=== PATIENT | male | born 1960 | race Caucasian/White ===

== ENCOUNTER → 2019-07-20 08:59 | Outpatient (BNVA) | payer MEDICARE, OTHER, SELFPAY | PROVIDERS: Family Provider Internal Medicine; PCP Internal Medicine; Visit Provider Nurse Practitioner | DX: F33.0 Major depressive disorder, recurrent, mild (principal); F41.1 Generalized anxiety disorder; F51.11 Primary hypersomnia | CPT/HCPCS: 99214 ==

== ENCOUNTER → 2019-08-28 09:33 | Outpatient (BNVA) | payer MEDICARE, OTHER, SELFPAY | PROVIDERS: Family Provider Internal Medicine; PCP Internal Medicine; Visit Provider Nurse Practitioner | DX: F41.1 Generalized anxiety disorder (principal); F33.0 Major depressive disorder, recurrent, mild | CPT/HCPCS: 99213 ==

== ENCOUNTER 2019-10-24 11:19 | Emergency (ER) | payer MEDICARE, OTHER, SELFPAY ==
[2019-10-24 11:22] VITALS: PULSE 78; RESP 24; TEMP 36.7; O2SAT 95; BMI 31.9
--- NOTE | 2019-10-24 11:39 | XR_ITS ---
WS: [id number] XR chest 1V portable [id number] REASON FOR EXAM: back pain, cough FINDINGS: The heart and mediastinal interfaces were normal. The lung chaney are well aerated. There is no pneumonia, pleural effusion, pulmonary edema, no pneumo thorax. The hilum and apices are normal. No osseous abnormalities. XR/XR chest 1V portable [id number] IMPRESSION: Negative chest for active pathology.
--- NOTE | 2019-10-24 11:40 | XR_ITS ---
WS: [id number] XR thoracic spine 3V* [id number] REASON FOR EXAM: back pain FINDINGS: Degenerates spurring throughout the thoracic spine. The disc spaces and vertebral bodies are normal. The lamina, pedicle, spinous processes were normal. XR/XR thoracic spine 3V* [id number] IMPRESSION: Osteoarthritic changes
--- NOTE | 2019-10-24 11:41 | ECG_ITS ---
Measurements Intervals Ruth Rate: 75 P: 55 PA: 188 QRS: 55 QRSD: 102 T: 56 QT: 355 QTc: 397 SINUS RHYTHM Poor R wave progression Compared to ECG 11/02/2018 08:34:56 No significant changes Electronically Signed On 10-24-2019 17:14:37 CDT by Rosalia Claudio M.D. [email or web address]
--- NOTE | 2019-10-24 11:42 | ED_ITS ---
HPI - General Adult General: Chief complaint: General Medical Stated complaint: SOB Time Seen by Provider: 10/24/19 11:24 History of Present Illness: HPI narrative: Mr. Ross is a pleasant gentleman that complains of back pain with deep inspiration. Thinks he may be did something to his back. Said he has had a cough has a history of COPD denies fevers chills nausea or vomiting. Patient says this is gone on for about 2 days and has no improvement MD complaint: Thoracic back pain Onset (ago): day(s) Location: back Radiation: non-radiation Severity: moderate Severity scale (1-10): 6 Quality: burning, stabbing and aching Pain Consistency: intermittent Relieving factors: immobilization Exacerbating factors: other (Breathing) Associated symptoms: Reports cough; Deny chest pain, dyspnea, fevers/chills, headache(s), nausea, rash or vomiting Review of Systems Const: Denies: fever, chills or body aches Eyes: Denies: change in vision or blurry vision ENMT: Denies: throat pain or nasal congestion Card: Denies: chest pain Resp: Reports: non-productive cough and pain on inspiration; Denies: shortness of breath or productive cough GI: Denies: abdominal pain, nausea or vomiting : Denies: difficulty urinating Musc: Reports: back pain; Denies: extremity pain Skin/Breast: Denies: rash Neuro: Denies: headache Psych: Denies: anxiety or depression Endy/Lymph: Denies: easy bruising PFSH ED PFSH: Social History (Updated 08/28/19 @ 09:44 by Chelo Almaraz LPN) Smoking and tobacco status: current some day smoker cigarettes Smoking risk assessment/counseling performed?: Yes Tobacco counseling given: counseling >3 minutes Alcohol intake: former History of recent travel: No Current gender identity: Male Physical Exam Const: COMMON NORMALS: no apparent distress, average body habitus and oriented x3 HENMT: COMMON NORMALS: normocephalic HEAD & SCALP: normal to inspection and normocephalic FACE & SINUS: normal facial exam Eye: COMMON NORMALS: conjunctivae normal GENERAL EYE: normal appearance of both eyes CONJUNCTIVA: Yes conjunctivae normal Neck/C-Spine: COMMON NORMALS: no JVD Chest: COMMONS NORMALS: inspection of chest normal Resp: COMMON NORMALS: normal respiratory effort AUSCULTATION: rhonchi, wheezes and diminished lung sounds Cardio: COMMON NORMALS: no JVD, regular rate and regular rhythm RATE: regular rate RHYTHM: regular rhythm GI: COMMON NORMALS: normal to inspection, nondistended, normoactive bowel sounds Extremity: COMMON NORMALS: normal to inspection and full ROM Neuro: COMMON NORMALS: oriented x3 Course Vital Signs: Vital signs: Vital Signs Temperature 98.0 F 10/24/19 11:22 Pulse Rate 78 10/24/19 11:22 Respiratory Rate 24 H 10/24/19 11:22 Pulse Oximetry 95 10/24/19 11:22 [facility] - General Adult EKG Data^: EKG 1: EKG interpretation date: 10/24/19 EKG interpretation time: 12:04 Interpretation: Sinus rhythm ventricular rate 70 bpm SC interval 188 ms QRS duration 102 ms Computer generated interpretation: Chest X-Ray 10/24/19 11:39 IMPRESSION: Negative chest for active pathology. Thoracic Spine X-Ray 10/24/19 11:40 IMPRESSION: Osteoarthritic changes Discharge Plan Discharge Prescriptions: No Action temazepam [Restoril] 30 mg capsule 30 mg PO .qhs Qty: 30 RF: 5 mirtazapine [Remeron] 15 mg tablet 15 mg PO .at bed Qty: 30 RF: 1 ramelteon [Rozerem] 8 mg tablet 8 mg PO .at bed Qty: 30 RF: 1 trazodone 150 mg tablet 450 mg PO .at bed PRN (Reason: sleep) Qty: 90 RF: 1 venlafaxine [Effexor XR] 75 mg capsule,extended release 24hr 75 mg PO QAM Qty: 30 RF: 1 diazepam [Valium] 10 mg tablet 10 mg PO QID PRN (Reason: anxiety) Qty: 120 RF: 1 Protonix [address] for susp in packet 40 mg PO DAILY RF: 0 Zyrtec 10 mg capsule 10 mg PO BID RF: 0 montelukast [Singulair] 10 mg tablet 10 mg PO DAILY RF: 0 testosterone cypionate [Depo-Testosterone] 200 mg/mL oil 400 mg IM .[id number] 30 Days Qty: 10 RF: 5 sildenafil 100 mg tablet 100 mg PO DAILY PRN (Reason: sexual activity) Qty: 30 RF: 0 albuterol sulfate [Ventolin HFA] 90 mcg/actuation HFA aerosol inhaler 2 puff INHALATION Q6H PRN (Reason: shortness of breath or wheezing) Qty: 18 RF: 0 Coding Level of Care Code ED Thread Trimmer for Chg Fwd Exam Comprehensive
--- NOTE | 2019-10-24 11:47 | PC.NURSE ---
pt transported to radiology by stretcher with tech
[2019-10-24 12:05] LABS: Basophils % 0.7 %; Eosinophils % 0.3 %; Hematocrit 49.3 % (42.0-52.0); Hemoglobin 15.9 g/dL (11.7-16.6); Lymphocytes # 1.7 10^3/uL (0.8-4.8); Lymphocytes % 27.7 %; Mean Corpuscular HGB Conc 32.3 g/dL (30.0-36.0); Mean Corpuscular Hemoglobin 34.2 pg (28.0-34.0); Mean Platelet Volume 8.8 fL (7.4-10.4); Monocytes # 0.5 10^3/uL (0.2-0.9); Neutrophils # 3.8 10^3/uL (1.8-7.7); Neutrophils % 62.8 %; Nucleated Red Blood Cells % 0 %; Platelet Count 245 10^3/cmm (130-400); Red Blood Count 4.65 10^6/uL (4.1-5.3); Red Cell Distribution Width 13.6 % (12.1-15.1)
[2019-10-24 12:06] VITALS: PULSE 86; RESP 16; O2SAT 97; O2SAT 98
[2019-10-24] MEDS: ipratropium-albuterol 3 mL Neb INHALATION (12:08)
[2019-10-24] MEDS: ketorolac 30 mg/mL INJ IVP (12:11)
[2019-10-24 12:19] LABS: Alanine Aminotransferase 16 U/L (0-41); Albumin Level 4.8 g/dL (3.5-5.2); Alkaline Phosphatase 76 IU/L (40-130); Anion Gap 14.6 (5-19); Aspartate Amino Transferase 19 U/L (0-40); Blood Urea Nitrogen 12 mg/dL (6-20); Calcium 9.6 mg/dL (8.5-10.5); Carbon Dioxide 29 mmol/L (22-29); Chloride 98 mmol/L (98-107); Globulin 2.6 g/dL (1.3-4.6); Glomerular Filtration Rate 115.8 mL/min (90-130); Glucose 118 mg/dL (65-115); Osmolality Calculated 281 mOsm/kg (285-295); Potassium 4.6 mmol/L (3.5-5.1); Sodium 137 mmol/L (136-145); Total Bilirubin 0.3 mg/dL (0.15-1.2); Total Protein 7.4 g/dL (6.6-8.7)
[2019-10-24] MEDS: HYDROcodone-acetaminophen 7.5-325 mg Tablet 1 TAB PO (12:31)
[2019-10-24 12:32] VITALS: BP 149/90; PULSE 75; O2SAT 95
[2019-10-24 13:06] VITALS: BP 123/81; PULSE 74; RESP 16; O2SAT 93
== END 2019-10-24 13:10 | disposition home or self-care (01) ==
PROVIDERS: Emergency Provider Nurse Practitioner Family; Family Provider Internal Medicine; PCP Internal Medicine
DX: R06.02 Shortness of breath (principal); F17.210 Nicotine dependence, cigarettes, uncomplicated
CPT/HCPCS: 12345; 71045; 72072; 80053; 85025; 93005; 94640; 96374; 96375; 99283; J1885; J2930

== ENCOUNTER → 2019-10-27 08:41 | Outpatient (BNVA) | payer MEDICARE, OTHER, SELFPAY | PROVIDERS: Family Provider Internal Medicine; PCP Internal Medicine; Visit Provider Nurse Practitioner | DX: F33.0 Major depressive disorder, recurrent, mild (principal); F41.1 Generalized anxiety disorder | CPT/HCPCS: 99213 ==

== ENCOUNTER → 2019-12-25 07:34 | Outpatient (BNVA) | payer MEDICARE, OTHER, SELFPAY | PROVIDERS: Family Provider Internal Medicine; PCP Internal Medicine; Visit Provider Nurse Practitioner | DX: G89.29 Other chronic pain (principal); M79.18 Myalgia, other site; M47.816 Spondylosis without myelopathy or radiculopathy, lumbar region; M54.9 Dorsalgia, unspecified; M51.16 Intervertebral disc disorders with radiculopathy, lumbar region; M48.061 Spinal stenosis, lumbar region without neurogenic claudication; M54.2 Cervicalgia; F17.210 Nicotine dependence, cigarettes, uncomplicated; Z98.890 Other specified postprocedural states; Z79.899 Other long term (current) drug therapy | CPT/HCPCS: 20553; 99204; 99213; J1030; J3490 ==

== ENCOUNTER 2020-02-14 13:31 | Outpatient (CLI) | payer MEDICARE, OTHER, SELFPAY ==
--- NOTE | 2020-02-14 13:40 | XRR_ITS ---
PROCEDURE INFORMATION: Exam: XR Cervical Spine, 2 or 3 Views Exam date and time: 02/14/2020 1:40 PM Age: 59 years old Clinical indication: Patient HX: Lower neck pain for 2 years TECHNIQUE: Imaging protocol: XR of the cervical spine, 2 or 3 views. COMPARISON: CT neck w con* [id number] 05/09/2018 9:22 AM FINDINGS: Vertebrae: No acute fracture. Normal alignment. Degenerative change is identified in the spine. There is disc space narrowing and osteophyte formation especially at C6/7. Soft tissues: Unremarkable. XR/XR cervical spine 3V* [id number] IMPRESSION: No acute findings.
== END 2020-02-14 13:32 | disposition home or self-care (01) ==
LOC: RAD 13:35
PROVIDERS: PCP Internal Medicine; Visit Provider Internal Medicine
DX: M54.2 Cervicalgia (principal)
CPT/HCPCS: 72040

== ENCOUNTER → 2020-03-18 07:52 | Outpatient (BNVA) | payer MEDICARE, OTHER, SELFPAY | PROVIDERS: PCP Internal Medicine; Visit Provider Nurse Practitioner | DX: F41.1 Generalized anxiety disorder (principal); F33.0 Major depressive disorder, recurrent, mild | CPT/HCPCS: 99213 ==

== ENCOUNTER → 2020-05-10 07:44 | Outpatient (BNVA) | payer MEDICARE, OTHER, SELFPAY | PROVIDERS: PCP Internal Medicine; Visit Provider Nurse Practitioner | DX: F41.1 Generalized anxiety disorder (principal); F33.0 Major depressive disorder, recurrent, mild | CPT/HCPCS: 99213 ==

== ENCOUNTER → 2020-08-01 08:23 | Outpatient (BNVA) | payer MEDICARE, SELFPAY | PROVIDERS: PCP Internal Medicine; Visit Provider Nurse Practitioner | DX: F41.1 Generalized anxiety disorder (principal); F33.0 Major depressive disorder, recurrent, mild | CPT/HCPCS: 99214 ==

== ENCOUNTER 2020-10-04 08:32 | Outpatient (CLI) | payer MEDICARE, SELFPAY ==
--- NOTE | 2020-10-04 08:40 | XR_ITS ---
WS: [id number] Thoracic spine, 3 views, 10/04/2020 Clinical Data: Z98.890 - Other specified postprocedural states Comparison: Thoracic spine, 10/24/2019. Findings: No compression fractures are seen. The disc heights are normal. There is moderate anterior osteoarthritic spurring along the thoracic vertebral bodies. XR/XR thoracic spine 2V [id number] Impression: Moderate osteoarthritis.
--- NOTE | 2020-10-04 08:40 | XR_ITS ---
WS: [id number] Lumbar spine, 3 views, 10/04/2020 Clinical Data: Z98.890 - Other specified postprocedural states Comparison: Lateral lumbar spine, 08/25/2012. Findings: The patient has a posterior lumbar fusion with bilateral pedicle screws at L2, L3 and L4. There are c onnecting rods and a transverse band. There are disc spacers at L2-L3, L3-L4 and L4-L5. There are no compression fractures. There is a 0.4 subluxation of L4 on L5. There is degenerative dis c narrowing at L5-S1. The AP view is underpenetrated and the transverse processes are difficult to se e. The SI joints show no obvious abnormalities. There is an L5 laminectomy. XR/XR lumbar spine 2-3V* [id number] Impression: 1. Posterior lumbar fusion L3-L5. 2. Disc spacers at L2-L3, L3-L4 and L4-L5. 2. L4 on L5 subluxation of 0.4 cm.
== END 2020-10-04 08:33 | disposition home or self-care (01) ==
LOC: RAD 08:40
PROVIDERS: PCP Internal Medicine; Visit Provider Internal Medicine
DX: Z98.890 Other specified postprocedural states (principal); M47.814 Spondylosis without myelopathy or radiculopathy, thoracic region; M43.26 Fusion of spine, lumbar region; S33.140A Subluxation of L4/L5 lumbar vertebra, initial encounter; X58.XXXA Exposure to other specified factors, initial encounter
CPT/HCPCS: 72070; 72100

== ENCOUNTER → 2020-10-24 12:42 | Outpatient (BNVA) | payer MEDICARE, SELFPAY | PROVIDERS: PCP Internal Medicine; Visit Provider Nurse Practitioner | DX: F41.1 Generalized anxiety disorder (principal); F33.0 Major depressive disorder, recurrent, mild | CPT/HCPCS: 99214 ==

== ENCOUNTER 2020-12-03 09:10 | Outpatient (CLI) | payer MEDICARE, SELFPAY ==
--- NOTE | 2020-12-03 09:30 | MR_ITS ---
WS: [id number] MRI LUMBAR SPINE NONCONTRAST TECHNIQUE: Sagittal T1, T2 and STIR imaging. Axial T1 and T2 imaging. CLINICAL INFORMATION: Z98.1 - Arthrodesis status COMPARISON: MRI March 23, 2018 FINDINGS: Mild lumbar curve. No acute compression. Pedicle screw fixation with interbody fusion L2-L4 with inte rbody fusion grafts. Associated laminectomy defects. No high-grade central canal stenosis. L1-L2: Mild disc bulging with slight effacement of ventral thecal sac. Mild bilateral foraminal narro wing. Mild central canal stenosis at this level. L2-L3: Pedicle screw fixation with interbody fusion grafts. Spinal canal and foramen are patent. L3-L4: Pedicle screw fixation with interbody fusion. Laminectomy defects. Spinal canal and foramen ar e patent. L4-L5: Pedicle screw fixation L4. Interbody fusion L4-5. Moderate facet arthropathy. Spinal canal and foramen are patent. L5-S1: Minimal disc bulging. Spinal canal and foramen are patent. Mild facet arthropathy. Visualized pelvic bony structures: Normal. Paravertebral soft tissues: Normal. MR/MR lumbar spine wo con* [id number] IMPRESSION: Axial images degraded by motion. 1. Pedicle screw fixation L2-L4 with interbody fusion grafts. Associated renaldo ectomy defects. 2. Mild annular bulging L1-2 with mild central canal stenosis. Mild bilateral foraminal narrowing. 3. Postoperative changes L2-3 are new from previous. 4. No other significant changes.
== END 2020-12-03 09:11 | disposition home or self-care (01) ==
LOC: RADSHAW 09:13
PROVIDERS: PCP Internal Medicine; Visit Provider Orthopaedic Surgery
DX: Z98.1 Arthrodesis status (principal); M51.26 Other intervertebral disc displacement, lumbar region; M48.061 Spinal stenosis, lumbar region without neurogenic claudication
CPT/HCPCS: 72148

== ENCOUNTER → 2021-01-16 11:02 | Outpatient (BNVA) | payer MEDICARE, SELFPAY | PROVIDERS: PCP Internal Medicine; Visit Provider Nurse Practitioner | DX: F41.1 Generalized anxiety disorder (principal); F33.0 Major depressive disorder, recurrent, mild | CPT/HCPCS: 99214 ==

== ENCOUNTER → 2021-04-10 10:51 | Outpatient (BNVA) | payer MEDICARE, SELFPAY | PROVIDERS: PCP Internal Medicine; Visit Provider Nurse Practitioner | DX: F41.1 Generalized anxiety disorder (principal); F33.0 Major depressive disorder, recurrent, mild | CPT/HCPCS: 99214 ==

== ENCOUNTER → 2021-07-02 10:58 | Outpatient (BNVA) | payer MEDICARE, SELFPAY | PROVIDERS: PCP Internal Medicine; Visit Provider Nurse Practitioner | DX: F41.1 Generalized anxiety disorder (principal); F33.0 Major depressive disorder, recurrent, mild | CPT/HCPCS: 99214 ==

== ENCOUNTER → 2021-08-27 13:47 | Outpatient (BNVA) | payer MEDICARE, SELFPAY | PROVIDERS: PCP Internal Medicine; Visit Provider Internal Medicine | DX: E29.1 Testicular hypofunction (principal) | CPT/HCPCS: 84403 ==

== ENCOUNTER → 2021-10-01 09:32 | Outpatient (BNVA) | payer MEDICARE, SELFPAY | PROVIDERS: PCP Internal Medicine; Visit Provider Nurse Practitioner | DX: F41.1 Generalized anxiety disorder (principal); F33.0 Major depressive disorder, recurrent, mild | CPT/HCPCS: 99214 ==

== ENCOUNTER 2022-04-27 06:00 | Day surgery (SDC) | payer MEDICARE, SELFPAY ==
[2022-04-23 12:15] VITALS: BMI 28.4
[2022-04-27 06:20] VITALS: BP 157/102; PULSE 83; RESP 18; TEMP 36.7; O2SAT 93
[2022-04-27] MEDS: sodium chloride 0.9% 1,000 ML 30 ML IV (06:25)
--- NOTE | 2022-04-27 06:26 | ANES.PREANE2 ---
Pre-Anesthetic Assessment Height/Weight: Height 1.8 m Weight 92.533 kg Temp Pulse Resp BP Pulse Ox O2 Del Method 98.0 F 83 18 157/102 93 04/27/22 06:20 04/27/22 06:20 04/27/22 06:20 04/27/22 06:20 04/27/22 06:20 04/27/22 06:20 Operation Date: 04/27/22 07:00 Proposed Procedures p Colonoscopy 80660, Z12.11(Not Applicable) - Spike Wise MD Familial anesthetic complications: None Was Beta Cliff taken within 24 hours: N/A Was Clonidine taken within 24 hours: N/A Last intake: Intake Last Liquid Date 04/26/22 Last Liquid Time 20:00 Last Solid Date 04/25/22 Social No alcohol and No tobacco Exam alert, oriented x 3, clear to auscultation bilaterally and regular rate & rhythm Airway Submandibular: within normal limits Cervical ROM: within normal limits (Decreased ROM) Mallampati: Class III Dentition: chipped, loose and partials (Left at home) History/ROS No significant history except as noted and No significant complaints Pulmonary Chronic Obstructive Pulmonary Disease and Exertional Dyspnea CV/HEM None reported None reported Hepatic None reported GI Gastroesophageal Reflux Disease (Controlled on meds, none this am) Metabolic None reported Musc/skel Lower Back Pain and Osteoarthritis/DJD 4 back surgeries Neuropsych Anxiety and Depression Anesthetic Plan ASA status: 3 Anesthesia: Anesthesia Evaluation, General and MAC Risk of > 500 ml blood loss (7ml/kg in children): No Medications/Allergies Home Medications Medication Instructions Recorded Confirmed Last Taken Type cetirizine 10 mg capsule (Zyrtec) 10 mg PO BID 08/01/19 04/27/22 04/26/22 History montelukast 10 mg tablet 10 mg PO DAILY 08/01/19 04/27/22 04/26/22 History (Singulair) fluticasone propionate 50 2 spray intranasal DAILY 12/25/19 04/27/22 04/26/22 History mcg/actuation nasal spray,suspension (Flonase Allergy Relief) pantoprazole 40 mg tablet,delayed 40 mg PO BID #180 tabs 06/23/21 04/27/22 04/26/22 Rx release testosterone cypionate 200 mg/mL 400 mg (2 mL) IM .[id number] 30 days 12/24/21 04/27/22 04/26/22 Rx intramuscular oil #10 mL (Depo-Testosterone) temazepam 30 mg capsule 30 mg PO DAILY #30 caps 03/23/22 04/27/22 04/27/22 Rx diazepam 10 mg tablet (Valium) 10 mg PO QID PRN anxiety #120 tabs 04/01/22 04/27/22 04/26/22 Rx mirtazapine 15 mg tablet (Remeron) 15 mg PO .at bed #30 tabs 04/01/22 04/27/22 04/26/22 Rx ramelteon 8 mg tablet (Rozerem) 8 mg PO .at bed #30 tabs 04/01/22 04/27/22 04/26/22 Rx trazodone 150 mg tablet 450 mg PO .at bed PRN sleep #90 04/01/22 04/27/22 04/26/22 Rx tabs venlafaxine 150 mg 150 mg PO DAILY #30 caps 04/01/22 04/27/22 04/26/22 Rx capsule,extended release 24 hr (Effexor XR) albuterol sulfate 90 mcg/actuation 2 puff inhalation Q6H PRN 04/07/22 04/27/22 04/26/22 Rx aerosol inhaler (Ventolin HFA) shortness of breath or wheezing #18 grams oxycodone-acetaminophen 5 mg-325 1 tab PO Q8H PRN pain 1 month #45 04/21/22 04/27/22 04/27/22 Rx mg tablet (Percocet) tabs azelastine 137 mcg (0.1 %) nasal 2 spray intranasal BID 04/23/22 04/27/22 04/26/22 History spray aerosol sildenafil 100 mg tablet (Viagra) 100 mg PO DAILY PRN sexual activity 04/23/22 04/27/22 04/24/22 History Allergies Allergy/AdvReac Type Severity Reaction Status Date / Time citalopram [From Celexa] Allergy rash Verified 04/27/22 06:17 escitalopram [From Lexapro] Allergy Unknown Verified 04/27/22 06:17 lamotrigine [From Lamictal] Allergy Unknown Verified 04/27/22 06:17 quetiapine [From Seroquel] Allergy Unknown Verified 04/27/22 06:17 Current Medications Generic Name Dose Route Start Last Admin Trade Name Michelle PRN Reason Stop Dose Admin Sodium Chloride 1,000 mls @ 30 mls/hr 04/27/22 06:15 04/27/22 06:25 Sodium Chloride 0.9% IV 04/28/22 06:14 30 mls/hr .Q24H PRINCE Administration PFSH Anesthesia Medical History Chronic back pain greater than 3 months duration He has had four surgeries on his lower back. He does not want to take narcotic pain meds. Generalized anxiety disorder Major depressive disorder, recurrent, mild Oppositional defiant disorder Primary hypersomnia Psychiatric care Social History Smoking and tobacco status: former smoker Smoking risk assessment/counseling performed?: Yes Tobacco counseling given: counseling >3 minutes Alcohol intake: former Caregiver/support person: Yes Lives independently: Yes Marital status: History of recent travel: No Current gender identity: Male Data Anesthesia Cardiac Studies: No Data to Display
--- NOTE | 2022-04-27 07:33 | W.PM.OPSFHP ---
Same Day Surgery H&P Indication for Procedure/HPI DATE OF PROCEDURE: April 27, 2022 CHIEF COMPLAINT/INDICATIONFOR SURGICAL PROCEDURE: Screen PREOP DIAGNOSIS: screen PLANNED PROCEDURE: Operation Date: 04/27/22 07:00 Proposed Procedures p Colonoscopy 07702, Z12.11(Not Applicable) - Spike Wise MD Medications/Allergies* Home Medications Medication Instructions Recorded Confirmed Type cetirizine 10 mg capsule (Zyrtec) 10 mg PO BID 08/01/19 04/27/22 History montelukast 10 mg tablet 10 mg PO DAILY 08/01/19 04/27/22 History (Singulair) fluticasone propionate 50 2 spray intranasal DAILY 12/25/19 04/27/22 History mcg/actuation nasal spray,suspension (Flonase Allergy Relief) azelastine 137 mcg (0.1 %) nasal 2 spray intranasal BID 04/23/22 04/27/22 History spray aerosol sildenafil 100 mg tablet (Viagra) 100 mg PO DAILY PRN sexual activity 04/23/22 04/27/22 History Allergies/Adverse Reactions Allergy/AdvReac Type Severity Reaction Status Date / Time citalopram [From Celexa] Allergy rash Verified 04/27/22 06:17 escitalopram [From Lexapro] Allergy Unknown Verified 04/27/22 06:17 lamotrigine [From Lamictal] Allergy Unknown Verified 04/27/22 06:17 quetiapine [From Seroquel] Allergy Unknown Verified 04/27/22 06:17 Current Medications: Generic Name Dose Route Start Last Admin Trade Name Freq PRN Reason Stop Dose Admin Sodium Chloride 1,000 mls @ 30 mls/hr 04/27/22 06:15 04/27/22 06:25 Sodium Chloride 0.9% IV 04/28/22 06:14 30 mls/hr .Q24H PRINCE Administration Pertinent History/Comorbid Conditions* Medical History (Updated 12/31/21 @ 13:25 by Camille Childs [facility] Chronic back pain greater than 3 months duration He has had four surgeries on his lower back. He does not want to take narcotic pain meds. Generalized anxiety disorder Major depressive disorder, recurrent, mild Oppositional defiant disorder Primary hypersomnia Psychiatric care Social History Smoking and tobacco status: former smoker Smoking risk assessment/counseling performed?: Yes Tobacco counseling given: counseling >3 minutes Alcohol intake: former Caregiver/support person: Yes Lives independently: Yes Marital status: History of recent travel: No Current gender identity: Male Pertinent Exam Findings alert, oriented x 3, clear to auscultation bilaterally, regular rate & rhythm, operative site marked and procedure specific exam findings Recommendations Surgery/Procedure today Coding Level of Care Code Acute Data Entry Machine Operator for Matilda Tapia
[2022-04-27 07:48] VITALS: BP 126/68; PULSE 73; RESP 16; TEMP 36.1; O2SAT 99
[2022-04-27 08:02] VITALS: BP 131/87; PULSE 81; RESP 16; O2SAT 96
--- NOTE | 2022-04-27 14:31 | ANE.PACU2 ---
Inpatient post-anesthesia follow up: Airway intact: Yes Vital signs: Temperature 97.0 F Pulse Rate 81 Respiratory Rate 16 Blood Pressure 131/87 Pulse Oximetry 96 Oxygen Delivery Me thod Room Air Oxygen Flow Rate 3 Fraction of Inspir ed Oxygen Hydration adequate: Yes Nausea and vomiting: No Pain level: 1 Mental status: Baseline
== END 2022-04-27 08:12 | disposition home or self-care (01) ==
PROVIDERS: PCP Internal Medicine; Visit Provider Internal Medicine
PROC: 0DJD8ZZ Inspection of Lower Intestinal Tract, Via Natural or Artificial Opening Endoscopic (ICD-10-PCS; CPT 45378; principal; 2022-04-27 07:00)
DX: Z12.11 Encounter for screening for malignant neoplasm of colon (principal); Z87.891 Personal history of nicotine dependence; D12.3 Benign neoplasm of transverse colon; J44.9 Chronic obstructive pulmonary disease, unspecified; K21.9 Gastro-esophageal reflux disease without esophagitis; F41.9 Anxiety disorder, unspecified
CPT/HCPCS: 45385; 88305; J2704; J7030

== ENCOUNTER 2022-05-02 06:51 | Emergency (ER) | payer MEDICARE, SELFPAY ==
[2022-05-02 07:08] VITALS: BP 166/105; PULSE 93; RESP 20; TEMP 36.7; O2SAT 90; BMI 28.5
--- NOTE | 2022-05-02 07:12 | XRR_ITS ---
PROCEDURE INFORMATION: Exam: XR Right Foot Exam date and time: 05/02/2022 8:22 AM Age: 61 years old Clinical indication: Injury or trauma; Other: Slammed door on foot; Crushing; Right; Additional info: Right foot injury TECHNIQUE: Imaging protocol: Radiologic exam of the Right foot. Views: 1 or 2 views. Total images: 823 COMPARISON: No relevant prior studies available. FINDINGS: Bones/joints: Minimally displaced fracture at medial base of proximal phalanx of 5th digit which extends to the articular surface. No additional fracture, subluxation, or dislocation detected. Soft tissues: Normal. XR/XR foot RT 2V [id number] IMPRESSION: Minimally displaced fracture at medial base of proximal phalanx of 5th digit which extends to the articular surface.
--- NOTE | 2022-05-02 07:12 | ED_ITS ---
HPI - Extremity Problem General: Chief complaint: Extremity Injury, Lower Stated complaint: right foot injury Time Seen by Provider: 05/02/22 07:11 History of Present Illness: crushed foot in garage door 2 days ago Review of Systems General: Reports: 10 or more systems reviewed and unremarkable except in HPI and below Musc: Reports: extremity pain (right foot pain/ankle pain ) PFS ED PFSH: Medical History Chronic back pain greater than 3 months duration He has had four surgeries on his lower back. He does not want to take narcotic pain meds. Generalized anxiety disorder Major depressive disorder, recurrent, mild Oppositional defiant disorder Primary hypersomnia Psychiatric care Social History Smoking and tobacco status: former smoker Smoking risk assessment/counseling performed?: Yes Tobacco counseling given: counseling >3 minutes Alcohol intake: former Caregiver/support person: Yes Lives independently: Yes Marital status: History of recent travel: No Current gender identity: Male Physical Exam Const: COMMON NORMALS: no acute distress, patient oriented x3, no limitations and alert GENERAL APPEARANCE: cooperative and comfortable ORIENTATION/CONSCIOUSNESS: Yes awake, Yes oriented to person, Yes oriented to place and Yes oriented to time HENMT: COMMON NORMALS: normocephalic, atraumatic, external ears normal, EAC's normal, TM's normal bilaterally and Normal external nose present HEAD & S CALP: normal to inspection, normocephalic and atraumatic FACE & SINUS: normal facial exam, sinuses nontender and face symmetric NOSE: Normal external nose present, Normal nares present and No nasal discharge present EXTERNAL EAR: Yes external ears normal EXTERNAL AUDITORY CANAL: EAC's normal TYMPANIC MEMBRANE: TM's normal bilaterally MOUTH: Normal oral and palatal mucosa present, lip normal and tongue normal THROAT: posterior oropharynx normal, tonsils normal and uvula midline Eye: COMMON NORMALS: Equal, round and reactive pupils present, EOMs intact bilaterally and conjunctivae normal GENERAL EYE: appearance normal, both eyes and all related structures and normal light reflex EYELID: eyelids normal CONJUNCTIVA: Yes conjunctivae normal PUPIL: Yes Equal, round and reactive pupils present EOM: Yes EOM abnormal DIRECT OPHTHALMOSCOPY: Yes normal light reflex Neck/C-Spine: COMMON NORMALS: full ROM, no lymphadenopathy, supple, no meningeal signs, no JVD and Thyroid normal GENERAL: Yes normal visual inspection THYROID: Thyroid normal CERVICAL SPINE: Yes cervical ROM normal and Yes normal cervical lordosis Lymph: LYMPHATIC: no lymphadenopathy noted Chest: COMMONS NORMALS: normal inspection of the chest and normal palpation of entire chest wall Resp: COMMON NORMALS: normal respiratory effort, No retractions and clear to auscultation bilaterally AUSCULTATION: clear to auscultation bilaterally Cardio: COMMON NORMALS: no JVD, regular rate, regular rhythm, S1 normal heart sound present, S2 normal heart sound present, No gallops present (Cardio), No clicks present (Cardio), No murmurs present (Cardio), No rub (Cardio) and Peripheral pulses 2+ throughout RATE: regular rate RHYTHM: regular rhythm HEART SOUNDS: S1 normal heart sound present and S2 normal heart sound present PERIPHERAL PULSES: Peripheral pulses 2+ throughout GI: COMMON NORMALS: Normal to inspection, nondistended, normoactive bowel sounds present, Soft to palpation, non-tender and no masses PALPATION: Yes Soft to palpation : COMMON NORMALS: Yes no CVA tenderness BLADDER/KIDNEY EXAM: Yes no CVA tenderness Back/Pelvis: COMMON NORMALS: no CVA tenderness, thoracic and lumbar spine normal to inspection, no thoracic nor lumbar tenderness and thoraco-lumbar ROM normal Extremity: RIGHT LOWER EXTREMITY: Yes foot & digits (ecchymosis, swelling, pain with weight bearing) Right foot and digits: Yes neurovascular exam (intact ) Neuro: COMMON NORMALS: patient oriented x3, moves all extremities, no focal motor deficits, no sensory deficits noted and gait normal SENSORIUM/ORIENT ATION: Yes alert, Yes oriented to person, Yes oriented to place and Yes oriented to time MENINGEAL SIGNS: Yes no meningeal signs Psych: COMMON NORMALS: mental status grossly normal, Normal thought process present, cooperative, normal affect, speech normal and activity/motor behavior normal SPEECH: Yes normal speech THOUGHT PROCESS: Normal thought process present Skin: COMMON NORMALS: no rashes or lesions noted, no wounds and turgor normal GENERAL SKIN EXAM: no rashes or lesions noted and turgor normal Course ED course: Xray performed. Pt given pain medication. Vital Signs: Vital signs: Vital Signs Temperature 98.1 F 05/02/22 07:08 Pulse Rate 93 05/02/22 07:08 Respiratory Rate 20 H 05/02/22 07:08 Blood Pressure 166/105 05/02/22 07:08 Pulse Oximetry 90 05/02/22 07:08 Oxygen Delivery Me thod 05/02/22 07:08 MDM - Extremity (Nontraumatic) Medical Decision Making Crushing injury 2 days ago when pt slammed his foot in the garage door. He has some ankle swelling related to twisting but bruising is noted mostly between fourth and fifth toes. This correlates to the medial base of proximal fifth phalanx fx. It is minimally displaced. It will likely heal without surgical intervention but will need follow up with ortho to ensure. Ortho boot and cane use for today. Due to crushing nature we will also place on oral antibx and RICE therapy. Lab Data Radiology Impressions Foot X-Ray 05/02/22 07:12 IMPRESSION: Minimally displaced fracture at medial base of proximal phalanx of 5th digit which extends to the articular surface. Discharge Plan Discharge Patient Disposition: Home Clinical Impression: Foot fracture, left Condition: Stable Prescriptions: New cephalexin 500 mg capsule 500 mg PO BID 7 Days Qty: 14 0RF ibuprofen 800 mg tablet 800 mg PO Q8H Qty: 10 0RF No Action fluticasone propionate [Flonase Allergy Relief] 50 mcg/actuation spray,suspension 2 spray INTRANASAL DAILY Rx Instructions: administer into each nostril Zyrtec 10 mg capsule 10 mg PO BID montelukast [Singulair] 10 mg tablet 10 mg PO DAILY venlafaxine [Effexor XR] 150 mg capsule,extended release 24hr 150 mg PO DAILY Qty: 30 2RF trazodone 150 mg tablet 450 mg PO .at bed PRN (Reason: sleep) Qty: 90 2RF Rx Instructions: 2 to 3 tabs at bed ramelteon [Rozerem] 8 mg tablet 8 mg PO .at bed Qty: 30 2RF diazepam [Valium] 10 mg tablet 10 mg PO QID PRN (Reason: anxiety) Qty: 120 2RF Rx Instructions: must last 30 days mirtazapine [Remeron] 15 mg tablet 15 mg PO .at bed Qty: 30 2RF pantoprazole 40 mg tablet,delayed release (DR/EC) 40 mg PO BID Qty: 180 3RF testosterone cypionate [Depo-Testosterone] 200 mg/mL oil 400 mg IM .[id number] 30 Days Qty: 10 5RF Rx Instructions: 2 mls every 2 weeks temazepam 30 mg capsule 30 mg PO DAILY Qty: 30 1RF Rx Instructions: TAKE 1 CAPSULE BY MOUTH DAILY albuterol sulfate [Ventolin HFA] 90 mcg/actuation HFA aerosol inhaler 2 puff INHALATION Q6H PRN (Reason: shortness of breath or wheezing) Qty: 18 2RF oxycodone-acetaminophen [Percocet] 5-325 mg tablet 1 tab PO Q8H PRN (Reason: pain) 30 Days Qty: 45 0RF sildenafil [Viagra] 100 mg tablet 100 mg PO DAILY PRN (Reason: sexual activity) Rx Instructions: administer 30 minutes to 4 hours before activity azelastine 137 mcg (0.1 %) aerosol,spray 2 spray intranasal BID Rx Instructions: USE 2 SPRAYS IN EACH NOSTRIL TWICE DAILY Discharge Orders: Discharge ED (Routine); Ordered 05/02/22 Ordered By: Zuly Ward Referrals: Spike Wise MD [Primary Care Provider] - Discharge Diet: Usual diet Discharge Activity: Increase activity as tolerated Patient Instructions: Opioid Safety, Pain Management Activity Restrictions/Additional Instructions: Follow up with ortho once appt is made Rest, Ice, Elevate, compress May initiate oral antibiotics today, if much improved may stop after 3 days and hold the following 5 days unless otherwise instructed Take your prescribed percocet and ibuprofen as needed for pain Use your cane to help offload pressure on the right foot Coding Level of Care Code ED [employer] for [employer] Fwd Exam Comprehensive
--- NOTE | 2022-05-02 07:21 | PC.NURSE ---
pt 89-90% on room air. pt reports hx COPD. provider aware.
[2022-05-02] MEDS: HYDROcodone-acetaminophen 5-325 mg Tablet 1 TAB PO (07:57)
[2022-05-02 08:38] VITALS: BP 129/97; PULSE 88; RESP 16; O2SAT 93
--- NOTE | 2022-05-04 07:53 | PC.SOCIAL ---
Addendum entered by Emma Miller 06/10/22 13:44: Patient had a follow up appointment scheduled with ortho - patient did attend appointment. Original Note: Ortho Referral Consult received for ortho referral. Referral sent to [facility] Orthopedics/Podiatry. Clinic will contact patient with appt. date/time.
== END 2022-05-02 08:57 | disposition home or self-care (01) ==
PROVIDERS: Emergency Provider Nurse Practitioner Family; PCP Internal Medicine
DX: S92.512A Displaced fracture of proximal phalanx of left lesser toe(s), initial encounter for closed fracture (principal); Z87.891 Personal history of nicotine dependence; W23.0XXA Caught, crushed, jammed, or pinched between moving objects, initial encounter
CPT/HCPCS: 73620; 99283

== ENCOUNTER → 2022-05-05 13:29 | Outpatient (BNVA) | payer MEDICARE, SELFPAY | PROVIDERS: PCP Internal Medicine; Visit Provider Podiatrist Foot & Ankle Surgery | DX: S92.911A Unspecified fracture of right toe(s), initial encounter for closed fracture (principal); X58.XXXA Exposure to other specified factors, initial encounter; R60.0 Localized edema | CPT/HCPCS: 73600; 99203 ==

== ENCOUNTER → 2022-05-29 08:50 | Outpatient (BNVA) | payer MEDICARE, SELFPAY | PROVIDERS: PCP Internal Medicine; Visit Provider Podiatrist Foot & Ankle Surgery | DX: S92.911A Unspecified fracture of right toe(s), initial encounter for closed fracture (principal); X58.XXXA Exposure to other specified factors, initial encounter; R60.0 Localized edema | CPT/HCPCS: 73630; 99213 ==

== ENCOUNTER → 2022-12-10 15:05 | Outpatient (BNVA) | payer MEDICARE, SELFPAY | PROVIDERS: PCP Internal Medicine; Visit Provider Orthopaedic Surgery | DX: M48.061 Spinal stenosis, lumbar region without neurogenic claudication (principal); M51.16 Intervertebral disc disorders with radiculopathy, lumbar region; M54.9 Dorsalgia, unspecified; G89.29 Other chronic pain | CPT/HCPCS: 72110; 99214 ==

== ENCOUNTER 2023-03-17 12:34 | Outpatient (CLI) | payer OTHER, MEDICARE, SELFPAY ==
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
== END 2023-03-17 12:35 | disposition home or self-care (01) ==
PROVIDERS: PCP Internal Medicine; Visit Provider Orthopaedic Surgery
DX: M40.204 Unspecified kyphosis, thoracic region (principal); G89.29 Other chronic pain; M48.02 Spinal stenosis, cervical region; M47.814 Spondylosis without myelopathy or radiculopathy, thoracic region; M48.061 Spinal stenosis, lumbar region without neurogenic claudication; M47.816 Spondylosis without myelopathy or radiculopathy, lumbar region; Z98.890 Other specified postprocedural states; V89.2XXA Person injured in unspecified motor-vehicle accident, traffic, initial encounter
CPT/HCPCS: 72146; 72148

== ENCOUNTER 2023-03-19 19:27 | Emergency (ER) | payer MEDICARE, SELFPAY ==
[2023-03-19 19:31] VITALS: BP 133/88; PULSE 89; RESP 20; TEMP 36.6; O2SAT 89; BMI 32.1
[2023-03-19 19:36] VITALS: BP 133/88; PULSE 94; RESP 20; O2SAT 87
[2023-03-19 19:38] VITALS: O2SAT 88
--- NOTE | 2023-03-19 19:44 | CTR_ITS ---
PROCEDURE INFORMATION: Exam: CT Head Without Contrast Exam date and time: 03/19/2023 8:28 PM Age: 62 years old Clinical indication: Injury or trauma; Fall; Laceration; Consciousness not specified; Without residual foreign body; Forehead; Injury date: Today TECHNIQUE: Imaging protocol: Computed tomography of the head without contrast. Radiation optimization: All CT scans at this facility use at least one of these dose optimization techniques: automated exposure control; mA and/or kV adjustment per patient size (includes targeted exams where dose is matched to clinical indication); or iterative reconstruction. REPORTING DATA: Count of CT and Cardiac NM exams in prior 12 months: This patient has received 0 known CTs and 0 known cardiac nuclear medicine studies in the 12 months prior to the current study. COMPARISON: CT neck w con* [id number] 05/09/2018 9:22 AM RADIATION DOSE METRICS: Total DLP (mGy-cm): 1059.4 FINDINGS: Brain: Normal. No hemorrhage. Unremarkable white matter. No mass effect. Cerebral ventricles: No ventriculomegaly. Paranasal sinuses: Visualized sinuses are unremarkable. No fluid levels. Mastoid air cells: Visualized mastoid air cells are well aerated. Bones/joints: Unremarkable. No acute fracture. Soft tissues: Unremarkable. CT/CT head wo con* [id number] IMPRESSION: No acute intracranial abnormality.
--- NOTE | 2023-03-19 19:44 | XRR_ITS ---
PROCEDURE INFORMATION: Exam: XR Right Shoulder Exam date and time: 03/19/2023 8:03 PM Age: 62 years old Clinical indication: Pain and injury or trauma; Other: RT shoulder pain post fall; Upper arm; Injury details: Right shoulder pain post fall TECHNIQUE: Imaging protocol: Radiologic exam of the right shoulder. Views: 2 or more views. COMPARISON: CR XR cervical spine 3V* [id number] 02/14/2020 1:51 PM FINDINGS: Bones/joints: Osseous structures are intact. Negative for fracture or dislocation. Soft tissues: Normal. XR/XR shoulder RT min 2V* [id number] IMPRESSION: No acute findings.
--- NOTE | 2023-03-19 19:44 | ECG_ITS ---
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 Measurements Intervals [place] Rate: 92 P: -17 MA: 198 QRS: 47 QRSD: 88 T: 32 QT: 333 QTc: 413 Interpretive Statements SINUS RHYTHM Compared to ECG 10/24/2019 12:06:34 Poor R-wave progression no longer present Electronically Signed On 03-20-2023 9:41:56 CDT by Raul Stanton M.D. [id number] f
--- NOTE | 2023-03-19 19:44 | CTR_ITS ---
PROCEDURE INFORMATION: Exam: CT Cervical Spine Without Contrast Exam date and time: 03/19/2023 8:28 PM Age: 62 years old Clinical indication: Injury or trauma; Fall; Wound; Without foreign body; Injury date: Today TECHNIQUE: Imaging protocol: Computed tomography of the cervical spine without contrast. Radiation optimization: All CT scans at this facility use at least one of these dose optimization techniques: automated exposure control; mA and/or kV adjustment per patient size (includes targeted exams where dose is matched to clinical indication); or iterative reconstruction. REPORTING DATA: Count of CT and Cardiac NM exams in prior 12 months: This patient has received 0 known CTs and 0 known cardiac nuclear medicine studies in the 12 months prior to the current study. COMPARISON: CR XR cervical spine 3V* [id number] 02/14/2020 1:51 PM RADIATION DOSE METRICS: Total DLP (mGy-cm): 325.9 FINDINGS: Bones/joints: No acute fracture. Normal alignment. No severe spinal canal stenosis. Lungs: Lung apices are normal. Soft tissues: Unremarkable. CT/CT cervical spin wo con* [id number] IMPRESSION: No acute findings.
--- NOTE | 2023-03-19 19:45 | W.ED.FALL ---
HPI - Fall General: Chief Complaint: Fall Stated Complaint: fall Time Seen by Provider: 03/19/23 19:34 Source: patient Mode of arrival: EMS Limitations: no limitations History of Present Illness: This patient was transported by EMS from his home. He reports that he had a blacking out spell at home and fell striking his head. He states there is no prodrome to his episode. He denies any associated chest pain, palpitations, syncope etc. He does admit that he has been drinking couple of beers earlier today. He complains of laceration to his forehead as well as pain in his right shoulder. He denies any other injury at this time. He does admit to regular use of alcohol. He also endorses a chronic history of back and neck pain. He has not had prior fusion on his low back. Fall from: standing Fall witnessed: no Place fall occurred: home Context: alcohol use Location of injury: head Location of injury - extremities: Right: shoulder Associated symptoms-after fall: Reports neck pain; Denies chest pain or headache(s) Review of Systems Const: Denies: fever(s) or chills Eyes: Denies: change in vision ENMT: Denies: odynophagia, nasal congestion or epistaxis Card: Denies: chest pain, palpitations, irregular heart rhythm, syncope or pre-syncope GI: Denies: nausea, vomiting or diarrhea Musc: Reports: neck pain, back pain and extremity pain; Denies: extremity swelling Skin/Breast: Denies: rash or pruritus Neuro: Denies: headache(s), numbness in extremities or weakness in extremities [facility] PFSH: Medical History Chronic back pain greater than 3 months duration He has had four surgeries on his lower back. He does not want to take narcotic pain meds. Generalized anxiety disorder Major depressive disorder, recurrent, mild Oppositional defiant disorder Primary hypersomnia Psychiatric care Social History Smoking and tobacco status: former smoker Smoking risk assessment/counseling performed?: Yes Tobacco counseling given: counseling >3 minutes Alcohol intake: former Substance/Drug Use: former Date of last use: MANY YEARS AGO METH, COCAINE, THC 38 YEARS AGO Caregiver/support person: Yes Lives independently: Yes Marital status: Current gender identity: Male Physical Exam Narrative: EXAM NARRATIVE: He is alert makes good eye contact. Answers questions in a generally goal-directed fashion with generally fluent occasionally slurred speech. Const: COMMON NORMALS: average body habitus and patient oriented x3 GENERAL APPEARANCE: cooperative ORIENTATION/CONSCIOUSNESS: Yes awake, Yes oriented to person and Yes oriented to place HENMT: COMMON NORMALS: Normal nasal mucous membranes and turbinates present and moist oral mucous membranes HEAD & SCALP: laceration (Glabellar region); no palpable skull fracture and no scalp tenderness FACE & SINUS: sinuses nontender FACE & SINUS IMAGES: 1. Laceration NOSE: Normal nasal mucous membranes and turbinates present Eye: COMMON NORMALS: Equal, round and reactive pupils present, EOMs intact bilaterally and conjunctivae normal CONJUNCTIVA: Yes conjunctivae normal PUPIL: Yes Equal, round and reactive pupils present Neck/C-Spine: COMMON NORMALS: no JVD CERVICAL SPINE: Yes cervical ROM normal and No step off deformity Chest: COMMONS NORMALS: normal inspection of the chest and normal palpation of entire chest wall Resp: COMMON NORMALS: normal respiratory effort, No use of accessory muscles and clear to auscultation bilaterally AUSCULTATION: clear to auscultation bilaterally Cardio: COMMON NORMALS: no JVD, regular rate, regular rhythm, No murmurs present (Cardio) and Peripheral pulses 2+ throughout RATE: regular rate RHYTHM: regular rhythm PERIPHERAL PULSES: Peripheral pulses 2+ throughout GI: COMMON NORMALS: Normal to inspection, nondistended, normoactive bowel sounds present, Soft to palpation and non-tender PALPATION: Yes Soft to palpation : COMMON NORMALS: Yes no CVA tenderness BLADDER/KIDNEY EXAM: Yes no CVA tenderness Back/Pelvis: COMMON NORMALS: no CVA tenderness, thoracic and lumbar spine normal to inspection, no thoracic nor lumbar tenderness, thoraco-lumbar ROM normal and straight leg raise negative bilaterally Extremity: COMMON NORMALS: normal to inspection NARRATIVE EXTREMITY EXAM: Tenderness to right shoulder with active range of motion. No obvious deformity. No ecchymosis. GENERAL: Yes normal exam except as noted RIGHT UPPER EXTREMITY: Yes shoulder joint Neuro: COMMON NORMALS: patient oriented x3, moves all extremities, no focal motor deficits and no sensory deficits noted SENSORIUM/ORIENTATION: Yes oriented to person and Yes oriented to place CRANIAL NERVES: Yes CN normal except as noted Psych: COMMON NORMALS: mental status grossly normal Skin: COMMON NORMALS: no rashes or lesions noted and turgor normal GENERAL SKIN EXAM: no rashes or lesions noted and turgor normal Procedures Laceration Laceration 1: Site: face Size (cm): 5 Description: stellate (T shaped laceration superior to the right medial eyebrow) Depth: simple, single layer Local Anesthetic: lidocaine 1% Amount of anesthesia used (mL): 2 Pre-repair: deep structures intact Skin layer closed with: other (Prolene) Size (cm): 5-0 Number of sutures: 9 Technique: simple, interrupted Laceration 2: Site: face (Linear laceration just superior to the glabella) Size (cm): 2 Description: linear Depth: simple, single layer Pre-repair: wound explored Size (cm): other (Skin adhesive) Course Reevaluation(s): Reevaluation #1: Patient remained stable. Facial lacerations repaired. No new findings. Discussed expected course laceration care and reasons for return. Patient has a longstanding history of COPD is a former smoker. He has beta agonist and other home medications. Has been told he might need oxygen in the past but currently has no home oxygen that he uses. Time: 21:41 Vital Signs: Vital signs: Vital Signs Temperature 98 F 03/19/23 19:31 Pulse Rate 95 03/19/23 20:40 Respiratory Rate 18 03/19/23 20:40 Blood Pressure 169/95 03/19/23 20:40 Pulse Oximetry 93 03/19/23 20:40 Oxygen Delivery Me thod Nasal Cannula 03/19/23 20:40 Oxygen Flow Rate 2 03/19/23 20:40 MDM - Fall Medical Decision Making This patient presented to our emergency department because of a fall at home. He had a ground-level fall that he attributed to a blacking out episode. He states he has had many episodes like this in the past. He endorses daily alcohol use and states he drank a couple of beers earlier today. He states he got up from a sitting position and was walking in the kitchen when this occurred. He endorses a laceration to his forehead as well as pain in his right shoulder. He does have a longstanding history of COPD and uses inhalers. He denies any history of arrhythmias, coronary artery disease etc. Clinical examination revealed him to be alert. He had obvious lacerations to the skin of his forehead in the central region just superior to his orbital ridge. Otherwise his clinical examination did not reveal any evidence of midline tenderness in his cervical spine and hip. He did have some discomfort with movement of his neck but states that that is usual for him. He has a longstanding history of cervical arthritis as well as low back arthritis and status post lumbar fusion. His neurologic examination was otherwise nonfocal. Resting EKG and cardiac monitors revealed normal sinus rhythm without any ectopy and no evidence of other arrhythmias. Imaging of his cervical spine, head were unremarkable for any acute fractures, intracranial hemorrhage etc. Radiographs of his right shoulder were also reassuring. He was continually observed in the emergency department, his lacerations were repaired. He remained stable and suitable for discharge. We discussed expected course return for suture removal as well as PCP follow-up as well as alcohol avoidance. Again no evidence at this time to suggest other worrisome ongoing emergency medical condition. Lab Data I reviewed the patient's lab results. Radiology Impressions Cervical Spine CT 03/19/23 19:44 IMPRESSION: No acute findings. Head CT 03/19/23 19:44 IMPRESSION: No acute intracranial abnormality. Shoulder X-Ray 03/19/23 19:44 IMPRESSION: No acute findings. All radiology interpretation(s) finalized by discharge EKG Data EKG 1: I personally reviewed and interpreted this EKG as follows: Interpretation: Contemporaneous review of resting EKG reveals a ventricular rate of 92 bpm. Normal intervals, normal axis including normal QRS duration, normal corrected QT interval. No acute ST-T wave changes noted. Discharge Plan Discharge Patient Disposition: Home Clinical Impression: Fall from ground level, Face lacerations, Contusion of right scapula, Alcohol abuse, daily use Condition: Stable Prescriptions: No Action fluticasone propionate [Flonase Allergy Relief] 50 mcg/actuation spray,suspension 2 spray INTRANASAL DAILY Rx Instructions: administer into each nostril Zyrtec 10 mg capsule 10 mg PO BID montelukast [Singulair] 10 mg tablet 10 mg PO DAILY prednisone 20 mg tablet 20 mg PO DAILY Qty: 15 0RF Rx Instructions: Take 60 mg daily for days 1, 2, 3 Take 40 mg daily for days 4, 5 Take 20 mg daily for days 6, 7 diazepam [Valium] 10 mg tablet 10 mg PO QID PRN (Reason: anxiety) Qty: 120 2RF Rx Instructions: must last 30 days mirtazapine [Remeron] 15 mg tablet 15 mg PO .at bed Qty: 30 2RF ramelteon [Rozerem] 8 mg tablet 8 mg PO .at bed Qty: 30 2RF trazodone 150 mg tablet 450 mg PO .at bed PRN (Reason: sleep) Qty: 90 2RF Rx Instructions: 2 to 3 tabs at bed venlafaxine [Effexor XR] 150 mg capsule,extended release 24hr 150 mg PO DAILY Qty: 30 2RF pantoprazole 40 mg tablet,delayed release (DR/EC) 40 mg PO BID Qty: 180 3RF testosterone cypionate [Depo-Testosterone] 200 mg/mL oil 400 mg IM .[id number] 30 Days Qty: 10 5RF Rx Instructions: 2 mls every 2 weeks temazepam 30 mg capsule 30 mg PO DAILY Qty: 30 1RF Rx Instructions: TAKE 1 CAPSULE BY MOUTH DAILY albuterol sulfate [Ventolin HFA] 90 mcg/actuation HFA aerosol inhaler 2 puff INHALATION Q6H PRN (Reason: shortness of breath or wheezing) Qty: 18 2RF oxycodone-acetaminophen [Percocet] 5-325 mg tablet 1 tab PO Q8H PRN (Reason: pain) 30 Days Qty: 45 0RF sildenafil [Viagra] 100 mg tablet 100 mg PO DAILY PRN (Reason: sexual activity) Rx Instructions: administer 30 minutes to 4 hours before activity azelastine 137 mcg (0.1 %) aerosol,spray 2 spray intranasal BID Rx Instructions: USE 2 SPRAYS IN EACH NOSTRIL TWICE DAILY Discharge Orders: Discharge ED (Routine); Ordered 03/19/23 Ordered By: Kailash Westbrook Referrals: Spike Wise MD [Primary Care Provider] - Discharge Diet: Usual diet Discharge Activity: Increase activity as tolerated Patient Instructions: Laceration (ED), Opioid Safety, Pain Management Activity Restrictions/Additional Instructions: As we discussed your CT scans and x-rays were unremarkable for any fractures bleeding or other serious injury. Your lacerations were repaired both with stitches in the skin as well as with skin glue. The stitches should be removed from facial laceration approximately 5 days. You should return to this emergency department to have that procedure completed. We recommend you decrease or eliminate the use of daily alcohol. You should continue to use your inhalers and other treatments for your COPD and follow-up with your regular doctor for consideration for additional treatment and or whether you need home oxygen. If you have any concerns you are welcome to return to the emergency department anytime for reevaluation. Coding Level of Care Code ED Physical Science Technician for Matilda Tapia
[2023-03-19 19:52] VITALS: O2SAT 93
[2023-03-19] MEDS: tetanus-dipt-pertussis 0.5 mL SDV IM (19:59)
[2023-03-19 20:18] VITALS: BP 135/86; PULSE 90; RESP 20; O2SAT 95
[2023-03-19] MEDS: acetaminophen 325 mg Tablet 650 MG PO (20:37)
[2023-03-19 20:40] VITALS: BP 169/95; PULSE 95; RESP 18; O2SAT 93
== END 2023-03-19 22:09 | disposition home or self-care (01) ==
PROVIDERS: Emergency Provider Emergency Medicine; PCP Internal Medicine
DX: S40.011A Contusion of right shoulder, initial encounter (principal); S01.81XA Laceration without foreign body of other part of head, initial encounter; F10.10 Alcohol abuse, uncomplicated; Z87.891 Personal history of nicotine dependence; W18.39XA Other fall on same level, initial encounter; Z23 Encounter for immunization
CPT/HCPCS: 12014; 70450; 72125; 73030; 90471; 90715; 93005; 99284

== ENCOUNTER → 2023-03-23 15:50 | Outpatient (BNVA) | payer MEDICARE, SELFPAY | PROVIDERS: PCP Internal Medicine; Visit Provider Orthopaedic Surgery | DX: M51.37 Other intervertebral disc degeneration, lumbosacral region (principal); M48.07 Spinal stenosis, lumbosacral region; Z98.1 Arthrodesis status; G89.29 Other chronic pain | CPT/HCPCS: 72100; 99214 ==

== ENCOUNTER 2023-04-02 19:16 | Emergency (ER) | payer MEDICARE, MEDICAID, SELFPAY ==
--- NOTE | 2023-04-02 19:18 | CTR_ITS ---
PROCEDURE INFORMATION: Exam: CT Head Without Contrast Exam date and time: 04/02/2023 7:26 PM Age: 62 years old Clinical indication: Pain; Headache; Patient HX: C/O persistent ROSENBERG post fall last week striking frontal with lac requiring suture. ; Additional info: Persistent headache after injury TECHNIQUE: Imaging protocol: Computed tomography of the head without contrast. Radiation optimization: All CT scans at this facility use at least one of these dose optimization techniques: automated exposure control; mA and/or kV adjustment per patient size (includes targeted exams where dose is matched to clinical indication); or iterative reconstruction. REPORTING DATA: Count of CT and Cardiac NM exams in prior 12 months: This patient has received 2 known CTs and 0 known cardiac nuclear medicine studies in the 12 months prior to the current study. COMPARISON: CT head wo con* [id number] 03/19/2023 8:28 PM RADIATION DOSE METRICS: Total DLP (mGy-cm): 1142.76 FINDINGS: Brain: No hemorrhage. No edema. No significant white matter disease. No mass effect. Cerebral ventricles: No ventriculomegaly. Paranasal sinuses: Visualized sinuses are unremarkable. No fluid levels. Mastoid air cells: Visualized mastoid air cells are well aerated. Bones/joints: Unremarkable. No acute fracture. Soft tissues: Unremarkable. CT/CT head wo con* [id number] IMPRESSION: No acute intracranial abnormality.
[2023-04-02 19:20] VITALS: BP 134/83; PULSE 104; RESP 17; TEMP 36.8; O2SAT 93; BMI 27.8
[2023-04-02 19:24] VITALS: BP 135/81; PULSE 104; TEMP 36.7; O2SAT 93
--- NOTE | 2023-04-02 19:25 | W.ED.HA ---
HPI - Headache General: Chief Complaint: Headache Stated Complaint: head pain, hit head last week Time Seen by Provider: 04/02/23 19:18 History of Present Illness: 62-year-old male patient comes in for a headache for the last 2 days. Patient reports 1 week ago he had fallen and hit the front of his head against the ground. Patient is a everyday drinker of alcohol. Patient reports headache has worsened over the last 2 days. Patient has no focal neural deficits. Patient moves all extremities well. Patient ambulates without difficulty. Associated symptoms: Reports nausea; Deny chest pain, fever(s) or vomiting Review of Systems General: Reports: 10 or more systems reviewed and unremarkable except in HPI and below Const: Denies: fever(s) Card: Denies: chest pain Resp: Denies: dyspnea GI: Reports: nausea; Denies: vomiting, diarrhea or constipation Musc: Denies: neck pain Skin/Breast: Reports: other (Healing lesions forehead) Neuro: Reports: headache(s) [facility] ED PFSH: Medical History Chronic back pain greater than 3 months duration He has had four surgeries on his lower back. He does not want to take narcotic pain meds. Generalized anxiety disorder Major depressive disorder, recurrent, mild Oppositional defiant disorder Primary hypersomnia Psychiatric care Social History Smoking and tobacco/nicotine status: former use of tobacco/nicotine Alcohol intake: former Substance/Drug Use: former Date of last use: MANY YEARS AGO METH, COCAINE, THC 38 YEARS AGO Caregiver/support person: Yes Lives independently: Yes Marital status: Current gender identity: Male Physical Exam Const: COMMON NORMALS: alert HENMT: FACE & SINUS: other (Well-healed lesions to the central forehead no redness or swelling) Neck/C-Spine: COMMON NORMALS: full ROM Resp: COMMON NORMALS: normal respiratory effort and clear to auscultation bilaterally AUSCULTATION: clear to auscultation bilaterally Cardio: COMMON NORMALS: regular rate and regular rhythm RATE: regular rate RHYTHM: regular rhythm Extremity: COMMON NORMALS: normal to inspection Neuro: SENSORIUM/ORIENTATION: Yes alert Skin: COMMON NORMALS: turgor normal GENERAL SKIN EXAM: turgor normal Course Vital Signs: Vital signs: Vital Signs Temperature 98.1 F 04/02/23 19:24 Pulse Rate 104 H 04/02/23 19:24 Respiratory Rate 17 04/02/23 19:20 Blood Pressure 135/81 04/02/23 19:24 Pulse Oximetry 93 04/02/23 19:24 Oxygen Delivery Me thod Room Air 04/02/23 19:24 MDM - Headache Medical Decision Making Patient comes in today for complaints of headache 1 week status post head injury. Patient reports headache started 2 days ago. On exam patient has no focal neural deficits. Patient appears nontoxic. Patient moves all extremities well. Vital signs are normal. Wounds to the face are healing well. Differential diagnosis includes but not limited to intracranial bleed, postconcussion syndrome, postconcussion headache, sinusitis, malingering. CT of the head was performed and ruled out intracranial bleeding. Patient was given 10 mg of Reglan for headache with improvement of headache and nausea. Patient was recommended to try to not drink any alcohol or limit its usage. Patient was encouraged drink plenty of water and fluids. Patient was recommended to follow-up with primary care or return to the ER for worsening symptoms such as high fever, worsening headache, or new concerns. Lab Data Radiology Impressions Head CT 04/02/23 19:18 IMPRESSION: No acute intracranial abnormality. All radiology interpretation(s) finalized by discharge Discharge Plan Discharge Patient Disposition: Home Clinical Impression: Post-concussion headache Condition: Stable Prescriptions: No Action fluticasone propionate [Flonase Allergy Relief] 50 mcg/actuation spray,suspension 2 spray INTRANASAL DAILY Rx Instructions: administer into each nostril Zyrtec 10 mg capsule 10 mg PO BID prednisone 20 mg tablet 20 mg PO DAILY Qty: 15 0RF Rx Instructions: Take 60 mg daily for days 1, 2, 3 Take 40 mg daily for days 4, 5 Take 20 mg daily for days 6, 7 diazepam [Valium] 10 mg tablet 10 mg PO QID PRN (Reason: anxiety) Qty: 120 2RF Rx Instructions: must last 30 days mirtazapine [Remeron] 15 mg tablet 15 mg PO .at bed Qty: 30 2RF ramelteon [Rozerem] 8 mg tablet 8 mg PO .at bed Qty: 30 2RF trazodone 150 mg tablet 450 mg PO .at bed PRN (Reason: sleep) Qty: 90 2RF Rx Instructions: 2 to 3 tabs at bed venlafaxine [Effexor XR] 150 mg capsule,extended release 24hr 150 mg PO DAILY Qty: 30 2RF pantoprazole 40 mg tablet,delayed release (DR/EC) 40 mg PO BID Qty: 180 3RF testosterone cypionate [Depo-Testosterone] 200 mg/mL oil 400 mg IM .[id number] 30 Days Qty: 10 5RF Rx Instructions: 2 mls every 2 weeks temazepam 30 mg capsule 30 mg PO DAILY Qty: 30 1RF Rx Instructions: TAKE 1 CAPSULE BY MOUTH DAILY albuterol sulfate [Ventolin HFA] 90 mcg/actuation HFA aerosol inhaler 2 puff INHALATION Q6H PRN (Reason: shortness of breath or wheezing) Qty: 18 2RF oxycodone-acetaminophen [Percocet] 5-325 mg tablet 1 tab PO Q8H PRN (Reason: pain) 30 Days Qty: 45 0RF sildenafil [Viagra] 100 mg tablet 100 mg PO DAILY PRN (Reason: sexual activity) Rx Instructions: administer 30 minutes to 4 hours before activity Discharge Orders: Discharge ED (Routine); Ordered 04/02/23 Ordered By: Romero Tejeda Referrals: Spike Wise MD [Primary Care Provider] - Discharge Diet: Usual diet Discharge Activity: Increase activity as tolerated Patient Instructions: Post Concussion Syndrome (ED) Activity Restrictions/Additional Instructions: Drink plenty of water. Use acetaminophen or ibuprofen for pain. Avoid alcohol especially with headache. Activity as tolerated. Follow-up with primary care for further evaluation and treatment. Return to ED for new concerns. Coding Level of Care Code ED [employer] Travel Counselor for Matilda Tapia
[2023-04-02] MEDS: metoclopramide 5 mg/mL SDV 2 mL 10 MG IM (19:43)
== END 2023-04-02 20:28 | disposition home or self-care (01) ==
PROVIDERS: Emergency Provider Nurse Practitioner Family; PCP Internal Medicine
DX: G44.89 Other headache syndrome (principal); F07.81 Postconcussional syndrome; Z87.891 Personal history of nicotine dependence
CPT/HCPCS: 70450; 96372; 99284; J2765

== ENCOUNTER 2023-07-25 20:44 | Emergency (ER) | payer MEDICARE, SELFPAY ==
[2023-07-25 20:47] VITALS: BP 135/77; PULSE 113; RESP 16; TEMP 36.5; O2SAT 89; BMI 27.1
--- NOTE | 2023-07-25 21:00 | XRR_ITS ---
PROCEDURE INFORMATION: Exam: XR Right Shoulder Exam date and time: 07/25/2023 9:16 PM Age: 62 years old Clinical indication: Injury or trauma; Other: RT shoulder pain post fall; Patient HX: RT shoulder pain with limited rom post fall x 1 week ago TECHNIQUE: Imaging protocol: Radiologic exam of the right shoulder. Views: 2 or more views. COMPARISON: CT cervical spin wo con* [id number] 03/19/2023 8:28 PM FINDINGS: Bones/joints: The glenohumeral articulation is grossly intact with mild osteoarthritis. The acromioclavicular articulation is grossly intact with moderate osteoarthritis. Soft tissues: No gross soft tissue abnormality. XR/XR shoulder RT min 2V* [id number] IMPRESSION: 1. No evidence of fracture or subluxation. If there is ongoing clinical concern, consider correlation with CT.
--- NOTE | 2023-07-25 21:22 | XRR_ITS ---
PROCEDURE INFORMATION: Exam: XR Chest Exam date and time: 07/25/2023 9:53 PM Age: 62 years old Clinical indication: Patient HX: Cough; Hypoxia; Copd TECHNIQUE: Imaging protocol: Radiologic exam of the chest. Views: 1 view. COMPARISON: CR XR chest 1V portable [id number] 10/24/2019 11:48 AM FINDINGS: Lungs: No focal consolidation. Scarring noted in the mid to upper right lung. Pleural spaces: No evidence of pneumothorax. No evidence of pleural effusion. Heart/Mediastinum: Cardiomediastinal silhouette is within normal limits. Bones/joints: No evidence of acute osseous abnormality. XR/XR chest 1V portable [id number] IMPRESSION: 1. No acute cardiopulmonary abnormality.
[2023-07-25 21:23] VITALS: BP 110/78; PULSE 103; RESP 20; O2SAT 87
--- NOTE | 2023-07-25 21:41 | ED_ITS ---
HPI - Extremity Problem General: Chief complaint: Extremity Injury, Upper Stated complaint: Rt Shoulder Injury\Fell Time Seen by Provider: 07/25/23 21:17 Source: patient History of Present Illness: 62-year-old male with a history of COPD. He does not use oxygen at home. He reports that he fell in the shower 7 days ago striking his right shoulder. He has pain with any movement of his right shoulder. He thought the pain would go away, but it has persisted. He has some bruising. He denies any other symptoms. Denies chest pain. He denies shortness of breath. Denies leg swelling. He has a chronic cough with sputum production. He has been taking Tylenol for his shoulder pain. No caprice SCHREIBER Complaint: extremity pain Onset (ago): day(s) (7) Associated symptoms: Deny chest pain or fever(s) Review of Systems Const: Denies: fever(s) ENMT: Denies: throat pain Card: Denies: chest pain or palpitations Resp: Reports: productive cough (Chronic) and non-productive cough; Denies: dyspnea GI: Denies: abdominal pain or vomiting PFSH ED PFSH: Medical History Oppositional defiant disorder Psychiatric care Chronic back pain greater than 3 months duration He has had four surgeries on his lower back. He does not want to take narcotic pain meds. Primary hypersomnia Generalized anxiety disorder Major depressive disorder, recurrent, mild Social History Smoking and tobacco/nicotine status: former use of tobacco/nicotine Alcohol intake: former Substance/Drug Use: former Date of last use: MANY YEARS AGO METH, COCAINE, THC 38 YEARS AGO Caregiver/support person: Yes Lives independently: Yes Marital status: Current gender identity: Male Physical Exam Const: COMMON NORMALS: no acute distress HENMT: COMMON NORMALS: normocephalic, atraumatic and Normal external nose present HEAD & SCALP: normocephalic and atraumatic NOSE: Normal external nose present Eye: COMMON NORMALS: Equal, round and reactive pupils present and EOMs intact bilaterally PUPIL: Yes Equal, round and reactive pupils present Neck/C-Spine: COMMON NORMALS: full ROM GENERAL: Yes trachea midline Chest: CHEST: Yes Symmetrical chest wall rise Resp: COMMON NORMALS: normal respiratory effort, No use of accessory muscles and clear to auscultation bilaterally AUSCULTATION: clear to auscultation bilaterally Cardio: COMMON NORMALS: regular rate and regular rhythm RATE: regular rate RHYTHM: regular rhythm GI: COMMON NORMALS: Normal to inspection, nondistended, normoactive bowel sounds present Extremity: NARRATIVE EXTREMITY EXAM: Exam of the right upper extremity reveals ecchymosis over the superior aspect of the right shoulder. There is no deformity. There is tenderness to palpation over the AC joint, and rotator cuff footprint. Range of motion is limited by pain sensation is intact. Pulses are normal. Neuro: MARY COMA SCALE: document GCS findings [place] coma scale eye opening: Spontaneous [place] coma scale verbal response: Orientated [place] coma scale motor response: Obey commands Mary coma scale total score: 15 Course Vital Signs: Vital signs: Vital Signs Temperature 97.7 F 07/25/23 20:47 Pulse Rate 103 H 07/25/23 21:23 Respiratory Rate 18 07/25/23 22:25 Blood Pressure 110/78 07/25/23 21:23 Pulse Oximetry 91 07/25/23 22:25 Oxygen Delivery Me thod Room Air 07/25/23 21:23 MDM - Extremity (Nontraumatic) Medical Decision Making 62-year-old male with shoulder pain. His oxygen saturations are mildly low here. He is mildly tachycardic. On investigation, he has been tachycardic here in the past. He has a history of COPD. He is not symptomatic with this shortness of breath at all. His chest x- ray is negative. Shoulder x-ray reveals no fracture or dislocation. He does have a contusion. He may have ruptured his rotator cuff as well. Obese lung for 5 days, no more. He may need physical therapy as an outpatient. He has oxycodone at home if needed for pain. He will take it. He will continue to ice. To return for new or worsening symptoms. Lab Data Radiology Impressions Shoulder X-Ray 07/25/23 21:00 IMPRESSION: 1. No evidence of fracture or subluxation. If there is ongoing clinical concern, consider correlation with CT. Chest X-Ray 07/25/23 21:22 IMPRESSION: 1. No acute cardiopulmonary abnormality. All radiology interpretation(s) finalized by discharge Discharge Plan Discharge Patient Disposition: Home Clinical Impression: Contusion of right shoulder, Rotator cuff strain Condition: Stable Prescriptions: No Action fluticasone propionate [Flonase Allergy Relief] 50 mcg/actuation spray,suspension 2 spray INTRANASAL DAILY Rx Instructions: administer into each nostril Zyrtec 10 mg capsule 10 mg PO BID prednisone 20 mg tablet 20 mg PO DAILY Qty: 15 0RF Rx Instructions: Take 60 mg daily for days 1, 2, 3 Take 40 mg daily for days 4, 5 Take 20 mg daily for days 6, 7 diazepam [Valium] 10 mg tablet 10 mg PO QID PRN (Reason: anxiety) Qty: 120 2RF Rx Instructions: must last 30 days mirtazapine [Remeron] 15 mg tablet 15 mg PO .at bed Qty: 30 2RF trazodone 150 mg tablet 450 mg PO .at bed PRN (Reason: sleep) Qty: 90 2RF Rx Instructions: 2 to 3 tabs at bed venlafaxine 150 mg capsule,extended release 24hr See Rx Instructions .ROUTE .COMPLEX Qty: 30 2RF Dose Instruction: TAKE ONE CAPSULE BY MOUTH DAILY Rx Instructions: TAKE ONE CAPSULE BY MOUTH DAILY ramelteon 8 mg tablet See Rx Instructions .ROUTE .COMPLEX Qty: 30 2RF Dose Instruction: TAKE ONE TABLET BY MOUTH AT BEDTIME Rx Instructions: TAKE ONE TABLET BY MOUTH AT BEDTIME pantoprazole 40 mg tablet,delayed release (DR/EC) 40 mg PO BID Qty: 180 3RF testosterone cypionate [Depo-Testosterone] 200 mg/mL oil 400 mg IM .[id number] 30 Days Qty: 10 5RF Rx Instructions: 2 mls every 2 weeks temazepam 30 mg capsule 30 mg PO DAILY Qty: 30 1RF Rx Instructions: TAKE 1 CAPSULE BY MOUTH DAILY albuterol sulfate [Ventolin HFA] 90 mcg/actuation HFA aerosol inhaler 2 puff INHALATION Q6H PRN (Reason: shortness of breath or wheezing) Qty: 18 2RF oxycodone-acetaminophen [Percocet] 5-325 mg tablet 1 tab PO Q8H PRN (Reason: pain) 30 Days Qty: 45 0RF sildenafil [Viagra] 100 mg tablet 100 mg PO DAILY PRN (Reason: sexual activity) Rx Instructions: administer 30 minutes to 4 hours before activity Discharge Orders: Discharge ED (Routine); Ordered 07/25/23 Ordered By: Sudarshan Johnson Referrals: Spike Wise MD [Primary Care Provider] - Patient Instructions: Rotator Cuff Injury (ED), Contusion in Adults (ED), Opioid Safety, Pain Management Activity Restrictions/Additional Instructions: Sling your shoulder for comfort for the next 5 days. Do not spend any more than 5 days in the sling. Follow-up with your doctor this week. You may require physical therapy, and/or other further treatments. Return for any problems or worsening pain, shortness of breath, chest discomfort, other concerning symptoms. Coding Level of Care Code ED Supervisor [employer] for Matilda Tapia
[2023-07-25 22:25] VITALS: RESP 18; O2SAT 91
[2023-07-25] MEDS: oxyCODONE-APAP 5-325 mg Tablet 2 TAB PO (22:25)
[2023-07-25 23:23] VITALS: BP 128/93; PULSE 102; RESP 18; O2SAT 90
== END 2023-07-25 23:10 | disposition home or self-care (01) ==
PROVIDERS: Emergency Provider Emergency Medicine; PCP Internal Medicine
DX: S40.011A Contusion of right shoulder, initial encounter (principal); S46.011A Strain of muscle(s) and tendon(s) of the rotator cuff of right shoulder, initial encounter; J44.9 Chronic obstructive pulmonary disease, unspecified; Z87.891 Personal history of nicotine dependence; W18.2XXA Fall in (into) shower or empty bathtub, initial encounter
CPT/HCPCS: 71045; 73030; 99284

== ENCOUNTER 2023-12-14 08:49 | Outpatient (CLI) | payer MEDICARE, SELFPAY ==
[2023-12-14 09:16] VITALS: BMI 27.3
[2023-12-14 10:48] VITALS: BP 122/87; PULSE 135
--- NOTE | 2023-12-14 10:51 | PC.NURSE ---
1030 patient hooked up to EKG for stress test. ST 135-140's. Pulse ox 85% on room air. BP 122/87. patient with c/o's SOB with bilat leg swelling over the last one to two weeks. This is the reason for todays stress test. Lungs CTAB. Placed on 2lpm BNC. Sats up to 94%. Dr. Claudio notified. Will stop stress for now and take the patient to the ER. 1040 patient to the ER via wheelchair. Report to EDMOND Crowley.
== END 2023-12-14 08:50 | disposition home or self-care (01) ==
PROVIDERS: PCP Internal Medicine; Visit Provider Internal Medicine
DX: Z01.89 Encounter for other specified special examinations (principal)
CPT/HCPCS: 36415

== ENCOUNTER 2023-12-14 10:40 | Inpatient (IN) | payer MEDICARE, SELFPAY ==
[2023-12-14] VITALS (169 sets, daily range): BP systolic 68–142; BP diastolic 50–117; PULSE 88–138; RESP 0–30; TEMP 36.3–36.8; O2SAT 75–100; BMI 27.4; BMI 34.3
--- NOTE | 2023-12-14 10:46 | ECG_ITS ---
[facility] Test Date: 2023-12-14 Pat Name: Avery Ross Department: Room: Gender: Male Group Director: : 1960 Requested By: Gay Durbin Order Number: [id number] Steel MD: Rosalia Claudio M.D. Measurements Intervals [place] Rate: 135 P: 0 [place]: 0 QRS: -29 QRSD: 107 T: 0 QT: 190 QTc: 285 Interpretive Statements ATRIAL FLUTTER/TACHYCARDIA WITH RAPID VENTRICULAR RESPONSE ANTEROSEPTAL MYOCARDIAL INFARCTION , OF INDETERMINATE AGE [40+ ms Q WAVE IN V1-V4] Compared to ECG 03/19/2023 19:55:07 Myocardial infarct finding now present Sinus rhythm no longer present Electronically Signed On 12-14-2023 23:47:06 CDT by Rosalia Claudio M.D. [id number]
--- NOTE | 2023-12-14 10:48 | XRR_ITS ---
PROCEDURE INFORMATION: Exam: XR Chest Exam date and time: 12/14/2023 10:53 AM Age: 63 years old Clinical indication: Shortness of breath TECHNIQUE: Imaging protocol: Radiologic exam of the chest. Views: 1 view. Total images: 2 COMPARISON: CR XR chest 1V portable [id number] 07/25/2023 9:53 PM FINDINGS: Lungs: No acute focal pulmonary opacities are detected. Pleural spaces: Unremarkable. No pleural effusion. No pneumothorax. Heart/Mediastinum: Cardiomegaly. Bones/joints: Osseous structures are unchanged from the prior exam. XR/XR chest 1V portable [id number] IMPRESSION: 1. Cardiomegaly. 2. No acute focal pulmonary opacities are detected.
--- NOTE | 2023-12-14 10:57 | ED_ITS ---
HPI - SOB/Dyspnea 2 General: Chief Complaint: Shortness of Breath/Dyspnea Stated Complaint: Tachycardia Time Seen by Provider: 12/14/23 10:43 History of Present Illness: HPI Narrative: 63-year-old man with a history of tobacc o dependence with cessation about a year ago, COPD, anxiety and obesity who presents the emergency room from outpatient stress test center with shortness of breath, tachycardia and hypoxemia. He says about a week and a half ago he started having worsening shortness of breath. He developed some swelling in his legs. He has seen his doctor and was sent for stress test. He does not have any pain in his calves. No chest pain. He has not had any chest pain in the last 2 weeks. No fevers. No orthopnea. Although he says he does not sleep much at all. No altered mental status no nausea or vomiting. No focal motor deficits. On presentation here he is tachycardic with a rate in the 130s and what appears to be atrial flutter. He has no known history of atrial fibrillation or flutter. No known cardiac history. He does not take medications for hypertension or diabetes. Review of Systems 2 Narrative: Constitutional symptoms: Negative except as documented in HPI. Skin symptoms: Negative except as documented in HPI. Eye symptoms: Negative except as documented in HPI. ENMT symptoms: Negative except as documented in HPI. Respiratory symptoms: Negative except as documented in HPI. Cardiovascular symptoms: Negative except as documented in HPI. Gastrointestinal symptoms: Negative except as documented in HPI. Genitourinary symptoms: Negative except as documented in HPI. Musculoskeletal symptoms: Negative except as documented in HPI. Neurologic symptoms: Negative except as documented in HPI. Psychiatric symptoms: Negative except as documented in HPI. Endocrine symptoms: Negative except as documented in HPI. PFSH ED 2 PFSH: Medical History (Updated 12/14/23 @ 13:52 by Gay Wadsworth MD) Insomnia Oppositional defiant disorder Psychiatric care Chronic back pain greater than 3 months duration He has had four surgeries on his lower back. He does not want to take narcotic pain meds. Primary hypersomnia Generalized anxiety disorder Major depressive disorder, recurrent, mild Social History Smoking and tobacco/nicotine status: former use of tobacco/nicotine Alcohol intake: former Substance/Drug Use: former Date of last use: MANY YEARS AGO METH, COCAINE, THC 38 YEARS AGO Caregiver/support person: Yes Lives independently: Yes Marital status: Current gender identity: Male Physical Exam 2 Narrative: EXAM NARRATIVE: General: Alert, no acute distress. Skin: Warm, dry. Head: Normocephalic, atraumatic. Neck: Supple, trachea midline. Eye: Extraocular movements are intact. Ears, nose, mouth and throat: mucosa moist. Cardiovascular: Regular, Normal peripheral perfusion. 2+ pitting edema of the feet and low calf. Respiratory: Diminished breath sounds posteriorly, some mild scattered wheeze anteriorly. No increased work of breathing at rest, breath sounds are equal, Symmetrical chest wall expansion. Gastrointestinal: Soft, Nontender, Non distended Musculoskeletal: Normal ROM, no deformity. Neurological: Alert and oriented, No focal neurological deficit observed. Psychiatric: Cooperative, appropriate mood & affect. Course 2 Vital Signs: Vital signs: Vital Signs Temperature 98.3 F 12/14/23 10:49 Pulse Rate 134 H 12/14/23 13:30 Respiratory Rate 11 L 12/14/23 13:30 Blood Pressure 128/82 12/14/23 12:30 Pulse Oximetry 89 L 12/14/23 12:30 Oxygen Delivery Me thod Nasal Cannula 12/14/23 11:17 Oxygen Flow Rate 2 12/14/23 11:17 MDM - SOB/Dyspnea Medical Decision Making Differential diagnosis for patient with shortness of breath includes but is not limited to and based on the above HPI, review of systems and physical exam: Pneumonia. Bronchitis. Asthma or COPD with acute exacerbation. Acute coronary syndrome / CO. Pulmonary embolism. Anxiety. Congestive heart failure. Viral infections including influenza and Covid-19. Atrial fibrillation. Anxiety. Pleural effusion. Pneumothorax. Workup: Lab work, chest X-ray and EKG ordered to evaluate, rule in and rule out above pathologies EKG: Time 10:46 AM. Rate 135. Atrial flutter with rapid ventricular response, No ST-T changes, no ectopy, This was reviewed and interpreted by myself the ER physician At 10:48 AM Repeat EKG: Time 1302. Rate 134. Atrial flutter with rapid ventricular response, No ST-T changes, no ectopy, This was reviewed and interpreted by myself the ER physician at 1305. No significant changes from previous EKG. Lab Review: Laboratory results were reviewed and interpreted by myself the emergency room physician. No leukocytosis. Patient does have high hemoglobin at 17.5. This is up a little bit from previous. Renal function is fairly normal at 21 and 1.0. Glucose is normal 87. proBNP is up at 2300. Initial troponin is 45. CRP is negative. TSH is normal. CTA of the chest with PE protocol: Evidence of some atherosclerotic disease. Cardiomegaly. Pulmonary edema. This was reviewed and interpreted by myself the emergency room physician. I also reviewed the radiology report. I reviewed the patient's medical record. Consultation: Spoke with Dr. Slaughter who is on-call for the hospitalist at this time. She agrees to admission to the cardiac stepdown. She recommends an echocardiogram at this time. Reexamination: Patient remains fairly stable. He is requiring 2 L nasal cannula. And at rest he does not have any increased work of breathing. He is still tachycardic Assessment and plan: Atrial flutter with rapid ventricular response Congestive heart failure Pulmonary edema Hypoxemia ?IV diltiazem and diltiazem drip given in the emergency room. IV Lasix. Stat echo was ordered. -I discussed the patient with the hospitalist on-call who is admitting the patient. - Discussed findings and plan with patient. Answered any questions. - All laboratory values were reviewed and interpreted personally by myself, the ER physician - All imaging was reviewed and interpreted personally by myself, the ER physician. - Evaluation and treatment of this problem were appropriate in the emergency setting -I spent a total of >35 minutes of critical care time managing the patient, independent of any other practitioner. -The time involved in the performance of separately reportable procedures was not counted towards critical care time. Lab Data 12/14/23 11:05 12/14/23 11:05 Labs/Radiology: Radiology Impressions Chest X-Ray 12/14/23 10:48 IMPRESSION: 1. Cardiomegaly. 2. No acute focal pulmonary opacities are detected. Chest CTA 12/14/23 12:03 IMPRESSION: 1. There is a moderate amount of free intra-abdominal fluid. 2. Cardiomegaly with pulmonary vascular congestion. 3. Nonspecific bibasilar opacities, atelectasis, edema and/or pneumonia. 4. Small to moderate right and small left pleural effusions. 5. No pulmonary artery embolism identified. 6. Mild coronary arterial calcification, indicating the presence of coronary artery disease. If the patient has associated symptoms recommend management as per chest pain guidelines. If the patient is asymptomatic consider reviewing modifiable cardiovascular risk factors and managing as per guidelines for primary prevention. Laboratory Results WBC 7.25 10^3/uL (3.29-11.43) 12/14/23 11:05 RBC 5.42 10^6/uL (3.85-5.65) 12/14/23 11:05 Hgb 17.50 g/dL (11.27-16.99) H 12/14/23 11:05 Hct 54.7 % (37-53) H 12/14/23 11:05 MCV 100.9 fl (82-101) 12/14/23 11:05 MCH 32.3 pg (27-33) 12/14/23 11:05 MCHC 32.0 g/dL (30-55) 12/14/23 11:05 RDW 20.8 % (12.1-15.1) H 12/14/23 11:05 Plt Count 148 10^3/cmm (157-399) L 12/14/23 11:05 MPV 10.7 fL (7.4-10.4) H 12/14/23 11:05 Neut % (Auto) 65.1 % 12/14/23 11:05 Lymph % (Auto) 24.0 % 12/14/23 11:05 [place] % (Auto) 9.1 % 12/14/23 11:05 Eos % (Auto) 0.4 % 12/14/23 11:05 Baso % (Auto) 1.0 % 12/14/23 11:05 Neut # (Auto) 4.72 10^3/uL (1.8-7.7) 12/14/23 11:05 Lymph # (Auto) 1.7 10^3/uL (0.8-4.8) 12/14/23 11:05 [place] # (Auto) 0.7 10^3/uL (0.2-0.9) 12/14/23 11:05 Eos # (Auto) 0.0 10^3/uL (0.0-0.8) 12/14/23 11:05 Baso # (Auto) 0.1 10^3/uL (0.0-0.1) 12/14/23 11:05 Nucleated RBC % (auto) 0 % 12/14/23 11:05 Nucleated RBCs # 0.0 /100WBC 12/14/23 11:05 D-Dimer 1.43 ug/mLFEU (0-0.59) H 12/14/23 11:05 Specimen Type Arterial 12/14/23 10:53 Sample Site Radial, left 12/14/23 10:53 ABG pH 7.44 (7.35-7.45) 12/14/23 10:53 ABG pCO2 52.9 mmHg (35-45) H 12/14/23 10:53 ABG pO2 93.9 mmHg (80.0-100.0) 12/14/23 10:53 ABG PO2/FiO2 Ratio 0 12/14/23 10:53 ABG HCO3 35.5 mmol/L (22-26) H 12/14/23 10:53 ABG O2 Saturation 97.4 12/14/23 10:53 ABG Base Excess 9.1 mmol/L (-2.0-2.0) H 12/14/23 10:53 Kenneth Test Pos 12/14/23 10:53 A-a O2 Gradient Not Reportable 12/14/23 10:53 Hematocrit 51.4 % (42-52) 12/14/23 10:53 Hgb O2 Saturation 95.9 % (95-100) 12/14/23 10:53 Carboxyhemoglobin 1.6 %THgb (0.4-20.1) 12/14/23 10:53 Methemoglobin 0.0 % (0.4-1.5) L 12/14/23 10:53 Total Hemoglobin 16.8 g/dL (14-18) 12/14/23 10:53 Sodium 135.0 mmol/L (131-143) 12/14/23 10:53 Potassium 3.5 mmol/L (3.5-5.0) 12/14/23 10:53 Glucose 92.0 mg/dL (70-115) 12/14/23 10:53 Ionized Calcium 1.1 mmol/L (1.1-1.4) 12/14/23 10:53 O2 Delivery Device Room air 12/14/23 10:53 FiO2 21.0 % 12/14/23 10:53 Health Care Liaison ID Cak 12/14/23 10:53 Sodium 137 mmol/L (136-145) 12/14/23 11:05 Potassium 3.6 mmol/L (3.5-5.1) 12/14/23 11:05 Chloride 89 mmol/L (98-107) L 12/14/23 11:05 Carbon Dioxide 33 mmol/L (22-29) H 12/14/23 11:05 Anion Gap 18.6 (5-19) 12/14/23 11:05 BUN 21 mg/dL (8-23) 12/14/23 11:05 Creatinine 1.0 mg/dL (0.7-1.2) 12/14/23 11:05 GFR Calculation 75.7 mL/min (90-130) L 12/14/23 11:05 Glucose 87 mg/dL (65-115) 12/14/23 11:05 Calculated Osmolality 286 mOsm/kg (285-295) 12/14/23 11:05 Lactic Acid 2.5 mmol/L (0.5-2.2) H 12/14/23 11:05 Calcium 8.8 mg/dL (8.5-10.5) 12/14/23 11:05 Magnesium 1.3 mg/dL (1.7-2.3) L 12/14/23 11:05 Total Bilirubin 1.2 mg/dL (0.15-1.2) 12/14/23 11:05 AST 31 U/L (0-40) 12/14/23 11:05 ALT 21 U/L (0-41) 12/14/23 11:05 Alkaline Phosphatase 90 U/L (40-130) 12/14/23 11:05 Troponin T Baseline 45 ng/L (0-15) H 12/14/23 11:05 Troponin T 120 Minute 43.87 ng/L (0-15) H 12/14/23 13:14 Delta Troponin T -1.13 ABS# (0-10) L 12/14/23 13:14 C-Reactive Protein 5.6 mg/L (0.0-4.9) H 12/14/23 11:05 NT-Pro-B Natriuret Pep 2332 pg/mL (0-125) H 12/14/23 11:05 Total Protein 5.9 g/dL (6.6-8.7) L 12/14/23 11:05 Albumin 3.6 g/dL (3.5-5.2) 12/14/23 11:05 Globulin 2.3 g/dL (1.3-4.6) 12/14/23 11:05 TSH 3.53 uIU/mL (0.27-4.20) 12/14/23 11:05 All radiology interpretation(s) finalized by discharge Discharge Plan Discharge Patient Disposition: Admitted As Inpatient Admit Provider: Aparna Slaughter Clinical Impression: Atrial fibrillation with rapid ventricular response, Hypoxemia Congestive heart failure Qualifiers: Heart failure type: unspecified Heart failure chronicity: acute Qualified Code(s): I50.9 - Heart failure, unspecified Condition: Stable Coding Level of Care Code ED Superintendent Production for Matilda Tapia
[2023-12-14] MEDS: dilTIAZem 5 mg/mL SDV 5 mL 10 MG IVP ×2 (11:04→13:51)
[2023-12-14 11:05] LABS: ABG PCO2 52.9 mmHg (35-45); Arterial Blood Gas Hematocrit 51.4 % (42-52); Base Excess ABG 9.1 mmol/L (-2.0-2.0); Blood Gas Allen Test Pos; Blood Gas Operator Identificat CAK; Blood Gas Sample Site Radial, left; Blood Gas Sample Type Arterial; Carboxyhemoglobin 1.6 %THgb (0.4-20.1); HCO3 ABG 35.5 mmol/L (22-26); HGB O2 Sat 95.9 % (95-100); Ionized Calcium Level - ABG 1.1 mmol/L (1.1-1.4); Oxygen Device ROOM AIR; Oxygen Saturation ABG 97.4; PO2 ABG 93.9 mmHg (80.0-100.0); PO2 FiO2 Ratio Arterial Blood 0; Potassium Level - ABG 3.5 mmol/L (3.5-5.0); Total Hemoglobin 16.8 g/dL (14-18)
[2023-12-14] MEDS: albuterol 2.5 mg/3 mL Neb INHALATION (11:17)
[2023-12-14 11:19] LABS: Basophils # 0.1 10^3/uL (0.0-0.1); Eosinophils % 0.4 %; Hematocrit 54.7 % (37-53); Lymphocytes # 1.7 10^3/uL (0.8-4.8); Mean Corpuscular Hemoglobin 32.3 pg (27-33); Mean Corpuscular Volume 100.9 fl (82-101); Mean Platelet Volume 10.7 fL (7.4-10.4); Monocytes # 0.7 10^3/uL (0.2-0.9); Monocytes % 9.1 %; Neutrophils # 4.72 10^3/uL (1.8-7.7); Neutrophils % 65.1 %; Nucleated Red Blood Cells % 0 %; Platelet Count 148 10^3/cmm (157-399); Red Blood Count 5.42 10^6/uL (3.85-5.65); Red Cell Distribution Width 20.8 % (12.1-15.1); White Blood Count 7.25 10^3/uL (3.29-11.43)
[2023-12-14 11:38] LABS: Lactic Sepsis W/Reflex 2.5 mmol/L (0.5-2.2)
[2023-12-14 11:45] LABS: Troponin(5th) Baseline 45 ng/L (0-15)
[2023-12-14 11:46] LABS: D Dimer 1.43 ug/mLFEU (0-0.59)
[2023-12-14 11:51] LABS: Alanine Aminotransferase 21 U/L (0-41); Albumin Level 3.6 g/dL (3.5-5.2); Alkaline Phosphatase 90 U/L (40-130); Anion Gap 18.6 (5-19); Aspartate Amino Transferase 31 U/L (0-40); Blood Urea Nitrogen 21 mg/dL (8-23); C Reactive Protein 5.6 mg/L (0.0-4.9); Calcium 8.8 mg/dL (8.5-10.5); Carbon Dioxide 33 mmol/L (22-29); Chloride 89 mmol/L (98-107); Creatinine Clr Calc Pharmacy 87.6668; Globulin 2.3 g/dL (1.3-4.6); Glomerular Filtration Rate 75.7 mL/min (90-130); Glucose 87 mg/dL (65-115); Magnesium 1.3 mg/dL (1.7-2.3); NT Pro B Type Natriuretic Pept 2332 pg/mL (0-125); Osmolality Calculated 286 mOsm/kg (285-295); Potassium 3.6 mmol/L (3.5-5.1); Sodium 137 mmol/L (136-145); Thyroid Stimulating Hormone 3.53 uIU/mL (0.27-4.20); Total Bilirubin 1.2 mg/dL (0.15-1.2); Total Protein 5.9 g/dL (6.6-8.7)
--- NOTE | 2023-12-14 12:03 | CTR_ITS ---
PROCEDURE INFORMATION: Exam: CTA Chest With Contrast Exam date and time: 12/14/2023 12:44 PM Age: 63 years old Clinical indication: Shortness of breath; Additional info: Hypoxemia, tachycardia TECHNIQUE: Imaging protocol: Computed tomographic angiography of the chest with contrast. Exam focused on the arteries. 3D rendering (Not supervised by radiologist): MIP and/or 3D reconstructed images were created by the technologist. Total images: 1091 Radiation optimization: All CT scans at this facility use at least one of these dose optimization techniques: automated exposure control; mA and/or kV adjustment per patient size (includes targeted exams where dose is matched to clinical indication); or iterative reconstruction. Contrast material: OMNI 350; Contrast volume: 100 ml; Contrast route: INTRAVENOUS (IV); COMPARISON: CR XR chest 1V portable [id number] 12/14/2023 10:53 AM RADIATION DOSE METRICS: Total DLP (mGy-cm): 608.59 FINDINGS: Pulmonary arteries: Pulmonary vascular congestion. Pulmonary artery evaluation of good technical quality with no pulmonary artery embolism identified. Aorta: Unremarkable. No aortic aneurysm. No aortic dissection. Lungs: Nonspecific bibasilar opacities, atelectasis, edema and/or pneumonia. Benign granulomatous disease of the lung is noted. Pleural spaces: Small to moderate right and small left pleural effusions. Heart: Cardiomegaly. Coronary arteries: Mild coronary arterial calcification, indicating the presence of coronary artery disease. Lymph nodes: Calcified mediastinal and hilar nodes noted. Intraperitoneal space: There is a moderate amount of free intra-abdominal fluid. Bones/joints: Old rib fractures are evident. Partially visualized spinal fusion hardware noted. Soft tissues: Body wall edema noted. CT/CT angio chest PE protcl [id number] IMPRESSION: 1. There is a moderate amount of free intra-abdominal fluid. 2. Cardiomegaly with pulmonary vascular congestion. 3. Nonspecific bibasilar opacities, atelectasis, edema and/or pneumonia. 4. Small to moderate right and small left pleural effusions. 5. No pulmonary artery embolism identified. 6. Mild coronary arterial calcification, indicating the presence of coronary artery disease. If the patient has associated symptoms recommend management as per chest pain guidelines. If the patient is asymptomatic consider reviewing modifiable cardiovascular risk factors and managing as per guidelines for primary prevention.
[2023-12-14] MEDS: iohexol 350 mg/mL 500 mL Btl (per mL) IV (12:47)
[2023-12-14 13:01] LABS: Reflex Lactate Order REFLEX LACTIC ORDERD
--- NOTE | 2023-12-14 13:02 | ECG_ITS ---
[facility] Test Date: 2023-12-14 Pat Name: Avery Ross Department: Room: Gender: Male Chorus Master: : 1960 Requested By: Gay Durbin Order Number: [id number] Steel MD: Rosalia Claudio M.D. Measurements Intervals [place] Rate: 134 P: 0 [place]: 0 QRS: -60 QRSD: 90 T: 0 QT: 148 QTc: 221 Interpretive Statements ATRIAL FLUTTER/TACHYCARDIA WITH RAPID VENTRICULAR RESPONSE WITH ABERRANT CONDUCTION OR VENTRICULAR PREMATURE COMPLEXES LEFT AXIS DEVIATION [QRS AXIS < -30] LOW QRS VOLTAGE IN PRECORDIAL LEADS [QRS DEFLECTION < 1.0 mV IN CHEST LEADS] ANTEROSEPTAL MYOCARDIAL INFARCTION , OF INDETERMINATE AGE [40+ ms Q WAVE IN V1-V4] Compared to ECG 12/14/2023 10:46:34 Ventricular premature complex(es) now present Aberrant conduction of supraventricular beat(s) now present Left-axis deviation now present Low QRS voltage now present Myocardial infarct finding still present Electronically Signed On 12-16-2023 0:11:43 CDT by Rosalia Claudio M.D. [id number]
--- NOTE | 2023-12-14 13:31 | USCV_ITS ---
Cody Varela Age: 63 Gender: M : 1960 Exam Date: 12/14/2023 19:35 Ordering Phys: Gay Wadsworth MD Technologist: BECCA Exam Location: [facility] – [place] Indication: long-term smoker, COPD, obesity, SOB, afib, new onset heart failure. BP: 106 / 86 HR: 132 Rhythm: Atrial fibrillation Technical Quality: Adequate MEASUREMENTS (Male / Female) Normal Values 2D ECHO LV Diastolic Diameter PLAX 5.1 cm 4.2 - 5.9 / 3.9 - 5.3 cm IVS Diastolic Thickness 1.3 cm 0.6 - 1.0 / 0.6 - 0.9 cm IVS Systolic Thickness 1.8 cm LVPW Diastolic Thickness 1.4 cm 0.6 - 1.0 / 0.6 - 0.9 cm LVPW Systolic Thickness 1.9 cm LVOT Diameter 2.3 cm LV Ejection Fraction 2D Teich 12.9 % LV Ejection Fraction MOD 2C 32.6 % LV Ejection Fraction 2C AL 30.5 % LA Diameter 5.5 cm Aorta at Sinotubular Diameter 3.2 cm IVC Diameter 3.4 cm M-MODE LA Ao Ratio MM 1.2 AV Cusp Separation MM 1.7 cm DOPPLER AV Peak Velocity 57.0 cm/s LVOT Peak Velocity 33.0 cm/s AV Area Cont Eq vti 2.1 cm squared AV Area Cont Eq pk 2.3 cm squared MV Area PHT 4.6 cm squared Mitral E to A Ratio 0.0 TV Peak Velocity 180.0 cm/s TR Peak Velocity 226.0 cm/s TR Peak Gradient 20.4 mmHg TV Peak E Velocity 74.0 cm/s Right Atrial Pressure 10.0 mmHg Pulmonary Artery Systolic Pressu 30.4 mmHg PV Peak Velocity 44.0 cm/s FINDINGS Left Ventricle Severe diffuse hypokinesia of the left ventricle with an ejection fraction of 15 to 20%. Almost akinetic septum and the anteroseptal segments. Patient was found to be tachycardic with a heart rate in the 130s during the study Right Ventricle Mildly dilated right ventricle with moderately diminished ejection fraction Right Atrium Mildly increased right atrial size. Left Atrium Mildly increased left atrial size. Mitral Valve Thickened mitral valve.mild-moderate mitral valve regurgitation. Aortic Valve Thickened aortic valve. Tricuspid Valve Moderate tricuspid regurgitation Pulmonic Valve No gross abnormalities noted Pericardium No pericardial effusion. Aorta Normal aortic annulus size. IVC dilated IVC with decreased respiratory variation. CONCLUSIONS Severe diffuse hypokinesia of the left ventricle with an ejection fraction of 15 to 20%. Almost akinetic septum and the anteroseptal segments. Mildly dilated right ventricle with moderately diminished ejection fraction. Mildly dilated right atrium right ventricle Thickened mitral valve.mild-moderate mitral valve regurgitation. Moderate tricuspid regurgitation. Thickened aortic valve. There are no intracardiac masses. Patient was found to be in atrial fibrillation with rapid ventricular rate-heart rate in the 130s during the study. The segmental wall motion analysis and ejection fraction estimation could be misleading because of this No similar previous studies are available for comparison Dr Rosalia Claudio MD [facility] (Electronically Signed) Final Date: 14 December 2023 21:08 S
[2023-12-14 13:50] LABS: Troponin 5 2HR 43.87 ng/L (0-15)
[2023-12-14] MEDS: FUROsemide 10 mg/mL SDV 4mL 20 MG IVP (13:50)
[2023-12-14 13:51] LABS: Troponin 5 2HR Delta -1.13 ABS# (0-10)
[2023-12-14] MEDS: dilTIAZem 100 MG in sodium chloride 0.9% (add-van) 100 ML IV (13:57)
[2023-12-14 14:16] LABS: Lactic Acid level (Lactate) 1.6 mmol/L (0.5-2.2)
[2023-12-14 15:56] LABS: ABG PH Result 7.44 (7.35-7.45)
--- NOTE | 2023-12-14 16:44 | ECG_ITS ---
[facility] Test Date: 2023-12-14 Pat Name: Avery Ross Department: Room: ICU04 Gender: Male Pit Supervisor: : 1960 Requested By: Gay Durbin Order Number: [id number] Milvia MD: Rosalia Claudio M.D. Measurements Intervals [place] Rate: 137 P: 0 NE: 0 QRS: -13 QRSD: 86 T: 252 QT: 281 QTc: 425 Interpretive Statements ATRIAL FLUTTER/TACHYCARDIA WITH RAPID VENTRICULAR RESPONSE ANTEROSEPTAL MYOCARDIAL INFARCTION , OF INDETERMINATE AGE [40+ ms Q WAVE IN V1-V4] MODERATE T-WAVE ABNORMALITY, CONSIDER INFERIOR ISCHEMIA [-0.1+ mV T-WAVE IN II/aVF] Compared to ECG 12/14/2023 13:02:57 T-wave abnormality now present Possible ischemia now present Ventricular premature complex(es) no longer present Aberrant conduction of supraventricular beat(s) no longer present Left-axis deviation no longer present Myocardial infarct finding still present Electronically Signed On 12-16-2023 0:14:01 CDT by Rosalia Claudio M.D. [id number]
--- NOTE | 2023-12-14 17:11 | PM.HP ---
Providers/Chief Complaint Admitting Physician: Aparna Slaughter MD Primary Care Provider: Spike Wise MD Chief Complaint: Tachycardia History of Present Illness Avery Ross is a 63 year old male who presented to the emergency room from outpatient cardiac stress testing. He had been scheduled for an outpatient stress test today due to a history of progressively worsening shortness of breath and lower extremity edema over the last several weeks. This was scheduled by his primary care provider. While he originally did not complain of any chest pain he has had some the last couple of days along with some back pain. He gets short of breath walking short distances. He has been having to sleep sitting up. Walking just a few feet he gets short of breath. He did not go see anybody this past weekend, waiting to have the stress test done. When he arrived for testing he was found to have a heart rate in the 130s and he was also noted to be hypoxemic. He was subsequently sent to the emergency room. On arrival to the emergency room blood pressures initially 120s over 80s but subsequently dropped into the upper 80s and low 90s. Heart rate was persistently in the 130s with EKG showing atrial flutter/atrial fibrillation. Oxygen saturations initially in the mid 80s. This improved with oxygen administration though he required significant close transiently. Chest x-ray imaging showed cardiomegaly but no pulmonary opacities. He had lower extremity edema along with some wheezing and received breathing treatment, IV push Cardizem and subsequent Cardizem drip along with some IV Lasix. Request was made for admission. CTA of the chest did not show any evidence of PE. There was some coronary artery calcifications but aorta was unremarkable with no evidence of dissection or aneurysm. Cardiomegaly and pulmonary vascular congestion were appreciated as were nonspecific bibasilar opacities with small to moderate right and small left pleural effusions along with a moderate amount of free intra-abdominal fluid. Patient has no personal history of coronary artery disease, hypertension, hyperlipidemia or arrhythmias. No history of diabetes. He does have a history of COPD and is a former smoker. No clear family history of coronary artery disease. Review of Systems General: Reports: Other (ROS as per HPI or as otherwise noted here) Const: Reports: change in weight (Gain), change in sleep pattern and daytime sleepiness; Denies: fever(s) ENMT: Denies: throat pain Card: Reports: chest pain, palpitations, edema, dyspnea on exertion and orthopnea Resp: Reports: dyspnea, non-productive cough and wheezing; Denies: hemoptysis GI: Reports: nausea; Denies: abdominal pain, vomiting, diarrhea or hematochezia : Denies: difficulty urinating or hematuria Musc: Reports: back pain Psych: Reports: other (Mood has been doing okay lately) Endy/Lymph: Denies: easy bleeding Medications/Allergies Home Medications Medication Instructions Recorded Confirmed Last Taken Type cetirizine 10 mg capsule (Zyrtec) 10 mg PO BID 08/01/19 12/14/23 12/13/23 History fluticasone propionate 50 2 spray intranasal DAILY 12/25/19 12/14/23 12/13/23 History mcg/actuation nasal spray,suspension (Flonase Allergy Relief) pantoprazole 40 mg tablet,delayed 40 mg PO BID #180 tabs 06/23/21 12/14/23 12/13/23 Rx release testosterone cypionate 200 mg/mL 400 mg (2 mL) IM .[id number] 30 days 12/24/21 12/14/23 11/29/23 Rx intramuscular oil #10 mL (Depo-Testosterone) temazepam 30 mg capsule 30 mg PO DAILY #30 caps 03/23/22 12/14/23 12/13/23 Rx albuterol sulfate 90 mcg/actuation 2 puff inhalation Q6H PRN 04/07/22 12/14/23 04/26/22 Rx aerosol inhaler (Ventolin HFA) shortness of breath or wheezing #18 grams oxycodone-acetaminophen 5 mg-325 1 tab PO Q8H PRN pain 1 month #45 04/21/22 12/14/23 12/13/23 Rx mg tablet (Percocet) tabs sildenafil 100 mg tablet (Viagra) 100 mg PO DAILY PRN sexual activity 04/23/22 12/14/23 04/24/22 History diazepam 10 mg tablet (Valium) 10 mg PO QID PRN anxiety #120 tabs 10/13/23 12/14/23 12/13/23 Rx fluticasone 500 mcg-salmeterol 50 1 inh inhalation BID 12/14/23 12/14/23 12/13/23 History mcg/dose blistr powdr for inhalation (Wixela Inhub) mirtazapine 15 mg tablet (Remeron) 15 mg PO BEDTIME 12/14/23 12/14/23 12/13/23 History ramelteon 8 mg tablet 8 mg PO BEDTIME 12/14/23 12/14/23 12/13/23 History trazodone 150 mg tablet 450 mg PO BEDTIME PRN sleep 12/14/23 12/14/23 12/13/23 History venlafaxine 150 mg 150 mg PO DAILY 12/14/23 12/14/23 12/13/23 History capsule,extended release 24 hr Allergies Allergy/AdvReac Type Severity Reaction Status Date / Time citalopram [From Celexa] Allergy rash Verified 10/13/23 14:02 quetiapine [From Seroquel] Allergy Unknown Verified 10/13/23 14:02 PFSH Acute PFSH: Medical History Erectile dysfunction sildenafil script COPD (chronic obstructive pulmonary disease) Lumbar disc disease with radiculopathy Secondary male hypogonadism Fracture of proximal phalanx of toe of right foot Insomnia Oppositional defiant disorder Psychiatric care Chronic back pain greater than 3 months duration Primary hypersomnia Generalized anxiety disorder Major depressive disorder, recurrent, mild Surgical History History of facial surgery History of laminectomy 4 back surgeries Social History Smoking and tobacco/nicotine status: former use of tobacco/nicotine Alcohol intake: former Substance/Drug Use: former Date of last use: MANY YEARS AGO METH, COCAINE, THC 38 YEARS AGO Caregiver/support person: Yes Lives independently: Yes Marital status: Current gender identity: Male Vitals/I&O/Wt Last Vital Signs Temp 98.3 F 12/14/23 10:49 Pulse 135 H 12/14/23 16:48 Resp 11 L 12/14/23 13:30 BP 128/82 12/14/23 12:30 Pulse Ox 95 12/14/23 16:48 O2 Del Method Nasal Cannula 12/14/23 16:48 O2 Flow Rate 2 12/14/23 16:48 12/14/23 12/14/23 12/14/23 06:59 14:59 22:59 Intake Total 6.667 / 6.667 Output Total 1000 / 1000 Balance -993.333 / -993.333 Weight last 48 hrs Weight 111.697 kg Weight 89.358 kg Physical Exam Narrative: Patient is awake and alert, able to provide history. Looks like he does not feel well. Normocephalic, extraocular movements are intact, mucous membranes are moist, face is symmetric. Neck is supple. Lungs are remarkable for occasional wheeze that clears with cough. Scattered Rales. Cardiovascular exam reveals a tachycardic rhythm. Pulses are equal x 4. Abdomen is soft, rotund but nontender. Extremities there is 3-4+ pitting edema bilaterally. Sore noted to anterior begum. No mottling but some chronic stasis changes. A few ecchymoses none large. Moves all extremities. Data 12/14/23 11:05 12/14/23 11:05 Other Labs: Radiology Impressions Chest X-Ray 12/14/23 10:48 IMPRESSION: 1. Cardiomegaly. 2. No acute focal pulmonary opacities are detected. Chest CTA 12/14/23 12:03 IMPRESSION: 1. There is a moderate amount of free intra-abdominal fluid. 2. Cardiomegaly with pulmonary vascular congestion. 3. Nonspecific bibasilar opacities, atelectasis, edema and/or pneumonia. 4. Small to moderate right and small left pleural effusions. 5. No pulmonary artery embolism identified. 6. Mild coronary arterial calcification, indicating the presence of coronary artery disease. If the patient has associated symptoms recommend management as per chest pain guidelines. If the patient is asymptomatic consider reviewing modifiable cardiovascular risk factors and managing as per guidelines for primary prevention. Laboratory Results WBC 7.25 10^3/uL (3.29-11.43) 12/14/23 11:05 RBC 5.42 10^6/uL (3.85-5.65) 12/14/23 11:05 Hgb 17.50 g/dL (11.27-16.99) H 12/14/23 11:05 Hct 54.7 % (37-53) H 12/14/23 11:05 MCV 100.9 fl (82-101) 12/14/23 11:05 MCH 32.3 pg (27-33) 12/14/23 11:05 MCHC 32.0 g/dL (30-55) 12/14/23 11:05 RDW 20.8 % (12.1-15.1) H 12/14/23 11:05 Plt Count 148 10^3/cmm (157-399) L 12/14/23 11:05 MPV 10.7 fL (7.4-10.4) H 12/14/23 11:05 Neut % (Auto) 65.1 % 12/14/23 11:05 Lymph % (Auto) 24.0 % 12/14/23 11:05 Anson % (Auto) 9.1 % 12/14/23 11:05 Eos % (Auto) 0.4 % 12/14/23 11:05 Baso % (Auto) 1.0 % 12/14/23 11:05 Neut # (Auto) 4.72 10^3/uL (1.8-7.7) 12/14/23 11:05 Lymph # (Auto) 1.7 10^3/uL (0.8-4.8) 12/14/23 11:05 Anson # (Auto) 0.7 10^3/uL (0.2-0.9) 12/14/23 11:05 Eos # (Auto) 0.0 10^3/uL (0.0-0.8) 12/14/23 11:05 Baso # (Auto) 0.1 10^3/uL (0.0-0.1) 12/14/23 11:05 Nucleated RBC % (auto) 0 % 12/14/23 11:05 Nucleated RBCs # 0.0 /100WBC 12/14/23 11:05 D-Dimer 1.43 ug/mLFEU (0-0.59) H 12/14/23 11:05 Specimen Type Arterial 12/14/23 10:53 Sample Site Radial, left 12/14/23 10:53 ABG pH 7.44 (7.35-7.45) 12/14/23 10:53 ABG pCO2 52.9 mmHg (35-45) H 12/14/23 10:53 ABG pO2 93.9 mmHg (80.0-100.0) 12/14/23 10:53 ABG PO2/FiO2 Ratio 0 12/14/23 10:53 ABG HCO3 35.5 mmol/L (22-26) H 12/14/23 10:53 ABG O2 Saturation 97.4 12/14/23 10:53 ABG Base Excess 9.1 mmol/L (-2.0-2.0) H 12/14/23 10:53 Kenneth Test Pos 12/14/23 10:53 A-a O2 Gradient Not Reportable 12/14/23 10:53 Hematocrit 51.4 % (42-52) 12/14/23 10:53 Hgb O2 Saturation 95.9 % (95-100) 12/14/23 10:53 Carboxyhemoglobin 1.6 %THgb (0.4-20.1) 12/14/23 10:53 Methemoglobin 0.0 % (0.4-1.5) L 12/14/23 10:53 Total Hemoglobin 16.8 g/dL (14-18) 12/14/23 10:53 Sodium 135.0 mmol/L (131-143) 12/14/23 10:53 Potassium 3.5 mmol/L (3.5-5.0) 12/14/23 10:53 Glucose 92.0 mg/dL (70-115) 12/14/23 10:53 Ionized Calcium 1.1 mmol/L (1.1-1.4) 12/14/23 10:53 O2 Delivery Device Room air 12/14/23 10:53 FiO2 21.0 % 12/14/23 10:53 Specialties Operator ID Cak 12/14/23 10:53 Sodium 137 mmol/L (136-145) 12/14/23 11:05 Potassium 3.6 mmol/L (3.5-5.1) 12/14/23 11:05 Chloride 89 mmol/L (98-107) L 12/14/23 11:05 Carbon Dioxide 33 mmol/L (22-29) H 12/14/23 11:05 Anion Gap 18.6 (5-19) 12/14/23 11:05 BUN 21 mg/dL (8-23) 12/14/23 11:05 Creatinine 1.0 mg/dL (0.7-1.2) 12/14/23 11:05 GFR Calculation 75.7 mL/min (90-130) L 12/14/23 11:05 Glucose 87 mg/dL (65-115) 12/14/23 11:05 Calculated Osmolality 286 mOsm/kg (285-295) 12/14/23 11:05 Lactic Acid 2.5 mmol/L (0.5-2.2) H 12/14/23 11:05 Lactic Acid (Sepsis) 1.6 mmol/L (0.5-2.2) 12/14/23 13:50 Calcium 8.8 mg/dL (8.5-10.5) 12/14/23 11:05 Magnesium 1.3 mg/dL (1.7-2.3) L 12/14/23 11:05 Total Bilirubin 1.2 mg/dL (0.15-1.2) 12/14/23 11:05 AST 31 U/L (0-40) 12/14/23 11:05 ALT 21 U/L (0-41) 12/14/23 11:05 Alkaline Phosphatase 90 U/L (40-130) 12/14/23 11:05 Troponin T Baseline 45 ng/L (0-15) H 12/14/23 11:05 Troponin T 120 Minute 43.87 ng/L (0-15) H 12/14/23 13:14 Delta Troponin T -1.13 ABS# (0-10) L 12/14/23 13:14 C-Reactive Protein 5.6 mg/L (0.0-4.9) H 12/14/23 11:05 NT-Pro-B Natriuret Pep 2332 pg/mL (0-125) H 12/14/23 11:05 Total Protein 5.9 g/dL (6.6-8.7) L 12/14/23 11:05 Albumin 3.6 g/dL (3.5-5.2) 12/14/23 11:05 Globulin 2.3 g/dL (1.3-4.6) 12/14/23 11:05 TSH 3.53 uIU/mL (0.27-4.20) 12/14/23 11:05 Micro: Microbiology 12/14/23 11:08 Blood Culture - Preliminary Blood SPECIMEN COLLECTED 12/14/23 11:05 Blood Culture - Preliminary Blood SPECIMEN COLLECTED A&P Assessment and plan (1) Atrial flutter with rapid ventricular response: New diagnosis, heart rate maintaining 130s. (2) Congestive heart failure: New diagnosis of heart failure, specific type currently unknown but presenting acutely. Concerned about undiagnosed coronary artery disease potentially being underlying cause of #1 and #2. (3) CKD (chronic kidney disease), stage II: Not a known chronic diagnosis though current GFR is 75 (4) Erectile dysfunction: Has a prescription for sildenafil but has not taken any in more than 3 months (5) Chronic back pain greater than 3 months duration: Has been previously seen by Dr. Owens and subsequently by Dr. Serrano. For medical management. Takes oxycodone and diazepam long-term for management. Has had multiple back surgeries in the past. (6) COPD (chronic obstructive pulmonary disease): Chronically on Wilexa and as needed albuterol. Looks to have chronic hypercapnia. Is on chronic benzodiazepines in the form of diazepam and temazepam but not particularly lethargic. (7) Polycythemia: Strongly suspect secondary polycythemia from hypoxemia/sleep apnea that is undiagnosed (8) Major depressive disorder, recurrent, mild: Chronically on venlafaxine and Remeron (9) Generalized anxiety disorder: Chronically on temazepam for sleep (10) Secondary male hypogonadism: On testosterone replacement (11) Limited family support: Patient has a nephew listed as his person to contact but he is not somebody who would generally be able to make any decisions pertaining to medical or legal needs per Ross. His nephew's parents are no longer alive. He has an estranged daughter but no contact information for her. Plan Elevated D-dimer along with elevated lactic acid felt secondary to hypoxemia and tachycardia No clear foci of infection suggesting sepsis at this point in time; clinically appears to be more cardiac presentation Borderline low platelet count Hypomagnesemia Gastroesophageal reflux disease on PPI Seasonal allergies on cetirizine and fluticasone nasal History of insomnia on ramelteon and trazodone at bedtime Inpatient admission Will continue Cardizem drip currently, titrating up to see if there is any response Echocardiogram has been ordered primarily to a check ejection fraction Consider beta-blockade for rate control or other agent for attempt at chemical cardioversion Continue serial cardiac enzymes and EKGs Received 20 mg of IV Lasix in the emergency room, will give an additional 40 mg and monitor output If unable to adequately monitor urine output will consider Mckeon placement Monitor renal function with addition of diuresis Cardiology consultation secondary to strong suspicious of undiagnosed coronary artery disease behind presentation today; discussed with Dr. Claudio Anticipate stress testing prior to discharge if not more invasive cardiac evaluation I verify that patient had not had any sildenafil Continue as needed breathing treatments and oxygen Recheck H&H in the morning particularly with diuresis; depending on hemoglobin levels may need to consider phlebotomy Continue home venlafaxine and Remeron Continue home temazepam and trazodone for sleep Continue home oxycodone and diazepam although I am going to decrease diazepam from 4 times a day to every 8 hours Will ultimately benefit from decreasing doses of benzodiazepines if he can tolerate it secondary to hypercapnia Last testosterone dose was on November 28 VTE prophylaxis: Lovenox GI Prophylaxis: PPI Antibiotics: none Pending studies: Serial cardiac enzymes and echocardiogram Telemetry: not currently indicated though may be indicated if unable to monitor urine output closely Mckeon: not currently indicated though may be needed if unable to monitor urine output closely Line(s): peripheral IVs Disposition plan: Home with outpatient follow up to primary care provider anticipated. Code Status: Full Code - talked with patient at length regarding CODE STATUS. He says that he would like to be resuscitated for 30 minutes and then if he has not regained pulse and spontaneous breathing to let him go at that point in time. Patient does not have any family beyond a nephew who is not someone who is capable of making decisions for him. He has an estranged daughter but does not know how to contact her. Has not seen her in more than 20 years. He said that the trim crew supervisor could make decisions for him if necessary. I did speak with patient's primary care provider Dr. Wise and he also did not know of anyone but was made aware of current admission. Supportive care otherwise Findings, concerns and plans were discussed with patient and he was given an opportunity to ask questions Attestations Medical Necessity Statement*: Anticipated stay greater than two midnights in this gentleman presenting with new onset a flutter and likely CHF. He is requiring oxygen, on Cardizem drip IV and has received IV diuresis. Will be seen by cardiology in consultation. Diagnoses Atrial flutter with rapid ventricular response I48.92 Congestive heart failure I50.9 CKD (chronic kidney disease), stage II N18.2 Erectile dysfunction N52.9 Chronic back pain greater than 3 months duration M54.9; G89.29 COPD (chronic obstructive pulmonary disease) J44.9 Polycythemia D75.1 Major depressive disorder, recurrent, mild F33.0 Generalized anxiety disorder F41.1 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 Limited family support Z63.8
[2023-12-14] MEDS: potassium chloride ER 20 mEq Tablet PO (17:43)
[2023-12-14] MEDS: metoprolol tartrate 1 mg/1 mL SDV 5 mL 5 MG IVP (17:43)
[2023-12-14] MEDS: FUROsemide 10 mg/mL SDV 4mL 40 MG IVP (17:43)
[2023-12-14] MEDS: acetaminophen 325 mg Tablet 650 MG PO (17:43)
[2023-12-14] MEDS: docusate sodium 100 mg Capsule PO (17:44)
--- NOTE | 2023-12-14 17:52 | PM.CONSULT ---
Providers/Reason For Consult Consulting Physician/Specialty*: BONNIE Claudio MD/cardiology Reason for Consult*: Patient with possible new onset of atrial flutter/congestive heart failure Requesting Physician: Dr. Slaughter Attending Physician: Aparna Slaughter MD Primary Care Provider: Spike Wise MD History of Present Illness History of Present Illness Avery Ross is a 63 year old male with a history of severe COPD, reactive airway disease, anxiety/depressive illness, he is admitted to hospital through the emergency room where he presented with complaints of chest pain, shortness of breath and rapid heart rate. Patient was found to be in atrial flutter with rapid ventricular rate. He also had features of congestive heart failure with hypoxia. The oxygen saturation was in the 80s. Patient was given IV diuretics and was started on IV Cardizem drip. The heart rate still remains uncontrolled. Patient was given 2 doses of IV metoprolol. Subsequently her blood pressure dropped into the 70s and 80s. He was started on Levophed drip and was maxed out. The blood pressure still remained very low. He was started on a vasopressin. Now the blood pressure seems to be coming up. He had an echocardiogram done. He still ejection fraction was around 20%. He had a severe diffuse hypokinesia of the left ventricle with almost akinetic septum. Although cardiac chambers were found to be dilated. He has an [id number] history of smoking abuse which he quit a year ago. No alcohol abuse or substance abuse. He started getting short of breath 2 weeks ago. He has associated chest pain/pressure across the chest and also intermittent episodes of back pain. He was referred for a stress test by his primary care provider. He came to the cardiac diagnostic lab this morning for the scheduled stress test. He was found to have heart rate in the 130s and the oxygen saturation in the 80s. Blood pressure was in the normal limits. Because of the heart rate and the hypoxia, he was sent to the emergency room. He has no fever or chills. No cough. He had shortness of breath even with minimal activities. He also has been having some amount of orthopnea. Patient apparently was having severe chest pain and diaphoresis with the hypotension, in the ICU. His symptoms gradually started subsiding, after blood pressure improved. Patient does not know the details of his family. He lives alone. He has a son who is an estranged and has not been in contact with him for more than 20 years. Review of Systems Narrative: CONSTITUTIONAL: No fever or chills. EYES: No blurring of vision or other visual disturbances lately. ENT: No hoarseness of voice, auditory disturbances or sore throat. CARDIOVASCULAR: As mentioned above. RESPIRATORY: Shortness of breath as mentioned above /reactive airway disease GASTROINTESTINAL: No hematemesis or melena. GENITOURINARY: No dysuria or hematuria. INTEGUMENTARY: No skin rashes or history of skin cancer. NEURO: No transient ischemic attacks or amaurosis. PSYCHIATRIC: History of anxiety disorder and major depressive illness. HEMATOLOGIC: No bleeding disorders or significant anemia. ENDOCRINE: No history of polyuria or polydipsia. MUSCULOSKELETAL: No recent joint pain or swelling. ALLERGY/IMMUNOLOGY: As mentioned above. Medications/Allergies Home Medications Medication Instructions Recorded Confirmed Last Taken Type cetirizine 10 mg capsule (Zyrtec) 10 mg PO BID 08/01/19 12/14/23 12/13/23 History fluticasone propionate 50 2 spray intranasal DAILY 12/25/19 12/14/23 12/13/23 History mcg/actuation nasal spray,suspension (Flonase Allergy Relief) pantoprazole 40 mg tablet,delayed 40 mg PO BID #180 tabs 06/23/21 12/14/23 12/13/23 Rx release testosterone cypionate 200 mg/mL 400 mg (2 mL) IM .y3aphii 30 days 12/24/21 12/14/23 11/29/23 Rx intramuscular oil #10 mL (Depo-Testosterone) temazepam 30 mg capsule 30 mg PO DAILY #30 caps 03/23/22 12/14/23 12/13/23 Rx albuterol sulfate 90 mcg/actuation 2 puff inhalation Q6H PRN 04/07/22 12/14/23 04/26/22 Rx aerosol inhaler (Ventolin HFA) shortness of breath or wheezing #18 grams oxycodone-acetaminophen 5 mg-325 1 tab PO Q8H PRN pain 1 month #45 04/21/22 12/14/23 12/13/23 Rx mg tablet (Percocet) tabs sildenafil 100 mg tablet (Viagra) 100 mg PO DAILY PRN sexual activity 11/03/22 06/25/24 11/04/22 History diazepam 10 mg tablet (Valium) 10 mg PO QID PRN anxiety #120 tabs 10/13/23 12/14/23 12/13/23 Rx fluticasone 500 mcg-salmeterol 50 1 inh inhalation BID 12/14/23 12/14/23 12/13/23 History mcg/dose blistr powdr for inhalation (Wixela Inhub) mirtazapine 15 mg tablet (Remeron) 15 mg PO BEDTIME 12/14/23 12/14/23 12/13/23 History ramelteon 8 mg tablet 8 mg PO BEDTIME 12/14/23 12/14/23 12/13/23 History trazodone 150 mg tablet 450 mg PO BEDTIME PRN sleep 12/14/23 12/14/23 12/13/23 History venlafaxine 150 mg 150 mg PO DAILY 12/14/23 12/14/23 12/13/23 History capsule,extended release 24 hr Allergies Allergy/AdvReac Type Severity Reaction Status Date / Time citalopram [From Celexa] Allergy rash Verified 10/13/23 14:02 quetiapine [From Seroquel] Allergy Unknown Verified 10/13/23 14:02 Current Medications Generic Name Dose Route Start Last Admin Trade Name Freq PRN Reason Stop Dose Admin Acetaminophen 650 mg 12/14/23 17:19 12/14/23 17:43 Acetaminophen 325 Mg Tablet PO 650 mg Q6H PRN Administration Mild/Mod Pain Or Temp >/= 101 Docusate Sodium 100 mg 12/14/23 18:00 12/14/23 17:44 Docusate Sodium 100 Mg Capsule PO 100 mg BID PRINCE Administration Enoxaparin Sodium 40 mg 12/14/23 17:30 12/14/23 17:41 Enoxaparin 40 Mg/0.4 Ml Syringe SUBCUT Not Given Q24H PRINCE Furosemide 40 mg 12/14/23 17:30 12/14/23 17:43 Furosemide 10 Mg/Ml Sdv 4ml IVP 40 mg Q12H PRINCE Administration Diltiazem HCl 100 mg/ Sodium 100 mls @ 0 mls/hr 12/14/23 13:45 12/14/23 17:15 Chloride IV 10 mg/hr .Q0M PRINCE 10 mls/hr Titration Protocol Per Protocol Potassium Chloride 20 meq 12/14/23 17:30 12/14/23 17:43 Potassium Chloride Er 20 Meq Tablet PO 20 meq Q12H PRINCE Administration PFSH Acute PFSH: Medical History Erectile dysfunction sildenafil script COPD (chronic obstructive pulmonary disease) Lumbar disc disease with radiculopathy Secondary male hypogonadism Fracture of proximal phalanx of toe of right foot Insomnia Oppositional defiant disorder Psychiatric care Chronic back pain greater than 3 months duration Primary hypersomnia Generalized anxiety disorder Major depressive disorder, recurrent, mild Surgical History History of facial surgery History of laminectomy 4 back surgeries Social History Smoking and tobacco/nicotine status: former use of tobacco/nicotine Alcohol intake: former Substance/Drug Use: former Date of last use: MANY YEARS AGO METH, COCAINE, THC 38 YEARS AGO Caregiver/support person: Yes Lives independently: Yes Marital status: Current gender identity: Male Vitals/I&O/Wt Last Vital Signs Temp 98.3 F 12/14/23 10:49 Pulse 136 H 12/14/23 17:45 Resp 14 12/14/23 17:45 BP 98/84 12/14/23 17:45 Pulse Ox 95 12/14/23 17:45 O2 Del Method Nasal Cannula 12/14/23 16:48 O2 Flow Rate 2 12/14/23 16:48 12/14/23 12/14/23 12/14/23 06:59 14:59 22:59 Intake Total 21.417 / 21.417 Output Total 1000 / 1000 Balance -978.583 / -978.583 Weight last 48 hrs Weight 246 lb 4 oz Weight 197 lb Physical Exam Narrative: GENERAL: The patient is alert and oriented times three. Patient is tachypneic. Extremities are cold and clammy. Has some mottled appearance HEENT: No significant pallor, icterus or lymphadenopathy.Oral cavity: There are no mucous membrane lesions. NECK: Trachea appears to be central. No masses noted. No JVD or thyromegaly appreciated. Neck veins are slightly prominent with RESPIRATORY: Chest is symmetrical. No intercostals muscle retraction or any accessory muscle activation. There is no chest wall tenderness. Breath sounds are heard bilaterally. Few fine Rales at the bases. Reynolds. No evidence of any consolidation. BREASTS: Deferred. HEART: The heart sounds are normal. No S3 or S4. Systolic murmur grade 3 or 6 in the mitral area. No diastolic murmurs. ABDOMEN: No vessel pulsations or distention. No tenderness. No organomegaly appreciated. Bowel sounds are normally heard. : Deferred. RECTAL: Deferred. LYMPHATIC: No lymphadenopathy noted in the neck. EXTREMITIES: The peripheral pulses stably weak. Extremities are cold and clammy MUSCULOSKELETAL: No acute joint deformities or swelling SKIN: There are no significant rashes or ecchymosis NEUROPSYCHIATRIC: The patient is alert and oriented x3. Somewhat lethargic. Data 12/14/23 11:05 12/14/23 11:05 Other Labs: Laboratory Last Values WBC 7.25 10^3/uL (3.29-11.43) 12/14/23 11:05 RBC 5.42 10^6/uL (3.85-5.65) 12/14/23 11:05 Hgb 17.50 g/dL (11.27-16.99) H 12/14/23 11:05 Hct 54.7 % (37-53) H 12/14/23 11:05 MCV 100.9 fl (82-101) 12/14/23 11:05 MCH 32.3 pg (27-33) 12/14/23 11:05 MCHC 32.0 g/dL (30-55) 12/14/23 11:05 RDW 20.8 % (12.1-15.1) H 12/14/23 11:05 Plt Count 148 10^3/cmm (157-399) L 12/14/23 11:05 MPV 10.7 fL (7.4-10.4) H 12/14/23 11:05 Neut % (Auto) 65.1 % 12/14/23 11:05 Lymph % (Auto) 24.0 % 12/14/23 11:05 Stutsman % (Auto) 9.1 % 12/14/23 11:05 Eos % (Auto) 0.4 % 12/14/23 11:05 Baso % (Auto) 1.0 % 12/14/23 11:05 Neut # (Auto) 4.72 10^3/uL (1.8-7.7) 12/14/23 11:05 Lymph # (Auto) 1.7 10^3/uL (0.8-4.8) 12/14/23 11:05 [place]utsman # (Auto) 0.7 10^3/uL (0.2-0.9) 12/14/23 11:05 Eos # (Auto) 0.0 10^3/uL (0.0-0.8) 12/14/23 11:05 Baso # (Auto) 0.1 10^3/uL (0.0-0.1) 12/14/23 11:05 Nucleated RBC % (auto) 0 % 12/14/23 11:05 Nucleated RBCs # 0.0 /100WBC 12/14/23 11:05 D-Dimer 1.43 ug/mLFEU (0-0.59) H 12/14/23 11:05 Specimen Type Arterial 12/14/23 10:53 Sample Site Radial, left 12/14/23 10:53 ABG pH 7.44 (7.35-7.45) 12/14/23 10:53 ABG pCO2 52.9 mmHg (35-45) H 12/14/23 10:53 ABG pO2 93.9 mmHg (80.0-100.0) 12/14/23 10:53 ABG PO2/FiO2 Ratio 0 12/14/23 10:53 ABG HCO3 35.5 mmol/L (22-26) H 12/14/23 10:53 ABG O2 Saturation 97.4 12/14/23 10:53 ABG Base Excess 9.1 mmol/L (-2.0-2.0) H 12/14/23 10:53 Kenneth Test Pos 12/14/23 10:53 A-a O2 Gradient Not Reportable 12/14/23 10:53 Hematocrit 51.4 % (42-52) 12/14/23 10:53 Hgb O2 Saturation 95.9 % (95-100) 12/14/23 10:53 Carboxyhemoglobin 1.6 %THgb (0.4-20.1) 12/14/23 10:53 Methemoglobin 0.0 % (0.4-1.5) L 12/14/23 10:53 Total Hemoglobin 16.8 g/dL (14-18) 12/14/23 10:53 Sodium 135.0 mmol/L (131-143) 12/14/23 10:53 Potassium 3.5 mmol/L (3.5-5.0) 12/14/23 10:53 Glucose 92.0 mg/dL (70-115) 12/14/23 10:53 Ionized Calcium 1.1 mmol/L (1.1-1.4) 12/14/23 10:53 O2 Delivery Device Room air 12/14/23 10:53 FiO2 21.0 % 12/14/23 10:53 Equipment Maintenance Technician ID Cak 12/14/23 10:53 Sodium 137 mmol/L (136-145) 12/14/23 11:05 Potassium 3.6 mmol/L (3.5-5.1) 12/14/23 11:05 Chloride 89 mmol/L (98-107) L 12/14/23 11:05 Carbon Dioxide 33 mmol/L (22-29) H 12/14/23 11:05 Anion Gap 18.6 (5-19) 12/14/23 11:05 BUN 21 mg/dL (8-23) 12/14/23 11:05 Creatinine 1.0 mg/dL (0.7-1.2) 12/14/23 11:05 GFR Calculation 75.7 mL/min (90-130) L 12/14/23 11:05 Glucose 87 mg/dL (65-115) 12/14/23 11:05 Calculated Osmolality 286 mOsm/kg (285-295) 12/14/23 11:05 Lactic Acid 2.5 mmol/L (0.5-2.2) H 12/14/23 11:05 Lactic Acid (Sepsis) 1.6 mmol/L (0.5-2.2) 12/14/23 13:50 Calcium 8.8 mg/dL (8.5-10.5) 12/14/23 11:05 Magnesium 1.3 mg/dL (1.7-2.3) L 12/14/23 11:05 Total Bilirubin 1.2 mg/dL (0.15-1.2) 12/14/23 11:05 AST 31 U/L (0-40) 12/14/23 11:05 ALT 21 U/L (0-41) 12/14/23 11:05 Alkaline Phosphatase 90 U/L (40-130) 12/14/23 11:05 Troponin T Baseline 45 ng/L (0-15) H 12/14/23 11:05 Troponin T 120 Minute 43.87 ng/L (0-15) H 12/14/23 13:14 Delta Troponin T -1.13 ABS# (0-10) L 12/14/23 13:14 C-Reactive Protein 5.6 mg/L (0.0-4.9) H 12/14/23 11:05 NT-Pro-B Natriuret Pep 2332 pg/mL (0-125) H 12/14/23 11:05 Total Protein 5.9 g/dL (6.6-8.7) L 12/14/23 11:05 Albumin 3.6 g/dL (3.5-5.2) 12/14/23 11:05 Globulin 2.3 g/dL (1.3-4.6) 12/14/23 11:05 TSH 3.53 uIU/mL (0.27-4.20) 12/14/23 11:05 Micro: Microbiology 12/14/23 11:08 Blood Culture - Preliminary Blood SPECIMEN COLLECTED 12/14/23 11:05 Blood Culture - Preliminary Blood SPECIMEN COLLECTED EKG 1: My Interpretation: Atrial fibrillation with a ventricular rate of 100 bpm. Diffuse nonspecific T wave changes. Poor R wave progression, suggestive of old anteroseptal RI. Other data: Chest x-ray shows cardiomegaly with a features of pulmonary venous congestion. CT of the chest revealed no evidence of pulmonary embolism. Echocardiogram revealed Severe diffuse hypokinesia of the left ventricular with almost akinetic septum. LV ejection fraction around 20%. (Preliminary) A&P Assessment and plan (1) Chest pain: Patient chest pain associated with diaphoresis and hypotension, is suggestive of underlying coronary artery disease. This needs to be ruled out. Qualifiers: Chest pain type: precordial pain Qualified Code(s): R07.2 - Precordial pain (2) Hypotension: This could be multifactorial. Ischemia, severe LV systolic dysfunction, IV medication, etc. are contributing factors. Qualifiers: Hypotension type: other hypotension type Qualified Code(s): I95.89 - Other hypotension (3) Congestive heart failure: Patient seems to have features of congestive heart failure with a severe LV systolic dysfunction. The multiple wall motion normalities is suggesting underlying coronary disease. Qualifiers: Heart failure chronicity: acute Heart failure type: unspecified Qualified Code(s): I50.9 - Heart failure, unspecified (4) Atrial fibrillation with rapid ventricular response: May consider amiodarone and possible cardioversion to further manage the arrhythmia. (5) Cardiomyopathy: Most likely ischemic. Qualifiers: Cardiomyopathy type: unspecified Qualified Code(s): I42.9 - Cardiomyopathy, unspecified (6) COPD exacerbation: Patient has a history of heavy smoking abuse. (7) Hypoxemia: Poss related to COPD/hypoventilation syndrome Plan In view of the patient's unstable status and severe LV dysfunction, it may be appropriate to do an emergency angiogram to further evaluate his coronary status and decide on further management. Based on the angiogram findings, further recommendations will be made. Patient's overall status is unstable. Currently there are no other family members available to discuss his condition. Dr. Slaughter discussed his condition with Dr. Wise, his primary care provider. Thank you for the opportunity to evaluate this patient and make these recommendations Consult Attestations Medical Necessity Statement: Patient requires continued hospital stay for close monitoring and further management Coding Level of Care Code 01110 Diagnoses Precordial pain R07.2 Chest pain type: precordial pain Other specified hypotension I95.89 Hypotension type: other hypotension type Congestive heart failure I50.9 Heart failure chronicity: acute Heart failure type: unspecified Atrial fibrillation with rapid ventricular response I48.91 Cardiomyopathy, unspecified type I42.9 Cardiomyopathy type: unspecified COPD exacerbation J44.1 Hypoxemia R09.02
[2023-12-14] MEDS: oxyCODONE-APAP 5-325 mg Tablet 1 TAB PO (18:08)
[2023-12-14] MEDS: diazePAM 5 mg Tablet 10 MG PO (18:08)
[2023-12-14 18:10] LABS: Troponin 5 6HR 43.01 ng/L (0-15)
[2023-12-14 18:17] LABS: Troponin 5 6HR Delta -1.99 ng/L (0-12)
--- NOTE | 2023-12-14 18:45 | ECG_ITS ---
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 Measurements Intervals Erwin Rate: 100 P: 0 FL: 0 QRS: 83 QRSD: 89 T: 125 QT: 351 QTc: 453 Interpretive Statements ATRIAL FLUTTER/TACHYCARDIA WITH RAPID VENTRICULAR RESPONSE ANTEROSEPTAL MYOCARDIAL INFARCTION , OF INDETERMINATE AGE [40+ ms Q WAVE IN V1-V4] Compared to ECG 12/14/2023 16:44:55 T-wave abnormality no longer present Possible ischemia no longer present Myocardial infarct finding still present Electronically Signed On 12-14-2023 23:50:10 CDT by Rosalia Claudio M.D. [email or web address]
[2023-12-14] MEDS: norepinephrine 4 MG/250 ML BAG 37.5 MG IV (18:50)
--- NOTE | 2023-12-14 19:00 | PC.NURSE ---
Critical Care Update 174-scan in Metoprolol 5mg IVP. 1750 to 175-switch BP cuff to cycle every 2 mins & begin administering IVP Metoprolol. 1800-titrate Cardizem gtt up to 12.5mg/hr per protocol, documented HR 135. 1809 to 1811-stop administering Metoprolol IVP, documented HR 108. total dose Metoprolol administered 2mls IVP. 1811 to 1847-BP unable to read. 1818-titrate Cardizem gtt down to 10mg/hr per protocol. 184-patient reporting heartburn and noticeably sweaty, john. radial pulses diminished. EKG performed. 1849-call attending hospitalist to provide update regarding patient condition, received the following orders; titrate Cardizem gtt down to 5mg/hr, start Levophed if MAP <65, discard remaining 3mls of Metoprolol IVP. 185-Carizem gtt stopped per attending hospitalist orders, Levophed started per protocol.
--- NOTE | 2023-12-14 19:30 | PC.NURSE ---
Metoprolol Waste Wasted 3mls Metoprolol IVP with EDMOND Quinteros.
--- NOTE | 2023-12-14 19:35 | XRR_ITS ---
PROCEDURE INFORMATION: Exam: XR Chest Exam date and time: 12/14/2023 8:43 PM Age: 63 years old Clinical indication: Other: Tachy; Additional info: Possible sepsis TECHNIQUE: Imaging protocol: Radiologic exam of the chest. Views: 1 view. COMPARISON: CT angio chest PE protcl [id number] 12/14/2023 12:44 PM FINDINGS: Lungs: There is faint patchy interstitial density involving both lung bases. The upper lung chaney are clear. Pleural spaces: Unremarkable. No pleural effusion. No pneumothorax. Heart/Mediastinum: Prominent cardiomegaly is noted. Bones/joints: Unremarkable. XR/XR chest 1V portable [id number] IMPRESSION: Cardiomegaly with bibasilar interstitial infiltrate. Mild CHF?
[2023-12-14] MEDS: vasopressin 40 UNIT/100 ML PREMIX 6 UNIT IV (19:50)
[2023-12-14 20:21] LABS: ABG PCO2 51.8 mmHg (35-45); ABG PH Result 7.42 (7.35-7.45); Alveolar-Arterial Oxygen Gradi 0.2 mmHg (5-10); Arterial Blood Gas Hematocrit 54.8 % (42-52); Base Excess ABG 7.3 mmol/L (-2.0-2.0); Blood Gas LPM 4.5 %; Blood Gas Operator Identificat JB; Blood Gas Sample Site Brachial, right; Blood Gas Sample Type Arterial; Carboxyhemoglobin 1.4 %THgb (0.4-20.1); HCO3 ABG 33.7 mmol/L (22-26); HGB O2 Sat 94.9 % (95-100); Oxygen Device NC; Oxygen Saturation ABG 96.2; PO2 ABG 83.9 mmHg (80.0-100.0); Potassium Level - ABG 3.2 mmol/L (3.5-5.0); Total Hemoglobin 17.9 g/dL (14-18)
[2023-12-14] MEDS: magnesium sulfate premix 2 GM/50 ML PIGGYBACK IV (20:33)
--- NOTE | 2023-12-14 20:38 | XACV_ITS ---
Exam Room: 2 Ht: 180 cm Wt: 112 kg BSA: 2.40 m2 Gender: Male : 1960 Any Known Allergies: Other Exam Priority: Routine Indication(s): - Cardiogenic shock Procedure(s): Procedure Description: Diagnostic procedure Procedure Description: Coronary Angiography PINODAVIDNeftaly; Diagnostic Cath Status: Urgent Diagnostic Findings * Patient with tachycardia, suspected atrial flutter, congestive heart failure, hypotension requiring pressors. Angiography indicated to rule out coronary artery disease procedure performed from the right common femoral artery due to hypotension, lack of radial pulse. * Coronary angiography reveals right coronary artery dominance. The left main coronary artery is normal bifurcates into the left anterior descending and circumflex. Circumflex gives off for small marginal branches and contains minimal luminal irregularities but no significant stenoses. The LAD is free of significant disease. There are 2 diagonal branches. The right coronary artery is the dominant vessel and ends distally as the posterior descending artery and posterior left ventricular branch. It is without any significant lesions. No left ventriculogram was done due to contrast material and hypotension. Conclusions 1. Normal coronary arteries, suspect tachycardia related cardiomyopathy. Recommendations * Full dose Lovenox, amiodarone drip, digoxin to slow heart rate, cardioversion tomorrow if available. Interventional RX Recommendation: medical therapy and/or counseling Diagnostic RX Recommendation: medical therapy and/or counseling Anticoagulation: Heparin Pressures Phase:Rest AO : 117 / 108 ( 113 ) @ 4:24:20 PM Clinical Evaluation EBL: 5mL-10mL Procedural Details Procedure Consent Obtained. Pre-Procedure Time Out. Identified patient by full name and date of as verbalized by the patient/guarantor. Does the consent match the physician's order: Yes. Accurate & Complete Informed Consent: Yes. Inpatient/Outpatient History & Physical on Chart: Yes. Visualize and Verify Site with Patient/Guarantor: N/A. If H&P is completed, is and addenduem needed: Yes; If yes, is the addendum complete: Yes. Relevant Radiology Images available: Yes. The risks, benefits, and alternatives of sedation and/or procedure were discussed by physician. The patient agrees to continue. Procedure started. [facility] Clinical Fraility Score: 4: Vulnerable. Community Pharmacist Indications: Other/Cardiogenic shock. Chest Pain Symptom Assessment: Atypical Angina. Cardiovascular Instability: Yes, if yes, Cardiogenic Shock. Correct patient, site and procedure confirmed by cath team. PERRLA. Strong, equal hand fleet service manager bilaterally. Lungs clear x 5 lobes. IV Site on Arrival: 22 gauge in the right anticubital. IV Site on Arrival: 18 gauge in the right anticubital. IV Site on Arrival: 18 gauge in the left anticubital. IV Fluids: 0.9% NaCl at KVO. 200 mL infused prior to slab lifting supervisor. Vasopressin gtt at 0.04 units/min and Norepinepherine 20 mcg/min on arrival to the slab lifting supervisor. Pre Procedural Pulses: bilateral dorsalis pedis was Absent. Pre Procedural Pulses: bilateral posterior tibial was Absent. Oxygen started at 5liters/min via nasal canula. bilateral groins was prepped with chloroprep then draped in the usual sterile fashion. Physician notified. Baseline sample Acquired. HR: 133 BPM. Patient's family unavailable. Equipment: 6F - Femoral. Cardiac Cath Pack. ACIST Manifold Kit Model BT 2000. Heparinized Saline (2 units/mL), 1000 mL bag. Physician arrived. Physician scrubbed in. Immediate Pre-Procedure Time Out. Correct Patient: Yes; Correct Procedure: Yes; Correct Site: Yes; Correct Patient Position: Yes; Correct Supplies: Yes; Dried Flammable Prep: Yes; Blood Products Available: N/A. Lidocaine 1% infiltrated to the right groin. Arterial access obtained. A 5 fijian JL4 catheter in over wire. Multiple views taken of left coronary artery. Catheter removed over the standard wire. A 5 fijian JR4 catheter in over wire. Multiple views taken of right coronary artery. A Suture was successful obtaining hemostatsis at the Right Femoral artery insertion site. Catheter removed over the standard wire. Dr. Higginbotham scrubbed out. Arterial sheath flushed and connected to tranducer and pressure bag with heparinized saline. Post Procedure: Pulses reassessed and unchanged. PERRLA. Strong, equal hand fleet service manager bilaterally. No VTE prophylaxis required. Medication's Wasted: Lidocaine 1% = 10 mL. Total IV fluids: 50 mL. Post-op diagnosis: Normal Coronaries. Complications: none. Estimated blood loss: 5mL-10mL. Responsiveness - Normal response to verbal stimuli; alert and oriented, PERRLA. Airway - Unaffected, no intervention required; spontaneous ventilation. Circulation: W/N/L, pulses unchanged. Nausea/Vomiting: No. Medication's Wasted: Heparin = 4000 Units. Medication's Wasted: Other = Versed 2 mg. Medication's Wasted: Other = Fentanyl 200 mcg. Procedure completed. Patient transferred by bed to ICU. Vital chart was stopped. Access Site Site: Right Femoral artery Sheath Size: 6 Fr Hemostasis Method: Suture Hemostasis Success: Successful I, the attending physician, have reviewed and verified all procedure medications. Yes, all medications given per verbal order History/Risk Factors Hypertension: No Dyslipidemia: No Peripheral Arterial Disease (PAD): No Myocardial Infarction (FL): No Obesity: Yes Renal Disease: No Tobacco Use: Former Prior Interventions PCI: No CABG: No Valve Surgery: No Report Signatures Finalized by Dr. Mervin Higginbotham MD on 12/14/2023 09:42 PM
[2023-12-14 20:50] LABS: Alanine Aminotransferase 27 U/L (0-41); Alkaline Phosphatase 119 U/L (40-130); Anion Gap 17.5 (5-19); Aspartate Amino Transferase 40 U/L (0-40); Blood Urea Nitrogen 19 mg/dL (8-23); Calcium 8.8 mg/dL (8.5-10.5); Carbon Dioxide 31 mmol/L (22-29); Chloride 92 mmol/L (98-107); Globulin 2.8 g/dL (1.3-4.6); Glomerular Filtration Rate 75.7 mL/min (90-130); Glucose 106 mg/dL (65-115); Magnesium 1.4 mg/dL (1.7-2.3); Osmolality Calculated 287 mOsm/kg (285-295); Phosphorus 3.9 mg/dL (2.5-4.5); Potassium 3.5 mmol/L (3.5-5.1); Sodium 137 mmol/L (136-145); Total Bilirubin 1.4 mg/dL (0.15-1.2); Total Protein 6.8 g/dL (6.6-8.7)
[2023-12-14 20:51] LABS: Basophils # 0.1 10^3/uL (0.0-0.1); Eosinophils # 0.1 10^3/uL (0.0-0.8); Eosinophils % 0.8 %; Hematocrit 57.8 % (37-53); Lymphocytes # 2.9 10^3/uL (0.8-4.8); Lymphocytes % 39.9 %; Mean Corpuscular HGB Conc 32.2 g/dL (30-55); Mean Corpuscular Volume 99.5 fl (82-101); Mean Platelet Volume 11.2 fL (7.4-10.4); Monocytes # 0.6 10^3/uL (0.2-0.9); Monocytes % 8.1 %; Neutrophils # 3.58 10^3/uL (1.8-7.7); Neutrophils % 49.9 %; Nucleated Red Blood Cells % 0 %; Platelet Count 186 10^3/cmm (157-399); Red Blood Count 5.81 10^6/uL (3.85-5.65); Red Cell Distribution Width 20.9 % (12.1-15.1); White Blood Count 7.17 10^3/uL (3.29-11.43)
[2023-12-14 21:02] LABS: Lactic Sepsis W/Reflex 4.1 mmol/L (0.5-2.2)
--- NOTE | 2023-12-14 21:24 | PM.CCN ---
Critical Care Event Note Called emergently to patient's room. He had continued to have atrial flutter/A-fib with heart rate in the 130s. After diuresis he had had a liter of fluid out and his blood pressures were improving. With no improvement in heart rate, ordered a One-time dose of beta-blockade to see if there was any improvement in heart rate. Not too long after 2 mg of metoprolol were administered, patient's blood pressure dropped. He was given a fluid bolus but ultimately ended up requiring pressor support. He was on Levophed and vasopressin had to also be added. Bedside hemodynamics showed CI of 3 and SVI of 28. Just preceding episode patient was complaining of increased upper back pain. His chronic back pain is lower back pain. He also had nausea, diaphoresis and general malaise. He had significant mottling after initiation of pressor support. Stat labs ordered and request was made for stat echocardiogram to be performed. EKGs were showing atrial flutter and nonspecific ST segment changes, no ST segment elevation. Bedside echocardiogram demonstrated evidence of an ejection fraction of around 20%. Cardiology was called and decision made to take patient to [facility] for emergent evaluation. I spoke with the patient at length, he was able to provide information and alert and oriented after improving with pressors. He is aware of critical condition and potential that he could not survive this episode. He does not have anyone to make decisions for him. He does not want to be resuscitated for an extended period of time but would like to be resuscitated. He would be okay with intubation and short-term if necessary. He has a nephew listed as person to contact but indicates he likely would not be able to make any decisions. Plan of care discussed with Dr. Claudio and Dr. Neftaly Wise was updated of the critical nature of patient's condition as well. Levophed at 20, vasopressin at 0.4 Sign out given to night hospitalist The high probability of a clinically significant, sudden or life threatening deterioration of the patient's cardiopulmonary system(s) required my full and direct attention, intervention and personal management. The critical care time is as shown. This time is in addition to time spent performing any reported procedures but includes the following: [x] Data and vital sign review and interpretation [x] Patient assessment, examination and intervention [x] Documentation [x] Medication orders and management Critical Care Time Code activated: No Critical Care Time (min): 65 Coding Level of Care Code Critical Care Diagnoses Atrial flutter with rapid ventricular response I48.92 Congestive heart failure I50.9 CKD (chronic kidney disease), stage II N18.2 Erectile dysfunction N52.9 Chronic back pain greater than 3 months duration M54.9; G89.29 COPD (chronic obstructive pulmonary disease) J44.9 Polycythemia D75.1 Major depressive disorder, recurrent, mild F33.0 Generalized anxiety disorder F41.1 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 Limited family support Z63.8 Atrial fibrillation with rapid ventricular response I48.91 Hypoxemia R09.02 Precordial pain R07.2 Chest pain type: precordial pain Cardiomyopathy, unspecified type I42.9 Cardiomyopathy type: unspecified COPD exacerbation J44.1 Other specified hypotension I95.89 Hypotension type: other hypotension type Sepsis Event Note Inpt Quick SOFA Score Sepsis Screen No Definite Risk 12/14/23 13:30 Respiratory Rate 23 breaths/min H (12 - 18) 12/14/23 20:48 Blood Pressure 124/93 mmHg 12/14/23 21:02 Mary Coma Scale Score 15 12/14/23 17:19 Quick SOFA Score 0 12/14/23 13:30 Respiratory Rate: 23 Cavour Coma Scale: 15 qSOFA Score: 1 If qSOFA score 2 or greater, continue SOFA Score: ABG PO2/FiO2 Ratio 0 12/14/23 10:53 Mary Coma Scale Score 15 12/14/23 17:19 Blood Pressure Mean 103 mmHg 12/14/23 21:02 Total Bilirubin 1.4 mg/dL (0.15-1.2) H 12/14/23 20:10 Platelet Count 186 10^3/cmm (157-399) 12/14/23 20:10 Creatinine 1.0 mg/dL (0.7-1.2) 12/14/23 20:10 PaO2/FiO2 Ratio (mmHg): 0 Blood Pressure Mean: 103 Norepinephrine Current Rate (?g/kg/min): 20 Bilirubin (mg/dl): 1.4 Platelets (x10?/ml): 186 Creatinine (mg/dl): 1.0 SOFA Score: 9 Evaluation Current stage of sepsis: ruled out/differential diagnosis Noninfectious sepsis mimickers: acute CHF Crystalloid fluids: less than 30 mL/kg crystalloid fluids ordered Reasons: heart failure Blood cultures ordered: Yes Focused Exam Vital signs: Temp Pulse Resp BP Pulse Ox O2 Del Method O2 Flow Rate 12/14/23 13:45 135 H 10 L 122/90 12/14/23 13:40 135 H 17 122/90 12/14/23 13:30 134 H 11 L 12/14/23 13:15 135 H 20 H 12/14/23 13:00 134 H 15 12/14/23 12:30 135 H 14 128/82 89 L 12/14/23 12:15 135 H 13 128/82 12/14/23 12:00 135 H 8 L 103/81 12/14/23 11:45 135 H 10 L 103/81 12/14/23 11:30 135 H 12 103/81 96 12/14/23 11:19 135 H 12/14/23 11:17 135 H 16 96 Nasal Cannula 2 12/14/23 11:00 136 H 4 L 117/84 99 12/14/23 10:49 98.3 F 136 H 18 117/84 95 Respiratory exam: Yes rales Cardiovascular exam: Yes tachycardic and abnormal rhythm Capillary refill: < 3 Seconds Peripheral pulse strength: 1+ Faint Peripheral pulse location: Radial and Pedal Skin exam: Yes mottling Date exam was performed: 12/14/23 Time exam was performed: 21:40 Bedside Monitoring Fluid responsiveness: Not Fluid Responsive Date bedside monitoring was performed: 12/14/23 Time bedside monitoring was performed: 21:52 Problem List (1) Atrial flutter with rapid ventricular response: (2) Congestive heart failure: (3) CKD (chronic kidney disease), stage II: (4) Erectile dysfunction: (5) Chronic back pain greater than 3 months duration: (6) COPD (chronic obstructive pulmonary disease): (7) Polycythemia: (8) Major depressive disorder, recurrent, mild: (9) Generalized anxiety disorder: (10) Secondary male hypogonadism: (11) Limited family support: (12) Atrial fibrillation with rapid ventricular response: (13) Hypoxemia: (14) Chest pain: (15) Cardiomyopathy: (16) COPD exacerbation: (17) Hypotension:
--- NOTE | 2023-12-14 22:00 | PC.NURSE ---
Per Dr Claudio- continue levophed, and vasopression - instead of Epinephrine. Per Dr. Higginbotham discontinue blood and plasma laboratory assistant ns, leave sheath in til reviewed by me in AM. Sheath currently being maintained on a heparinized pressure bag- hook to monitor for A line pressure managment. 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
[2023-12-14 22:16] LABS: Reflex Lactate Order REFLEX LACTIC ORDERD
[2023-12-14] MEDS: digoxin 250 mcg/ml INJ 2 mL IVP (22:16)
[2023-12-14] MEDS: enoxaparin 120 mg/0.8 mL Syringe 110 MG SUBCUT (22:17)
[2023-12-14] MEDS: amiodarone 150 MG/100 ML PREMIX 400 MG IV (22:31)
[2023-12-14] MEDS: norepinephrine 4 MG/250 ML BAG 56.25 MG IV (22:44)
[2023-12-14] MEDS: mirtazapine 15 mg Tablet PO (22:47)
[2023-12-14] MEDS: pantoprazole DR 40 mg Tablet PO (22:47)
[2023-12-14 23:04] LABS: Add Urine Microscopic? NO; Charge for UA Resulting for Rev
[2023-12-14 23:13] LABS: Bilirubin Urine Neg (Negative); Blood Urine Neg (Negative); Glucose Urine UA Norm (Normal); Ketones Urine Negative (Negative); Leukocyte Esterase Urine Negative (Negative); Nitrate Urine Negative (Negative); Protein Urine Neg (Negative); Specific Gravity, Urine 1.005 (1.005-1.030); Urine Appearance Clear (CLEAR); Urine Color Yellow (Yellow); Urobilinogen Urine Neg (Negative); pH Urine 6.5 (5-7)
--- NOTE | 2023-12-14 23:26 | PC.NURSE ---
Back from heart cath with right femoral sheath in place on pressure bag with heparinized solution. Alert oriented x 4, denies pain, color still slightly dusky. pressures wnl on vasopressin at 0.04 mcg/min and levophed at 15 mcg/min. NS at 50 to be discontinued per Dr. Higginbotham. Sheath to remain in place til removed by md in am. right groin site without evidence of bleeding or hematoma, pedal pulses bilaterally dopplarable. Plan cardioversion in am per md. Npo except chips sips with meds. o2 4 L nc. saturations 100 % when picking up due to decreased peripheral circulation on pressure agents. No blockages reported from cath.
--- NOTE | 2023-12-14 23:46 | XRR_ITS ---
PROCEDURE INFORMATION: Exam: XR Chest Exam date and time: 12/14/2023 11:49 PM Age: 63 years old Clinical indication: Device placement; Other: Central line; Additional info: Central line placement TECHNIQUE: Imaging protocol: Radiologic exam of the chest. Views: 1 view. COMPARISON: CR (CHEST, ) 12/14/2023 8:43 PM FINDINGS: Tubes, catheters and devices: New left internal jugular venous catheter terminating in the region of the junction of the left brachiocephalic vein and superior vena cava. Lungs: Stable mild interstitial prominence. Consolidation. Pleural spaces: No pleural effusion or pneumothorax. Heart/Mediastinum: Mild cardiomegaly. Bones/joints: No acute osseous abnormalities are seen. XR/XR chest 1V portable [id number] IMPRESSION: New left internal jugular venous catheter terminating in the region of the junction of the left brachiocephalic vein and superior vena cava.
[2023-12-15] VITALS (80 sets, daily range): BP systolic 58–145; BP diastolic 4–111; PULSE 118–129; RESP 0–25; TEMP 35.4–36.5; O2SAT 76–100
--- NOTE | 2023-12-15 00:08 | PC.NURSE ---
o2 saturations low with poor wave form non rebreather applied, slight improvement in o2 saturations to 80's hob up to 30 degree with slight [place] - noted improvement able to place back on o2 4l nc.
--- NOTE | 2023-12-15 01:18 | PM.EVENT ---
Event Note Event Note: Called by Dr. Norris because patient needs better IV access, he is on 2 pressors and amiodarone drip. She requested we put a central line in. Acute Procedures Central Line Placement Left IJ: Time out performed: Yes Patient placed on monitor/pulse ox: Yes MD prep: mask, gown and gloves Central line prep: Chlorhexidine scrub and sterile drapes applied Local anesthesia used: lidocaine 1% Amount of anesthesia used (ml): 3 Ultrasound used for placement: Yes Central line lumen inserted: triple Post procedure: sutured in place, good blood return, all ports aspirated, flushed, capped and sterile dressing applied Post procedure x-ray: other (Questionable tip of catheter location will wait for radiology read, may not be able to advance any further) Patient tolerated procedure: well and no complications
--- NOTE | 2023-12-15 01:28 | XRR_ITS ---
PROCEDURE INFORMATION: Exam: XR Chest Exam date and time: 12/15/2023 1:34 AM Age: 63 years old Clinical indication: Device placement; Other: Central line; Additional info: Central line placement post reposition TECHNIQUE: Imaging protocol: Radiologic exam of the chest. Views: 1 view. COMPARISON: CR (CHEST, ) 12/14/2023 11:49 PM FINDINGS: Tubes, catheters and devices: Left internal jugular venous catheter with the distal tip in the region of the superior vena cava. Lungs: Stable mild interstitial prominence. Pleural spaces: No pleural effusion or pneumothorax. Heart/Mediastinum: Stable cardiomegaly. Bones/joints: Unremarkable. XR/XR chest 1V portable [id number] IMPRESSION: Left internal jugular venous catheter with the distal tip in the region of the superior vena cava.
[2023-12-15 02:48] LABS: Basophils # 0.1 10^3/uL (0.0-0.1); Basophils % 0.6 %; Eosinophils # 0.2 10^3/uL (0.0-0.8); Eosinophils % 2.3 %; Hematocrit 53.7 % (37-53); Mean Corpuscular HGB Conc 32.6 g/dL (30-55); Mean Corpuscular Hemoglobin 32.2 pg (27-33); Mean Corpuscular Volume 98.7 fl (82-101); Mean Platelet Volume 11.4 fL (7.4-10.4); Monocytes # 0.7 10^3/uL (0.2-0.9); Monocytes % 8.8 %; Neutrophils # 4.98 10^3/uL (1.8-7.7); Neutrophils % 62.8 %; Nucleated Red Blood Cells % 0 %; Platelet Count 169 10^3/cmm (157-399); Red Blood Count 5.44 10^6/uL (3.85-5.65); Red Cell Distribution Width 20.7 % (12.1-15.1); White Blood Count 7.93 10^3/uL (3.29-11.43)
[2023-12-15 03:13] LABS: Anion Gap 17.1 (5-19); Blood Urea Nitrogen 21 mg/dL (8-23); Calcium 8.2 mg/dL (8.5-10.5); Carbon Dioxide 32 mmol/L (22-29); Chloride 91 mmol/L (98-107); Creatinine Clr Calc Pharmacy 81.1225; Glomerular Filtration Rate 61.3 mL/min (90-130); Glucose 163 mg/dL (65-115); Magnesium 1.7 mg/dL (1.7-2.3); Osmolality Calculated 289 mOsm/kg (285-295); Phosphorus 4.6 mg/dL (2.5-4.5); Potassium 4.1 mmol/L (3.5-5.1); Sodium 136 mmol/L (136-145)
[2023-12-15 03:15] LABS: Chol HDL Ratio 3.05 mg/dL (1.0-5.00); Cholesterol 119 mg/dL (0-200); HDL Cholesterol 39 mg/dL (60-100); LDL Cholesterol Calculated 64 mg/dL (50-129); LDL HDL Ratio 1.64 RATIO (0.00-3.22); Lactic Acid level (Lactate) 2.6 mmol/L (0.5-2.2); Triglycerides 81 mg/dL (0-150)
[2023-12-15] MEDS: oxyCODONE-APAP 5-325 mg Tablet 1 TAB PO ×2 (03:18→21:49)
[2023-12-15] MEDS: norepinephrine 4 MG/250 ML BAG 37.5 MG IV ×2 (03:42→10:15)
[2023-12-15] MEDS: FUROsemide 10 mg/mL SDV 4mL 40 MG IVP ×2 (04:58→18:16)
[2023-12-15] MEDS: potassium chloride ER 20 mEq Tablet PO ×2 (04:58→18:16)
--- NOTE | 2023-12-15 05:51 | PC.NURSE ---
Patient on levophed and vasopressin, with decreased cap refil and mottling to all extremities. Stockings not applied due to compromised blood flow.
[2023-12-15] MEDS: budesonide 0.5 mg/2 mL Neb INHALATION ×2 (08:16→19:30)
[2023-12-15] MEDS: cetirizine 10 mg Tablet PO (08:38)
[2023-12-15] MEDS: docusate sodium 100 mg Capsule PO ×2 (08:38→18:16)
[2023-12-15] MEDS: pantoprazole DR 40 mg Tablet PO ×2 (08:38→21:49)
[2023-12-15] MEDS: fluticasone nasal spray 16gm Btl 2 SPRAY INTRANASAL (08:38)
[2023-12-15] MEDS: aspirin 81 mg EC Tablet PO (08:38)
[2023-12-15] MEDS: venlafaxine ER (24HR) 150 mg Capsule PO (08:38)
[2023-12-15] MEDS: bacitracin ointment Pkt 1 EACH TOPICAL ×3 (08:39→21:50)
[2023-12-15] MEDS: enoxaparin 120 mg/0.8 mL Syringe 110 MG SUBCUT ×2 (10:05→21:49)
[2023-12-15] MEDS: DOBUTamine drip 500 MG/250 ML PREMIX 16.5 MG IV (10:06)
[2023-12-15] MEDS: vasopressin 40 UNIT/100 ML PREMIX IV (10:14)
[2023-12-15] MEDS: acetaminophen 325 mg Tablet 650 MG PO ×2 (10:14→18:16)
--- NOTE | 2023-12-15 13:17 | PM.PN ---
Subjective Subjective: He is feeling slightly better. Denies any specific pain or discomfort. Having mild cough Vitals/I&O/Wt Last Vital Signs Temp 97.7 F 12/15/23 12:30 Pulse 123 H 12/15/23 12:30 Resp 11 L 12/15/23 12:30 BP 91/72 12/15/23 12:00 Pulse Ox 100 12/15/23 12:30 O2 Del Method Nasal Cannula 12/15/23 12:30 O2 Flow Rate 4 12/15/23 12:30 12/14/23 12/15/23 12/15/23 22:59 06:59 14:59 Intake Total 438.042 / 438.042 470 / 908.042 385.225 / 385.225 Output Total 1200 / 1200 350 / 1550 Balance -761.958 / -761.958 120 / -641.958 385.225 / 385.225 Weight last 48 hrs Weight 110 kg Weight 111.697 kg Weight 89.358 kg Physical Exam Const: COMMON NORMALS: patient oriented x3 and alert GENERAL APPEARANCE: cooperative NUTRITIONAL APPEARANCE: obese ORIENTATION/CONSCIOUSNESS: Yes awake HENMT: COMMON NORMALS: oropharynx normal Neck/C-Spine: COMMON NORMALS: no JVD OTHER: R neck CVC Resp: COMMON NORMALS: normal respiratory effort and clear to auscultation bilaterally AUSCULTATION: clear to auscultation bilaterally Cardio: COMMON NORMALS: no JVD, regular rhythm, S1 normal heart sound present, S2 normal heart sound present and No murmurs present (Cardio) RHYTHM: regular rhythm HEART SOUNDS: S1 normal heart sound present and S2 normal heart sound present GI: COMMON NORMALS: Normal to inspection, nondistended, normoactive bowel sounds present, Soft to palpation and non-tender PALPATION: Yes Soft to palpation Extremity: COMMON NORMALS: no joint enlargement GENERAL: Yes edema (2+) Neuro: COMMON NORMALS: patient oriented x3 and moves all extremities SENSORIUM/ORIENTATION: Yes alert Skin: COMMON NORMALS: no rashes or lesions noted GENERAL SKIN EXAM: no rashes or lesions noted OTHER: Cool to touch, cold 2/4 extremities with mottling. Urinary Catheter Management: Mckeon: Cath Placed During This Visit: yes Reason for Continuing Indwelling Catheter: Accurate Measurement of Urinary Output in Critically Ill Patients Urinary Catheter Date of Insertion: 12/14/23 Urinary Catheter Time of Insertion: 22:50 Data 12/15/23 02:35 12/15/23 02:35 Micro: Microbiology 12/14/23 11:08 Blood Culture - Preliminary Blood NEGATIVE TO DATE 12/14/23 11:05 Blood Culture - Preliminary Blood NEGATIVE TO DATE 12/14/23 20:10 Blood Culture - Preliminary Blood SPECIMEN COLLECTED 12/14/23 20:10 Blood Culture - Preliminary Blood SPECIMEN COLLECTED A&P Assessment and plan (1) Congestive heart failure: Continues in cardiogenic shock, continue to wean down pressors as tolerating. Cardiology had considered cardioversion, currently still tachycardic but heart rate appears regular, cardioversion for now has been deferred. Is on dobutamine, attempted to wean off vasopressin, Levophed. Reviewed vitals, CBC, ABG, CMP, phosphorus magnesium, UA, chest x-ray, CTA. Reviewed cardiology note. Discussed with nursing and nurse outreach case manager. Status post coronary angiography with unobstructed coronaries. Echocardiogram with new severe cardiomyopathy, EF 15-20%, almost kinetic septum and anteroseptal segments. Mildly dilated right ventricle. Moderately diminished EF. Mildly dilated RA and RV. (2) Atrial flutter with rapid ventricular response: Continue amiodarone drip. Magnesium has been replaced. Recheck level. Continues to have tachycardia on the monitor 100 teens, appears regular, possibly sinus tachycardia, assessed by cardiology, cardioversion was considered earlier for atrial flutter, but for now deferred. (3) CKD (chronic kidney disease), stage II: Not a known chronic diagnosis though current GFR is 75 (4) Erectile dysfunction: Has a prescription for sildenafil but has not taken any in more than 3 months (5) Chronic back pain greater than 3 months duration: Has been previously seen by Dr. Owens and subsequently by Dr. Serrano. For medical management. Takes oxycodone and diazepam long-term for management. Has had multiple back surgeries in the past. (6) COPD (chronic obstructive pulmonary disease): Chronically on Wilexa and as needed albuterol. Looks to have chronic hypercapnia. Is on chronic benzodiazepines in the form of diazepam and temazepam but not particularly lethargic. (7) Polycythemia: Strongly suspect secondary polycythemia from hypoxemia/sleep apnea that is undiagnosed (8) Major depressive disorder, recurrent, mild: Chronically on venlafaxine and Remeron (9) Generalized anxiety disorder: Chronically on temazepam for sleep (10) Secondary male hypogonadism: On testosterone replacement (11) Limited family support: He also names a neighbor named Daniel who he states knows him well and may be able to help with decisions on his behalf. He states he will have to talk to him. Patient has a nephew listed as his person to contact but he is not somebody who would generally be able to make any decisions pertaining to medical or legal needs per Mr. Ross. His nephew's parents are no longer alive. He has an estranged daughter but no contact information for her. (12) Atrial fibrillation with rapid ventricular response: (13) Hypoxemia: (14) Chest pain: Qualifiers: Chest pain type: precordial pain Qualified Code(s): R07.2 - Precordial pain (15) Cardiomyopathy: Qualifiers: Cardiomyopathy type: unspecified Qualified Code(s): I42.9 - Cardiomyopathy, unspecified (16) COPD exacerbation: (17) Hypotension: Qualifiers: Hypotension type: other hypotension type Qualified Code(s): I95.89 - Other hypotension Plan Elevated D-dimer along with elevated lactic acid felt secondary to hypoxemia and tachycardia secondary to cardiogenic shock, low output failure. No PE on CTA. No clear foci of infection suggesting sepsis at this point in time; clinically appears to be more cardiac presentation Borderline low platelet count Hypomagnesemia: Received magnesium, recheck level. Gastroesophageal reflux disease on PPI Seasonal allergies on cetirizine and fluticasone nasal History of insomnia on ramelteon and trazodone at bedtime Continue home venlafaxine and Remeron Continue home temazepam and trazodone for sleep Continue home oxycodone and diazepam although I am going to decrease diazepam from 4 times a day to every 8 hours Will ultimately benefit from decreasing doses of benzodiazepines if he can tolerate it secondary to hypercapnia Last testosterone dose was on November 28 Disposition plan: Home with outpatient follow up to primary care provider anticipated. Code Status: Full Code - talked with patient at length regarding CODE STATUS. He says that he would like to be resuscitated for 30 minutes and then if he has not regained pulse and spontaneous breathing to let him go at that point in time. Patient does not have any family beyond a nephew who is not someone who is capable of making decisions for him. He has an estranged daughter but does not know how to contact her. Has not seen her in more than 20 years. He said that the e/m engineer could make decisions for him if necessary. Attestations Medical Necessity Statement*: Continue admission for assessment of management of cardiogenic shock. Coding Level of Care Code Critical Care >/= 30 minutes Critical care time (in minutes): 40 The high probability of a clinically significant, sudden or life threatening deterioration, as referenced in this documentation, required my full and direct attention, intervention and personal management. The critical care time shown is in addition to time spent performing any reported separately billable procedures and includes the following: [x] Data and vital sign review and interpretation [x] Patient assessment, examination and intervention [x] Medication orders and management [x] Patient/Family updates as able [x] Care Coordination and Documentation. 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
[2023-12-15] MEDS: benzonatate 100 mg Capsule 200 MG PO (13:30)
--- NOTE | 2023-12-15 14:17 | PC.NURSE ---
Dr. Johnson called and asked for permission to pull femoral sheath. Dr. Johnson ordered to wait another 2 hours, pull sheath, and watch closely for bleeding due to being on full dose lovenox.
--- NOTE | 2023-12-15 16:58 | PC.NURSE ---
Sheath out 1620, held pressure 20 minutes, no bleeding, no hematoma. Dressing applied.
--- NOTE | 2023-12-15 21:03 | PC.NURSE ---
Previous shift vitals pulled to chart from 171 til 184 when this nurse took over care of patient. Heart catheter sheath previously pulled on day shift. Reported to have trouble getting bp at change of shift- retaken. wnl at this time. Patient on dobutamine, levophed and amiodarone drips. Color dusky non diaphoretic at this time. Extremities cold causing issues with obtaining accurate o2 saturations. Hand warmed with blankets, saturations up to 97 % on 4L nc. Patient tearful, with situation. Denies needs at this time.
[2023-12-15] MEDS: mirtazapine 15 mg Tablet PO (21:50)
[2023-12-15] MEDS: norepinephrine 4 MG/250 ML BAG 18.75 MG IV (21:55)
[2023-12-16] VITALS (68 sets, daily range): BP systolic 85–166; BP diastolic 67–122; PULSE 108–120; RESP 4–27; TEMP 36.4–36.7; O2SAT 78–100
--- NOTE | 2023-12-16 00:22 | P.PN_ITS ---
Subjective 2 Subjective: This is a delayed note for 12/15/2023 patient had a cardiac catheterization yesterday. He was found to have no significant coronary lesions. Clinical features are consistent with a nonischemic dilated cardiomyopathy. He is still in atrial flutter with the heart rate in the 110s and 120s. He is on IV amiodarone. The arterial blood pressure is in the 110s, systolic The IV vasopressor dose is being tapered off Medications: Medication Review Details: Current Medications Acetaminophen (Acetaminophen 325 Mg Tablet) 650 mg PO Q6H PRN PRN Reason: Mild/Mod Pain Or Temp >/= 101 Last Admin: 12/15/23 18:16 Dose: 650 mg Albuterol/Ipratropium (Ipratropium-Albuterol 3 Ml Neb) 3 ml INHALATION Q6H PRN PRN Reason: SHORTNESS OF BREATH Aspirin (Aspirin 81 Mg Ec Tablet) 81 mg PO DAILY PRINCE Last Admin: 12/15/23 08:38 Dose: 81 mg Bacitracin (Bacitracin Ointment Pkt) 1 each TOPICAL TID PRINCE; Protocol Last Admin: 12/15/23 21:50 Dose: 1 each Benzonatate (Benzonatate 100 Mg Capsule) 200 mg PO TID PRN PRN Reason: COUGH Last Admin: 12/15/23 13:30 Dose: 200 mg Bisacodyl (Bisacodyl 5 Mg Tablet) 10 mg PO DAILY PRN; Protocol PRN Reason: Constipation (see protocol) Budesonide (Budesonide 0.5 Mg/2 Ml Neb) 0.5 mg INHALATION BID.RESPIRATORY PRINCE Last Admin: 12/15/23 19:30 Dose: 0.5 mg Cetirizine HCl (Cetirizine 10 Mg Tablet) 10 mg PO DAILY PRINCE Last Admin: 12/15/23 08:38 Dose: 10 mg Diazepam (Diazepam 5 Mg Tablet) 10 mg PO Q8H PRINCE Last Admin: 12/14/23 18:08 Dose: 10 mg Docusate Sodium (Docusate Sodium 100 Mg Capsule) 100 mg PO BID PRINCE Last Admin: 12/15/23 18:16 Dose: 100 mg Enoxaparin Sodium (Enoxaparin 120 Mg/0.8 Ml Syringe) 110 mg SUBCUT Q12H PRINCE Last Admin: 12/15/23 21:49 Dose: 110 mg Fluticasone Propionate (Fluticasone Nasal [place] 16gm Btl) 2 spray INTRANASAL DAILY PRINCE Last Admin: 12/15/23 08:38 Dose: 2 spray Furosemide (Furosemide 10 Mg/Ml Sdv 4ml) 40 mg IVP Q12H PRINCE Last Admin: 12/15/23 18:16 Dose: 40 mg Norepinephrine Bitartrate (Levophed) 4 mg in 250 mls @ 0 mls/hr IV .Q0M PRINCE; Protocol Last Admin: 12/15/23 21:55 Dose: 5 mcg/min, 18.75 mls/hr Epinephrine HCl 2.5 mg/ Sodium (Chloride) 252.5 mls @ 0 mls/hr IV .Q0M PRINCE; Protocol Vasopressin (Vasostrict) 40 unit in 100 mls @ 0 mls/hr IV .Q0M PRINCE; Protocol Last Titration: 12/15/23 23:50 Dose: Infused Amiodarone HCl/Dextrose (Nexterone) 360 mg in 200 mls @ 0 mls/hr IV .Q0M PRINCE; Protocol Last Admin: 12/15/23 17:21 Dose: 0.5 mg/min, 16.67 mls/hr Dobutamine HCl/Dextrose (Dobutamine Drip) 500 mg in 250 mls @ 0 mls/hr IV .Q0M PRINCE; Protocol Last Admin: 12/15/23 10:06 Dose: 5 mcg/kg/min, 16.5 mls/hr Mirtazapine (Mirtazapine 15 Mg Tablet) 15 mg PO BEDTIME PRINCE Last Admin: 12/15/23 21:50 Dose: 15 mg Ondansetron HCl (Ondansetron 2 Mg/Ml Sdv 2 Ml) 4 mg IVP Q8H PRN PRN Reason: vomiting, or N/V if npo Oxycodone/Acetaminophen (Oxycodone-Apap 5-325 Mg Tablet) 1 tab PO Q8H PRN PRN Reason: pain Last Admin: 12/15/23 21:49 Dose: 1 tab Pantoprazole Sodium (Pantoprazole Dr 40 Mg Tablet) 40 mg PO BID@09,21 PRINCE Last Admin: 12/15/23 21:49 Dose: 40 mg Potassium Chloride (Potassium Chloride Er 20 Meq Tablet) 20 meq PO Q12H PRINCE Last Admin: 12/15/23 18:16 Dose: 20 meq Venlafaxine HCl (Venlafaxine Er (24hr) 150 Mg Capsule) 150 mg PO DAILY PRINCE Last Admin: 12/15/23 08:38 Dose: 150 mg Vitals/I&O/Wt Last Vital Signs Temp 97 F L 12/15/23 21:00 Pulse 120 H 12/16/23 00:00 Resp 21 H 12/16/23 00:00 BP 114/79 12/15/23 23:45 Pulse Ox 97 12/16/23 00:00 O2 Del Method Nasal Cannula 12/15/23 21:45 O2 Flow Rate 4 12/15/23 21:45 12/15/23 12/15/23 12/16/23 14:59 22:59 06:59 Intake Total 678.100 / 678.100 551.751 / 1229.851 0 / 1229.851 Output Total 450 / 450 Balance 678.100 / 678.100 101.751 / 779.851 0 / 779.851 Weight last 48 hrs Weight 242 lb 8.136 oz Weight 246 lb 4 oz Weight 197 lb Physical Exam 2 Narrative: GENERAL: The patient is alert and oriented times three. Patient appears comfortable extremities are cold and clammy. Has some mottled appearance HEENT: No significant pallor, icterus or lymphadenopathy.Oral cavity: There are no mucous membrane lesions. NECK: Trachea appears to be central. No masses noted. No JVD or thyromegaly appreciated. Neck veins are slightly prominent with RESPIRATORY: Chest is symmetrical. No intercostals muscle retraction or any accessory muscle activation. There is no chest wall tenderness. Breath sounds are heard bilaterally. Few fine Rales at the bases. [place]. No evidence of any consolidation. BREASTS: Deferred. HEART: The heart sounds are normal. No S3 or S4. Systolic murmur grade 3 or 6 in the mitral area. No diastolic murmurs. ABDOMEN: No vessel pulsations or distention. No tenderness. No organomegaly appreciated. Bowel sounds are normally heard. : Deferred. RECTAL: Deferred. LYMPHATIC: No lymphadenopathy noted in the neck. EXTREMITIES: The peripheral pulses stably weak. Extremities are cold and clammy MUSCULOSKELETAL: No acute joint deformities or swelling SKIN: There are no significant rashes or ecchymosis NEUROPSYCHIATRIC: The patient is alert and oriented x3. Not in any distress Urinary Catheter Management: Mckeon: Cath Placed During This Visit: yes Reason for Continuing Indwelling Catheter: Accurate Measurement of Urinary Output in Critically Ill Patients Urinary Catheter Date of Insertion: 12/14/23 Urinary Catheter Time of Insertion: 22:50 Data 12/15/23 02:35 12/15/23 02:35 Other Labs: Laboratory Last Values WBC 7.93 10^3/uL (3.29-11.43) 12/15/23 02:35 RBC 5.44 10^6/uL (3.85-5.65) 12/15/23 02:35 Hgb 17.50 g/dL (11.27-16.99) H 12/15/23 02:35 Hct 53.7 % (37-53) H 12/15/23 02:35 MCV 98.7 fl (82-101) 12/15/23 02:35 MCH 32.2 pg (27-33) 12/15/23 02:35 MCHC 32.6 g/dL (30-55) 12/15/23 02:35 RDW 20.7 % (12.1-15.1) H 12/15/23 02:35 Plt Count 169 10^3/cmm (157-399) 12/15/23 02:35 MPV 11.4 fL (7.4-10.4) H 12/15/23 02:35 Neut % (Auto) 62.8 % 12/15/23 02:35 Lymph % (Auto) 25.0 % 12/15/23 02:35 [place] % (Auto) 8.8 % 12/15/23 02:35 Eos % (Auto) 2.3 % 12/15/23 02:35 Baso % (Auto) 0.6 % 12/15/23 02:35 Neut # (Auto) 4.98 10^3/uL (1.8-7.7) 12/15/23 02:35 Lymph # (Auto) 2.0 10^3/uL (0.8-4.8) 12/15/23 02:35 [place] # (Auto) 0.7 10^3/uL (0.2-0.9) 12/15/23 02:35 Eos # (Auto) 0.2 10^3/uL (0.0-0.8) 12/15/23 02:35 Baso # (Auto) 0.1 10^3/uL (0.0-0.1) 12/15/23 02:35 Nucleated RBC % (auto) 0 % 12/15/23 02:35 Nucleated RBCs # 0.0 /100WBC 12/15/23 02:35 D-Dimer 1.43 ug/mLFEU (0-0.59) H 12/14/23 11:05 Specimen Type Arterial 12/14/23 20:08 Sample Site Brachial, right 12/14/23 20:08 ABG pH 7.42 (7.35-7.45) 12/14/23 20:08 ABG pCO2 51.8 mmHg (35-45) H 12/14/23 20:08 ABG pO2 83.9 mmHg (80.0-100.0) 12/14/23 20:08 ABG PO2/FiO2 Ratio 0 12/14/23 10:53 ABG HCO3 33.7 mmol/L (22-26) H 12/14/23 20:08 ABG O2 Saturation 96.2 12/14/23 20:08 ABG Base Excess 7.3 mmol/L (-2.0-2.0) H 12/14/23 20:08 Kenneth Test N/a 12/14/23 20:08 A-a O2 Gradient 0.2 mmHg (5-10) L 12/14/23 20:08 Hematocrit 54.8 % (42-52) H 12/14/23 20:08 Hgb O2 Saturation 94.9 % (95-100) L 12/14/23 20:08 Carboxyhemoglobin 1.4 %THgb (0.4-20.1) 12/14/23 20:08 Methemoglobin 0.0 % (0.4-1.5) L 12/14/23 20:08 Total Hemoglobin 17.9 g/dL (14-18) 12/14/23 20:08 Sodium 136.0 mmol/L (131-143) 12/14/23 20:08 Potassium 3.2 mmol/L (3.5-5.0) L 12/14/23 20:08 Glucose 116.0 mg/dL (70-115) H 12/14/23 20:08 Ionized Calcium 1.0 mmol/L (1.1-1.4) L 12/14/23 20:08 O2 Delivery Device Nc 12/14/23 20:08 O2 Liters/Min 4.5 % 12/14/23 20:08 FiO2 21.0 % 12/14/23 10:53 Transfusion Aide ID Devyn 12/14/23 20:08 Sodium 136 mmol/L (136-145) 12/15/23 02:35 Potassium 4.1 mmol/L (3.5-5.1) 12/15/23 02:35 Chloride 91 mmol/L (98-107) L 12/15/23 02:35 Carbon Dioxide 32 mmol/L (22-29) H 12/15/23 02:35 Anion Gap 17.1 (5-19) 12/15/23 02:35 BUN 21 mg/dL (8-23) 12/15/23 02:35 Creatinine 1.2 mg/dL (0.7-1.2) 12/15/23 02:35 GFR Calculation 61.3 mL/min (90-130) L 12/15/23 02:35 Glucose 163 mg/dL (65-115) H 12/15/23 02:35 Calculated Osmolality 289 mOsm/kg (285-295) 12/15/23 02:35 Lactic Acid 4.1 mmol/L (0.5-2.2) H* 12/14/23 20:10 Lactic Acid (Sepsis) 2.6 mmol/L (0.5-2.2) H 12/15/23 02:35 Calcium 8.2 mg/dL (8.5-10.5) L 12/15/23 02:35 Phosphorus 4.6 mg/dL (2.5-4.5) H 12/15/23 02:35 Magnesium 1.7 mg/dL (1.7-2.3) 12/15/23 02:35 Total Bilirubin 1.4 mg/dL (0.15-1.2) H 12/14/23 20:10 AST 40 U/L (0-40) 12/14/23 20:10 ALT 27 U/L (0-41) 12/14/23 20:10 Alkaline Phosphatase 119 U/L (40-130) 12/14/23 20:10 Troponin T Baseline 45 ng/L (0-15) H 12/14/23 11:05 Troponin T 120 Minute 43.87 ng/L (0-15) H 12/14/23 13:14 Delta Troponin T -1.13 ABS# (0-10) L 12/14/23 13:14 Troponin T Hi Sens 6Hr 43.01 ng/L (0-15) H 12/14/23 17:12 Troponin T Hi Sens 6Hr Delta -1.99 ng/L (0-12) L 12/14/23 17:12 C-Reactive Protein 5.6 mg/L (0.0-4.9) H 12/14/23 11:05 NT-Pro-B Natriuret Pep 2332 pg/mL (0-125) H 12/14/23 11:05 Total Protein 6.8 g/dL (6.6-8.7) 12/14/23 20:10 Albumin 4.0 g/dL (3.5-5.2) 12/14/23 20:10 Globulin 2.8 g/dL (1.3-4.6) 12/14/23 20:10 Triglycerides 81 mg/dL (0-150) 12/15/23 02:35 Cholesterol 119 mg/dL (0-200) 12/15/23 02:35 LDL Cholesterol, Calc 64 mg/dL (50-129) 12/15/23 02:35 HDL Cholesterol 39 mg/dL (60-100) L 12/15/23 02:35 LDL/HDL Ratio 1.64 RATIO (0.00-3.22) 12/15/23 02:35 Cholesterol/HDL Ratio 3.05 mg/dL (1.0-5.00) 12/15/23 02:35 TSH 3.53 uIU/mL (0.27-4.20) 12/14/23 11:05 Urine Color Cancelled 12/14/23 22:45 Urine Color Yellow (Yellow) 12/14/23 22:45 Urine Appearance Cancelled 12/14/23 22:45 Urine Appearance Clear (CLEAR) 12/14/23 22:45 Urine pH 6.5 (5-7) 12/14/23 22:45 Urine pH Cancelled 12/14/23 22:45 Ur Specific [place] 1.005 (1.005-1.030) 12/14/23 22:45 Ur Specific [place] Cancelled 12/14/23 22:45 Urine Protein Cancelled 12/14/23 22:45 Urine Protein Neg (Negative) 12/14/23 22:45 Urine Glucose (UA) Cancelled 12/14/23 22:45 Urine Glucose (UA) Norm (Normal) 12/14/23 22:45 Urine Ketones Cancelled 12/14/23 22:45 Urine Ketones Negative (Negative) 12/14/23 22:45 Urine Blood Cancelled 12/14/23 22:45 Urine Blood Neg (Negative) 12/14/23 22:45 Urine Nitrate Cancelled 12/14/23 22:45 Urine Nitrate Negative (Negative) 12/14/23 22:45 Urine Bilirubin Cancelled 12/14/23 22:45 Urine Bilirubin Neg (Negative) 12/14/23 22:45 Prot Sulfosalicylic Acd Cancelled 12/14/23 22:45 Urine Urobilinogen Cancelled 12/14/23 22:45 Urine Urobilinogen Neg mg/dL (Negative) 12/14/23 22:45 Ur Leukocyte Esterase Cancelled 12/14/23 22:45 Ur Leukocyte Esterase Negative (Negative) 12/14/23 22:45 Urine RBC Cancelled 12/14/23 22:45 Urine WBC Cancelled 12/14/23 22:45 Ur Squamous Epith Cells Cancelled 12/14/23 22:45 Ur Transition Epith Cell Cancelled 12/14/23 22:45 Ur Renal Epithelial Cell Cancelled 12/14/23 22:45 Calcium Oxalate Crystal Cancelled 12/14/23 22:45 Uric Acid Crystals Cancelled 12/14/23 22:45 Triple Phos Crystals Cancelled 12/14/23 22:45 Other Crystals Cancelled 12/14/23 22:45 Amorphous Sediment Cancelled 12/14/23 22:45 Urine Bacteria Cancelled 12/14/23 22:45 Hyaline Casts Cancelled 12/14/23 22:45 Fine Granular Casts Cancelled 12/14/23 22:45 Coarse Granular Casts Cancelled 12/14/23 22:45 RBC Casts Cancelled 12/14/23 22:45 Other Casts Cancelled 12/14/23 22:45 Urine Mucus Cancelled 12/14/23 22:45 Urine Trichomonas Cancelled 12/14/23 22:45 Urine Yeast Cancelled 12/14/23 22:45 Urine Sperm Cancelled 12/14/23 22:45 Ur Oval Fat Bodies Cancelled 12/14/23 22:45 Micro: Microbiology 12/14/23 20:10 Blood Culture - Preliminary Blood NEGATIVE TO DATE 12/14/23 20:10 Blood Culture - Preliminary Blood NEGATIVE TO DATE 12/14/23 11:08 Blood Culture - Preliminary Blood NEGATIVE TO DATE 12/14/23 11:05 Blood Culture - Preliminary Blood NEGATIVE TO DATE A&P Assessment and plan (1) Chest pain: The chest pain is currently resolved. Possibly related to CHF/tachyarrhythmia. No significant coronary disease by angiogram. Qualifiers: Chest pain type: precordial pain Qualified Code(s): R07.2 - Precordial pain (2) Hypotension: The blood pressure seems to be improving. Vasopressor is being tapered off. If the blood pressure remains stable, I may take of the arterial axis Qualifiers: Hypotension type: other hypotension type Qualified Code(s): I95.89 - Other hypotension (3) Congestive heart failure: Patient seems to have features of congestive heart failure with a severe LV systolic dysfunction. Patient has some features of low output state. I may try him on a low-dose of Dobutrex 5 mics per KG per minute. Qualifiers: Heart failure type: systolic Heart failure chronicity: acute on chronic Qualified Code(s): I50.23 - Acute on chronic systolic (congestive) heart failure (4) Atrial fibrillation with rapid ventricular response: May consider amiodarone and possible cardioversion to further manage the arrhythmia. (5) Cardiomyopathy: Features of nonischemic cardiomyopathy. Qualifiers: Cardiomyopathy type: unspecified Qualified Code(s): I42.9 - Cardiomyopathy, unspecified (6) COPD exacerbation: Patient has a history of heavy smoking abuse. (7) Hypoxemia: Possibly related to COPD/hypoventilation syndrome, seems improving. Plan I will keep him on IV Dobutrex for 24 to 48 hours. Will be watching the urine output closely. Based on his clinical response, further recommendations will be made. Attestations 2 Medical Necessity Statement*: Patient requires continued hospital stay for close monitoring and further management Coding Level of Care Code 31287 Diagnoses Precordial pain R07.2 Chest pain type: precordial pain Other specified hypotension I95.89 Hypotension type: other hypotension type Acute on chronic systolic congestive heart failure I50.23 Heart failure type: systolic Heart failure chronicity: acute on chronic Atrial fibrillation with rapid ventricular response I48.91 Cardiomyopathy, unspecified type I42.9 Cardiomyopathy type: unspecified COPD exacerbation J44.1 Hypoxemia R09.02
--- NOTE | 2023-12-16 00:50 | PC.NURSE ---
Decreased uop noted, message sent to Dr. Norris - when awaiting reply Dr. Claudio called to check on patient- updated on drips, status, and urine out put of 100 for last 5 hours. Reviewed I and O's. Instructed to continue to monitor urine output.
[2023-12-16] MEDS: DOBUTamine drip 500 MG/250 ML PREMIX 16.5 MG IV ×2 (01:22→16:42)
[2023-12-16] MEDS: potassium chloride ER 20 mEq Tablet PO ×2 (05:12→16:41)
[2023-12-16] MEDS: FUROsemide 10 mg/mL SDV 4mL 40 MG IVP ×2 (05:12→16:42)
[2023-12-16 05:28] LABS: Basophils # 0.1 10^3/uL (0.0-0.1); Basophils % 0.9 %; Eosinophils % 0.4 %; Lymphocytes % 27.8 %; Mean Corpuscular HGB Conc 32.2 g/dL (30-55); Mean Corpuscular Hemoglobin 31.8 pg (27-33); Mean Corpuscular Volume 98.8 fl (82-101); Mean Platelet Volume 11.5 fL (7.4-10.4); Monocytes # 0.6 10^3/uL (0.2-0.9); Monocytes % 8.4 %; Neutrophils # 4.39 10^3/uL (1.8-7.7); Neutrophils % 62.2 %; Nucleated Red Blood Cells % 0 %; Platelet Count 141 10^3/cmm (157-399); Red Blood Count 5.06 10^6/uL (3.85-5.65); Red Cell Distribution Width 20.1 % (12.1-15.1); White Blood Count 7.05 10^3/uL (3.29-11.43)
[2023-12-16 05:55] LABS: Anion Gap 14.1 (5-19); Blood Urea Nitrogen 23 mg/dL (8-23); Calcium 8.3 mg/dL (8.5-10.5); Carbon Dioxide 33 mmol/L (22-29); Chloride 92 mmol/L (98-107); Glomerular Filtration Rate 55.9 mL/min (90-130); Glucose 119 mg/dL (65-115); Magnesium 1.5 mg/dL (1.7-2.3); Osmolality Calculated 285 mOsm/kg (285-295); Phosphorus 4.6 mg/dL (2.5-4.5); Potassium 4.1 mmol/L (3.5-5.1); Sodium 135 mmol/L (136-145)
[2023-12-16 05:56] LABS: Creatinine Clr Calc Pharmacy 75.4833
[2023-12-16] MEDS: ipratropium-albuterol 3 mL Neb INHALATION ×2 (08:02→19:47)
[2023-12-16] MEDS: budesonide 0.5 mg/2 mL Neb INHALATION ×2 (08:08→19:47)
[2023-12-16] MEDS: cetirizine 10 mg Tablet PO (08:50)
[2023-12-16] MEDS: aspirin 81 mg EC Tablet PO (08:50)
[2023-12-16] MEDS: venlafaxine ER (24HR) 150 mg Capsule PO (08:50)
[2023-12-16] MEDS: pantoprazole DR 40 mg Tablet PO ×2 (08:50→20:09)
[2023-12-16] MEDS: docusate sodium 100 mg Capsule PO ×2 (08:50→17:02)
[2023-12-16] MEDS: fluticasone nasal spray 16gm Btl 2 SPRAY INTRANASAL (08:51)
[2023-12-16] MEDS: bacitracin ointment Pkt 1 EACH TOPICAL ×3 (08:53→20:11)
[2023-12-16] MEDS: oxyCODONE-APAP 5-325 mg Tablet 1 TAB PO ×2 (08:56→16:41)
[2023-12-16] MEDS: enoxaparin 120 mg/0.8 mL Syringe 110 MG SUBCUT ×2 (08:59→21:25)
--- NOTE | 2023-12-16 09:27 | USCV_ITS ---
Avery Ross Age: 63 Gender: M : 1960 Exam Date: 12/16/2023 09:24 Ordering Phys: Rosalia Claudio MD ([email or web address]) Technologist: [place] [facility] [place]: poor pulses RIGHT LEFT Brachial 98.00 mmHg Brachial 98.00 mmHg Pressure (mmHg) Waveform Pressure (mmHg) Waveform 110.00 BIOINFORMATICS ASSOCIATE 102.00 124.00 DPA 119.00 1.20 Ankle/Brachial Index 1.20 88.00 Pre-Exercise Toe Pressure 117.00 0.90 Pre-Exercise Toe/Brachial Index 1.10 FINDINGS Resting CHRIS of 1.2 on the right and 1.2 on the left Resting TBI 0.9 on the right and 1.1 on the left CONCLUSIONS Normal resting ABIs and TBIs bilaterally No evidence of any significant arterial obstruction, based on the above findings. Dr Rosalia Claudio MD FAC (Electronically Signed) Final Date: 16 December 2023 12:36 S
--- NOTE | 2023-12-16 09:35 | ECG_ITS ---
[facility] Test Date: 2023-12-16 Pat Name: Avery Ross Department: Room: ICU04 Gender: Male Stone Paver: : 1960 Requested By: Rosalia Cluadio Order Number: [id number] Milvia MD: Mervin Higginbotham M.D. Measurements Intervals [place] Rate: 117 P: 0 NM: 0 QRS: -15 QRSD: 94 T: 117 QT: 353 QTc: 494 Interpretive Statements ATRIAL FLUTTER/TACHYCARDIA WITH RAPID VENTRICULAR RESPONSE POSSIBLE ANTERIOR MYOCARDIAL INFARCTION , OF INDETERMINATE AGE [30 ms Q WAVE IN V3/V4, OR R < 0.2 mV IN V4] Compared to ECG 12/14/2023 18:45:49 No significant changes Electronically Signed On 12-16-2023 14:11:38 CDT by Mervin Higginbotham M.D. [id number]
--- NOTE | 2023-12-16 13:29 | PM.PN ---
Subjective Subjective: Patient's blood pressure has been fairly stable even though it is soft. He is off the vasopressors. Still on IV amiodarone. Heart rate is in the 120s. Appears to be in atrial flutter. Medications: Medication Review Details: Current Medications Acetaminophen (Acetaminophen 325 Mg Tablet) 650 mg PO Q6H PRN PRN Reason: Mild/Mod Pain Or Temp >/= 101 Last Admin: 12/15/23 18:16 Dose: 650 mg Albuterol/Ipratropium (Ipratropium-Albuterol 3 Ml Neb) 3 ml INHALATION Q6H PRN PRN Reason: SHORTNESS OF BREATH Last Admin: 12/16/23 08:02 Dose: 3 ml Aspirin (Aspirin 81 Mg Ec Tablet) 81 mg PO DAILY PRINCE Last Admin: 12/16/23 08:50 Dose: 81 mg Bacitracin (Bacitracin Ointment Pkt) 1 each TOPICAL TID PRINCE; Protocol Last Admin: 12/16/23 08:53 Dose: 1 each Benzonatate (Benzonatate 100 Mg Capsule) 200 mg PO TID PRN PRN Reason: COUGH Last Admin: 12/15/23 13:30 Dose: 200 mg Bisacodyl (Bisacodyl 5 Mg Tablet) 10 mg PO DAILY PRN; Protocol PRN Reason: Constipation (see protocol) Budesonide (Budesonide 0.5 Mg/2 Ml Neb) 0.5 mg INHALATION BID.RESPIRATORY PRINCE Last Admin: 12/16/23 08:08 Dose: 0.5 mg Cetirizine HCl (Cetirizine 10 Mg Tablet) 10 mg PO DAILY PRINCE Last Admin: 12/16/23 08:50 Dose: 10 mg Diazepam (Diazepam 5 Mg Tablet) 10 mg PO Q8H PRINCE Last Admin: 12/14/23 18:08 Dose: 10 mg Docusate Sodium (Docusate Sodium 100 Mg Capsule) 100 mg PO BID PRINCE Last Admin: 12/16/23 08:50 Dose: 100 mg Enoxaparin Sodium (Enoxaparin 120 Mg/0.8 Ml Syringe) 110 mg SUBCUT Q12H PRINCE Last Admin: 12/16/23 08:59 Dose: 110 mg Fluticasone Propionate (Fluticasone Nasal [place] 16gm Btl) 2 spray INTRANASAL DAILY PRINCE Last Admin: 12/16/23 08:51 Dose: 2 spray Furosemide (Furosemide 10 Mg/Ml Sdv 4ml) 40 mg IVP Q12H PRINCE Last Admin: 12/16/23 05:12 Dose: 40 mg Norepinephrine Bitartrate (Levophed) 4 mg in 250 mls @ 0 mls/hr IV .Q0M PRINCE; Protocol Last Titration: 12/16/23 04:45 Dose: Infused Epinephrine HCl 2.5 mg/ Sodium (Chloride) 252.5 mls @ 0 mls/hr IV .Q0M PRINCE; Protocol Vasopressin (Vasostrict) 40 unit in 100 mls @ 0 mls/hr IV .Q0M PRINCE; Protocol Last Titration: 12/15/23 23:50 Dose: Infused Amiodarone HCl/Dextrose (Nexterone) 360 mg in 200 mls @ 0 mls/hr IV .Q0M PRINCE; Protocol Last Admin: 12/16/23 06:12 Dose: 0.5 mg/min, 16.67 mls/hr Dobutamine HCl/Dextrose (Dobutamine Drip) 500 mg in 250 mls @ 0 mls/hr IV .Q0M PRINCE; Protocol Last Admin: 12/16/23 01:22 Dose: 5 mcg/kg/min, 16.5 mls/hr Mirtazapine (Mirtazapine 15 Mg Tablet) 15 mg PO BEDTIME PRINCE Last Admin: 12/15/23 21:50 Dose: 15 mg Ondansetron HCl (Ondansetron 2 Mg/Ml Sdv 2 Ml) 4 mg IVP Q8H PRN PRN Reason: vomiting, or N/V if npo Oxycodone/Acetaminophen (Oxycodone-Apap 5-325 Mg Tablet) 1 tab PO Q8H PRN PRN Reason: pain Last Admin: 12/16/23 08:56 Dose: 1 tab Pantoprazole Sodium (Pantoprazole Dr 40 Mg Tablet) 40 mg PO BID@ [facility] Last Admin: 12/16/23 08:50 Dose: 40 mg Potassium Chloride (Potassium Chloride Er 20 Meq Tablet) 20 meq PO Q12H PRINCE Last Admin: 12/16/23 05:12 Dose: 20 meq Venlafaxine HCl (Venlafaxine Er (24hr) 150 Mg Capsule) 150 mg PO DAILY PRINCE Last Admin: 12/16/23 08:50 Dose: 150 mg Vitals/I&O/Wt Last Vital Signs Temp 97.7 F 12/16/23 09:30 Pulse 116 H 12/16/23 09:30 Resp 27 H 12/16/23 09:30 BP 106/86 12/16/23 09:30 Pulse Ox 95 12/16/23 09:30 O2 Del Method Nasal Cannula 12/16/23 08:00 O2 Flow Rate 4 12/16/23 08:00 12/15/23 12/16/23 12/16/23 22:59 06:59 14:59 Intake Total 551.751 / 1229.851 578.125 / 1807.976 Output Total 450 / 450 350 / 800 75 / 75 Balance 101.751 / 779.851 228.125 / 1007.976 -75 / -75 Weight last 48 hrs Weight 250 lb 3.594 oz Weight 242 lb 8.136 oz Weight 246 lb 4 oz Physical Exam Narrative: GENERAL: The patient is alert and oriented times three. Patient appears comfortable extremities are cold and clammy. Has some mottled appearance HEENT: No significant pallor, icterus or lymphadenopathy.Oral cavity: There are no mucous membrane lesions. NECK: Trachea appears to be central. No masses noted. No JVD or thyromegaly appreciated. Neck veins are slightly prominent with RESPIRATORY: Chest is symmetrical. No intercostals muscle retraction or any accessory muscle activation. There is no chest wall tenderness. Breath sounds are heard bilaterally. Few fine Rales at the bases. Tucker. No evidence of any consolidation. BREASTS: Deferred. HEART: The heart sounds are normal. No S3 or S4. Systolic murmur grade 3 or 6 in the mitral area. No diastolic murmurs. ABDOMEN: No vessel pulsations or distention. No tenderness. No organomegaly appreciated. Bowel sounds are normally heard. : Deferred. RECTAL: Deferred. LYMPHATIC: No lymphadenopathy noted in the neck. EXTREMITIES: The peripheral pulses stably weak. Extremities are cold and clammy MUSCULOSKELETAL: No acute joint deformities or swelling SKIN: There are no significant rashes or ecchymosis NEUROPSYCHIATRIC: The patient is alert and oriented x3. Not in any distress Urinary Catheter Management: Mckeon: Cath Placed During This Visit: yes Reason for Continuing Indwelling Catheter: Accurate Measurement of Urinary Output in Critically Ill Patients Urinary Catheter Date of Insertion: 12/14/23 Urinary Catheter Time of Insertion: 22:50 Data 12/16/23 04:23 12/16/23 04:23 Other Labs: Laboratory Last Values WBC 7.05 10^3/uL (3.29-11.43) 12/16/23 04:23 RBC 5.06 10^6/uL (3.85-5.65) 12/16/23 04:23 Hgb 16.10 g/dL (11.27-16.99) 12/16/23 04:23 Hct 50.0 % (37-53) 12/16/23 04:23 MCV 98.8 fl (82-101) 12/16/23 04:23 MCH 31.8 pg (27-33) 12/16/23 04:23 MCHC 32.2 g/dL (30-55) 12/16/23 04:23 RDW 20.1 % (12.1-15.1) H 12/16/23 04:23 Plt Count 141 10^3/cmm (157-399) L 12/16/23 04:23 MPV 11.5 fL (7.4-10.4) H 12/16/23 04:23 Neut % (Auto) 62.2 % 12/16/23 04:23 Lymph % (Auto) 27.8 % 12/16/23 04:23 [place] % (Auto) 8.4 % 12/16/23 04:23 Eos % (Auto) 0.4 % 12/16/23 04:23 Baso % (Auto) 0.9 % 12/16/23 04:23 Neut # (Auto) 4.39 10^3/uL (1.8-7.7) 12/16/23 04:23 Lymph # (Auto) 2.0 10^3/uL (0.8-4.8) 12/16/23 04:23 [place] # (Auto) 0.6 10^3/uL (0.2-0.9) 12/16/23 04:23 Eos # (Auto) 0.0 10^3/uL (0.0-0.8) 12/16/23 04:23 Baso # (Auto) 0.1 10^3/uL (0.0-0.1) 12/16/23 04:23 Nucleated RBC % (auto) 0 % 12/16/23 04:23 Nucleated RBCs # 0.0 /100WBC 12/16/23 04:23 D-Dimer 1.43 ug/mLFEU (0-0.59) H 12/14/23 11:05 Specimen Type Arterial 12/14/23 20:08 Sample Site Brachial, right 12/14/23 20:08 ABG pH 7.42 (7.35-7.45) 12/14/23 20:08 ABG pCO2 51.8 mmHg (35-45) H 12/14/23 20:08 ABG pO2 83.9 mmHg (80.0-100.0) 12/14/23 20:08 ABG PO2/FiO2 Ratio 0 12/14/23 10:53 ABG HCO3 33.7 mmol/L (22-26) H 12/14/23 20:08 ABG O2 Saturation 96.2 12/14/23 20:08 ABG Base Excess 7.3 mmol/L (-2.0-2.0) H 12/14/23 20:08 Kenneth Test N/a 12/14/23 20:08 A-a O2 Gradient 0.2 mmHg (5-10) L 12/14/23 20:08 Hematocrit 54.8 % (42-52) H 12/14/23 20:08 Hgb O2 Saturation 94.9 % (95-100) L 12/14/23 20:08 Carboxyhemoglobin 1.4 %THgb (0.4-20.1) 12/14/23 20:08 Methemoglobin 0.0 % (0.4-1.5) L 12/14/23 20:08 Total Hemoglobin 17.9 g/dL (14-18) 12/14/23 20:08 Sodium 136.0 mmol/L (131-143) 12/14/23 20:08 Potassium 3.2 mmol/L (3.5-5.0) L 12/14/23 20:08 Glucose 116.0 mg/dL (70-115) H 12/14/23 20:08 Ionized Calcium 1.0 mmol/L (1.1-1.4) L 12/14/23 20:08 O2 Delivery Device Nc 12/14/23 20:08 O2 Liters/Min 4.5 % 12/14/23 20:08 FiO2 21.0 % 12/14/23 10:53 Spice Grinder ID Devyn 12/14/23 20:08 Sodium 135 mmol/L (136-145) L 12/16/23 04:23 Potassium 4.1 mmol/L (3.5-5.1) 12/16/23 04:23 Chloride 92 mmol/L (98-107) L 12/16/23 04:23 Carbon Dioxide 33 mmol/L (22-29) H 12/16/23 04:23 Anion Gap 14.1 (5-19) 12/16/23 04:23 BUN 23 mg/dL (8-23) 12/16/23 04:23 Creatinine 1.3 mg/dL (0.7-1.2) H 12/16/23 04:23 GFR Calculation 55.9 mL/min (90-130) L 12/16/23 04:23 Glucose 119 mg/dL (65-115) H 12/16/23 04:23 Calculated Osmolality 285 mOsm/kg (285-295) 12/16/23 04:23 Lactic Acid 4.1 mmol/L (0.5-2.2) H* 12/14/23 20:10 Lactic Acid (Sepsis) 2.6 mmol/L (0.5-2.2) H 12/15/23 02:35 Calcium 8.3 mg/dL (8.5-10.5) L 12/16/23 04:23 Phosphorus 4.6 mg/dL (2.5-4.5) H 12/16/23 04:23 Magnesium 1.5 mg/dL (1.7-2.3) L 12/16/23 04:23 Total Bilirubin 1.4 mg/dL (0.15-1.2) H 12/14/23 20:10 AST 40 U/L (0-40) 12/14/23 20:10 ALT 27 U/L (0-41) 12/14/23 20:10 Alkaline Phosphatase 119 U/L (40-130) 12/14/23 20:10 Troponin T Baseline 45 ng/L (0-15) H 12/14/23 11:05 Troponin T 120 Minute 43.87 ng/L (0-15) H 12/14/23 13:14 Delta Troponin T -1.13 ABS# (0-10) L 12/14/23 13:14 Troponin T Hi Sens 6Hr 43.01 ng/L (0-15) H 12/14/23 17:12 Troponin T Hi Sens 6Hr Delta -1.99 ng/L (0-12) L 12/14/23 17:12 C-Reactive Protein 5.6 mg/L (0.0-4.9) H 12/14/23 11:05 NT-Pro-B Natriuret Pep 2332 pg/mL (0-125) H 12/14/23 11:05 Total Protein 6.8 g/dL (6.6-8.7) 12/14/23 20:10 Albumin 4.0 g/dL (3.5-5.2) 12/14/23 20:10 Globulin 2.8 g/dL (1.3-4.6) 12/14/23 20:10 Triglycerides 81 mg/dL (0-150) 12/15/23 02:35 Cholesterol 119 mg/dL (0-200) 12/15/23 02:35 LDL Cholesterol, Calc 64 mg/dL (50-129) 12/15/23 02:35 HDL Cholesterol 39 mg/dL (60-100) L 12/15/23 02:35 LDL/HDL Ratio 1.64 RATIO (0.00-3.22) 12/15/23 02:35 Cholesterol/HDL Ratio 3.05 mg/dL (1.0-5.00) 12/15/23 02:35 TSH 3.53 uIU/mL (0.27-4.20) 12/14/23 11:05 Urine Color Cancelled 12/14/23 22:45 Urine Color Yellow (Yellow) 12/14/23 22:45 Urine Appearance Cancelled 12/14/23 22:45 Urine Appearance Clear (CLEAR) 12/14/23 22:45 Urine pH 6.5 (5-7) 12/14/23 22:45 Urine pH Cancelled 12/14/23 22:45 Ur Specific [place] 1.005 (1.005-1.030) 12/14/23 22:45 Ur Specific [place] Cancelled 12/14/23 22:45 Urine Protein Cancelled 12/14/23 22:45 Urine Protein Neg (Negative) 12/14/23 22:45 Urine Glucose (UA) Cancelled 12/14/23 22:45 Urine Glucose (UA) Norm (Normal) 12/14/23 22:45 Urine Ketones Cancelled 12/14/23 22:45 Urine Ketones Negative (Negative) 12/14/23 22:45 Urine Blood Cancelled 12/14/23 22:45 Urine Blood Neg (Negative) 12/14/23 22:45 Urine Nitrate Cancelled 12/14/23 22:45 Urine Nitrate Negative (Negative) 12/14/23 22:45 Urine Bilirubin Cancelled 12/14/23 22:45 Urine Bilirubin Neg (Negative) 12/14/23 22:45 Prot Sulfosalicylic Acd Cancelled 12/14/23 22:45 Urine Urobilinogen Cancelled 12/14/23 22:45 Urine Urobilinogen Neg mg/dL (Negative) 12/14/23 22:45 Ur Leukocyte Esterase Cancelled 12/14/23 22:45 Ur Leukocyte Esterase Negative (Negative) 12/14/23 22:45 Urine RBC Cancelled 12/14/23 22:45 Urine WBC Cancelled 12/14/23 22:45 Ur Squamous Epith Cells Cancelled 12/14/23 22:45 Ur Transition Epith Cell Cancelled 12/14/23 22:45 Ur Renal Epithelial Cell Cancelled 12/14/23 22:45 Calcium Oxalate Crystal Cancelled 12/14/23 22:45 Uric Acid Crystals Cancelled 12/14/23 22:45 Triple Phos Crystals Cancelled 12/14/23 22:45 Other Crystals Cancelled 12/14/23 22:45 Amorphous Sediment Cancelled 12/14/23 22:45 Urine Bacteria Cancelled 12/14/23 22:45 Hyaline Casts Cancelled 12/14/23 22:45 Fine Granular Casts Cancelled 12/14/23 22:45 Coarse Granular Casts Cancelled 12/14/23 22:45 RBC Casts Cancelled 12/14/23 22:45 Other Casts Cancelled 12/14/23 22:45 Urine Mucus Cancelled 12/14/23 22:45 Urine Trichomonas Cancelled 12/14/23 22:45 Urine Yeast Cancelled 12/14/23 22:45 Urine Sperm Cancelled 12/14/23 22:45 Ur Oval Fat Bodies Cancelled 12/14/23 22:45 Micro: Microbiology 12/14/23 20:10 Blood Culture - Preliminary Blood NEGATIVE TO DATE 12/14/23 20:10 Blood Culture - Preliminary Blood NEGATIVE TO DATE 12/14/23 11:08 Blood Culture - Preliminary Blood NEGATIVE TO DATE 12/14/23 11:05 Blood Culture - Preliminary Blood NEGATIVE TO DATE A&P Assessment and plan (1) Congestive heart failure: Patient's urine output is still low. Blood pressure seems to be holding up. He is off all the vasopressors. I will continue the Dobutrex for a total of 48 hours Qualifiers: Heart failure chronicity: acute on chronic Heart failure type: systolic Qualified Code(s): I50.23 - Acute on chronic systolic (congestive) heart failure (2) Cardiomyopathy: Features of nonischemic cardiomyopathy. Because of soft blood pressure, I may hold off on the GDMT. Qualifiers: Cardiomyopathy type: unspecified Qualified Code(s): I42.9 - Cardiomyopathy, unspecified (3) Hypotension: Currently has improved. Continue the IV amiodarone. Qualifiers: Hypotension type: other hypotension type Qualified Code(s): I95.89 - Other hypotension (4) Atrial fibrillation with rapid ventricular response: Will continue the amiodarone. May consider AGUILAR cardioversion tomorrow, if the patient is still in atrial flutter. (5) COPD exacerbation: Patient has a history of heavy smoking abuse. Continue on the current management (6) Hypoxemia: Possibly related to COPD/hypoventilation syndrome, seems improving. Plan Discussed with the patient He may benefit from cardioversion because of the severe LV dysfunction and atrial arrhythmia Consider AGUILAR cardioversion tomorrow Attestations Medical Necessity Statement*: Patient requires continued hospital stay for close monitoring and further management Coding Level of Care Code 72968 Diagnoses Acute on chronic systolic congestive heart failure I50.23 Heart failure chronicity: acute on chronic Heart failure type: systolic Cardiomyopathy, unspecified type I42.9 Cardiomyopathy type: unspecified Other specified hypotension I95.89 Hypotension type: other hypotension type Atrial fibrillation with rapid ventricular response I48.91 COPD exacerbation J44.1 Hypoxemia R09.02
--- NOTE | 2023-12-16 17:52 | PC.NURSE ---
Shift SUmmary: Uneventful shift. patient rested in bed throughout the day. Heart rate continues to be a flutter 115-120 usually. Remains on amiodarone at 0.5 and dobutamine at 5mcg. AGUILAR and cardioversion scheduled for tomorrow, NPO at midnight. Total urine output: 250mL, pitting edema prsent in lower extremities, hips and abdomen.
[2023-12-16] MEDS: mirtazapine 15 mg Tablet PO (20:09)
--- NOTE | 2023-12-16 20:57 | PM.PN ---
Subjective Subjective: He feels things are unchanged from yesterday. Denies any additional pain or discomfort. No chest pain or pressure. Vitals/I&O/Wt Last Vital Signs Temp 97.6 F 12/16/23 19:17 Pulse 116 H 12/16/23 20:15 Resp 14 12/16/23 20:15 BP 91/77 12/16/23 20:15 Pulse Ox 86 L 12/16/23 20:15 O2 Del Method Nasal Cannula 12/16/23 19:48 O2 Flow Rate 4 12/16/23 19:48 12/16/23 12/16/23 12/16/23 06:59 14:59 22:59 Intake Total 578.125 / 1807.976 972.259 / 972.259 Output Total 350 / 800 75 / 75 175 / 250 Balance 228.125 / 1007.976 -75 / -75 797.259 / 722.259 Weight last 48 hrs Weight 113.5 kg Weight 110 kg Physical Exam Const: COMMON NORMALS: patient oriented x3 and alert GENERAL APPEARANCE: cooperative NUTRITIONAL APPEARANCE: obese ORIENTATION/CONSCIOUSNESS: Yes awake HENMT: COMMON NORMALS: oropharynx normal Neck/C-Spine: COMMON NORMALS: no JVD OTHER: R neck CVC Resp: COMMON NORMALS: normal respiratory effort and clear to auscultation bilaterally AUSCULTATION: clear to auscultation bilaterally Cardio: COMMON NORMALS: no JVD, regular rhythm, S1 normal heart sound present, S2 normal heart sound present and No murmurs present (Cardio) RHYTHM: regular rhythm HEART SOUNDS: S1 normal heart sound present and S2 normal heart sound present GI: COMMON NORMALS: Normal to inspection, nondistended, normoactive bowel sounds present, Soft to palpation and non-tender PALPATION: Yes Soft to palpation Extremity: COMMON NORMALS: no joint enlargement GENERAL: Yes edema (2+) Neuro: COMMON NORMALS: patient oriented x3 and moves all extremities SENSORIUM/ORIENTATION: Yes alert Skin: COMMON NORMALS: no rashes or lesions noted GENERAL SKIN EXAM: no rashes or lesions noted OTHER: Cool to touch lower extremities with less mottling. Urinary Catheter Management: Mckeon: Cath Placed During This Visit: yes Reason for Continuing Indwelling Catheter: Accurate Measurement of Urinary Output in Critically Ill Patients Urinary Catheter Date of Insertion: 12/14/23 Urinary Catheter Time of Insertion: 22:50 Data 12/16/23 04:23 12/16/23 04:23 Micro: Microbiology 12/14/23 20:10 Blood Culture - Preliminary Blood NEGATIVE TO DATE 12/14/23 20:10 Blood Culture - Preliminary Blood NEGATIVE TO DATE A&P Assessment and plan (1) Congestive heart failure: Low output failure, with some improvement in terms of pressure. Weaned off vasopressin, Levophed. Continue dobutamine. So far without good improvement in renal status. Oliguria. Worsening creatinine up to 1.3. Reassess kidney function. Continue dobutamine. Monitor for risk of worsening tachycardia, monitor blood pressures. Discussed with cardiology, he would like to postpone cardioversion today. Cardiology will plan cardioversion for tomorrow. N.p.o. after midnight. Discussed with him cardioversion may assist with output, however, it is not guaranteed but certainly he is at risk of further decompensation, organ injury with low output failure. He states that he prefers would like to undergo cardioversion first before considering LVAD. Reviewed vitals, CBC, BMP, magnesium. Replace hypomagnesemia. Continue furosemide. May need increase in dose with worsening renal function. Discussed with nursing and caser shoe parts. Status post coronary angiography with unobstructed coronaries. Echocardiogram with new severe cardiomyopathy, EF 15-20%, almost kinetic septum and anteroseptal segments. Mildly dilated right ventricle. Moderately diminished EF. Mildly dilated RA and RV. Qualifiers: Heart failure chronicity: acute on chronic Heart failure type: systolic Qualified Code(s): I50.23 - Acute on chronic systolic (congestive) heart failure (2) Atrial flutter with rapid ventricular response: Continue amiodarone drip. Magnesium has been replaced. Recheck level. Cardioversion tomorrow as above. Continues to have tachycardia on the monitor 100 teens, appears regular, possibly sinus tachycardia, assessed by cardiology, cardioversion was considered earlier for atrial flutter, but for now deferred. (3) CKD (chronic kidney disease), stage II: Not a known chronic diagnosis though current GFR is 75 (4) Erectile dysfunction: Has a prescription for sildenafil but has not taken any in more than 3 months (5) Chronic back pain greater than 3 months duration: Has been previously seen by Dr. Owens and subsequently by Dr. Serrano. For medical management. Takes oxycodone and diazepam long-term for management. Has had multiple back surgeries in the past. (6) COPD (chronic obstructive pulmonary disease): Chronically on W[place]xa and as needed albuterol. Looks to have chronic hypercapnia. Is on chronic benzodiazepines in the form of diazepam and temazepam but not particularly lethargic. (7) Polycythemia: Strongly suspect secondary polycythemia from hypoxemia/sleep apnea that is undiagnosed (8) Major depressive disorder, recurrent, mild: Chronically on venlafaxine and Remeron (9) Generalized anxiety disorder: Chronically on temazepam for sleep (10) Secondary male hypogonadism: On testosterone replacement (11) Limited family support: He also names a neighbor named Daniel who he states knows him well and may be able to help with decisions on his behalf. He states he will have to talk to him. Patient has a nephew listed as his person to contact but he is not somebody who would generally be able to make any decisions pertaining to medical or legal needs per Mr. Ross. His nephew's parents are no longer alive. He has an estranged daughter but no contact information for her. (12) Atrial fibrillation with rapid ventricular response: (13) Hypoxemia: (14) Chest pain: Qualifiers: Chest pain type: precordial pain Qualified Code(s): R07.2 - Precordial pain (15) Cardiomyopathy: Qualifiers: Cardiomyopathy type: unspecified Qualified Code(s): I42.9 - Cardiomyopathy, unspecified (16) COPD exacerbation: (17) Hypotension: Qualifiers: Hypotension type: other hypotension type Qualified Code(s): I95.89 - Other hypotension Plan Elevated D-dimer along with elevated lactic acid felt secondary to hypoxemia and tachycardia secondary to cardiogenic shock, low output failure. No PE on CTA. No clear foci of infection suggesting sepsis at this point in time; clinically appears to be more cardiac presentation Borderline low platelet count Hypomagnesemia: Received magnesium, recheck level. Gastroesophageal reflux disease on PPI Seasonal allergies on cetirizine and fluticasone nasal History of insomnia on ramelteon and trazodone at bedtime Continue home venlafaxine and Remeron Continue home temazepam and trazodone for sleep Continue home oxycodone and diazepam although I am going to decrease diazepam from 4 times a day to every 8 hours Will ultimately benefit from decreasing doses of benzodiazepines if he can tolerate it secondary to hypercapnia Last testosterone dose was on November 28 Disposition plan: Home with outpatient follow up to primary care provider anticipated. Code Status: Full Code - talked with patient at length regarding CODE STATUS. He says that he would like to be resuscitated for 30 minutes and then if he has not regained pulse and spontaneous breathing to let him go at that point in time. Patient does not have any family beyond a nephew who is not someone who is capable of making decisions for him. He has an estranged daughter but does not know how to contact her. Has not seen her in more than 20 years. He said that the tightening machine operator could make decisions for him if necessary. Attestations Medical Necessity Statement*: Continue admission for assessment of management of cardiogenic shock. Coding Level of Care Code Critical Care >/= 30 minutes Critical care time (in minutes): 40 The high probability of a clinically significant, sudden or life threatening deterioration, as referenced in this documentation, required my full and direct attention, intervention and personal management. The critical care time shown is in addition to time spent performing any reported separately billable procedures and includes the following: [x] Data and vital sign review and interpretation [x] Patient assessment, examination and intervention [x] Medication orders and management [x] Patient/Family updates as able [x] Care Coordination and Documentation. Diagnoses Acute on chronic systolic congestive heart failure I50.23 Heart failure chronicity: acute on chronic Heart failure type: systolic Atrial flutter with rapid ventricular response I48.92 CKD (chronic kidney disease), stage II N18.2 Erectile dysfunction N52.9 Chronic back pain greater than 3 months duration M54.9; G89.29 COPD (chronic obstructive pulmonary disease) J44.9 Polycythemia D75.1 Major depressive disorder, recurrent, mild F33.0 Generalized anxiety disorder F41.1 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 Limited family support Z63.8 Atrial fibrillation with rapid ventricular response I48.91 Hypoxemia R09.02 Precordial pain R07.2 Chest pain type: precordial pain Cardiomyopathy, unspecified type I42.9 Cardiomyopathy type: unspecified COPD exacerbation J44.1 Other specified hypotension I95.89 Hypotension type: other hypotension type
[2023-12-16] MEDS: magnesium sulfate premix 2 GM/50 ML PIGGYBACK IV (21:25)
[2023-12-17] VITALS (99 sets, daily range): BP systolic 46–163; BP diastolic 36–139; PULSE 106–117; RESP 4–25; TEMP 35.9–36.3; O2SAT 68–99
[2023-12-17] MEDS: oxyCODONE-APAP 5-325 mg Tablet 1 TAB PO ×2 (04:35→15:17)
[2023-12-17] MEDS: FUROsemide 10 mg/mL SDV 4mL 40 MG IVP ×2 (05:12→16:55)
[2023-12-17] MEDS: potassium chloride ER 20 mEq Tablet PO ×2 (05:12→16:55)
[2023-12-17 05:13] LABS: Basophils % 0.5 %; Eosinophils % 0.6 %; Hematocrit 50.7 % (37-53); Lymphocytes # 1.9 10^3/uL (0.8-4.8); Lymphocytes % 30.5 %; Mean Corpuscular HGB Conc 32.1 g/dL (30-55); Mean Corpuscular Hemoglobin 31.6 pg (27-33); Mean Corpuscular Volume 98.3 fl (82-101); Mean Platelet Volume 11.3 fL (7.4-10.4); Monocytes # 0.5 10^3/uL (0.2-0.9); Neutrophils # 3.75 10^3/uL (1.8-7.7); Neutrophils % 60.2 %; Nucleated Red Blood Cells % 0.3 %; Platelet Count 142 10^3/cmm (157-399); Red Blood Count 5.16 10^6/uL (3.85-5.65); Red Cell Distribution Width 19.9 % (12.1-15.1); White Blood Count 6.23 10^3/uL (3.29-11.43)
[2023-12-17 05:37] LABS: Blood Urea Nitrogen 30 mg/dL (8-23); Calcium 8.6 mg/dL (8.5-10.5); Carbon Dioxide 35 mmol/L (22-29); Chloride 89 mmol/L (98-107); Creatinine Clr Calc Pharmacy 82.2283; Glomerular Filtration Rate 61.3 mL/min (90-130); Glucose 100 mg/dL (65-115); Magnesium 1.9 mg/dL (1.7-2.3); Osmolality Calculated 282 mOsm/kg (285-295); Phosphorus 4.2 mg/dL (2.5-4.5); Sodium 133 mmol/L (136-145)
[2023-12-17 05:43] LABS: Anion Gap 13.5 (5-19); Potassium 4.5 mmol/L (3.5-5.1)
[2023-12-17] MEDS: DOBUTamine drip 500 MG/250 ML PREMIX 16.5 MG IV ×2 (07:17→18:20)
[2023-12-17] MEDS: budesonide 0.5 mg/2 mL Neb INHALATION (08:12)
[2023-12-17] MEDS: ipratropium-albuterol 3 mL Neb INHALATION (08:12)
--- NOTE | 2023-12-17 09:18 | ANES.PREANE2 ---
Pre-Anesthetic Assessment Height/Weight: Height 1.8 m Weight 114.759 kg Temp Pulse Resp BP Pulse Ox O2 Del Method O2 Flow Rate 96.8 F L 114 H 14 101/86 98 Nasal Cannula 3 12/17/23 08:00 12/17/23 08:19 12/17/23 08:12 12/17/23 08:00 12/17/23 08:12 12/17/23 08:12 12/17/23 08:12 Operation Date: 12/14/23 20:50 Proposed Procedures p Cardiac Catheterization(Not Applicable) - Mervin Higginbotham MD Pulmonary Chronic Obstructive Pulmonary Disease Chest CTA IMPRESSION: 1. There is a moderate amount of free intra-abdominal fluid. 2. Cardiomegaly with pulmonary vascular congestion. 3. Nonspecific bibasilar opacities, atelectasis, edema and/or pneumonia. 4. Small to moderate right and small left pleural effusions. 5. No pulmonary artery embolism identified. 6. Mild coronary arterial calcification, indicating the presence of coronary artery disease. If the patient has associated symptoms recommend management as per chest pain guidelines. If the patient is asymptomatic consider reviewing modifiable cardiovascular risk factors and managing as per guidelines for primary preventio CV/HEM Atrial Fibrillation and Unstable Angina Cardiac cath showed no CAD TTE CONCLUSIONS Severe diffuse hypokinesia of the left ventricle with an ejection fraction of 15 to 20%. Almost akinetic septum and the anteroseptal segments. Mildly dilated right ventricle with moderately diminished ejection fraction. Mildly dilated right atrium right ventricle Thickened mitral valve.mild-moderate mitral valve regurgitation. Moderate tricuspid regurgitation. Thickened aortic valve. There are no intracardiac masses. Patient was found to be in atrial fibrillation with rapid ventricular rate-heart rate in the 130s during the study. The segmental wall motion analysis and ejection fraction estimation could be misleading because of this No similar previous studies are available for comparison Chronic Renal Insufficiency GI Gastroesophageal Reflux Disease Anesthetic Plan ASA status: 4 Anesthesia: MAC Risk of > 500 ml blood loss (7ml/kg in children): No Other Pertinent Information On amiodarone gtt and dobutumine gtt, has been weaned of levo Medications/Allergies Home Medications Medication Instructions Recorded Confirmed Last Taken Type cetirizine 10 mg capsule (Zyrtec) 10 mg PO BID 08/01/19 12/14/23 12/13/23 History fluticasone propionate 50 2 spray intranasal DAILY 0712/14/23 12/13/23 History mcg/actuation nasal spray,suspension (Flonase Allergy Relief) pantoprazole 40 mg tablet,delayed 40 mg PO BID #180 tabs 06/23/21 12/14/23 12/13/23 Rx release testosterone cypionate 200 mg/mL 400 mg (2 mL) IM .[id number] 30 days 12/24/21 12/14/23 11/29/23 Rx intramuscular oil #10 mL (Depo-Testosterone) temazepam 30 mg capsule 30 mg PO DAILY #30 caps 03/23/22 12/14/23 12/13/23 Rx albuterol sulfate 90 mcg/actuation 2 puff inhalation Q6H PRN 04/07/22 12/14/23 04/26/22 Rx aerosol inhaler (Ventolin HFA) shortness of breath or wheezing #18 grams oxycodone-acetaminophen 5 mg-325 1 tab PO Q8H PRN pain 1 month #45 04/21/22 12/14/23 12/13/23 Rx mg tablet (Percocet) tabs sildenafil 100 mg tablet (Viagra) 100 mg PO DAILY PRN sexual activity 04/23/22 12/14/23 04/24/22 History diazepam 10 mg tablet (Valium) 10 mg PO QID PRN anxiety #120 tabs 10/13/23 12/14/23 12/13/23 Rx fluticasone 500 mcg-salmeterol 50 1 inh inhalation BID 12/14/23 12/14/23 12/13/23 History mcg/dose blistr powdr for inhalation (Ricardoxela Inhub) mirtazapine 15 mg tablet (Remeron) 15 mg PO BEDTIME 12/14/23 12/14/23 12/13/23 History ramelteon 8 mg tablet 8 mg PO BEDTIME 12/14/23 12/14/23 12/13/23 History trazodone 150 mg tablet 450 mg PO BEDTIME PRN sleep 12/14/23 12/14/23 12/13/23 History venlafaxine 150 mg 150 mg PO DAILY 12/14/23 12/14/23 12/13/23 History capsule,extended release 24 hr Allergies Allergy/AdvReac Type Severity Reaction Status Date / Time citalopram [From Celexa] Allergy rash Verified 10/13/23 14:02 quetiapine [From Seroquel] Allergy Unknown Verified 10/13/23 14:02 Current Medications Generic Name Dose Route Start Last Admin Trade Name Freq PRN Reason Stop Dose Admin Acetaminophen 650 mg 12/14/23 17:19 12/15/23 18:16 Acetaminophen 325 Mg Tablet PO 650 mg Q6H PRN Administration Mild/Mod Pain Or Temp >/= 101 Albuterol/Ipratropium 3 ml 12/14/23 17:57 12/17/23 08:12 Ipratropium-Albuterol 3 Ml Neb INHALATION 3 ml Q6H PRN Administration SHORTNESS OF BREATH Aspirin 81 mg 12/15/23 09:00 12/16/23 08:50 Aspirin 81 Mg Ec Tablet PO 81 mg DAILY PRINCE Administration Bacitracin 1 each 12/15/23 09:00 12/16/23 20:11 Bacitracin Ointment Pkt TOPICAL 1 each TID PRINCE Administration Protocol Benzonatate 200 mg 12/15/23 13:16 12/15/23 13:30 Benzonatate 100 Mg Capsule PO 200 mg TID PRN Administration COUGH Budesonide 0.5 mg 12/14/23 20:00 12/17/23 08:12 Budesonide 0.5 Mg/2 Ml Neb INHALATION 0.5 mg BID.RESPIRATORY PRINCE Administration Cetirizine HCl 10 mg 12/15/23 09:00 12/16/23 08:50 Cetirizine 10 Mg Tablet PO 10 mg DAILY PRINCE Administration Diazepam 10 mg 12/14/23 18:00 12/14/23 18:08 Diazepam 5 Mg Tablet PO 10 mg Q8H PRINCE Administration Docusate Sodium 100 mg 12/14/23 18:00 12/16/23 17:02 Docusate Sodium 100 Mg Capsule PO 100 mg BID PRINCE Administration Enoxaparin Sodium 110 mg 12/14/23 22:00 12/16/23 21:25 Enoxaparin 120 Mg/0.8 Ml Syringe SUBCUT 110 mg Q12H PRINCE Administration Fluticasone Propionate 2 spray 12/15/23 09:00 12/16/23 08:51 Fluticasone Nasal [place] 16gm Btl INTRANASAL 2 spray DAILY PRINCE Administration Furosemide 40 mg 12/14/23 17:30 12/17/23 05:12 Furosemide 10 Mg/Ml Sdv 4ml IVP 40 mg Q12H PRINCE Administration Norepinephrine Bitartrate 4 mg in 250 mls @ 0 mls/hr 12/14/23 18:50 12/16/23 04:45 Levophed IV 0 mcg/min .Q0M PRINCE 0 mls/hr Titration Protocol Per Protocol Vasopressin 40 unit in 100 mls @ 0 mls/hr 12/14/23 20:00 12/15/23 23:50 Vasostrict IV Infused .Q0M PRINCE Titration Protocol Per Protocol Amiodarone HCl/Dextrose 360 mg in 200 mls @ 0 mls/hr 12/14/23 21:50 12/17/23 05:12 Nexterone IV 0.5 mg/min .Q0M PRINCE 16.67 mls/hr Administration Protocol Per Protocol Dobutamine HCl/Dextrose 500 mg in 250 mls @ 0 mls/hr 12/15/23 09:45 12/17/23 07:17 Dobutamine Drip IV 5 mcg/kg/min .Q0M PRINCE 16.5 mls/hr Administration Protocol Per Protocol Mirtazapine 15 mg 12/14/23 21:00 12/16/23 20:09 Mirtazapine 15 Mg Tablet PO 15 mg BEDTIME PRINCE Administration Oxycodone/Acetaminophen 1 tab 12/14/23 17:50 12/17/23 04:35 Oxycodone-Apap 5-325 Mg Tablet PO 1 tab Q8H PRN Administration pain Pantoprazole Sodium 40 mg 12/14/23 21:00 12/16/23 20:[address] 40 Mg Tablet PO 40 mg BID@ PRINCE Administration Potassium Chloride 20 meq 12/14/23 17:30 12/17/23 05:12 Potassium Chloride Er 20 Meq Tablet PO 20 meq Q12H PRINCE Administration Venlafaxine HCl 150 mg 12/15/23 09:00 12/16/23 08:50 Venlafaxine Er (24hr) 150 Mg Capsule PO 150 mg DAILY PRINCE Administration Additional Medication Information Current Medications Acetaminophen (Acetaminophen 325 Mg Tablet) 650 mg PO Q6H PRN PRN Reason: Mild/Mod Pain Or Temp >/= 101 Last Admin: 12/15/23 18:16 Dose: 650 mg Albuterol/Ipratropium (Ipratropium-Albuterol 3 Ml Neb) 3 ml INHALATION Q6H PRN PRN Reason: SHORTNESS OF BREATH Last Admin: 12/16/23 08:02 Dose: 3 ml Aspirin (Aspirin 81 Mg Ec Tablet) 81 mg PO DAILY PRINCE Last Admin: 12/16/23 08:50 Dose: 81 mg Bacitracin (Bacitracin Ointment Pkt) 1 each TOPICAL TID PRINCE; Protocol Last Admin: 12/16/23 08:53 Dose: 1 each Benzonatate (Benzonatate 100 Mg Capsule) 200 mg PO TID PRN PRN Reason: COUGH Last Admin: 12/15/23 13:30 Dose: 200 mg Bisacodyl (Bisacodyl 5 Mg Tablet) 10 mg PO DAILY PRN; Protocol PRN Reason: Constipation (see protocol) Budesonide (Budesonide 0.5 Mg/2 Ml Neb) 0.5 mg INHALATION BID.RESPIRATORY PRINCE Last Admin: 12/16/23 08:08 Dose: 0.5 mg Cetirizine HCl (Cetirizine 10 Mg Tablet) 10 mg PO DAILY PRINCE Last Admin: 12/16/23 08:50 Dose: 10 mg Diazepam (Diazepam 5 Mg Tablet) 10 mg PO Q8H PRINCE Last Admin: 12/14/23 18:08 Dose: 10 mg Docusate Sodium (Docusate Sodium 100 Mg Capsule) 100 mg PO BID PRINCE Last Admin: 12/16/23 08:50 Dose: 100 mg Enoxaparin Sodium (Enoxaparin 120 Mg/0.8 Ml Syringe) 110 mg SUBCUT Q12H PRINCE Last Admin: 12/16/23 08:59 Dose: 110 mg Fluticasone Propionate (Fluticasone Nasal [place] 16gm Btl) 2 spray INTRANASAL DAILY PRINCE Last Admin: 12/16/23 08:51 Dose: 2 spray Furosemide (Furosemide 10 Mg/Ml Sdv 4ml) 40 mg IVP Q12H PRINCE Last Admin: 12/16/23 05:12 Dose: 40 mg Norepinephrine Bitartrate (Levophed) 4 mg in 250 mls @ 0 mls/hr IV .Q0M PRINCE; Protocol Last Titration: 12/16/23 04:45 Dose: Infused Epinephrine HCl 2.5 mg/ Sodium (Chloride) 252.5 mls @ 0 mls/hr IV .Q0M [facility]; Protocol Vasopressin (Vasostrict) 40 unit in 100 mls @ 0 mls/hr IV .Q0M PRINCE; Protocol Last Titration: 12/15/23 23:50 Dose: Infused Amiodarone HCl/Dextrose (Nexterone) 360 mg in 200 mls @ 0 mls/hr IV .Q0M PRINCE; Protocol Last Admin: 12/16/23 06:12 Dose: 0.5 mg/min, 16.67 mls/hr Dobutamine HCl/Dextrose (Dobutamine Drip) 500 mg in 250 mls @ 0 mls/hr IV .Q0M PRINCE; Protocol Last Admin: 12/16/23 01:22 Dose: 5 mcg/kg/min, 16.5 mls/hr Mirtazapine (Mirtazapine 15 Mg Tablet) 15 mg PO BEDTIME PRINCE Last Admin: 12/15/23 21:50 Dose: 15 mg Ondansetron HCl (Ondansetron 2 Mg/Ml Sdv 2 Ml) 4 mg IVP Q8H PRN PRN Reason: vomiting, or N/V if npo Oxycodone/Acetaminophen (Oxycodone-Apap 5-325 Mg Tablet) 1 tab PO Q8H PRN PRN Reason: pain Last Admin: 12/16/23 08:56 Dose: 1 tab Pantoprazole Sodium (Pantoprazole Dr 40 Mg Tablet) 40 mg PO BID@09,21 PRINCE Last Admin: 12/16/23 08:50 Dose: 40 mg Potassium Chloride (Potassium Chloride Er 20 Meq Tablet) 20 meq PO Q12H PRINCE Last Admin: 12/16/23 05:12 Dose: 20 meq Venlafaxine HCl (Venlafaxine Er (24hr) 150 Mg Capsule) 150 mg PO DAILY PRINCE Last Admin: 12/16/23 08:50 Dose: 150 mg PFSH Anesthesia Medical History Erectile dysfunction sildenafil script COPD (chronic obstructive pulmonary disease) Lumbar disc disease with radiculopathy Secondary male hypogonadism Fracture of proximal phalanx of toe of right foot Insomnia Oppositional defiant disorder Psychiatric care Chronic back pain greater than 3 months duration Primary hypersomnia Generalized anxiety disorder Major depressive disorder, recurrent, mild Surgical History History of facial surgery History of laminectomy 4 back surgeries Social History Smoking and tobacco/nicotine status: former use of tobacco/nicotine Alcohol intake: former Substance/Drug Use: former Date of last use: MANY YEARS AGO METH, COCAINE, THC 38 YEARS AGO Caregiver/support person: Yes Lives independently: Yes Marital status: Current gender identity: Male Data Anesthesia 12/17/23 04:53 12/17/23 04:53 Short CBC 12/16/23 12/17/23 Range/Units 04:23 04:53 WBC 7.05 6.23 (3.29-11.43) 10^3/uL Hgb 16.10 16.30 (11.27-16.99) g/dL Hct 50.0 50.7 (37-53) % MCV 98.8 98.3 (82-101) fl Plt Count 141 L 142 L (157-399) 10^3/cmm Neut % (Auto) 62.2 60.2 % Neut # (Auto) 4.39 3.75 (1.8-7.7) 10^3/uL BMP 12/16/23 12/17/23 04:23 04:53 Sodium 135 L 133 L Potassium 4.1 4.5 Chloride 92 L 89 L Carbon Dioxide 33 H 35 H BUN 23 30 H Creatinine 1.3 H 1.2 Glucose 119 H 100 Calcium 8.3 L 8.6 Cardiac Studies: Echocardiogram 12/14/23
--- NOTE | 2023-12-17 10:20 | PC.SOCIAL ---
IMM Update pg 2 of IMM updated and reviewed w/ patient. Copy provided and copy dated, initialed and placed in chart.
[2023-12-17] MEDS: enoxaparin 120 mg/0.8 mL Syringe 110 MG SUBCUT ×2 (10:22→21:12)
[2023-12-17] MEDS: fluticasone nasal spray 16gm Btl 2 SPRAY INTRANASAL (10:23)
[2023-12-17] MEDS: bacitracin ointment Pkt 1 EACH TOPICAL ×3 (10:23→20:17)
--- NOTE | 2023-12-17 10:35 | PC.NURSE ---
Morning PO meds delayed due to upcoming AGUILAR
--- NOTE | 2023-12-17 11:24 | P.PN_ITS ---
Subjective 2 Subjective: The patient continues to be in atrial flutter with rapid ventricular rate. Blood pressure seems to be stable. The urine output is still low even though there is some improvement compared to yesterday still has features of the low output syndrome.. Medications: Medication Review Details: Current Medications Acetaminophen (Acetaminophen 325 Mg Tablet) 650 mg PO Q6H PRN PRN Reason: Mild/Mod Pain Or Temp >/= 101 Last Admin: 12/15/23 18:16 Dose: 650 mg Albuterol/Ipratropium (Ipratropium-Albuterol 3 Ml Neb) 3 ml INHALATION Q6H PRN PRN Reason: SHORTNESS OF BREATH Last Admin: 12/17/23 08:12 Dose: 3 ml Aspirin (Aspirin 81 Mg Ec Tablet) 81 mg PO DAILY PRINCE Last Admin: 12/16/23 08:50 Dose: 81 mg Bacitracin (Bacitracin Ointment Pkt) 1 each TOPICAL TID PRINCE; Protocol Last Admin: 12/17/23 10:23 Dose: 1 each Benzonatate (Benzonatate 100 Mg Capsule) 200 mg PO TID PRN PRN Reason: COUGH Last Admin: 12/15/23 13:30 Dose: 200 mg Bisacodyl (Bisacodyl 5 Mg Tablet) 10 mg PO DAILY PRN; Protocol PRN Reason: Constipation (see protocol) Budesonide (Budesonide 0.5 Mg/2 Ml Neb) 0.5 mg INHALATION BID.RESPIRATORY PRINCE Last Admin: 12/17/23 08:12 Dose: 0.5 mg Cetirizine HCl (Cetirizine 10 Mg Tablet) 10 mg PO DAILY PRINCE Last Admin: 12/16/23 08:50 Dose: 10 mg Diazepam (Diazepam 5 Mg Tablet) 10 mg PO Q8H PRINCE Last Admin: 12/14/23 18:08 Dose: 10 mg Docusate Sodium (Docusate Sodium 100 Mg Capsule) 100 mg PO BID PRINCE Last Admin: 12/16/23 17:02 Dose: 100 mg Enoxaparin Sodium (Enoxaparin 120 Mg/0.8 Ml Syringe) 110 mg SUBCUT Q12H PRINCE Last Admin: 12/17/23 10:22 Dose: 110 mg Fluticasone Propionate (Fluticasone Nasal [place] 16gm Btl) 2 spray INTRANASAL DAILY PRINCE Last Admin: 12/17/23 10:23 Dose: 2 spray Furosemide (Furosemide 10 Mg/Ml Sdv 4ml) 40 mg IVP Q12H PRINCE Last Admin: 12/17/23 05:12 Dose: 40 mg Norepinephrine Bitartrate (Levophed) 4 mg in 250 mls @ 0 mls/hr IV .Q0M PRINCE; Protocol Last Titration: 12/16/23 04:45 Dose: Infused Epinephrine HCl 2.5 mg/ Sodium (Chloride) 252.5 mls @ 0 mls/hr IV .Q0M PRINCE; Protocol Vasopressin (Vasostrict) 40 unit in 100 mls @ 0 mls/hr IV .Q0M PRINCE; Protocol Last Titration: 12/15/23 23:50 Dose: Infused Amiodarone HCl/Dextrose (Nexterone) 360 mg in 200 mls @ 0 mls/hr IV .Q0M PRINCE; Protocol Last Admin: 12/17/23 05:12 Dose: 0.5 mg/min, 16.67 mls/hr Dobutamine HCl/Dextrose (Dobutamine Drip) 500 mg in 250 mls @ 0 mls/hr IV .Q0M PRINCE; Protocol Last Admin: 12/17/23 07:17 Dose: 5 mcg/kg/min, 16.5 mls/hr Mirtazapine (Mirtazapine 15 Mg Tablet) 15 mg PO BEDTIME PRINCE Last Admin: 12/16/23 20:09 Dose: 15 mg Ondansetron HCl (Ondansetron 2 Mg/Ml Sdv 2 Ml) 4 mg IVP Q8H PRN PRN Reason: vomiting, or N/V if npo Oxycodone/Acetaminophen (Oxycodone-Apap 5-325 Mg Tablet) 1 tab PO Q8H PRN PRN Reason: pain Last Admin: 12/17/23 04:35 Dose: 1 tab Pantoprazole Sodium (Pantoprazole Dr 40 Mg Tablet) 40 mg PO BID@ PRINCE Last Admin: 12/16/23 20:09 Dose: 40 mg Potassium Chloride (Potassium Chloride Er 20 Meq Tablet) 20 meq PO Q12H PRINCE Last Admin: 12/17/23 05:12 Dose: 20 meq Venlafaxine HCl (Venlafaxine Er (24hr) 150 Mg Capsule) 150 mg PO DAILY PRINCE Last Admin: 12/16/23 08:50 Dose: 150 mg Vitals/I&O/Wt Last Vital Signs Temp 96.8 F L 12/17/23 08:00 Pulse 116 H 12/17/23 10:00 Resp 10 L 12/17/23 10:00 BP 163/139 12/17/23 10:00 Pulse Ox 85 L 12/17/23 10:00 O2 Del Method Nasal Cannula 12/17/23 09:00 O2 Flow Rate 3 12/17/23 09:00 12/16/23 12/17/23 12/17/23 22:59 06:59 14:59 Intake Total 1022.259 / 1022.259 200 / 1222.259 240.625 / 240.625 Output Total 175 / 250 500 / 750 125 / 125 Balance 847.259 / 772.259 -300 / 472.259 115.625 / 115.625 Weight last 48 hrs Weight 253 lb Weight 250 lb 3.594 oz Physical Exam 2 Narrative: GENERAL: The patient is alert and oriented times three. Patient appears comfortable extremities are cold and clammy. Has some mottled appearance HEENT: No significant pallor, icterus or lymphadenopathy.Oral cavity: There are no mucous membrane lesions. NECK: Trachea appears to be central. No masses noted. No JVD or thyromegaly appreciated. Neck veins are slightly prominent with RESPIRATORY: Chest is symmetrical. No intercostals muscle retraction or any accessory muscle activation. There is no chest wall tenderness. Breath sounds are heard bilaterally. Few fine Rales at the bases. [place]. No evidence of any consolidation. BREASTS: Deferred. HEART: The heart sounds are normal. No S3 or S4. Systolic murmur grade 3 or 6 in the mitral area. No diastolic murmurs. ABDOMEN: No vessel pulsations or distention. No tenderness. No organomegaly appreciated. Bowel sounds are normally heard. : Deferred. RECTAL: Deferred. LYMPHATIC: No lymphadenopathy noted in the neck. EXTREMITIES: The peripheral pulses stably weak. Extremities are cold and clammy MUSCULOSKELETAL: No acute joint deformities or swelling SKIN: There are no significant rashes or ecchymosis NEUROPSYCHIATRIC: The patient is alert and oriented x3. Not in any distress Urinary Catheter Management: Mckeon: Cath Placed During This Visit: yes Reason for Continuing Indwelling Catheter: Accurate Measurement of Urinary Output in Critically Ill Patients Urinary Catheter Date of Insertion: 12/14/23 Urinary Catheter Time of Insertion: 22:50 Data 12/17/23 04:53 12/17/23 04:53 Other data: Patient had CHRIS yesterday which was normal A&P Assessment and plan (1) Congestive heart failure: Patient's urine output is still low. Blood pressure seems to be holding up. He is off all the vasopressors. I will continue the Dobutrex for a total of 48 hours Qualifiers: Heart failure chronicity: acute on chronic Heart failure type: systolic Qualified Code(s): I50.23 - Acute on chronic systolic (congestive) heart failure (2) Cardiomyopathy: Features of nonischemic cardiomyopathy. Because of soft blood pressure, I may hold off on the GDMT. Qualifiers: Cardiomyopathy type: unspecified Qualified Code(s): I42.9 - Cardiomyopathy, unspecified (3) Hypotension: Currently has improved. Continue the IV amiodarone. Qualifiers: Hypotension type: other hypotension type Qualified Code(s): I95.89 - Other hypotension (4) Atrial fibrillation with rapid ventricular response: Patient is on a subcu Lovenox. Will continue the amiodarone. May switch to PO after cardioversion (5) COPD exacerbation: Patient has a history of heavy smoking abuse. Continue on the current management (6) Hypoxemia: Possibly related to COPD/hypoventilation syndrome, significantly improving. Plan Discussed with the patient He may benefit from cardioversion because of the severe LV dysfunction and atrial arrhythmia Consider AGUILAR cardioversion Today. The risk of aspiration, bleeding, soft tissue injury, perforation of the stomach/esophagus and other concomitant complications were explained to the patient in detail. The patient understood this well and consented to proceed. The need for the cardioversion also was discussed with the patient. The risk of malignant arrhythmia, CVA, and other concomitant complications were explained in detail. Patient understood this well and consented to proceed. Attestations 2 Medical Necessity Statement*: Patient requires continued hospital stay for close monitoring and further management Coding Level of Care Code 53263 Diagnoses Acute on chronic systolic congestive heart failure I50.23 Heart failure chronicity: acute on chronic Heart failure type: systolic Cardiomyopathy, unspecified type I42.9 Cardiomyopathy type: unspecified Other specified hypotension I95.89 Hypotension type: other hypotension type Atrial fibrillation with rapid ventricular response I48.91 COPD exacerbation J44.1 Hypoxemia R09.02
[2023-12-17] MEDS: norepinephrine 4 MG/250 ML BAG 7.5 MG IV (12:10)
[2023-12-17] MEDS: EPINEPHrine 1 mg/mL INJ (12:30)
[2023-12-17] MEDS: EPINEPHrine 0.1 mg/mL SYR 10 mL 1 MG (12:45)
--- NOTE | 2023-12-17 13:34 | PC.NURSE ---
Addendum entered by Arden Davis RN 12/17/23 14:48: AGUILAR procedure- Time out performed at 1145. At approximately 1155 anesthesia staff provided slow push of propofol. Patient became hypotensive. Automatic cuff reading 40/31. Doppler/manual pressure verified this was correct. NS bolus started, anesthesia staff administered epinephrine. Blood pressure only improved slightly, levophed was started and quickly titrated up to max rate of [address] aurelia humphreys, and additional epinephrine was given. Oxygen saturations started dropping into the 70's and unable to wake patient. Planned for intubation. respiratory therapy and Dr ruggiero came to bedside, but patient then started to become more responsive and blood pressures improved. AGUILAR was canceled. Patient has slowly become more awake. Oriented to person, place, time and situation, but lethargic. Continues to requires max rate of levophed. Fluid bolus stopped after 500mL received due to fluid overload concerns. Original Note: AGUILAR procedure- Time out performed at 1145. At approximately 1255 anesthesia staff provided slow push of propofol. Patient became hypotensive. Automatic cuff reading 40/31. Doppler/manual pressure verified this was correct. NS bolus started, anesthesia staff administered epinephrine. Blood pressure only improved slightly, levophed was started and quickly titrated up to max rate of [address] moses orders, and additional epinephrine was given. Oxygen saturations started dropping into the 70's and unable to wake patient. Planned for intubation. respiratory therapy and Dr ruggiero came to bedside, but patient then started to become more responsive and blood pressures improved. AGUILAR was canceled. Patient has slowly become more awake. Oriented to person, place, time and situation, but lethargic. Continues to requires max rate of levophed. Fluid bolus stopped after 500mL received due to fluid overload concerns.
[2023-12-17] MEDS: cetirizine 10 mg Tablet PO (14:26)
[2023-12-17] MEDS: docusate sodium 100 mg Capsule PO ×2 (14:27→17:02)
[2023-12-17] MEDS: aspirin 81 mg EC Tablet PO (14:27)
[2023-12-17] MEDS: venlafaxine ER (24HR) 150 mg Capsule PO (14:27)
[2023-12-17] MEDS: pantoprazole DR 40 mg Tablet PO ×2 (14:27→20:16)
[2023-12-17] MEDS: norepinephrine 4 MG/250 ML BAG 52.5 MG IV (15:46)
[2023-12-17 16:13] LABS: Alanine Aminotransferase 184 U/L (0-41); Albumin Level 3.4 g/dL (3.5-5.2); Alkaline Phosphatase 108 U/L (40-130); Anion Gap 18.6 (5-19); Aspartate Amino Transferase 214 U/L (0-40); Blood Urea Nitrogen 29 mg/dL (8-23); Calcium 8.5 mg/dL (8.5-10.5); Carbon Dioxide 30 mmol/L (22-29); Chloride 86 mmol/L (98-107); Creatinine Clr Calc Pharmacy 65.7826; Globulin 2.2 g/dL (1.3-4.6); Glomerular Filtration Rate 47.4 mL/min (90-130); Glucose 130 mg/dL (65-115); Osmolality Calculated 278 mOsm/kg (285-295); Potassium 4.6 mmol/L (3.5-5.1); Sodium 130 mmol/L (136-145); Total Bilirubin 1.4 mg/dL (0.15-1.2); Total Protein 5.6 g/dL (6.6-8.7)
--- NOTE | 2023-12-17 16:18 | P.PN_ITS ---
Subjective 2 Subjective: States he is doing okay this morning. Denies chest pain or pressure. No trouble breathing. Overall about the same. Awaiting cardioversion. Doing cardioversion procedure to be aborted due to decreasing blood pressure and difficulty Oxygen saturation. Received epinephrine pushes, Levophed was restarted. Patient was going to be intubated, but started waking up. Sedation reversed. Vitals/I&O/Wt Last Vital Signs Temp 96.8 F L 12/17/23 08:00 Pulse 112 H 12/17/23 14:30 Resp 12 12/17/23 15:17 BP 82/61 12/17/23 14:30 Pulse Ox 91 12/17/23 15:17 O2 Del Method Nasal Cannula 12/17/23 14:30 O2 Flow Rate 4 12/17/23 14:30 12/17/23 12/17/23 12/17/23 06:59 14:59 22:59 Intake Total 200 / 1222.259 982.275 / 982.275 76.875 / 1059.150 Output Total 500 / 750 125 / 125 Balance -300 / 472.259 857.275 / 857.275 76.875 / 934.150 Weight last 48 hrs Weight 114.759 kg Weight 113.5 kg Physical Exam 2 Const: COMMON NORMALS: patient oriented x3 and alert GENERAL APPEARANCE: c ooperative NUTRITIONAL APPEARANCE: obese ORIENTATION/CONSCIOUSNESS: Yes awake HENMT: COMMON NORMALS: oropharynx normal Neck/C-Spine: COMMON NORMALS: no JVD OTHER: R neck CVC Resp: COMMON NORMALS: normal respiratory effort and clear to auscultation bilaterally AUSCULTATION: clear to auscultation bilaterally Cardio: COMMON NORMALS: no JVD, regular rhythm, S1 normal heart sound present, S2 normal heart sound present and No murmurs present (Cardio) RHYTHM: regular rhythm HEART SOUNDS: S1 normal heart sound present and S2 normal heart sound present GI: COMMON NORMALS: Normal to inspection, nondistended, normoactive bowel sounds present, Soft to palpation and non-tender PALPATION: Yes Soft to palpation Extremity: COMMON NORMALS: no joint enlargement GENERAL: Yes edema (2+) Neuro: COMMON NORMALS: patient oriented x3 and moves all extremities S ENSORIUM/ORIENTATION: Yes alert Skin: COMMON NORMALS: no rashes or lesions noted GENERAL SKIN EXAM: no rashes or lesions noted OTHER: Cool to touch lower extremities with mottling. Urinary Catheter Management: Mckeon: Cath Placed During This Visit: yes Reason for Continuing Indwelling Catheter: Accurate Measurement of Urinary Output in Critically Ill Patients Urinary Catheter Date of Insertion: 12/14/23 Urinary Catheter Time of Insertion: 22:50 Data 12/17/23 04:53 12/17/23 15:37 A&P Assessment and plan (1) Congestive heart failure: Cardioversion attempted, however, procedure had to be aborted, blood pressure decreased with sedation, received epi, had to be started on Levophed. Was going to be intubated initially, started waking up, moving. I was at the bedside together with anesthesiology, cardiology. With discontinuation of sedative, he awoke, oxygen saturation gradual improvement, blood pressure showing slow improvement. Still requiring Levophed. Continue dobutamine, rate was increased. Rechecking chemistry to reassess renal function, reviewed, potassium 4.6, creatinine worsened. Recheck chemistry again this evening at 10 PM and in the morning. Monitor GIGI. Continue Lasix. Continue amiodarone. Cardiology considering further options, possibility of medical therapy, consideration of outside referral possibly for LVAD. Low output failure, with some improvement in terms of pressure. Weaned off vasopressin, Levophed. Continue dobutamine. So far without good improvement in renal status. Oliguria. Worsening creatinine up to 1.3. Reassess kidney function. Continue dobutamine. Monitor for risk of worsening tachycardia, monitor blood pressures. Discussed with cardiology, he would like to postpone cardioversion today. Cardiology will plan cardioversion for tomorrow. N.p.o. after midnight. Discussed with him cardioversion may assist with output, however, it is not guaranteed but certainly he is at risk of further decompensation, organ injury with low output failure. He states that he prefers would like to undergo cardioversion first before considering LVAD. Reviewed vitals, CBC, BMP, magnesium. Replace hypomagnesemia. Continue furosemide. May need increase in dose with worsening renal function. Discussed with nursing and correctional case manager. Status post coronary angiography with unobstructed coronaries. Echocardiogram with new severe cardiomyopathy, EF 15-20%, almost kinetic septum and anteroseptal segments. Mildly dilated right ventricle. Moderately diminished EF. Mildly dilated RA and RV. Qualifiers: Heart failure chronicity: acute on chronic Heart failure type: systolic Qualified Code(s): I50.23 - Acute on chronic systolic (congestive) heart failure (2) Atrial flutter with rapid ventricular response: Unfortunately was unable to undergo cardioversion. Procedure to be aborted as above. Continue amiodarone as per discussion with cardiology. Continue amiodarone drip. Magnesium reviewed 1.9, recheck level. Recheck chemistry tonight in the morning. Cardioversion tomorrow as above. (3) CKD (chronic kidney disease), stage II: Not a known chronic diagnosis SIMONA on CKD. Discussed with him given low output failure and risk of SIMONA, additionally with shock, hypotension, urine output has been low. Discussed in case of worsening kidney injury, renal failure is at risk of needing dialysis. (4) Erectile dysfunction: Has a prescription for sildenafil but has not taken any in more than 3 months (5) Chronic back pain greater than 3 months duration: Has been previously seen by Dr. Owens and subsequently by Dr. Serrano. For medical management. Takes oxycodone and diazepam long-term for management. Has had multiple back surgeries in the past. (6) COPD (chronic obstructive pulmonary disease): Chronically on Wilexa and as needed albuterol. Looks to have chronic hypercapnia. Is on chronic benzodiazepines in the form of diazepam and temazepam but not particularly lethargic. (7) Polycythemia: Strongly suspect secondary polycythemia from hypoxemia/sleep apnea that is undiagnosed (8) Major depressive disorder, recurrent, mild: Chronically on venlafaxine and Remeron (9) Generalized anxiety disorder: Chronically on temazepam for sleep (10) Secondary male hypogonadism: On testosterone replacement (11) Limited family support: He also names a neighbor named Daniel who he states knows him well and may be able to help with decisions on his behalf. He states he will have to talk to him. Patient has a nephew listed as his person to contact but he is not somebody who would generally be able to make any decisions pertaining to medical or legal needs per Ross. His nephew's parents are no longer alive. He has an estranged daughter but no contact information for her. (12) Atrial fibrillation with rapid ventricular response: (13) Hypoxemia: (14) Chest pain: Qualifiers: Chest pain type: precordial pain Qualified Code(s): R07.2 - Precordial pain (15) Cardiomyopathy: Qualifiers: Cardiomyopathy type: unspecified Qualified Code(s): I42.9 - Cardiomyopathy, unspecified (16) COPD exacerbation: (17) Hypotension: Qualifiers: Hypotension type: other hypotension type Qualified Code(s): I95.89 - Other hypotension Plan Elevated D-dimer along with elevated lactic acid felt secondary to hypoxemia and tachycardia secondary to cardiogenic shock, low output failure. No PE on CTA. No clear foci of infection suggesting sepsis at this point in time; clinically appears to be more cardiac presentation Borderline low platelet count Hypomagnesemia: Received magnesium, today 1.9, recheck level. Gastroesophageal reflux disease on PPI Seasonal allergies on cetirizine and fluticasone nasal History of insomnia on ramelteon and trazodone at bedtime Continue home venlafaxine and Remeron Continue home temazepam and trazodone for sleep Continue home oxycodone and diazepam although I am going to decrease diazepam from 4 times a day to every 8 hours Will ultimately benefit from decreasing doses of benzodiazepines if he can tolerate it secondary to hypercapnia Last testosterone dose was on November 28 Disposition plan: Home with outpatient follow up to primary care provider anticipated. Code Status: Full Code - talked with patient at length regarding CODE STATUS. He says that he would like to be resuscitated for 30 minutes and then if he has not regained pulse and spontaneous breathing to let him go at that point in time. Patient does not have any family beyond a nephew who is not someone who is capable of making decisions for him. He has an estranged daughter but does not know how to contact her. Has not seen her in more than 20 years. He said that the ordnance truck installation supervisor could make decisions for him if necessary. Attestations 2 Medical Necessity Statement*: Continue admission for assessment of management of cardiogenic shock. Coding Level of Care Code Critical Care >/= 30 minutes Critical care time (in minutes): 55 The high probability of a clinically significant, sudden or life threatening deterioration, as referenced in this documentation, required my full and direct attention, intervention and personal management. The critical care time shown is in addition to time spent performing any reported separately billable procedures and includes the following: [x] Data and vital sign review and interpretation [x ] Patient assessment, examination and intervention [x] Medication orders and management [x] Patient/Family updates as able [x] Care Coordination and Documentation. Diagnoses Acute on chronic systolic congestive heart failure I50.23 Heart failure chronicity: acute on chronic Heart failure type: systolic Atrial flutter with rapid ventricular response I48.92 CKD (chronic kidney disease), stage II N18.2 Erectile dysfunction N52.9 Chronic back pain greater than 3 months duration M54.9; G89.29 COPD (chronic obstructive pulmonary disease) J44.9 Polycythemia D75.1 Major depressive disorder, recurrent, mild F33.0 Generalized anxiety disorder F41.1 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 Limited family support Z63.8 Atrial fibrillation with rapid ventricular response I48.91 Hypoxemia R09.02 Precordial pain R07.2 Chest pain type: precordial pain Cardiomyopathy, unspecified type I42.9 Cardiomyopathy type: unspecified COPD exacerbation J44.1 Other specified hypotension I95.89 Hypotension type: other hypotension type
[2023-12-17] MEDS: diazePAM 2 mg Tablet PO (16:25)
--- NOTE | 2023-12-17 18:07 | PC.NURSE ---
SHift Summary: Attempted AGUILAR but had to cancel due to hypotension (see previous nurse notes). Patient is now back on levophed post AGUILAR, but requirements continue to decrease. Total urine output: 200mL.
[2023-12-17] MEDS: mirtazapine 15 mg Tablet PO (20:16)
[2023-12-17] MEDS: acetaminophen 325 mg Tablet 650 MG PO (20:16)
--- NOTE | 2023-12-17 20:37 | PC.NURSE ---
Physician communication: Dr. Claudio called to get an update on Mr. Ross. Dr. Claudio was updated of current vital signs, urine output and that patient is having increased shortness of breath with speaking and moving in the bed. Dr. Claudio also updated that patient states he feels worse. Patient's color is getting worse, he is more mottled and pale. Dr. Claudio told this nurse to increase dobutamine to 5.
[2023-12-17 22:07] LABS: Blood Urea Nitrogen 31 mg/dL (8-23); Calcium 8.7 mg/dL (8.5-10.5); Carbon Dioxide 31 mmol/L (22-29); Chloride 89 mmol/L (98-107); Creatinine Clr Calc Pharmacy 61.6712; Glucose 124 mg/dL (65-115); Osmolality Calculated 280 mOsm/kg (285-295); Sodium 131 mmol/L (136-145)
[2023-12-18] VITALS (90 sets, daily range): BP systolic 89–149; BP diastolic 50–118; PULSE 94–121; RESP 7–24; TEMP 36.1–36.6; O2SAT 81–99
[2023-12-18] MEDS: norepinephrine 4 MG/250 ML BAG 15 MG IV (03:43)
[2023-12-18 04:00] LABS: Basophils % 0.4 %; Eosinophils % 0.1 %; Hematocrit 53.5 % (37-53); Lymphocytes # 1.6 10^3/uL (0.8-4.8); Lymphocytes % 19.5 %; Mean Corpuscular HGB Conc 32.1 g/dL (30-55); Mean Corpuscular Hemoglobin 31.2 pg (27-33); Mean Corpuscular Volume 96.9 fl (82-101); Mean Platelet Volume 11.4 fL (7.4-10.4); Monocytes # 0.7 10^3/uL (0.2-0.9); Monocytes % 8.6 %; Neutrophils # 5.83 10^3/uL (1.8-7.7); Neutrophils % 70.8 %; Nucleated Red Blood Cells % 0.5 %; Platelet Count 166 10^3/cmm (157-399); Red Blood Count 5.52 10^6/uL (3.85-5.65); Red Cell Distribution Width 19.8 % (12.1-15.1); White Blood Count 8.24 10^3/uL (3.29-11.43)
[2023-12-18 04:22] LABS: Alanine Aminotransferase 398 U/L (0-41); Albumin Level 3.5 g/dL (3.5-5.2); Alkaline Phosphatase 127 U/L (40-130); Anion Gap 17.6 (5-19); Aspartate Amino Transferase 523 U/L (0-40); Blood Urea Nitrogen 32 mg/dL (8-23); Calcium 8.8 mg/dL (8.5-10.5); Carbon Dioxide 30 mmol/L (22-29); Chloride 89 mmol/L (98-107); Creatinine Clr Calc Pharmacy 51.9336; Globulin 2.1 g/dL (1.3-4.6); Glomerular Filtration Rate 36.1 mL/min (90-130); Glucose 124 mg/dL (65-115); Magnesium 2.1 mg/dL (1.7-2.3); Osmolality Calculated 280 mOsm/kg (285-295); Potassium 5.6 mmol/L (3.5-5.1); Sodium 131 mmol/L (136-145); Total Bilirubin 1.5 mg/dL (0.15-1.2); Total Protein 5.6 g/dL (6.6-8.7)
[2023-12-18] MEDS: FUROsemide 10 mg/mL SDV 4mL 40 MG IVP ×2 (04:38→17:24)
[2023-12-18] MEDS: budesonide 0.5 mg/2 mL Neb INHALATION (07:49)
--- NOTE | 2023-12-18 09:29 | PM.PN ---
Subjective Subjective: The patient is feeling okay. His blood pressure seems to be stable around 100-110. Currently he is on Dobutrex 5 mics per KG per minute. The Levophed was weaned off. Still on the amiodarone. We attempted AGUILAR cardioversion yesterday. We could not start the procedure because of the hypotension caused by propofol. Patient required 1 dose of epinephrine, infusion of Levophed and Dobutrex to bring the blood pressure back to the baseline. Currently he is off of the Levophed. Medications: Medication Review Details: Current Medications Acetaminophen (Acetaminophen 325 Mg Tablet) 650 mg PO Q6H PRN PRN Reason: Mild/Mod Pain Or Temp >/= 101 Last Admin: 12/17/23 20:16 Dose: 650 mg Albuterol/Ipratropium (Ipratropium-Albuterol 3 Ml Neb) 3 ml INHALATION Q6H PRN PRN Reason: SHORTNESS OF BREATH Last Admin: 12/17/23 08:12 Dose: 3 ml Aspirin (Aspirin 81 Mg Ec Tablet) 81 mg PO DAILY PRINCE Last Admin: 12/17/23 14:27 Dose: 81 mg Bacitracin (Bacitracin Ointment Pkt) 1 each TOPICAL TID PRINCE; Protocol Last Admin: 12/17/23 20:17 Dose: 1 each Benzonatate (Benzonatate 100 Mg Capsule) 200 mg PO TID PRN PRN Reason: COUGH Last Admin: 12/15/23 13:30 Dose: 200 mg Bisacodyl (Bisacodyl 5 Mg Tablet) 10 mg PO DAILY PRN; Protocol PRN Reason: Constipation (see protocol) Budesonide (Budesonide 0.5 Mg/2 Ml Neb) 0.5 mg INHALATION BID.RESPIRATORY PRINCE Last Admin: 12/18/23 07:49 Dose: 0.5 mg Cetirizine HCl (Cetirizine 10 Mg Tablet) 10 mg PO DAILY PRINCE Last Admin: 12/17/23 14:26 Dose: 10 mg Diazepam (Diazepam 2 Mg Tablet) 2 mg PO Q6H PRN PRN Reason: ANXIETY Last Admin: 12/17/23 16:25 Dose: 2 mg Docusate Sodium (Docusate Sodium 100 Mg Capsule) 100 mg PO BID PRINCE Last Admin: 12/17/23 17:02 Dose: 100 mg Enoxaparin Sodium (Enoxaparin 120 Mg/0.8 Ml Syringe) 110 mg SUBCUT Q12H PRINCE Last Admin: 12/17/23 21:12 Dose: 110 mg Fluticasone Propionate (Fluticasone Nasal [place] 16gm Btl) 2 spray INTRANASAL DAILY PRINCE Last Admin: 12/17/23 10:23 Dose: 2 spray Furosemide (Furosemide 10 Mg/Ml Sdv 4ml) 40 mg IVP Q12H PRINCE Last Admin: 12/18/23 04:38 Dose: 40 mg Norepinephrine Bitartrate (Levophed) 4 mg in 250 mls @ 0 mls/hr IV .Q0M PRINCE; Protocol Last Titration: 12/18/23 05:44 Dose: Infused Epinephrine HCl 2.5 mg/ Sodium (Chloride) 252.5 mls @ 0 mls/hr IV .Q0M PRINCE; Protocol Vasopressin (Vasostrict) 40 unit in 100 mls @ 0 mls/hr IV .Q0M PRINCE; Protocol Last Titration: 12/15/23 23:50 Dose: Infused Amiodarone HCl/Dextrose (Nexterone) 360 mg in 200 mls @ 0 mls/hr IV .Q0M PRINCE; Protocol Last Admin: 12/18/23 04:40 Dose: 0.5 mg/min, 16.67 mls/hr Dobutamine HCl/Dextrose (Dobutamine Drip) 500 mg in 250 mls @ 0 mls/hr IV .Q0M PRINCE; Protocol Last Titration: 12/17/23 20:37 Dose: 5 mcg/kg/min, 16.5 mls/hr Mirtazapine (Mirtazapine 15 Mg Tablet) 15 mg PO BEDTIME PRINCE Last Admin: 12/17/23 20:16 Dose: 15 mg Ondansetron HCl (Ondansetron 2 Mg/Ml Sdv 2 Ml) 4 mg IVP Q8H PRN PRN Reason: vomiting, or N/V if npo Oxycodone/Acetaminophen (Oxycodone-Apap 5-325 Mg Tablet) 1 tab PO Q8H PRN PRN Reason: pain Last Admin: 12/17/23 15:17 Dose: 1 tab Pantoprazole Sodium (Pantoprazole Dr 40 Mg Tablet) 40 mg PO BID@09,21 PRINCE Last Admin: 12/17/23 20:16 Dose: 40 mg Venlafaxine HCl (Venlafaxine Er (24hr) 150 Mg Capsule) 150 mg PO DAILY PRINCE Last Admin: 12/17/23 14:27 Dose: 150 mg Vitals/I&O/Wt Last Vital Signs Temp 97.0 F L 12/18/23 06:10 Pulse 105 H 12/18/23 07:49 Resp 16 12/18/23 07:49 BP 95/71 12/18/23 06:00 Pulse Ox 98 12/18/23 07:49 O2 Del Method Nasal Cannula 12/18/23 07:49 O2 Flow Rate 4 12/18/23 07:49 12/17/23 12/18/23 12/18/23 22:59 06:59 14:59 Intake Total 1437.567 / 2419.842 335.872 / 2755.714 Output Total 200 / 325 125 / 450 Balance 1237.567 / 2094.842 210.872 / 2305.714 Weight last 48 hrs Weight 255 lb 6.4 oz Weight 253 lb Physical Exam Narrative: GENERAL: The patient is alert and oriented times three. Patient appears comfortable extremities are cold and clammy. Has some mottled appearance HEENT: No significant pallor, icterus or lymphadenopathy.Oral cavity: There are no mucous membrane lesions. NECK: Trachea appears to be central. No masses noted. No JVD or thyromegaly appreciated. Neck veins are slightly prominent with RESPIRATORY: Chest is symmetrical. No intercostals muscle retraction or any accessory muscle activation. There is no chest wall tenderness. Breath sounds are heard bilaterally. Few fine Rales at the bases. Butts. No evidence of any consolidation. BREASTS: Deferred. HEART: The heart sounds are normal. No S3 or S4. Systolic murmur grade 3 or 6 in the mitral area. No diastolic murmurs. ABDOMEN: No vessel pulsations or distention. No tenderness. No organomegaly appreciated. Bowel sounds are normally heard. : Deferred. RECTAL: Deferred. LYMPHATIC: No lymphadenopathy noted in the neck. EXTREMITIES: The peripheral pulses stably weak. Extremities are cold and clammy MUSCULOSKELETAL: No acute joint deformities or swelling SKIN: There are no significant rashes or ecchymosis NEUROPSYCHIATRIC: The patient is alert and oriented x3. Not in any distress Urinary Catheter Management: Mckeon: Cath Placed During This Visit: yes Reason for Continuing Indwelling Catheter: Accurate Measurement of Urinary Output in Critically Ill Patients Urinary Catheter Date of Insertion: 12/14/23 Urinary Catheter Time of Insertion: 22:50 Data 12/18/23 03:40 12/18/23 03:40 Other Labs: Laboratory Last Values WBC 8.24 10^3/uL (3.29-11.43) 12/18/23 03:40 RBC 5.52 10^6/uL (3.85-5.65) 12/18/23 03:40 Hgb 17.20 g/dL (11.27-16.99) H 12/18/23 03:40 Hct 53.5 % (37-53) H 12/18/23 03:40 MCV 96.9 fl (82-101) 12/18/23 03:40 MCH 31.2 pg (27-33) 12/18/23 03:40 MCHC 32.1 g/dL (30-55) 12/18/23 03:40 RDW 19.8 % (12.1-15.1) H 12/18/23 03:40 Plt Count 166 10^3/cmm (157-399) 12/18/23 03:40 MPV 11.4 fL (7.4-10.4) H 12/18/23 03:40 Neut % (Auto) 70.8 % 12/18/23 03:40 Lymph % (Auto) 19.5 % 12/18/23 03:40 [place] % (Auto) 8.6 % 12/18/23 03:40 Eos % (Auto) 0.1 % 12/18/23 03:40 Baso % (Auto) 0.4 % 12/18/23 03:40 Neut # (Auto) 5.83 10^3/uL (1.8-7.7) 12/18/23 03:40 Lymph # (Auto) 1.6 10^3/uL (0.8-4.8) 12/18/23 03:40 [place] # (Auto) 0.7 10^3/uL (0.2-0.9) 12/18/23 03:40 Eos # (Auto) 0.0 10^3/uL (0.0-0.8) 12/18/23 03:40 Baso # (Auto) 0.0 10^3/uL (0.0-0.1) 12/18/23 03:40 Nucleated RBC % (auto) 0.5 % 12/18/23 03:40 Nucleated RBCs # 0.0 /100WBC 12/18/23 03:40 D-Dimer 1.43 ug/mLFEU (0-0.59) H 12/14/23 11:05 Specimen Type Arterial 12/14/23 20:08 Sample Site Brachial, right 12/14/23 20:08 ABG pH 7.42 (7.35-7.45) 12/14/23 20:08 ABG pCO2 51.8 mmHg (35-45) H 12/14/23 20:08 ABG pO2 83.9 mmHg (80.0-100.0) 12/14/23 20:08 ABG PO2/FiO2 Ratio 0 12/14/23 10:53 ABG HCO3 33.7 mmol/L (22-26) H 12/14/23 20:08 ABG O2 Saturation 96.2 12/14/23 20:08 ABG Base Excess 7.3 mmol/L (-2.0-2.0) H 12/14/23 20:08 Kenneth Test N/a 12/14/23 20:08 A-a O2 Gradient 0.2 mmHg (5-10) L 12/14/23 20:08 Hematocrit 54.8 % (42-52) H 12/14/23 20:08 Hgb O2 Saturation 94.9 % (95-100) L 12/14/23 20:08 Carboxyhemoglobin 1.4 %THgb (0.4-20.1) 12/14/23 20:08 Methemoglobin 0.0 % (0.4-1.5) L 12/14/23 20:08 Total Hemoglobin 17.9 g/dL (14-18) 12/14/23 20:08 Sodium 136.0 mmol/L (131-143) 12/14/23 20:08 Potassium 3.2 mmol/L (3.5-5.0) L 12/14/23 20:08 Glucose 116.0 mg/dL (70-115) H 12/14/23 20:08 Ionized Calcium 1.0 mmol/L (1.1-1.4) L 12/14/23 20:08 O2 Delivery Device Nc 12/14/23 20:08 O2 Liters/Min 4.5 % 12/14/23 20:08 FiO2 21.0 % 12/14/23 10:53 Graphics Production Specialist ID Devyn 12/14/23 20:08 Sodium 131 mmol/L (136-145) L 12/18/23 03:40 Potassium 5.6 mmol/L (3.5-5.1) H 12/18/23 03:40 Chloride 89 mmol/L (98-107) L 12/18/23 03:40 Carbon Dioxide 30 mmol/L (22-29) H 12/18/23 03:40 Anion Gap 17.6 (5-19) 12/18/23 03:40 BUN 32 mg/dL (8-23) H 12/18/23 03:40 Creatinine 1.9 mg/dL (0.7-1.2) H 12/18/23 03:40 GFR Calculation 36.1 mL/min (90-130) L 12/18/23 03:40 Glucose 124 mg/dL (65-115) H 12/18/23 03:40 Calculated Osmolality 280 mOsm/kg (285-295) L 12/18/23 03:40 Lactic Acid 4.1 mmol/L (0.5-2.2) H* 12/14/23 20:10 Lactic Acid (Sepsis) 2.6 mmol/L (0.5-2.2) H 12/15/23 02:35 Calcium 8.8 mg/dL (8.5-10.5) 12/18/23 03:40 Phosphorus 4.2 mg/dL (2.5-4.5) 12/17/23 04:53 Magnesium 2.1 mg/dL (1.7-2.3) 12/18/23 03:40 Total Bilirubin 1.5 mg/dL (0.15-1.2) H 12/18/23 03:40 AST 523 U/L (0-40) H 12/18/23 03:40 ALT 398 U/L (0-41) H 12/18/23 03:40 Alkaline Phosphatase 127 U/L (40-130) 12/18/23 03:40 Troponin T Baseline 45 ng/L (0-15) H 12/14/23 11:05 Troponin T 120 Minute 43.87 ng/L (0-15) H 12/14/23 13:14 Delta Troponin T -1.13 ABS# (0-10) L 12/14/23 13:14 Troponin T Hi Sens 6Hr 43.01 ng/L (0-15) H 12/14/23 17:12 Troponin T Hi Sens 6Hr Delta -1.99 ng/L (0-12) L 12/14/23 17:12 C-Reactive Protein 5.6 mg/L (0.0-4.9) H 12/14/23 11:05 NT-Pro-B Natriuret Pep 2332 pg/mL (0-125) H 12/14/23 11:05 Total Protein 5.6 g/dL (6.6-8.7) L 12/18/23 03:40 Albumin 3.5 g/dL (3.5-5.2) 12/18/23 03:40 Globulin 2.1 g/dL (1.3-4.6) 12/18/23 03:40 Triglycerides 81 mg/dL (0-150) 12/15/23 02:35 Cholesterol 119 mg/dL (0-200) 12/15/23 02:35 LDL Cholesterol, Calc 64 mg/dL (50-129) 12/15/23 02:35 HDL Cholesterol 39 mg/dL (60-100) L 12/15/23 02:35 LDL/HDL Ratio 1.64 RATIO (0.00-3.22) 12/15/23 02:35 Cholesterol/HDL Ratio 3.05 mg/dL (1.0-5.00) 12/15/23 02:35 TSH 3.53 uIU/mL (0.27-4.20) 12/14/23 11:05 Urine Color Cancelled 12/14/23 22:45 Urine Color Yellow (Yellow) 12/14/23 22:45 Urine Appearance Cancelled 12/14/23 22:45 Urine Appearance Clear (CLEAR) 12/14/23 22:45 Urine pH 6.5 (5-7) 12/14/23 22:45 Urine pH Cancelled 12/14/23 22:45 Ur Specific [place] 1.005 (1.005-1.030) 12/14/23 22:45 Ur Specific [place] Cancelled 12/14/23 22:45 Urine Protein Cancelled 12/14/23 22:45 Urine Protein Neg (Negative) 12/14/23 22:45 Urine Glucose (UA) Cancelled 12/14/23 22:45 Urine Glucose (UA) Norm (Normal) 12/14/23 22:45 Urine Ketones Cancelled 12/14/23 22:45 Urine Ketones Negative (Negative) 12/14/23 22:45 Urine Blood Cancelled 12/14/23 22:45 Urine Blood Neg (Negative) 12/14/23 22:45 Urine Nitrate Cancelled 12/14/23 22:45 Urine Nitrate Negative (Negative) 12/14/23 22:45 Urine Bilirubin Cancelled 12/14/23 22:45 Urine Bilirubin Neg (Negative) 12/14/23 22:45 Prot Sulfosalicylic Acd Cancelled 12/14/23 22:45 Urine Urobilinogen Cancelled 12/14/23 22:45 Urine Urobilinogen Neg mg/dL (Negative) 12/14/23 22:45 Ur Leukocyte Esterase Cancelled 12/14/23 22:45 Ur Leukocyte Esterase Negative (Negative) 12/14/23 22:45 Urine RBC Cancelled 12/14/23 22:45 Urine WBC Cancelled 12/14/23 22:45 Ur Squamous Epith Cells Cancelled 12/14/23 22:45 Ur Transition Epith Cell Cancelled 12/14/23 22:45 Ur Renal Epithelial Cell Cancelled 12/14/23 22:45 Calcium Oxalate Crystal Cancelled 12/14/23 22:45 Uric Acid Crystals Cancelled 12/14/23 22:45 Triple Phos Crystals Cancelled 12/14/23 22:45 Other Crystals Cancelled 12/14/23 22:45 Amorphous Sediment Cancelled 12/14/23 22:45 Urine Bacteria Cancelled 12/14/23 22:45 Hyaline Casts Cancelled 12/14/23 22:45 Fine Granular Casts Cancelled 12/14/23 22:45 Coarse Granular Casts Cancelled 12/14/23 22:45 RBC Casts Cancelled 12/14/23 22:45 Other Casts Cancelled 12/14/23 22:45 Urine Mucus Cancelled 12/14/23 22:45 Urine Trichomonas Cancelled 12/14/23 22:45 Urine Yeast Cancelled 12/14/23 22:45 Urine Sperm Cancelled 12/14/23 22:45 Ur Oval Fat Bodies Cancelled 12/14/23 22:45 A&P Assessment and plan (1) Congestive heart failure: Patient continues to have the features of low output state. Dobutamine seems to be helping to improve the cardiac output slightly. The BUN/creatinine levels are going up. I may start the patient on a low-dose of hydralazine to see the response Qualifiers: Heart failure chronicity: acute on chronic Heart failure type: systolic Qualified Code(s): I50.23 - Acute on chronic systolic (congestive) heart failure (2) Cardiomyopathy: Features of nonischemic cardiomyopathy. Qualifiers: Cardiomyopathy type: unspecified Qualified Code(s): I42.9 - Cardiomyopathy, unspecified (3) Hypotension: Currently has improved. Currently on the Dobutrex, 5 mics per KG per minute. I may gradually try to taper this off Qualifiers: Hypotension type: other hypotension type Qualified Code(s): I95.89 - Other hypotension (4) Atrial fibrillation with rapid ventricular response: Patient is on a subcu Lovenox. Patient may be started on p.o. amiodarone, once the IV infusion is completed. (5) COPD exacerbation: Patient has a history of heavy smoking abuse. Continue on the current management (6) Hypoxemia: Possibly related to COPD/hypoventilation syndrome, significantly improving. Plan Discussed with the patient Most likely this patient may require a left-ventricular assist device to further management of his condition. Patient is wanting to discuss with his friend who has the POA? To make a decision. He will let us know after talking to him. In the meanwhile, he may continue on the current medications. Will watch his clinical response closely with the hydralazine Attestations Medical Necessity Statement*: Patient requires continued hospital stay for close monitoring and further management Coding Level of Care Code Acute Code for Chg Fwd Diagnoses Acute on chronic systolic congestive heart failure I50.23 Heart failure chronicity: acute on chronic Heart failure type: systolic Cardiomyopathy, unspecified type I42.9 Cardiomyopathy type: unspecified Other specified hypotension I95.89 Hypotension type: other hypotension type Atrial fibrillation with rapid ventricular response I48.91 COPD exacerbation J44.1 Hypoxemia R09.02
[2023-12-18] MEDS: venlafaxine ER (24HR) 150 mg Capsule PO (09:30)
[2023-12-18] MEDS: cetirizine 10 mg Tablet PO (09:30)
[2023-12-18] MEDS: bacitracin ointment Pkt 1 EACH TOPICAL ×3 (09:30→21:34)
[2023-12-18] MEDS: docusate sodium 100 mg Capsule PO ×2 (09:30→17:23)
[2023-12-18] MEDS: pantoprazole DR 40 mg Tablet PO ×2 (09:30→21:34)
[2023-12-18] MEDS: aspirin 81 mg EC Tablet PO (09:30)
[2023-12-18] MEDS: fluticasone nasal spray 16gm Btl 2 SPRAY INTRANASAL (09:31)
[2023-12-18] MEDS: enoxaparin 120 mg/0.8 mL Syringe 110 MG SUBCUT ×2 (12:24→21:34)
[2023-12-18] MEDS: hyDRALAzine 10 mg Tablet PO ×2 (12:24→21:34)
[2023-12-18] MEDS: calcium carbonate 500 mg Chew Tablet PO (12:28)
[2023-12-18] MEDS: DOBUTamine drip 500 MG/250 ML PREMIX 16.5 MG IV (12:29)
[2023-12-18] MEDS: acetaminophen 325 mg Tablet 650 MG PO (12:32)
[2023-12-18] MEDS: oxyCODONE-APAP 5-325 mg Tablet 1 TAB PO (15:24)
[2023-12-18] MEDS: oxymetazoline 0.05% Nasal Spray 15 mL 2 SPRAY NOSTRIL-B (15:24)
[2023-12-18] MEDS: saline nasal spray 44mL Btl 1 SPRAY NASAL (15:25)
[2023-12-18 16:20] LABS: Anion Gap 13.7 (5-19); Blood Urea Nitrogen 34 mg/dL (8-23); Calcium 8.5 mg/dL (8.5-10.5); Carbon Dioxide 31 mmol/L (22-29); Chloride 89 mmol/L (98-107); Glucose 98 mg/dL (65-115); Osmolality Calculated 276 mOsm/kg (285-295); Potassium 4.7 mmol/L (3.5-5.1); Sodium 129 mmol/L (136-145)
[2023-12-18 16:42] LABS: Creatinine Clr Calc Pharmacy 61.9659
[2023-12-18] MEDS: amiodarone 200 mg Tablet 400 MG PO (17:23)
--- NOTE | 2023-12-18 18:23 | PC.NURSE ---
SHift SUmmary: Patient got up to a chair and spent most of the shift in chair. Just transferred from bed to chair, but tolerated activity well. Remains on dobutamine 5mcg, transitioned from IV amiodarone to oral amiodarone near end of shift. Started on PO hydralazine today.
--- NOTE | 2023-12-18 21:23 | P.PN_ITS ---
Subjective 2 Subjective: He is feeling slightly better. Sitting up in chair. So far is weaned off pressors. Oxygenation improved compared to yesterday. Urine output has been low. Vitals/I&O/Wt Last Vital Signs Temp 97.0 F L 12/18/23 13:15 Pulse 110 H 12/18/23 16:00 Resp 19 H 12/18/23 16:00 BP 111/89 12/18/23 16:00 Pulse Ox 91 12/18/23 16:00 O2 Del Method Nasal Cannula 12/18/23 16:00 O2 Flow Rate 3 12/18/23 16:00 12/18/23 12/18/23 12/18/23 06:59 14:59 22:59 Intake Total 335.872 / 2755.714 627.45 / 627.45 411.987 / 1039.437 Output Total 125 / 450 200 / 200 200 / 400 Balance 210.872 / 2305.714 427.45 / 427.45 211.987 / 639.437 Weight last 48 hrs Weight 115.847 kg Weight 114.759 kg Physical Exam 2 Narrative: Up in the chair. Const: COMMON NORMALS: patient oriented x3 and alert GENERAL APPEARANCE: c ooperative NUTRITIONAL APPEARANCE: obese ORIENTATION/CONSCIOUSNESS: Yes awake HENMT: COMMON NORMALS: oropharynx normal Neck/C-Spine: COMMON NORMALS: no JVD OTHER: R neck CVC Resp: COMMON NORMALS: normal respiratory effort and clear to auscultation bilaterally AUSCULTATION: clear to auscultation bilaterally Cardio: COMMON NORMALS: no JVD, regular rhythm, S1 normal heart sound present, S2 normal heart sound present and No murmurs present (Cardio) RHYTHM: regular rhythm HEART SOUNDS: S1 normal heart sound present and S2 normal heart sound present GI: COMMON NORMALS: Normal to inspection, nondistended, normoactive bowel sounds present, Soft to palpation and non-tender PALPATION: Yes Soft to palpation Extremity: COMMON NORMALS: no joint enlargement GENERAL: Yes edema (2+) Neuro: COMMON NORMALS: patient oriented x3 and moves all extremities S ENSORIUM/ORIENTATION: Yes alert Skin: COMMON NORMALS: no rashes or lesions noted GENERAL SKIN EXAM: no rashes or lesions noted OTHER: Cool to touch lower extremities with mottling. Urinary Catheter Management: Mckeon: Cath Placed During This Visit: yes Reason for Continuing Indwelling Catheter: Accurate Measurement of Urinary Output in Critically Ill Patients Urinary Catheter Date of Insertion: 12/14/23 Urinary Catheter Time of Insertion: 22:50 Data 12/18/23 03:40 12/18/23 15:43 A&P Assessment and plan (1) Congestive heart failure: Reviewed vitals, INR, CBC, CMP, magnesium, noted worsening renal function, creatinine of 1.9. Mottling of extremities. Continue scheduled dobutamine. Discussed with cardiology, as he has weaned off pressors, blood pressures with improvement. Yesterday, trial of hydralazine, monitor for risk of hypotension. For now continues with dobutamine. If showing improvement, possible weaning, although so far has not been able to. Reassess renal function, monitor GIGI. Continue Lasix. Continue amiodarone. Cardiology considering further options, possibility of medical therapy, consideration of outside referral possibly for LVAD. Per discussion with him he states he would like to sleep on it . Noted, understands that his condition may worsen, in case he starts showing worsening, worsening renal failure, he states he would be okay with seeking arrangements for renal replacement therapy, as prescription of him this may need to be CRRT given his overall condition which would necessitate transfer, as well as concomitant assessment for possible LVAD. He provides goals for a limited life support, in case of worsening condition he would consider transient life support, even mechanical ventilation but only for a limited time. Up to no longer than a week. With transition subsequently to end-of-life comfort measures in case of lack of improvement his condition. Discussed with learning and development manager. Low output failure, with some improvement in terms of pressure. Weaned off vasopressin, Levophed. Continue dobutamine. So far without good improvement in renal status. Oliguria. Worsening creatinine. Reassess kidney function. Continue dobutamine. Monitor for risk of worsening tachycardia, monitor blood pressures. Continue furosemide. May need increase in dose with worsening renal function. Discussed with nursing Status post coronary angiography with unobstructed coronaries. Echocardiogram with new severe cardiomyopathy, EF 15-20%, almost kinetic septum and anteroseptal segments. Mildly dilated right ventricle. Moderately diminished EF. Mildly dilated RA and RV. Qualifiers: Heart failure chronicity: acute on chronic Heart failure type: systolic Qualified Code(s): I50.23 - Acute on chronic systolic (congestive) heart failure (2) Atrial flutter with rapid ventricular response: Unfortunately was unable to undergo cardioversion. Procedure to be aborted as above. Continue amiodarone as per discussion with cardiology. Continue amiodarone drip. Magnesium reviewed 1.9, recheck level. Recheck chemistry tonight in the morning. Cardioversion tomorrow as above. (3) CKD (chronic kidney disease), stage II: Not a known chronic diagnosis SIMONA on CKD. Discussed with him given low output failure and risk of SIMONA, additionally with shock, hypotension, urine output has been low. Discussed in case of worsening kidney injury, renal failure is at risk of needing dialysis. (4) Erectile dysfunction: Has a prescription for sildenafil but has not taken any in more than 3 months (5) Chronic back pain greater than 3 months duration: Has been previously seen by Dr. Owens and subsequently by Dr. Serrano. For medical management. Takes oxycodone and diazepam long-term for management. Has had multiple back surgeries in the past. (6) COPD (chronic obstructive pulmonary disease): Chronically on W[place]xa and as needed albuterol. Looks to have chronic hypercapnia. Is on chronic benzodiazepines in the form of diazepam and temazepam but not particularly lethargic. (7) Polycythemia: Strongly suspect secondary polycythemia from hypoxemia/sleep apnea that is undiagnosed (8) Major depressive disorder, recurrent, mild: Chronically on venlafaxine and Remeron (9) Generalized anxiety disorder: Chronically on temazepam for sleep (10) Secondary male hypogonadism: On testosterone replacement (11) Limited family support: He also names a neighbor named Daniel who he states knows him well and may be able to help with decisions on his behalf. He states he will have to talk to him. Patient has a nephew listed as his person to contact but he is not somebody who would generally be able to make any decisions pertaining to medical or legal needs per Mr. Ross. His nephew's parents are no longer alive. He has an estranged daughter but no contact information for her. (12) Atrial fibrillation with rapid ventricular response: (13) Hypoxemia: (14) Chest pain: Qualifiers: Chest pain type: precordial pain Qualified Code(s): R07.2 - Precordial pain (15) Cardiomyopathy: Qualifiers: Cardiomyopathy type: unspecified Qualified Code(s): I42.9 - Cardiomyopathy, unspecified (16) COPD exacerbation: (17) Hypotension: Qualifiers: Hypotension type: other hypotension type Qualified Code(s): I95.89 - Other hypotension Plan Elevated D-dimer along with elevated lactic acid felt secondary to hypoxemia and tachycardia secondary to cardiogenic shock, low output failure. No PE on CTA. No clear foci of infection suggesting sepsis at this point in time; clinically appears to be more cardiac presentation Borderline low platelet count Hypomagnesemia: Received magnesium, today 1.9, recheck level. Gastroesophageal reflux disease on PPI Seasonal allergies on cetirizine and fluticasone nasal History of insomnia on ramelteon and trazodone at bedtime Continue home venlafaxine and Remeron Continue home temazepam and trazodone for sleep Continue home oxycodone and diazepam although I am going to decrease diazepam from 4 times a day to every 8 hours Will ultimately benefit from decreasing doses of benzodiazepines if he can tolerate it secondary to hypercapnia Last testosterone dose was on November 28 Disposition plan: Home with outpatient follow up to primary care provider anticipated. Code Status: Full Code - talked with patient at length regarding CODE STATUS. He says that he would like to be resuscitated for 30 minutes and then if he has not regained pulse and spontaneous breathing to let him go at that point in time. Patient does not have any family beyond a nephew who is not someone who is capable of making decisions for him. He has an estranged daughter but does not know how to contact her. Has not seen her in more than 20 years. He said that the wildlife biostation research ecologist could make decisions for him if necessary. Attestations 2 Medical Necessity Statement*: Continue admission for assessment of management of low output heart failure. Coding Level of Care Code Critical Care >/= 30 minutes Critical care time (in minutes): 40 The high probability of a clinically significant, sudden or life threatening deterioration, as referenced in this documentation, required my full and direct attention, intervention and personal management. The critical care time shown is in addition to time spent performing any reported separately billable procedures and includes the following: [x] Data and vital sign review and interpretation [x ] Patient assessment, examination and intervention [x] Medication orders and management [x] Patient/Family updates as able [x] Care Coordination and Documentation. Diagnoses Acute on chronic systolic congestive heart failure I50.23 Heart failure chronicity: acute on chronic Heart failure type: systolic Atrial flutter with rapid ventricular response I48.92 CKD (chronic kidney disease), stage II N18.2 Erectile dysfunction N52.9 Chronic back pain greater than 3 months duration M54.9; G89.29 COPD (chronic obstructive pulmonary disease) J44.9 Polycythemia D75.1 Major depressive disorder, recurrent, mild F33.0 Generalized anxiety disorder F41.1 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 Limited family support Z63.8 Atrial fibrillation with rapid ventricular response I48.91 Hypoxemia R09.02 Precordial pain R07.2 Chest pain type: precordial pain Cardiomyopathy, unspecified type I42.9 Cardiomyopathy type: unspecified COPD exacerbation J44.1 Other specified hypotension I95.89 Hypotension type: other hypotension type
[2023-12-18] MEDS: mirtazapine 15 mg Tablet PO (21:34)
[2023-12-19] VITALS (86 sets, daily range): BP systolic 91–132; BP diastolic 51–108; PULSE 113–124; RESP 9–25; TEMP 36.1–36.3; O2SAT 84–100
[2023-12-19] MEDS: DOBUTamine drip 500 MG/250 ML PREMIX 16.5 MG IV (02:44)
[2023-12-19 04:09] LABS: Basophils % 0.4 %; Eosinophils # 0.1 10^3/uL (0.0-0.8); Eosinophils % 0.7 %; Hematocrit 46.7 % (37-53); Lymphocytes # 1.3 10^3/uL (0.8-4.8); Lymphocytes % 18.6 %; Mean Corpuscular Hemoglobin 31.9 pg (27-33); Mean Corpuscular Volume 96.7 fl (82-101); Mean Platelet Volume 11.2 fL (7.4-10.4); Monocytes # 0.5 10^3/uL (0.2-0.9); Monocytes % 7.3 %; Neutrophils # 5.04 10^3/uL (1.8-7.7); Neutrophils % 72.7 %; Nucleated Red Blood Cells % 0.3 %; Platelet Count 136 10^3/cmm (157-399); Red Blood Count 4.83 10^6/uL (3.85-5.65); Red Cell Distribution Width 19.2 % (12.1-15.1); White Blood Count 6.94 10^3/uL (3.29-11.43)
[2023-12-19 04:36] LABS: Alanine Aminotransferase 394 U/L (0-41); Albumin Level 3.1 g/dL (3.5-5.2); Alkaline Phosphatase 110 U/L (40-130); Anion Gap 10.7 (5-19); Aspartate Amino Transferase 370 U/L (0-40); Blood Urea Nitrogen 28 mg/dL (8-23); Calcium 8.5 mg/dL (8.5-10.5); Carbon Dioxide 35 mmol/L (22-29); Chloride 94 mmol/L (98-107); Creatinine Clr Calc Pharmacy 90.1322; Globulin 2.1 g/dL (1.3-4.6); Glomerular Filtration Rate 67.8 mL/min (90-130); Glucose 109 mg/dL (65-115); Osmolality Calculated 288 mOsm/kg (285-295); Potassium 3.7 mmol/L (3.5-5.1); Sodium 136 mmol/L (136-145); Total Bilirubin 1.5 mg/dL (0.15-1.2); Total Protein 5.2 g/dL (6.6-8.7)
[2023-12-19] MEDS: FUROsemide 10 mg/mL SDV 4mL 40 MG IVP ×2 (04:43→17:44)
[2023-12-19] MEDS: oxyCODONE-APAP 5-325 mg Tablet 1 TAB PO ×3 (04:43→22:25)
[2023-12-19] MEDS: benzonatate 100 mg Capsule 200 MG PO (04:51)
--- NOTE | 2023-12-19 09:14 | P.PN_ITS ---
Subjective 2 Medications: Medication Review Details: Current Medications Acetaminophen (Acetaminophen 325 Mg Tablet) 650 mg PO Q6H PRN PRN Reason: Mild/Mod Pain Or Temp >/= 101 Last Admin: 12/18/23 12:32 Dose: 650 mg Albuterol/Ipratropium (Ipratropium-Albuterol 3 Ml Neb) 3 ml INHALATION Q6H PRN PRN Reason: SHORTNESS OF BREATH Last Admin: 12/17/23 08:12 Dose: 3 ml Amiodarone HCl (Amiodarone 200 Mg Tablet) 400 mg PO BID PRINCE Last Admin: 12/18/23 17:23 Dose: 400 mg Aspirin (Aspirin 81 Mg Ec Tablet) 81 mg PO DAILY PRINCE Last Admin: 12/18/23 09:30 Dose: 81 mg Bacitracin (Bacitracin Ointment Pkt) 1 each TOPICAL TID PRINCE; Protocol Last Admin: 12/18/23 21:34 Dose: 1 each Benzonatate (Benzonatate 100 Mg Capsule) 200 mg PO TID PRN PRN Reason: COUGH Last Admin: 12/19/23 04:51 Dose: 200 mg Bisacodyl (Bisacodyl 5 Mg Tablet) 10 mg PO DAILY PRN; Protocol PRN Reason: Constipation (see protocol) Budesonide (Budesonide 0.5 Mg/2 Ml Neb) 0.5 mg INHALATION BID.RESPIRATORY PRINCE Last Admin: 12/19/23 09:03 Dose: Not Given Cetirizine HCl (Cetirizine 10 Mg Tablet) 10 mg PO DAILY PRINCE Last Admin: 12/18/23 09:30 Dose: 10 mg Diazepam (Diazepam 2 Mg Tablet) 2 mg PO Q6H PRN PRN Reason: ANXIETY Last Admin: 12/17/23 16:25 Dose: 2 mg Docusate Sodium (Docusate Sodium 100 Mg Capsule) 100 mg PO BID PRINCE Last Admin: 12/18/23 17:23 Dose: 100 mg Enoxaparin Sodium (Enoxaparin 120 Mg/0.8 Ml Syringe) 110 mg SUBCUT Q12H PRINCE Last Admin: 12/18/23 21:34 Dose: 110 mg Fluticasone Propionate (Fluticasone Nasal [place] 16gm Btl) 2 spray INTRANASAL DAILY PRINCE Last Admin: 12/18/23 09:31 Dose: 2 spray Furosemide (Furosemide 10 Mg/Ml Sdv 4ml) 40 mg IVP Q12H PRINCE Last Admin: 12/19/23 04:43 Dose: 40 mg Hydralazine HCl (Hydralazine 10 Mg Tablet) 10 mg PO TID PRINCE Last Admin: 12/18/23 21:34 Dose: 10 mg Norepinephrine Bitartrate (Levophed) 4 mg in 250 mls @ 0 mls/hr IV .Q0M PRINCE; Protocol Last Titration: 12/18/23 05:44 Dose: Infused Epinephrine HCl 2.5 mg/ Sodium (Chloride) 252.5 mls @ 0 mls/hr IV .Q0M PRINCE; Protocol Vasopressin (Vasostrict) 40 unit in 100 mls @ 0 mls/hr IV .Q0M PRINCE; Protocol Last Titration: 12/15/23 23:50 Dose: Infused Amiodarone HCl/Dextrose (Nexterone) 360 mg in 200 mls @ 0 mls/hr IV .Q0M PRINCE; Protocol Last Titration: 12/18/23 17:23 Dose: Infused Dobutamine HCl/Dextrose (Dobutamine Drip) 500 mg in 250 mls @ 0 mls/hr IV .Q0M PRINCE; Protocol Last Admin: 12/19/23 02:44 Dose: 5 mcg/kg/min, 16.5 mls/hr Mirtazapine (Mirtazapine 15 Mg Tablet) 15 mg PO BEDTIME PRINCE Last Admin: 12/18/23 21:34 Dose: 15 mg Ondansetron HCl (Ondansetron 2 Mg/Ml Sdv 2 Ml) 4 mg IVP Q8H PRN PRN Reason: vomiting, or N/V if npo Oxycodone/Acetaminophen (Oxycodone-Apap 5-325 Mg Tablet) 1 tab PO Q8H PRN PRN Reason: pain Last Admin: 12/19/23 04:43 Dose: 1 tab Oxymetazoline HCl (Oxymetazoline 0.05% Nasal [place] 15 Ml) 2 spray NOSTRIL-B Q12H PRN PRN Reason: NASAL CONGESTION Last Admin: 12/18/23 15:24 Dose: 2 spray Pantoprazole Sodium (Pantoprazole Dr 40 Mg Tablet) 40 mg PO BID@09,21 PRINCE Last Admin: 12/18/23 21:34 Dose: 40 mg Sodium Chloride (Saline Nasal [place] 44ml Btl) 1 spray NASAL PRN PRN PRN Reason: DRYNESS Last Admin: 12/18/23 15:25 Dose: 1 spray Venlafaxine HCl (Venlafaxine Er (24hr) 150 Mg Capsule) 150 mg PO DAILY PRINCE Last Admin: 12/18/23 09:30 Dose: 150 mg Vitals/I&O/Wt Last Vital Signs Temp 97.1 F L 12/19/23 05:54 Pulse 117 H 12/19/23 09:02 Resp 20 H 12/19/23 09:02 BP 116/75 12/19/23 06:00 Pulse Ox 97 12/19/23 09:02 O2 Del Method Nasal Cannula 12/19/23 09:02 O2 Flow Rate 3 12/19/23 09:02 12/18/23 12/19/23 12/19/23 22:59 06:59 14:59 Intake Total 411.987 / 1039.437 635.125 / 1674.562 240 / 240 Output Total 200 / 400 2600 / 3000 1725 / 1725 Balance 211.987 / 639.437 -1964.875 / -1325.438 -1485 / -1485 Weight last 48 hrs Weight 251 lb 14.4 oz Weight 255 lb 6.4 oz Physical Exam 2 Narrative: GENERAL: The patient is alert and oriented times three. Patient appears comfortable extremities are cold and clammy. Has some mottled appearance HEENT: No significant pallor, icterus or lymphadenopathy.Oral cavity: There are no mucous membrane lesions. NECK: Trachea appears to be central. No masses noted. No JVD or thyromegaly appreciated. Neck veins are slightly prominent with RESPIRATORY: Chest is symmetrical. No intercostals muscle retraction or any accessory muscle activation. There is no chest wall tenderness. Breath sounds are heard bilaterally. Few fine Rales at the bases. [place]. No evidence of any consolidation. BREASTS: Deferred. HEART: The heart sounds are normal. No S3 or S4. Systolic murmur grade 3 or 6 in the mitral area. No diastolic murmurs. ABDOMEN: No vessel pulsations or distention. No tenderness. No organomegaly appreciated. Bowel sounds are normally heard. : Deferred. RECTAL: Deferred. LYMPHATIC: No lymphadenopathy noted in the neck. EXTREMITIES: The peripheral pulses stably weak. Extremities are cold and clammy MUSCULOSKELETAL: No acute joint deformities or swelling SKIN: There are no significant rashes or ecchymosis NEUROPSYCHIATRIC: The patient is alert and oriented x3. Not in any distress Urinary Catheter Management: Mckeon: Cath Placed During This Visit: yes Reason for Continuing Indwelling Catheter: Accurate Measurement of Urinary Output in Critically Ill Patients Urinary Catheter Date of Insertion: 12/14/23 Urinary Catheter Time of Insertion: 22:50 Data 12/19/23 03:49 12/19/23 03:49 Other Labs: Laboratory Last Values WBC 6.94 10^3/uL (3.29-11.43) 12/19/23 03:49 RBC 4.83 10^6/uL (3.85-5.65) 12/19/23 03:49 Hgb 15.40 g/dL (11.27-16.99) 12/19/23 03:49 Hct 46.7 % (37-53) 12/19/23 03:49 MCV 96.7 fl (82-101) 12/19/23 03:49 MCH 31.9 pg (27-33) 12/19/23 03:49 MCHC 33.0 g/dL (30-55) 12/19/23 03:49 RDW 19.2 % (12.1-15.1) H 12/19/23 03:49 Plt Count 136 10^3/cmm (157-399) L 12/19/23 03:49 MPV 11.2 fL (7.4-10.4) H 12/19/23 03:49 Neut % (Auto) 72.7 % 12/19/23 03:49 Lymph % (Auto) 18.6 % 12/19/23 03:49 [place] % (Auto) 7.3 % 12/19/23 03:49 Eos % (Auto) 0.7 % 12/19/23 03:49 Baso % (Auto) 0.4 % 12/19/23 03:49 Neut # (Auto) 5.04 10^3/uL (1.8-7.7) 12/19/23 03:49 Lymph # (Auto) 1.3 10^3/uL (0.8-4.8) 12/19/23 03:49 [place] # (Auto) 0.5 10^3/uL (0.2-0.9) 12/19/23 03:49 Eos # (Auto) 0.1 10^3/uL (0.0-0.8) 12/19/23 03:49 Baso # (Auto) 0.0 10^3/uL (0.0-0.1) 12/19/23 03:49 Nucleated RBC % (auto) 0.3 % 12/19/23 03:49 Nucleated RBCs # 0.0 /100WBC 12/19/23 03:49 D-Dimer 1.43 ug/mLFEU (0-0.59) H 12/14/23 11:05 Specimen Type Arterial 12/14/23 20:08 Sample Site Brachial, right 12/14/23 20:08 ABG pH 7.42 (7.35-7.45) 12/14/23 20:08 ABG pCO2 51.8 mmHg (35-45) H 12/14/23 20:08 ABG pO2 83.9 mmHg (80.0-100.0) 12/14/23 20:08 ABG PO2/FiO2 Ratio 0 12/14/23 10:53 ABG HCO3 33.7 mmol/L (22-26) H 12/14/23 20:08 ABG O2 Saturation 96.2 12/14/23 20:08 ABG Base Excess 7.3 mmol/L (-2.0-2.0) H 12/14/23 20:08 Kenneth Test N/a 12/14/23 20:08 A-a O2 Gradient 0.2 mmHg (5-10) L 12/14/23 20:08 Hematocrit 54.8 % (42-52) H 12/14/23 20:08 Hgb O2 Saturation 94.9 % (95-100) L 12/14/23 20:08 Carboxyhemoglobin 1.4 %THgb (0.4-20.1) 12/14/23 20:08 Methemoglobin 0.0 % (0.4-1.5) L 12/14/23 20:08 Total Hemoglobin 17.9 g/dL (14-18) 12/14/23 20:08 Sodium 136.0 mmol/L (131-143) 12/14/23 20:08 Potassium 3.2 mmol/L (3.5-5.0) L 12/14/23 20:08 Glucose 116.0 mg/dL (70-115) H 12/14/23 20:08 Ionized Calcium 1.0 mmol/L (1.1-1.4) L 12/14/23 20:08 O2 Delivery Device Nc 12/14/23 20:08 O2 Liters/Min 4.5 % 12/14/23 20:08 FiO2 21.0 % 12/14/23 10:53 Caustic Strength Inspector ID [email or web address] 12/14/23 20:08 Sodium 136 mmol/L (136-145) 12/19/23 03:49 Potassium 3.7 mmol/L (3.5-5.1) 12/19/23 03:49 Chloride 94 mmol/L (98-107) L 12/19/23 03:49 Carbon Dioxide 35 mmol/L (22-29) H 12/19/23 03:49 Anion Gap 10.7 (5-19) 12/19/23 03:49 BUN 28 mg/dL (8-23) H 12/19/23 03:49 Creatinine 1.1 mg/dL (0.7-1.2) 12/19/23 03:49 GFR Calculation 67.8 mL/min (90-130) L 12/19/23 03:49 Glucose 109 mg/dL (65-115) 12/19/23 03:49 Calculated Osmolality 288 mOsm/kg (285-295) 12/19/23 03:49 Lactic Acid 4.1 mmol/L (0.5-2.2) H* 12/14/23 20:10 Lactic Acid (Sepsis) 2.6 mmol/L (0.5-2.2) H 12/15/23 02:35 Calcium 8.5 mg/dL (8.5-10.5) 12/19/23 03:49 Phosphorus 4.2 mg/dL (2.5-4.5) 12/17/23 04:53 Magnesium 2.1 mg/dL (1.7-2.3) 12/18/23 03:40 Total Bilirubin 1.5 mg/dL (0.15-1.2) H 12/19/23 03:49 AST 370 U/L (0-40) H 12/19/23 03:49 ALT 394 U/L (0-41) H 12/19/23 03:49 Alkaline Phosphatase 110 U/L (40-130) 12/19/23 03:49 Troponin T Baseline 45 ng/L (0-15) H 12/14/23 11:05 Troponin T 120 Minute 43.87 ng/L (0-15) H 12/14/23 13:14 Delta Troponin T -1.13 ABS# (0-10) L 12/14/23 13:14 Troponin T Hi Sens 6Hr 43.01 ng/L (0-15) H 12/14/23 17:12 Troponin T Hi Sens 6Hr Delta -1.99 ng/L (0-12) L 12/14/23 17:12 C-Reactive Protein 5.6 mg/L (0.0-4.9) H 12/14/23 11:05 NT-Pro-B Natriuret Pep 2332 pg/mL (0-125) H 12/14/23 11:05 Total Protein 5.2 g/dL (6.6-8.7) L 12/19/23 03:49 Albumin 3.1 g/dL (3.5-5.2) L 12/19/23 03:49 Globulin 2.1 g/dL (1.3-4.6) 12/19/23 03:49 Triglycerides 81 mg/dL (0-150) 12/15/23 02:35 Cholesterol 119 mg/dL (0-200) 12/15/23 02:35 LDL Cholesterol, Calc 64 mg/dL (50-129) 12/15/23 02:35 HDL Cholesterol 39 mg/dL (60-100) L 12/15/23 02:35 LDL/HDL Ratio 1.64 RATIO (0.00-3.22) 12/15/23 02:35 Cholesterol/HDL Ratio 3.05 mg/dL (1.0-5.00) 12/15/23 02:35 TSH 3.53 uIU/mL (0.27-4.20) 12/14/23 11:05 Urine Color Cancelled 12/14/23 22:45 Urine Color Yellow (Yellow) 12/14/23 22:45 Urine Appearance Cancelled 12/14/23 22:45 Urine Appearance Clear (CLEAR) 12/14/23 22:45 Urine pH 6.5 (5-7) 12/14/23 22:45 Urine pH Cancelled 12/14/23 22:45 Ur Specific [place] 1.005 (1.005-1.030) 12/14/23 22:45 Ur Specific [place] Cancelled 12/14/23 22:45 Urine Protein Cancelled 12/14/23 22:45 Urine Protein Neg (Negative) 12/14/23 22:45 Urine Glucose (UA) Cancelled 12/14/23 22:45 Urine Glucose (UA) Norm (Normal) 12/14/23 22:45 Urine Ketones Cancelled 12/14/23 22:45 Urine Ketones Negative (Negative) 12/14/23 22:45 Urine Blood Cancelled 12/14/23 22:45 Urine Blood Neg (Negative) 12/14/23 22:45 Urine Nitrate Cancelled 12/14/23 22:45 Urine Nitrate Negative (Negative) 12/14/23 22:45 Urine Bilirubin Cancelled 12/14/23 22:45 Urine Bilirubin Neg (Negative) 12/14/23 22:45 Prot Sulfosalicylic Acd Cancelled 12/14/23 22:45 Urine Urobilinogen Cancelled 12/14/23 22:45 Urine Urobilinogen Neg mg/dL (Negative) 12/14/23 22:45 Ur Leukocyte Esterase Cancelled 12/14/23 22:45 Ur Leukocyte Esterase Negative (Negative) 12/14/23 22:45 Urine RBC Cancelled 12/14/23 22:45 Urine WBC Cancelled 12/14/23 22:45 Ur Squamous Epith Cells Cancelled 12/14/23 22:45 Ur Transition Epith Cell Cancelled 12/14/23 22:45 Ur Renal Epithelial Cell Cancelled 12/14/23 22:45 Calcium Oxalate Crystal Cancelled 12/14/23 22:45 Uric Acid Crystals Cancelled 12/14/23 22:45 Triple Phos Crystals Cancelled 12/14/23 22:45 Other Crystals Cancelled 12/14/23 22:45 Amorphous Sediment Cancelled 12/14/23 22:45 Urine Bacteria Cancelled 12/14/23 22:45 Hyaline Casts Cancelled 12/14/23 22:45 Fine Granular Casts Cancelled 12/14/23 22:45 Coarse Granular Casts Cancelled 12/14/23 22:45 RBC Casts Cancelled 12/14/23 22:45 Other Casts Cancelled 12/14/23 22:45 Urine Mucus Cancelled 12/14/23 22:45 Urine Trichomonas Cancelled 12/14/23 22:45 Urine Yeast Cancelled 12/14/23 22:45 Urine Sperm Cancelled 12/14/23 22:45 Ur Oval Fat Bodies Cancelled 12/14/23 22:45 A&P Assessment and plan (1) Congestive heart failure: Patient seems to be responding to the current treatment. His urine output is improving. Still has cold and clammy extremities. Qualifiers: Heart failure chronicity: acute on chronic Heart failure type: systolic Qualified Code(s): I50.23 - Acute on chronic systolic (congestive) heart failure (2) Cardiomyopathy: Features of nonischemic cardiomyopathy. I may go up on the hydralazine to 25 mg p.o. 3 times daily. Also will start on the spironolactone today and low-dose of Entresto in the morning Qualifiers: Cardiomyopathy type: unspecified Qualified Code(s): I42.9 - Cardiomyopathy, unspecified (3) Hypotension: Currently has improved. Currently on the Dobutrex, 5 mics per KG per minute. I may gradually try to taper this off Qualifiers: Hypotension type: other hypotension type Qualified Code(s): I95.89 - Other hypotension (4) Atrial fibrillation with rapid ventricular response: Patient is on a subcu Lovenox. May continue for the time being. Currently on p.o. amiodarone. (5) COPD exacerbation: Patient has a history of heavy smoking abuse. Continue on the current management (6) Hypoxemia: Possibly related to COPD/hypoventilation syndrome, currently resolved. (7) Acute kidney injury: Kidney function seems to have returned to the baseline. Plan Because of the significant improvement of his urine output, and fairly stable blood pressure, we may try him on GDMT. Based on the clinical progress, further recommendations will be made I will also contact the heart failure clinic of [facility] in the morning, for him to be evaluated for LVAD Attestations 2 Medical Necessity Statement*: Patient requires continued hospital stay for close monitoring and further management Coding Level of Care Code 83022 Diagnoses Acute on chronic systolic congestive heart failure I50.23 Heart failure chronicity: acute on chronic Heart failure type: systolic Cardiomyopathy, unspecified type I42.9 Cardiomyopathy type: unspecified Other specified hypotension I95.89 Hypotension type: other hypotension type Atrial fibrillation with rapid ventricular response I48.91 COPD exacerbation J44.1 Hypoxemia R09.02 Acute kidney injury N17.9
[2023-12-19] MEDS: docusate sodium 100 mg Capsule PO ×2 (09:41→17:43)
[2023-12-19] MEDS: pantoprazole DR 40 mg Tablet PO ×2 (09:41→20:10)
[2023-12-19] MEDS: aspirin 81 mg EC Tablet PO (09:41)
[2023-12-19] MEDS: amiodarone 200 mg Tablet 400 MG PO ×2 (09:41→17:42)
[2023-12-19] MEDS: hyDRALAzine 10 mg Tablet PO (09:42)
[2023-12-19] MEDS: venlafaxine ER (24HR) 150 mg Capsule PO (09:42)
[2023-12-19] MEDS: cetirizine 10 mg Tablet PO (09:42)
[2023-12-19] MEDS: enoxaparin 120 mg/0.8 mL Syringe 110 MG SUBCUT ×2 (09:42→20:10)
[2023-12-19] MEDS: fluticasone nasal spray 16gm Btl 2 SPRAY INTRANASAL (09:45)
[2023-12-19] MEDS: bacitracin ointment Pkt 1 EACH TOPICAL ×3 (09:56→20:09)
[2023-12-19] MEDS: hyDRALAzine 25 mg Tablet PO ×2 (14:08→20:10)
--- NOTE | 2023-12-19 18:56 | PM.PN ---
Subjective Subjective: He is feeling slightly better today. Denies chest pain or pressure. He is working with cardiology on reaching out to [facility] for consideration of possible LVAD. Vitals/I&O/Wt Last Vital Signs Temp 97.3 F L 12/19/23 09:45 Pulse 119 H 12/19/23 15:45 Resp 10 L 12/19/23 15:45 BP 105/80 12/19/23 16:00 Pulse Ox 97 12/19/23 16:00 O2 Del Method Nasal Cannula 12/19/23 09:02 O2 Flow Rate 3 12/19/23 09:02 12/19/23 12/19/23 12/19/23 06:59 14:59 22:59 Intake Total 635.125 / 1674.562 700 / 700 430.65 / 1130.65 Output Total 2600 / 3000 2725 / 2725 Balance -1964.875 / -1325.438 -2025 / -2025 430.65 / -1594.35 Weight last 48 hrs Weight 114.26 kg Weight 115.847 kg Physical Exam Narrative: Up in bed. Const: COMMON NORMALS: patient oriented x3 and alert GENERAL APPEARANCE: cooperative NUTRITIONAL APPEARANCE: obese ORIENTATION/CONSCIOUSNESS: Yes awake HENMT: COMMON NORMALS: oropharynx normal Neck/C-Spine: COMMON NORMALS: no JVD OTHER: R neck CVC Resp: COMMON NORMALS: normal respiratory effort and clear to auscultation bilaterally AUSCULTATION: clear to auscultation bilaterally Cardio: COMMON NORMALS: no JVD, regular rhythm, S1 normal heart sound present, S2 normal heart sound present and No murmurs present (Cardio) RHYTHM: regular rhythm HEART SOUNDS: S1 normal heart sound present and S2 normal heart sound present GI: COMMON NORMALS: Normal to inspection, nondistended, normoactive bowel sounds present, Soft to palpation and non-tender PALPATION: Yes Soft to palpation Extremity: COMMON NORMALS: no joint enlargement GENERAL: Yes edema (2+) Neuro: COMMON NORMALS: patient oriented x3 and moves all extremities SENSORIUM/ORIENTATION: Yes alert Skin: COMMON NORMALS: no rashes or lesions noted GENERAL SKIN EXAM: no rashes or lesions noted OTHER: Cool to touch lower extremities with mottling. Urinary Catheter Management: Mckeon: Cath Placed During This Visit: yes Reason for Continuing Indwelling Catheter: Accurate Measurement of Urinary Output in Critically Ill Patients Urinary Catheter Date of Insertion: 12/14/23 Urinary Catheter Time of Insertion: 22:50 Data 12/19/23 03:49 12/19/23 03:49 Micro: Microbiology 12/14/23 11:08 Blood Culture - Final Blood NO GROWTH AFTER 5 DAYS 12/14/23 11:05 Blood Culture - Final Blood NO GROWTH AFTER 5 DAYS A&P Assessment and plan (1) Congestive heart failure: He is doing slightly better. Maintaining blood pressure on his own. Reviewed CBC, chemistry. Noted some improvement in kidney function, creatinine of 1.1, BUN 28. Noted some improvement in transaminitis, AST down to 370, ALT is 394. Continues on dobutamine for now. Continue to monitor GIGI, reassess renal function. Monitor blood pressures. Discussed with art therapy certified supervisor, working with cardiology on arrangements for transfer to [facility] for LVAD. Reviewed cardiology note. Monitor for risk of worsening tachycardia with dobutamine. Reassess renal function, monitor GIGI. Continue Lasix. Continue amiodarone. Switched over to oral amnio. Cardiology considering further options, possibility of medical therapy, consideration of outside referral possibly for LVAD. Per discussion with him he states he would like to sleep on it . Noted, understands that his condition may worsen, in case he starts showing worsening, worsening renal failure, he states he would be okay with seeking arrangements for renal replacement therapy, as prescription of him this may need to be CRRT given his overall condition which would necessitate transfer, as well as concomitant assessment for possible LVAD. He provides goals for a limited life support, in case of worsening condition he would consider transient life support, even mechanical ventilation but only for a limited time. Up to no longer than a week. With transition subsequently to end-of-life comfort measures in case of lack of improvement his condition. Discussed with art therapy certified supervisor. Low output failure, with some improvement in terms of pressure. Weaned off vasopressin, Levophed. Continue dobutamine. So far without good improvement in renal status. Oliguria. Worsening creatinine. Reassess kidney function. Continue dobutamine. Monitor for risk of worsening tachycardia, monitor blood pressures. Continue furosemide. May need increase in dose with worsening renal function. Discussed with nursing Status post coronary angiography with unobstructed coronaries. Echocardiogram with new severe cardiomyopathy, EF 15-20%, almost kinetic septum and anteroseptal segments. Mildly dilated right ventricle. Moderately diminished EF. Mildly dilated RA and RV. Qualifiers: Heart failure chronicity: acute on chronic Heart failure type: systolic Qualified Code(s): I50.23 - Acute on chronic systolic (congestive) heart failure (2) Atrial flutter with rapid ventricular response: Switched to oral amiodarone. Unfortunately was unable to undergo cardioversion. Continue amiodarone drip. Recheck chemistry tonight in the morning. (3) CKD (chronic kidney disease), stage II: Not a known chronic diagnosis SIMONA on CKD. Discussed with him given low output failure and risk of SIMONA, additionally with shock, hypotension, urine output has been low. Discussed in case of worsening kidney injury, renal failure is at risk of needing dialysis. (4) Erectile dysfunction: Has a prescription for sildenafil but has not taken any in more than 3 months (5) Chronic back pain greater than 3 months duration: Has been previously seen by Dr. Owens and subsequently by Dr. Serrano. For medical management. Takes oxycodone and diazepam long-term for management. Has had multiple back surgeries in the past. (6) COPD (chronic obstructive pulmonary disease): Chronically on [place] and as needed albuterol. Looks to have chronic hypercapnia. Is on chronic benzodiazepines in the form of diazepam and temazepam but not particularly lethargic. (7) Polycythemia: Strongly suspect secondary polycythemia from hypoxemia/sleep apnea that is undiagnosed (8) Major depressive disorder, recurrent, mild: Chronically on venlafaxine and Remeron (9) Generalized anxiety disorder: Chronically on temazepam for sleep (10) Secondary male hypogonadism: On testosterone replacement (11) Limited family support: He also names a neighbor named Daniel who he states knows him well and may be able to help with decisions on his behalf. He states he will have to talk to him. Patient has a nephew listed as his person to contact but he is not somebody who would generally be able to make any decisions pertaining to medical or legal needs per Mr. Ross. His nephew's parents are no longer alive. He has an estranged daughter but no contact information for her. (12) Atrial fibrillation with rapid ventricular response: (13) Hypoxemia: (14) Chest pain: Qualifiers: Chest pain type: precordial pain Qualified Code(s): R07.2 - Precordial pain (15) Cardiomyopathy: Qualifiers: Cardiomyopathy type: unspecified Qualified Code(s): I42.9 - Cardiomyopathy, unspecified (16) COPD exacerbation: (17) Hypotension: Qualifiers: Hypotension type: other hypotension type Qualified Code(s): I95.89 - Other hypotension Plan Elevated D-dimer along with elevated lactic acid felt secondary to hypoxemia and tachycardia secondary to cardiogenic shock, low output failure. No PE on CTA. No clear foci of infection suggesting sepsis at this point in time; clinically appears to be more cardiac presentation Borderline low platelet count Hypomagnesemia: Received magnesium, today 1.9, recheck level. Gastroesophageal reflux disease on PPI Seasonal allergies on cetirizine and fluticasone nasal History of insomnia on ramelteon and trazodone at bedtime Continue home venlafaxine and Remeron Continue home temazepam and trazodone for sleep Continue home oxycodone and diazepam although I am going to decrease diazepam from 4 times a day to every 8 hours Will ultimately benefit from decreasing doses of benzodiazepines if he can tolerate it secondary to hypercapnia Last testosterone dose was on November 28 Disposition plan: Home with outpatient follow up to primary care provider anticipated. Code Status: Full Code - talked with patient at length regarding CODE STATUS. He says that he would like to be resuscitated for 30 minutes and then if he has not regained pulse and spontaneous breathing to let him go at that point in time. Patient does not have any family beyond a nephew who is not someone who is capable of making decisions for him. He has an estranged daughter but does not know how to contact her. Has not seen her in more than 20 years. He said that the vegetable cutter could make decisions for him if necessary. Attestations Medical Necessity Statement*: Continue admission for assessment of management of low output heart failure. Diagnoses Acute on chronic systolic congestive heart failure I50.23 Heart failure chronicity: acute on chronic Heart failure type: systolic Atrial flutter with rapid ventricular response I48.92 CKD (chronic kidney disease), stage II N18.2 Erectile dysfunction N52.9 Chronic back pain greater than 3 months duration M54.9; G89.29 COPD (chronic obstructive pulmonary disease) J44.9 Polycythemia D75.1 Major depressive disorder, recurrent, mild F33.0 Generalized anxiety disorder F41.1 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 Limited family support Z63.8 Atrial fibrillation with rapid ventricular response I48.91 Hypoxemia R09.02 Precordial pain R07.2 Chest pain type: precordial pain Cardiomyopathy, unspecified type I42.9 Cardiomyopathy type: unspecified COPD exacerbation J44.1 Other specified hypotension I95.89 Hypotension type: other hypotension type
[2023-12-19] MEDS: spironolactone 25 mg Tablet PO (20:10)
[2023-12-19] MEDS: mirtazapine 15 mg Tablet PO (20:10)
[2023-12-19] MEDS: oxymetazoline 0.05% Nasal Spray 15 mL 2 SPRAY NOSTRIL-B (20:17)
[2023-12-20] VITALS (49 sets, daily range): BP systolic 83–125; BP diastolic 54–95; PULSE 99–152; RESP 11–26; TEMP 35.8–36.8; O2SAT 90–100; BMI 34.0
[2023-12-20 05:03] LABS: Basophils % 0.5 %; Eosinophils % 0.5 %; Hematocrit 49.8 % (37-53); Lymphocytes # 1.3 10^3/uL (0.8-4.8); Lymphocytes % 22.4 %; Mean Corpuscular HGB Conc 32.1 g/dL (30-55); Mean Corpuscular Hemoglobin 31.3 pg (27-33); Mean Corpuscular Volume 97.5 fl (82-101); Monocytes # 0.5 10^3/uL (0.2-0.9); Monocytes % 8.8 %; Neutrophils % 67.3 %; Nucleated Red Blood Cells % 0.4 %; Platelet Count 132 10^3/cmm (157-399); Red Blood Count 5.11 10^6/uL (3.85-5.65); Red Cell Distribution Width 19.4 % (12.1-15.1); White Blood Count 5.66 10^3/uL (3.29-11.43)
[2023-12-20 05:24] LABS: Alanine Aminotransferase 297 U/L (0-41); Albumin Level 3.1 g/dL (3.5-5.2); Alkaline Phosphatase 111 U/L (40-130); Aspartate Amino Transferase 192 U/L (0-40); Blood Urea Nitrogen 26 mg/dL (8-23); Calcium 8.6 mg/dL (8.5-10.5); Carbon Dioxide 36 mmol/L (22-29); Chloride 92 mmol/L (98-107); Creatinine Clr Calc Pharmacy 123.0721; Globulin 2.2 g/dL (1.3-4.6); Glucose 97 mg/dL (65-115); Osmolality Calculated 283 mOsm/kg (285-295); Sodium 134 mmol/L (136-145); Total Bilirubin 1.7 mg/dL (0.15-1.2); Total Protein 5.3 g/dL (6.6-8.7)
[2023-12-20] MEDS: FUROsemide 10 mg/mL SDV 4mL 40 MG IVP ×2 (05:24→17:12)
[2023-12-20] MEDS: amiodarone 200 mg Tablet 400 MG PO ×2 (09:03→17:12)
[2023-12-20] MEDS: cetirizine 10 mg Tablet PO (09:03)
[2023-12-20] MEDS: spironolactone 25 mg Tablet PO (09:03)
[2023-12-20] MEDS: venlafaxine ER (24HR) 150 mg Capsule PO (09:03)
[2023-12-20] MEDS: docusate sodium 100 mg Capsule PO (09:03)
[2023-12-20] MEDS: pantoprazole DR 40 mg Tablet PO ×2 (09:03→21:40)
[2023-12-20] MEDS: hyDRALAzine 25 mg Tablet PO ×2 (09:03→14:44)
[2023-12-20] MEDS: aspirin 81 mg EC Tablet PO (09:03)
[2023-12-20] MEDS: bacitracin ointment Pkt 1 EACH TOPICAL ×3 (09:04→21:40)
[2023-12-20] MEDS: fluticasone nasal spray 16gm Btl 2 SPRAY INTRANASAL (09:04)
[2023-12-20] MEDS: enoxaparin 120 mg/0.8 mL Syringe 110 MG SUBCUT ×2 (09:04→21:40)
--- NOTE | 2023-12-20 11:46 | PC.SOCIAL ---
IMM Update Pg. 2 of IMM updated and reviewed with patient, who verbalized understanding. Copy provided.
--- NOTE | 2023-12-20 15:30 | P.PN_ITS ---
Subjective 2 Subjective: The patient continues to improve, in terms of his urine output. Still seems to be in atrial flutter/fibrillation on the monitor. The rate has been around 110- 120 bpm. No fever, chills or cough. No other specific complaints. The blood pressure seems to be remaining stable at this time. Medications: Medication Review Details: Current Medications Acetaminophen (Acetaminophen 325 Mg Tablet) 650 mg PO Q6H PRN PRN Reason: Mild/Mod Pain Or Temp >/= 101 Last Admin: 12/18/23 12:32 Dose: 650 mg Albuterol/Ipratropium (Ipratropium-Albuterol 3 Ml Neb) 3 ml INHALATION Q6H PRN PRN Reason: SHORTNESS OF BREATH Last Admin: 12/17/23 08:12 Dose: 3 ml Amiodarone HCl (Amiodarone 200 Mg Tablet) 400 mg PO BID PRINCE Last Admin: 12/20/23 09:03 Dose: 400 mg Aspirin (Aspirin 81 Mg Ec Tablet) 81 mg PO DAILY PRINCE Last Admin: 12/20/23 09:03 Dose: 81 mg Bacitracin (Bacitracin Ointment Pkt) 1 each TOPICAL TID PRINCE; Protocol Last Admin: 12/20/23 14:44 Dose: 1 each Benzonatate (Benzonatate 100 Mg Capsule) 200 mg PO TID PRN PRN Reason: COUGH Last Admin: 12/19/23 04:51 Dose: 200 mg Bisacodyl (Bisacodyl 5 Mg Tablet) 10 mg PO DAILY PRN; Protocol PRN Reason: Constipation (see protocol) Budesonide (Budesonide 0.5 Mg/2 Ml Neb) 0.5 mg INHALATION BID.RESPIRATORY PRINCE Last Admin: 12/20/23 08:53 Dose: Not Given Cetirizine HCl (Cetirizine 10 Mg Tablet) 10 mg PO DAILY PRINCE Last Admin: 12/20/23 09:03 Dose: 10 mg Diazepam (Diazepam 2 Mg Tablet) 2 mg PO Q6H PRN PRN Reason: ANXIETY Last Admin: 12/17/23 16:25 Dose: 2 mg Docusate Sodium (Docusate Sodium 100 Mg Capsule) 100 mg PO BID PRINCE Last Admin: 12/20/23 09:03 Dose: 100 mg Enoxaparin Sodium (Enoxaparin 120 Mg/0.8 Ml Syringe) 110 mg SUBCUT Q12H PRINCE Last Admin: 12/20/23 09:04 Dose: 110 mg Fluticasone Propionate (Fluticasone Nasal Lily 16gm Btl) 2 spray INTRANASAL DAILY PRINCE Last Admin: 12/20/23 09:04 Dose: 2 spray Furosemide (Furosemide 10 Mg/Ml Sdv 4ml) 40 mg IVP Q12H PRINCE Last Admin: 12/20/23 05:24 Dose: 40 mg Hydralazine HCl (Hydralazine 25 Mg Tablet) 25 mg PO TID PRINCE Last Admin: 12/20/23 14:44 Dose: 25 mg Norepinephrine Bitartrate (Levophed) 4 mg in 250 mls @ 0 mls/hr IV .Q0M PRINCE; Protocol Last Titration: 12/19/23 17:48 Dose: Infused Epinephrine HCl 2.5 mg/ Sodium (Chloride) 252.5 mls @ 0 mls/hr IV .Q0M PRINCE; Protocol Vasopressin (Vasostrict) 40 unit in 100 mls @ 0 mls/hr IV .Q0M PRINCE; Protocol Last Titration: 12/15/23 23:50 Dose: Infused Amiodarone HCl/Dextrose (Nexterone) 360 mg in 200 mls @ 0 mls/hr IV .Q0M PRINCE; Protocol Last Titration: 12/19/23 17:47 Dose: Infused Dobutamine HCl/Dextrose (Dobutamine Drip) 500 mg in 250 mls @ 0 mls/hr IV .Q0M PRINCE; Protocol Last Titration: 12/19/23 19:13 Dose: 0 mcg/kg/min, 0 mls/hr Mirtazapine (Mirtazapine 15 Mg Tablet) 15 mg PO BEDTIME PRINCE Last Admin: 12/19/23 20:10 Dose: 15 mg Ondansetron HCl (Ondansetron 2 Mg/Ml Sdv 2 Ml) 4 mg IVP Q8H PRN PRN Reason: vomiting, or N/V if npo Oxycodone/Acetaminophen (Oxycodone-Apap 5-325 Mg Tablet) 1 tab PO Q8H PRN PRN Reason: pain Last Admin: 12/19/23 22:25 Dose: 1 tab Oxymetazoline HCl (Oxymetazoline 0.05% Nasal Lily 15 Ml) 2 spray NOSTRIL-B Q12H PRN PRN Reason: NASAL CONGESTION Last Admin: 12/19/23 20:17 Dose: 2 spray Pantoprazole Sodium (Pantoprazole Dr 40 Mg Tablet) 40 mg PO BID@ [facility] Last Admin: 12/20/23 09:03 Dose: 40 mg Sodium Chloride (Saline Nasal Lily 44ml Btl) 1 spray NASAL PRN PRN PRN Reason: DRYNESS Last Admin: 12/18/23 15:25 Dose: 1 spray Spironolactone (Spironolactone 25 Mg Tablet) 25 mg PO DAILY [facility] Last Admin: 12/20/23 09:03 Dose: 25 mg Venlafaxine HCl (Venlafaxine Er (24hr) 150 Mg Capsule) 150 mg PO DAILY [facility] Last Admin: 12/20/23 09:03 Dose: 150 mg Vitals/I&O/Wt Last Vital Signs Temp 96.5 F L 12/20/23 12:00 Pulse 120 H 12/20/23 14:30 Resp 12 12/20/23 14:30 BP 120/92 12/20/23 14:30 Pulse Ox 94 12/20/23 14:00 O2 Del Method Nasal Cannula 12/20/23 12:00 O2 Flow Rate 3 12/20/23 12:00 12/20/23 12/20/23 12/20/23 06:59 14:59 22:59 Intake Total 360 / 360 Output Total 550 / 3275 Balance -550 / -1713.687 360 / 360 Weight last 48 hrs Weight 244 lb 3.2 oz Weight 251 lb 14.4 oz Physical Exam 2 Narrative: GENERAL: The patient is alert and oriented times three. Patient appears comfortable extremities are cold and clammy. Has some mottled appearance HEENT: No significant pallor, icterus or lymphadenopathy.Oral cavity: There are no mucous membrane lesions. NECK: Trachea appears to be central. No masses noted. No JVD or thyromegaly appreciated. Neck veins are slightly prominent with RESPIRATORY: Chest is symmetrical. No intercostals muscle retraction or any accessory muscle activation. There is no chest wall tenderness. Breath sounds are heard bilaterally. Scattered expiratory wheezing . No evidence of any consolidation. BREASTS: Deferred. HEART: The heart sounds are normal. No S3 or S4. Systolic murmur grade 3 or 6 in the mitral area. No diastolic murmurs. ABDOMEN: No vessel pulsations or distention. No tenderness. No organomegaly appreciated. Bowel sounds are normally heard. : Deferred. RECTAL: Deferred. LYMPHATIC: No lymphadenopathy noted in the neck. EXTREMITIES: The peripheral pulses stably weak. Extremities are cold and clammy MUSCULOSKELETAL: No acute joint deformities or swelling SKIN: There are no significant rashes or ecchymosis NEUROPSYCHIATRIC: The patient is alert and oriented x3. Not in any distress Urinary Catheter Management: Mckeon: Cath Placed During This Visit: yes Reason for Continuing Indwelling Catheter: Accurate Measurement of Urinary Output in Critically Ill Patients Urinary Catheter Date of Insertion: 12/14/23 Urinary Catheter Time of Insertion: 22:50 Data 12/20/23 04:44 12/20/23 04:44 Other Labs: Laboratory Last Values WBC 5.66 10^3/uL (3.29-11.43) 12/20/23 04:44 RBC 5.11 10^6/uL (3.85-5.65) 12/20/23 04:44 Hgb 16.00 g/dL (11.27-16.99) 12/20/23 04:44 Hct 49.8 % (37-53) 12/20/23 04:44 MCV 97.5 fl (82-101) 12/20/23 04:44 MCH 31.3 pg (27-33) 12/20/23 04:44 MCHC 32.1 g/dL (30-55) 12/20/23 04:44 RDW 19.4 % (12.1-15.1) H 12/20/23 04:44 Plt Count 132 10^3/cmm (157-399) L 12/20/23 04:44 MPV 12.0 fL (7.4-10.4) H 12/20/23 04:44 Neut % (Auto) 67.3 % 12/20/23 04:44 Lymph % (Auto) 22.4 % 12/20/23 04:44 [place] % (Auto) 8.8 % 12/20/23 04:44 Eos % (Auto) 0.5 % 12/20/23 04:44 Baso % (Auto) 0.5 % 12/20/23 04:44 Neut # (Auto) 3.80 10^3/uL (1.8-7.7) 12/20/23 04:44 Lymph # (Auto) 1.3 10^3/uL (0.8-4.8) 12/20/23 04:44 [place] # (Auto) 0.5 10^3/uL (0.2-0.9) 12/20/23 04:44 Eos # (Auto) 0.0 10^3/uL (0.0-0.8) 12/20/23 04:44 Baso # (Auto) 0.0 10^3/uL (0.0-0.1) 12/20/23 04:44 Nucleated RBC % (auto) 0.4 % 12/20/23 04:44 Nucleated RBCs # 0.0 /100WBC 12/20/23 04:44 D-Dimer 1.43 ug/mLFEU (0-0.59) H 12/14/23 11:05 Specimen Type Arterial 12/14/23 20:08 Sample Site Brachial, right 12/14/23 20:08 ABG pH 7.42 (7.35-7.45) 12/14/23 20:08 ABG pCO2 51.8 mmHg (35-45) H 12/14/23 20:08 ABG pO2 83.9 mmHg (80.0-100.0) 12/14/23 20:08 ABG PO2/FiO2 Ratio 0 12/14/23 10:53 ABG HCO3 33.7 mmol/L (22-26) H 12/14/23 20:08 ABG O2 Saturation 96.2 12/14/23 20:08 ABG Base Excess 7.3 mmol/L (-2.0-2.0) H 12/14/23 20:08 Kenneth Test N/a 12/14/23 20:08 A-a O2 Gradient 0.2 mmHg (5-10) L 12/14/23 20:08 Hematocrit 54.8 % (42-52) H 12/14/23 20:08 Hgb O2 Saturation 94.9 % (95-100) L 12/14/23 20:08 Carboxyhemoglobin 1.4 %THgb (0.4-20.1) 12/14/23 20:08 Methemoglobin 0.0 % (0.4-1.5) L 12/14/23 20:08 Total Hemoglobin 17.9 g/dL (14-18) 12/14/23 20:08 Sodium 136.0 mmol/L (131-143) 12/14/23 20:08 Potassium 3.2 mmol/L (3.5-5.0) L 12/14/23 20:08 Glucose 116.0 mg/dL (70-115) H 12/14/23 20:08 Ionized Calcium 1.0 mmol/L (1.1-1.4) L 12/14/23 20:08 O2 Delivery Device Nc 12/14/23 20:08 O2 Liters/Min 4.5 % 12/14/23 20:08 FiO2 21.0 % 12/14/23 10:53 [employer] ID [email or web address] 12/14/23 20:08 Sodium 134 mmol/L (136-145) L 12/20/23 04:44 Potassium 4.0 mmol/L (3.5-5.1) 12/20/23 04:44 Chloride 92 mmol/L (98-107) L 12/20/23 04:44 Carbon Dioxide 36 mmol/L (22-29) H 12/20/23 04:44 Anion Gap 10.0 (5-19) 12/20/23 04:44 BUN 26 mg/dL (8-23) H 12/20/23 04:44 Creatinine 0.8 mg/dL (0.7-1.2) 12/20/23 04:44 GFR Calculation 98.0 mL/min (90-130) 12/20/23 04:44 Glucose 97 mg/dL (65-115) 12/20/23 04:44 Calculated Osmolality 283 mOsm/kg (285-295) L 12/20/23 04:44 Lactic Acid 4.1 mmol/L (0.5-2.2) H* 12/14/23 20:10 Lactic Acid (Sepsis) 2.6 mmol/L (0.5-2.2) H 12/15/23 02:35 Calcium 8.6 mg/dL (8.5-10.5) 12/20/23 04:44 Phosphorus 4.2 mg/dL (2.5-4.5) 12/17/23 04:53 Magnesium 2.1 mg/dL (1.7-2.3) 12/18/23 03:40 Total Bilirubin 1.7 mg/dL (0.15-1.2) H 12/20/23 04:44 AST 192 U/L (0-40) H 12/20/23 04:44 ALT 297 U/L (0-41) H 12/20/23 04:44 Alkaline Phosphatase 111 U/L (40-130) 12/20/23 04:44 Troponin T Baseline 45 ng/L (0-15) H 12/14/23 11:05 Troponin T 120 Minute 43.87 ng/L (0-15) H 12/14/23 13:14 Delta Troponin T -1.13 ABS# (0-10) L 12/14/23 13:14 Troponin T Hi Sens 6Hr 43.01 ng/L (0-15) H 12/14/23 17:12 Troponin T Hi Sens 6Hr Delta -1.99 ng/L (0-12) L 12/14/23 17:12 C-Reactive Protein 5.6 mg/L (0.0-4.9) H 12/14/23 11:05 NT-Pro-B Natriuret Pep 2332 pg/mL (0-125) H 12/14/23 11:05 Total Protein 5.3 g/dL (6.6-8.7) L 12/20/23 04:44 Albumin 3.1 g/dL (3.5-5.2) L 12/20/23 04:44 Globulin 2.2 g/dL (1.3-4.6) 12/20/23 04:44 Triglycerides 81 mg/dL (0-150) 12/15/23 02:35 Cholesterol 119 mg/dL (0-200) 12/15/23 02:35 LDL Cholesterol, Calc 64 mg/dL (50-129) 12/15/23 02:35 HDL Cholesterol 39 mg/dL (60-100) L 12/15/23 02:35 LDL/HDL Ratio 1.64 RATIO (0.00-3.22) 12/15/23 02:35 Cholesterol/HDL Ratio 3.05 mg/dL (1.0-5.00) 12/15/23 02:35 TSH 3.53 uIU/mL (0.27-4.20) 12/14/23 11:05 Urine Color Cancelled 12/14/23 22:45 Urine Color Yellow (Yellow) 12/14/23 22:45 Urine Appearance Cancelled 12/14/23 22:45 Urine Appearance Clear (CLEAR) 12/14/23 22:45 Urine pH 6.5 (5-7) 12/14/23 22:45 Urine pH Cancelled 12/14/23 22:45 Ur Specific [place] 1.005 (1.005-1.030) 12/14/23 22:45 Ur Specific [place] Cancelled 12/14/23 22:45 Urine Protein Cancelled 12/14/23 22:45 Urine Protein Neg (Negative) 12/14/23 22:45 Urine Glucose (UA) Cancelled 12/14/23 22:45 Urine Glucose (UA) Norm (Normal) 12/14/23 22:45 Urine Ketones Cancelled 12/14/23 22:45 Urine Ketones Negative (Negative) 12/14/23 22:45 Urine Blood Cancelled 12/14/23 22:45 Urine Blood Neg (Negative) 12/14/23 22:45 Urine Nitrate Cancelled 12/14/23 22:45 Urine Nitrate Negative (Negative) 12/14/23 22:45 Urine Bilirubin Cancelled 12/14/23 22:45 Urine Bilirubin Neg (Negative) 12/14/23 22:45 Prot Sulfosalicylic Acd Cancelled 12/14/23 22:45 Urine Urobilinogen Cancelled 12/14/23 22:45 Urine Urobilinogen Neg mg/dL (Negative) 12/14/23 22:45 Ur Leukocyte Esterase Cancelled 12/14/23 22:45 Ur Leukocyte Esterase Negative (Negative) 12/14/23 22:45 Urine RBC Cancelled 12/14/23 22:45 Urine WBC Cancelled 12/14/23 22:45 Ur Squamous Epith Cells Cancelled 12/14/23 22:45 Ur Transition Epith Cell Cancelled 12/14/23 22:45 Ur Renal Epithelial Cell Cancelled 12/14/23 22:45 Calcium Oxalate Crystal Cancelled 12/14/23 22:45 Uric Acid Crystals Cancelled 12/14/23 22:45 Triple Phos Crystals Cancelled 12/14/23 22:45 Other Crystals Cancelled 12/14/23 22:45 Amorphous Sediment Cancelled 12/14/23 22:45 Urine Bacteria Cancelled 12/14/23 22:45 Hyaline Casts Cancelled 12/14/23 22:45 Fine Granular Casts Cancelled 06/25/24 22:45 Coarse Granular Casts Cancelled 12/14/23 22:45 RBC Casts Cancelled 12/14/23 22:45 Other Casts Cancelled 12/14/23 22:45 Urine Mucus Cancelled 12/14/23 22:45 Urine Trichomonas Cancelled 12/14/23 22:45 Urine Yeast Cancelled 12/14/23 22:45 Urine Sperm Cancelled 12/14/23 22:45 Ur Oval Fat Bodies Cancelled 12/14/23 22:45 Micro: Microbiology 12/14/23 20:10 Blood Culture - Final Blood NO GROWTH AFTER 5 DAYS 12/14/23 20:10 Blood Culture - Final Blood NO GROWTH AFTER 5 DAYS 12/14/23 11:08 Blood Culture - Final Blood NO GROWTH AFTER 5 DAYS 12/14/23 11:05 Blood Culture - Final Blood NO GROWTH AFTER 5 DAYS A&P Assessment and plan (1) Congestive heart failure: May continue on the current medications. The heart failure seems to be slowly getting compensated. Qualifiers: Heart failure chronicity: acute on chronic Heart failure type: systolic Qualified Code(s): I50.23 - Acute on chronic systolic (congestive) heart failure (2) Cardiomyopathy: Features of nonischemic cardiomyopathy. I may discontinue the hydralazine at this point. Start the patient on a low-dose of beta-champ namely metoprolol 12.5 mg p.o. twice daily-.Because of COPD and bronchospasm, I will avoid the carvedilol Qualifiers: Cardiomyopathy type: unspecified Qualified Code(s): I42.9 - Cardiomyopathy, unspecified (3) Hypotension: Seems to have resolved at this time. Dobutrex was discontinued. Qualifiers: Hypotension type: other hypotension type Qualified Code(s): I95.89 - Other hypotension (4) Atrial fibrillation with rapid ventricular response: Patient is on a subcu Lovenox. May continue for the time being. Started on metoprolol 12.5 mg p.o. twice daily in the morning. Continue the amiodarone (5) COPD exacerbation: Patient still has some bronchospasm. Continue the bronchodilator treatment. (6) Hypoxemia: Possibly related to COPD/hypoventilation syndrome, currently resolved. (7) Acute kidney injury: Kidney function seems to have returned to the baseline. Plan Discontinue the hydralazine Start on metoprolol 12.5 mg p.o. twice daily Continue the Entresto and spironolactone I contacted the heart failure center of [facility].. Talked with Dr. Guy. Discussed the patient's condition. It was thought to be appropriate for this patient to be evaluated for LVAD. Dr. Guy accepted his transfer for further evaluation and management. Currently he is awaiting a bed Attestations 2 Medical Necessity Statement*: Patient requires continued hospital stay for close monitoring and further management Coding Level of Care Code 92055 Diagnoses Acute on chronic systolic congestive heart failure I50.23 Heart failure chronicity: acute on chronic Heart failure type: systolic Cardiomyopathy, unspecified type I42.9 Cardiomyopathy type: unspecified Other specified hypotension I95.89 Hypotension type: other hypotension type Atrial fibrillation with rapid ventricular response I48.91 COPD exacerbation J44.1 Hypoxemia R09.02 Acute kidney injury N17.9
[2023-12-20] MEDS: sacubitril/valsartan 24-26 mg Tablet 1 EACH PO (15:52)
[2023-12-20] MEDS: oxyCODONE-APAP 5-325 mg Tablet 1 TAB PO (17:20)
--- NOTE | 2023-12-20 19:56 | P.PN_ITS ---
Subjective 2 Subjective: He reports he is doing all right today. Denies any development of chest pain or pressure. Not lightheaded. Did not like Afrin, feels that it made him cough. Responded better to nasal saline. Vitals/I&O/Wt Last Vital Signs Temp 97.7 F 12/20/23 16:00 Pulse 120 H 12/20/23 18:00 Resp 17 12/20/23 18:00 BP 111/66 12/20/23 18:00 Pulse Ox 99 12/20/23 16:30 O2 Del Method Nasal Cannula 12/20/23 12:00 O2 Flow Rate 3 12/20/23 12:00 12/20/23 12/20/23 12/20/23 06:59 14:59 22:59 Intake Total 360 / 360 300 / 660 Output Total 550 / 3275 1300 / 1300 Balance -550 / -1713.687 360 / 360 -1000 / -640 Weight last 48 hrs Weight 110.767 kg Weight 114.26 kg Physical Exam 2 Narrative: Up in bed. Const: COMMON NORMALS: patient oriented x3 and alert GENERAL APPEARANCE: c ooperative NUTRITIONAL APPEARANCE: obese ORIENTATION/CONSCIOUSNESS: Yes awake HENMT: COMMON NORMALS: oropharynx normal Neck/C-Spine: COMMON NORMALS: no JVD OTHER: R neck CVC Resp: COMMON NORMALS: normal respiratory effort and clear to auscultation bilaterally AUSCULTATION: clear to auscultation bilaterally Cardio: COMMON NORMALS: no JVD, regular rhythm, S1 normal heart sound present, S2 normal heart sound present and No murmurs present (Cardio) RHYTHM: regular rhythm HEART SOUNDS: S1 normal heart sound present and S2 normal heart sound present GI: COMMON NORMALS: Normal to inspection, nondistended, normoactive bowel sounds present, Soft to palpation and non-tender PALPATION: Yes Soft to palpation Extremity: COMMON NORMALS: no joint enlargement GENERAL: Yes edema (2+) Neuro: COMMON NORMALS: patient oriented x3 and moves all extremities S ENSORIUM/ORIENTATION: Yes alert Skin: COMMON NORMALS: no rashes or lesions noted GENERAL SKIN EXAM: no rashes or lesions noted OTHER: Cool to touch lower extremities with mottling. Urinary Catheter Management: Mckeon: Cath Placed During This Visit: yes Reason for Continuing Indwelling Catheter: Accurate Measurement of Urinary Output in Critically Ill Patients Urinary Catheter Date of Insertion: 12/14/23 Urinary Catheter Time of Insertion: 22:50 Data 12/20/23 04:44 12/20/23 04:44 Micro: Microbiology 12/14/23 20:10 Blood Culture - Final Blood NO GROWTH AFTER 5 DAYS 12/14/23 20:10 Blood Culture - Final Blood NO GROWTH AFTER 5 DAYS A&P Assessment and plan (1) Congestive heart failure: Reviewed vitals, CBC, CMP, including kidney function, BUN 26, creatinine 1.8. Reviewed cardiology note. Discussed with compression molding machine setter. Plans to try to wean off dobutamine. Monitor blood pressure. Risk of hypotension, hypoperfusion, organ failure with low output heart failure. Resume dobutamine in case of decreasing blood pressure, worsening hypoperfusion. [employer]ro[employer] is in discussions with [facility] who may try to work on transfer for further management, consideration of LVAD, although we have not heard back yet regarding any concrete transfer approval. Discussed with case making machine operator. Reassess renal function, monitor GIGI. Continue Lasix IV due to likely poor GI absorption with low output heart failure. Monitor for risk of electrolyte deficiency, worsening SIMONA. Continue oral amio. Cardiology considering further options, possibility of medical therapy, consideration of outside referral possibly for LVAD. Per discussion with him he states he would like to sleep on it . Noted, understands that his condition may worsen, in case he starts showing worsening, worsening renal failure, he states he would be okay with seeking arrangements for renal replacement therapy, as prescription of him this may need to be CRRT given his overall condition which would necessitate transfer, as well as concomitant assessment for possible LVAD. He provides goals for a limited life support, in case of worsening condition he would consider transient life support, even mechanical ventilation but only for a limited time. Up to no longer than a week. With transition subsequently to end-of-life comfort measures in case of lack of improvement his condition. Discussed with compression molding machine setter. Low output failure, with some improvement in terms of pressure. Weaned off vasopressin, Levophed. Continue dobutamine. So far without good improvement in renal status. Oliguria. Worsening creatinine. Reassess kidney function. Continue dobutamine. Monitor for risk of worsening tachycardia, monitor blood pressures. Continue furosemide. May need increase in dose with worsening renal function. Status post coronary angiography with unobstructed coronaries. Echocardiogram with new severe cardiomyopathy, EF 15-20%, almost kinetic septum and anteroseptal segments. Mildly dilated right ventricle. Moderately diminished EF. Mildly dilated RA and RV. Qualifiers: Heart failure chronicity: acute on chronic Heart failure type: systolic Qualified Code(s): I50.23 - Acute on chronic systolic (congestive) heart failure (2) Atrial flutter with rapid ventricular response: Switched to oral amiodarone. Unfortunately was unable to undergo cardioversion. Continue amiodarone drip. Recheck chemistry tonight in the morning. (3) CKD (chronic kidney disease), stage II: Not a known chronic diagnosis SIMONA on CKD. Discussed with him given low output failure and risk of SIMONA, additionally with shock, hypotension, urine output has been low. Discussed in case of worsening kidney injury, renal failure is at risk of needing dialysis. (4) Erectile dysfunction: Has a prescription for sildenafil but has not taken any in more than 3 months (5) Chronic back pain greater than 3 months duration: Has been previously seen by Dr. Owens and subsequently by Dr. Serrano. For medical management. Takes oxycodone and diazepam long-term for management. Has had multiple back surgeries in the past. (6) COPD (chronic obstructive pulmonary disease): Chronically on Wilexa and as needed albuterol. Looks to have chronic hypercapnia. Is on chronic benzodiazepines in the form of diazepam and temazepam but not particularly lethargic. (7) Polycythemia: Strongly suspect secondary polycythemia from hypoxemia/sleep apnea that is undiagnosed (8) Major depressive disorder, recurrent, mild: Chronically on venlafaxine and Remeron (9) Generalized anxiety disorder: Chronically on temazepam for sleep (10) Secondary male hypogonadism: On testosterone replacement (11) Limited family support: He also names a neighbor named Daniel who he states knows him well and may be able to help with decisions on his behalf. He states he will have to talk to him. Patient has a nephew listed as his person to contact but he is not somebody who would generally be able to make any decisions pertaining to medical or legal needs per [place]. His nephew's parents are no longer alive. He has an estranged daughter but no contact information for her. (12) Atrial fibrillation with rapid ventricular response: (13) Hypoxemia: (14) Chest pain: Qualifiers: Chest pain type: precordial pain Qualified Code(s): R07.2 - Precordial pain (15) Cardiomyopathy: Qualifiers: Cardiomyopathy type: unspecified Qualified Code(s): I42.9 - Cardiomyopathy, unspecified (16) COPD exacerbation: (17) Hypotension: Qualifiers: Hypotension type: other hypotension type Qualified Code(s): I95.89 - Other hypotension Plan Elevated D-dimer along with elevated lactic acid felt secondary to hypoxemia and tachycardia secondary to cardiogenic shock, low output failure. No PE on CTA. No clear foci of infection suggesting sepsis at this point in time; clinically appears to be more cardiac presentation Borderline low platelet count Hypomagnesemia: Received magnesium, today 1.9, recheck level. Gastroesophageal reflux disease on PPI Seasonal allergies on cetirizine and fluticasone nasal History of insomnia on ramelteon and trazodone at bedtime Continue home venlafaxine and Remeron Continue home temazepam and trazodone for sleep Continue home oxycodone and diazepam although I am going to decrease diazepam from 4 times a day to every 8 hours Will ultimately benefit from decreasing doses of benzodiazepines if he can tolerate it secondary to hypercapnia Last testosterone dose was on November 28 Disposition plan: Home with outpatient follow up to primary care provider anticipated. Code Status: Full Code - talked with patient at length regarding CODE STATUS. He says that he would like to be resuscitated for 30 minutes and then if he has not regained pulse and spontaneous breathing to let him go at that point in time. Patient does not have any family beyond a nephew who is not someone who is capable of making decisions for him. He has an estranged daughter but does not know how to contact her. Has not seen her in more than 20 years. He said that the tape duplicator could make decisions for him if necessary. Attestations 2 Medical Necessity Statement*: Continue admission for assessment of management of low output heart failure. Coding Level of Care Code Critical Care >/= 30 minutes Critical care time (in minutes): 35 The high probability of a clinically significant, sudden or life threatening deterioration, as referenced in this documentation, required my full and direct attention, intervention and personal management. The critical care time shown is in addition to time spent performing any reported separately billable procedures and includes the following: [x] Data and vital sign review and interpretation [x ] Patient assessment, examination and intervention [x] Medication orders and management [x] Patient/Family updates as able [x] Care Coordination and Documentation. Diagnoses Acute on chronic systolic congestive heart failure I50.23 Heart failure chronicity: acute on chronic Heart failure type: systolic Atrial flutter with rapid ventricular response I48.92 CKD (chronic kidney disease), stage II N18.2 Erectile dysfunction N52.9 Chronic back pain greater than 3 months duration M54.9; G89.29 COPD (chronic obstructive pulmonary disease) J44.9 Polycythemia D75.1 Major depressive disorder, recurrent, mild F33.0 Generalized anxiety disorder F41.1 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 Limited family support Z63.8 Atrial fibrillation with rapid ventricular response I48.91 Hypoxemia R09.02 Precordial pain R07.2 Chest pain type: precordial pain Cardiomyopathy, unspecified type I42.9 Cardiomyopathy type: unspecified COPD exacerbation J44.1 Other specified hypotension I95.89 Hypotension type: other hypotension type
[2023-12-20] MEDS: mirtazapine 15 mg Tablet PO (21:40)
[2023-12-21] VITALS (40 sets, daily range): BP systolic 78–115; BP diastolic 60–87; PULSE 92–124; RESP 13–22; TEMP 36.1–36.6; O2SAT 90–99; BMI 33.5
--- NOTE | 2023-12-21 03:54 | PC.NURSE ---
Hydralazine: Held 2100 dose of hydralazine due low blood pressures. Contacted Dr. Anne, received verification to hold medication. Documented not given, contraindicated per vital signs.
[2023-12-21 04:57] LABS: Basophils % 0.5 %; Eosinophils # 0.1 10^3/uL (0.0-0.8); Eosinophils % 1.2 %; Hematocrit 49.1 % (37-53); Lymphocytes # 1.9 10^3/uL (0.8-4.8); Mean Corpuscular HGB Conc 32.4 g/dL (30-55); Mean Corpuscular Hemoglobin 31.2 pg (27-33); Mean Corpuscular Volume 96.5 fl (82-101); Mean Platelet Volume 11.5 fL (7.4-10.4); Monocytes # 0.5 10^3/uL (0.2-0.9); Monocytes % 8.7 %; Neutrophils # 3.17 10^3/uL (1.8-7.7); Neutrophils % 56.1 %; Nucleated Red Blood Cells % 0 %; Platelet Count 144 10^3/cmm (157-399); Red Blood Count 5.09 10^6/uL (3.85-5.65); Red Cell Distribution Width 19.3 % (12.1-15.1); White Blood Count 5.66 10^3/uL (3.29-11.43)
[2023-12-21] MEDS: FUROsemide 10 mg/mL SDV 4mL 40 MG IVP ×2 (05:11→17:27)
[2023-12-21] MEDS: pantoprazole DR 40 mg Tablet PO (08:58)
[2023-12-21] MEDS: venlafaxine ER (24HR) 150 mg Capsule PO (08:59)
[2023-12-21] MEDS: amiodarone 200 mg Tablet 400 MG PO ×2 (08:59→17:28)
[2023-12-21] MEDS: docusate sodium 100 mg Capsule PO (08:59)
[2023-12-21] MEDS: hyDRALAzine 25 mg Tablet PO (08:59)
[2023-12-21] MEDS: aspirin 81 mg EC Tablet PO (08:59)
[2023-12-21] MEDS: spironolactone 25 mg Tablet PO (08:59)
[2023-12-21] MEDS: cetirizine 10 mg Tablet PO (08:59)
[2023-12-21] MEDS: bacitracin ointment Pkt 1 EACH TOPICAL (09:00)
[2023-12-21] MEDS: sacubitril/valsartan 24-26 mg Tablet 1 EACH PO ×2 (09:00→17:28)
--- NOTE | 2023-12-21 09:28 | PM.PN ---
Subjective Subjective: Patient seems to be doing okay.The blood pressure has been holding up with the Entresto. Denies any chest pain or palpitations. No fever, chills or cough. Currently uses 3 L of oxygen by nasal cannula. The heart rate is in the 120 range. Atrial flutter with a rapid ventricular rate. Medications: Medication Review Details: Current Medications Acetaminophen (Acetaminophen 325 Mg Tablet) 650 mg PO Q6H PRN PRN Reason: Mild/Mod Pain Or Temp >/= 101 Last Admin: 12/18/23 12:32 Dose: 650 mg Albuterol/Ipratropium (Ipratropium-Albuterol 3 Ml Neb) 3 ml INHALATION Q6H PRN PRN Reason: SHORTNESS OF BREATH Last Admin: 12/17/23 08:12 Dose: 3 ml Amiodarone HCl (Amiodarone 200 Mg Tablet) 400 mg PO BID [facility] Last Admin: 12/21/23 08:59 Dose: 400 mg Aspirin (Aspirin 81 Mg Ec Tablet) 81 mg PO DAILY [facility] Last Admin: 12/21/23 08:59 Dose: 81 mg Bacitracin (Bacitracin Ointment Pkt) 1 each TOPICAL TID [facility]; Protocol Last Admin: 12/21/23 09:00 Dose: 1 each Benzonatate (Benzonatate 100 Mg Capsule) 200 mg PO TID PRN PRN Reason: COUGH Last Admin: 12/19/23 04:51 Dose: 200 mg Bisacodyl (Bisacodyl 5 Mg Tablet) 10 mg PO DAILY PRN; Protocol PRN Reason: Constipation (see protocol) Budesonide (Budesonide 0.5 Mg/2 Ml Neb) 0.5 mg INHALATION BID.RESPIRATORY [facility] Last Admin: 12/20/23 20:20 Dose: Not Given Cetirizine HCl (Cetirizine 10 Mg Tablet) 10 mg PO DAILY [facility] Last Admin: 12/21/23 08:59 Dose: 10 mg Diazepam (Diazepam 2 Mg Tablet) 2 mg PO Q6H PRN PRN Reason: ANXIETY Last Admin: 12/17/23 16:25 Dose: 2 mg Docusate Sodium (Docusate Sodium 100 Mg Capsule) 100 mg PO BID [facility] Last Admin: 12/21/23 08:59 Dose: 100 mg Enoxaparin Sodium (Enoxaparin 120 Mg/0.8 Ml Syringe) 110 mg SUBCUT Q12H [facility] Last Admin: 12/20/23 21:40 Dose: 110 mg Fluticasone Propionate (Fluticasone Nasal [place] 16gm Btl) 2 spray INTRANASAL DAILY [facility] Last Admin: 12/20/23 09:04 Dose: 2 spray Furosemide (Furosemide 10 Mg/Ml Sdv 4ml) 40 mg IVP Q12H [facility] Last Admin: 12/21/23 05:11 Dose: 40 mg Hydralazine HCl (Hydralazine 25 Mg Tablet) 25 mg PO TID [facility] Last Admin: 12/21/23 08:59 Dose: 25 mg Norepinephrine Bitartrate (Levophed) 4 mg in 250 mls @ 0 mls/hr IV .Q0M [facility]; Protocol Last Titration: 12/19/23 17:48 Dose: Infused Epinephrine HCl 2.5 mg/ Sodium (Chloride) 252.5 mls @ 0 mls/hr IV .Q0M [facility]; Protocol Vasopressin (Vasostrict) 40 unit in 100 mls @ 0 mls/hr IV .Q0M [facility]; Protocol Last Titration: 12/15/23 23:50 Dose: Infused Amiodarone HCl/Dextrose (Nexterone) 360 mg in 200 mls @ 0 mls/hr IV .Q0M [facility]; Protocol Last Titration: 12/19/23 17:47 Dose: Infused Dobutamine HCl/Dextrose (Dobutamine Drip) 500 mg in 250 mls @ 0 mls/hr IV .Q0M [facility]; Protocol Last Titration: 12/19/23 19:13 Dose: 0 mcg/kg/min, 0 mls/hr Mirtazapine (Mirtazapine 15 Mg Tablet) 15 mg PO BEDTIME [facility] Last Admin: 12/20/23 21:40 Dose: 15 mg Ondansetron HCl (Ondansetron 2 Mg/Ml Sdv 2 Ml) 4 mg IVP Q8H PRN PRN Reason: vomiting, or N/V if npo Oxycodone/Acetaminophen (Oxycodone-Apap 5-325 Mg Tablet) 1 tab PO Q8H PRN PRN Reason: pain Last Admin: 12/20/23 17:20 Dose: 1 tab Pantoprazole Sodium (Pantoprazole Dr 40 Mg Tablet) 40 mg PO BID@ [facility] Last Admin: 12/21/23 08:58 Dose: 40 mg Sacubitril/Valsartan (Sacubitril/Valsartan 24-26 Mg Tablet) 1 each PO BID [facility] Last Admin: 12/21/23 09:00 Dose: 1 each Sodium Chloride (Saline Nasal [place] 44ml Btl) 1 spray NASAL PRN PRN PRN Reason: DRYNESS Last Admin: 12/18/23 15:25 Dose: 1 spray Spironolactone (Spironolactone 25 Mg Tablet) 25 mg PO DAILY [facility] Last Admin: 12/21/23 08:59 Dose: 25 mg Venlafaxine HCl (Venlafaxine Er (24hr) 150 Mg Capsule) 150 mg PO DAILY [facility] Last Admin: 12/21/23 08:59 Dose: 150 mg Vitals/I&O/Wt Last Vital Signs Temp 97.8 F 12/21/23 04:00 Pulse 122 H 12/21/23 09:27 Resp 20 H 12/21/23 09:27 BP 85/69 12/21/23 08:00 Pulse Ox 98 12/21/23 09:27 O2 Del Method Nasal Cannula 12/21/23 09:27 O2 Flow Rate 3 12/21/23 09:27 12/20/23 12/21/23 12/21/23 22:59 06:59 14:59 Intake Total 400 / 760 120 / 120 Output Total 2800 / 2800 1900 / 4700 Balance -2400 / -2040 -1900 / -3940 120 / 120 Weight last 48 hrs Weight 240 lb 14.4 oz Weight 244 lb 3.2 oz Physical Exam Narrative: GENERAL: The patient is alert and oriented times three. Patient appears comfortable extremities are cold and clammy. Has some mottled appearance HEENT: No significant pallor, icterus or lymphadenopathy.Oral cavity: There are no mucous membrane lesions. NECK: Trachea appears to be central. No masses noted. No JVD or thyromegaly appreciated. Neck veins are slightly prominent with RESPIRATORY: Chest is symmetrical. No intercostals muscle retraction or any accessory muscle activation. There is no chest wall tenderness. Breath sounds are heard bilaterally. Few Scattered expiratory wheezing . No evidence of any consolidation. BREASTS: Deferred. HEART: The heart sounds are normal. No S3 or S4. Systolic murmur grade 3 or 6 in the mitral area. No diastolic murmurs. ABDOMEN: No vessel pulsations or distention. No tenderness. No organomegaly appreciated. Bowel sounds are normally heard. : Deferred. RECTAL: Deferred. LYMPHATIC: No lymphadenopathy noted in the neck. EXTREMITIES: The peripheral pulses stably weak. Extremities are cold and clammy MUSCULOSKELETAL: No acute joint deformities or swelling SKIN: There are no significant rashes or ecchymosis NEUROPSYCHIATRIC: The patient is alert and oriented x3. Not in any distress Urinary Catheter Management: Mckeon: Cath Placed During This Visit: yes Reason for Continuing Indwelling Catheter: Accurate Measurement of Urinary Output in Critically Ill Patients Urinary Catheter Date of Insertion: 12/14/23 Urinary Catheter Time of Insertion: 22:50 Data 12/21/23 04:18 12/20/23 04:44 Other Labs: Laboratory Last Values WBC 5.66 10^3/uL (3.29-11.43) 12/21/23 04:18 RBC 5.09 10^6/uL (3.85-5.65) 12/21/23 04:18 Hgb 15.90 g/dL (11.27-16.99) 12/21/23 04:18 Hct 49.1 % (37-53) 12/21/23 04:18 MCV 96.5 fl (82-101) 12/21/23 04:18 MCH 31.2 pg (27-33) 12/21/23 04:18 MCHC 32.4 g/dL (30-55) 12/21/23 04:18 RDW 19.3 % (12.1-15.1) H 12/21/23 04:18 Plt Count 144 10^3/cmm (157-399) L 12/21/23 04:18 MPV 11.5 fL (7.4-10.4) H 12/21/23 04:18 Neut % (Auto) 56.1 % 12/21/23 04:18 Lymph % (Auto) 33.0 % 12/21/23 04:18 [place] % (Auto) 8.7 % 12/21/23 04:18 Eos % (Auto) 1.2 % 12/21/23 04:18 Baso % (Auto) 0.5 % 12/21/23 04:18 Neut # (Auto) 3.17 10^3/uL (1.8-7.7) 12/21/23 04:18 Lymph # (Auto) 1.9 10^3/uL (0.8-4.8) 12/21/23 04:18 [place] # (Auto) 0.5 10^3/uL (0.2-0.9) 12/21/23 04:18 Eos # (Auto) 0.1 10^3/uL (0.0-0.8) 12/21/23 04:18 Baso # (Auto) 0.0 10^3/uL (0.0-0.1) 12/21/23 04:18 Nucleated RBC % (auto) 0 % 12/21/23 04:18 Nucleated RBCs # 0.0 /100WBC 12/21/23 04:18 D-Dimer 1.43 ug/mLFEU (0-0.59) H 12/14/23 11:05 Specimen Type Arterial 12/14/23 20:08 Sample Site Brachial, right 12/14/23 20:08 ABG pH 7.42 (7.35-7.45) 12/14/23 20:08 ABG pCO2 51.8 mmHg (35-45) H 12/14/23 20:08 ABG pO2 83.9 mmHg (80.0-100.0) 12/14/23 20:08 ABG PO2/FiO2 Ratio 0 12/14/23 10:53 ABG HCO3 33.7 mmol/L (22-26) H 12/14/23 20:08 ABG O2 Saturation 96.2 12/14/23 20:08 ABG Base Excess 7.3 mmol/L (-2.0-2.0) H 12/14/23 20:08 Kenneth Test N/a 12/14/23 20:08 A-a O2 Gradient 0.2 mmHg (5-10) L 12/14/23 20:08 Hematocrit 54.8 % (42-52) H 12/14/23 20:08 Hgb O2 Saturation 94.9 % (95-100) L 12/14/23 20:08 Carboxyhemoglobin 1.4 %THgb (0.4-20.1) 12/14/23 20:08 Methemoglobin 0.0 % (0.4-1.5) L 12/14/23 20:08 Total Hemoglobin 17.9 g/dL (14-18) 12/14/23 20:08 Sodium 136.0 mmol/L (131-143) 12/14/23 20:08 Potassium 3.2 mmol/L (3.5-5.0) L 12/14/23 20:08 Glucose 116.0 mg/dL (70-115) H 12/14/23 20:08 Ionized Calcium 1.0 mmol/L (1.1-1.4) L 12/14/23 20:08 O2 Delivery Device Nc 12/14/23 20:08 O2 Liters/Min 4.5 % 12/14/23 20:08 FiO2 21.0 % 12/14/23 10:53 Parking Meter Collector ID Devyn 12/14/23 20:08 Sodium 134 mmol/L (136-145) L 12/20/23 04:44 Potassium 4.0 mmol/L (3.5-5.1) 12/20/23 04:44 Chloride 92 mmol/L (98-107) L 12/20/23 04:44 Carbon Dioxide 36 mmol/L (22-29) H 12/20/23 04:44 Anion Gap 10.0 (5-19) 12/20/23 04:44 BUN 26 mg/dL (8-23) H 12/20/23 04:44 Creatinine 0.8 mg/dL (0.7-1.2) 12/20/23 04:44 GFR Calculation 98.0 mL/min (90-130) 12/20/23 04:44 Glucose 97 mg/dL (65-115) 12/20/23 04:44 Calculated Osmolality 283 mOsm/kg (285-295) L 12/20/23 04:44 Lactic Acid 4.1 mmol/L (0.5-2.2) H* 12/14/23 20:10 Lactic Acid (Sepsis) 2.6 mmol/L (0.5-2.2) H 12/15/23 02:35 Calcium 8.6 mg/dL (8.5-10.5) 12/20/23 04:44 Phosphorus 4.2 mg/dL (2.5-4.5) 12/17/23 04:53 Magnesium 2.1 mg/dL (1.7-2.3) 12/18/23 03:40 Total Bilirubin 1.7 mg/dL (0.15-1.2) H 12/20/23 04:44 AST 192 U/L (0-40) H 12/20/23 04:44 ALT 297 U/L (0-41) H 12/20/23 04:44 Alkaline Phosphatase 111 U/L (40-130) 12/20/23 04:44 Troponin T Baseline 45 ng/L (0-15) H 12/14/23 11:05 Troponin T 120 Minute 43.87 ng/L (0-15) H 12/14/23 13:14 Delta Troponin T -1.13 ABS# (0-10) L 12/14/23 13:14 Troponin T Hi Sens 6Hr 43.01 ng/L (0-15) H 12/14/23 17:12 Troponin T Hi Sens 6Hr Delta -1.99 ng/L (0-12) L 12/14/23 17:12 C-Reactive Protein 5.6 mg/L (0.0-4.9) H 12/14/23 11:05 NT-Pro-B Natriuret Pep 2332 pg/mL (0-125) H 12/14/23 11:05 Total Protein 5.3 g/dL (6.6-8.7) L 12/20/23 04:44 Albumin 3.1 g/dL (3.5-5.2) L 12/20/23 04:44 Globulin 2.2 g/dL (1.3-4.6) 12/20/23 04:44 Triglycerides 81 mg/dL (0-150) 12/15/23 02:35 Cholesterol 119 mg/dL (0-200) 12/15/23 02:35 LDL Cholesterol, Calc 64 mg/dL (50-129) 12/15/23 02:35 HDL Cholesterol 39 mg/dL (60-100) L 12/15/23 02:35 LDL/HDL Ratio 1.64 RATIO (0.00-3.22) 12/15/23 02:35 Cholesterol/HDL Ratio 3.05 mg/dL (1.0-5.00) 12/15/23 02:35 TSH 3.53 uIU/mL (0.27-4.20) 12/14/23 11:05 Urine Color Cancelled 12/14/23 22:45 Urine Color Yellow (Yellow) 12/14/23 22:45 Urine Appearance Cancelled 12/14/23 22:45 Urine Appearance Clear (CLEAR) 12/14/23 22:45 Urine pH 6.5 (5-7) 12/14/23 22:45 Urine pH Cancelled 12/14/23 22:45 Ur Specific [place] 1.005 (1.005-1.030) 12/14/23 22:45 Ur Specific [place] Cancelled 12/14/23 22:45 Urine Protein Cancelled 12/14/23 22:45 Urine Protein Neg (Negative) 12/14/23 22:45 Urine Glucose (UA) Cancelled 12/14/23 22:45 Urine Glucose (UA) Norm (Normal) 12/14/23 22:45 Urine Ketones Cancelled 12/14/23 22:45 Urine Ketones Negative (Negative) 12/14/23 22:45 Urine Blood Cancelled 12/14/23 22:45 Urine Blood Neg (Negative) 12/14/23 22:45 Urine Nitrate Cancelled 12/14/23 22:45 Urine Nitrate Negative (Negative) 12/14/23 22:45 Urine Bilirubin Cancelled 12/14/23 22:45 Urine Bilirubin Neg (Negative) 12/14/23 22:45 Prot Sulfosalicylic Acd Cancelled 12/14/23 22:45 Urine Urobilinogen Cancelled 12/14/23 22:45 Urine Urobilinogen Neg mg/dL (Negative) 12/14/23 22:45 Ur Leukocyte Esterase Cancelled 12/14/23 22:45 Ur Leukocyte Esterase Negative (Negative) 12/14/23 22:45 Urine RBC Cancelled 12/14/23 22:45 Urine WBC Cancelled 12/14/23 22:45 Ur Squamous Epith Cells Cancelled 12/14/23 22:45 Ur Transition Epith Cell Cancelled 12/14/23 22:45 Ur Renal Epithelial Cell Cancelled 12/14/23 22:45 Calcium Oxalate Crystal Cancelled 12/14/23 22:45 Uric Acid Crystals Cancelled 12/14/23 22:45 Triple Phos Crystals Cancelled 12/14/23 22:45 Other Crystals Cancelled 12/14/23 22:45 Amorphous Sediment Cancelled 12/14/23 22:45 Urine Bacteria Cancelled 12/14/23 22:45 Hyaline Casts Cancelled 12/14/23 22:45 Fine Granular Casts Cancelled 12/14/23 22:45 Coarse Granular Casts Cancelled 12/14/23 22:45 RBC Casts Cancelled 12/14/23 22:45 Other Casts Cancelled 12/14/23 22:45 Urine Mucus Cancelled 12/14/23 22:45 Urine Trichomonas Cancelled 12/14/23 22:45 Urine Yeast Cancelled 12/14/23 22:45 Urine Sperm Cancelled 12/14/23 22:45 Ur Oval Fat Bodies Cancelled 12/14/23 22:45 A&P Assessment and plan (1) Congestive heart failure: May continue on the current medications. The heart failure seems to be slowly getting compensated. Continues to have cold and clammy extremities Qualifiers: Heart failure chronicity: acute on chronic Heart failure type: systolic Qualified Code(s): I50.23 - Acute on chronic systolic (congestive) heart failure (2) Cardiomyopathy: Features of nonischemic cardiomyopathy. Continue on the metoprolol, Entresto, spironolactone and Lasix. Continue on the GDMT Qualifiers: Cardiomyopathy type: unspecified Qualified Code(s): I42.9 - Cardiomyopathy, unspecified (3) Hypotension: Currently resolved. May continue on the current management. Qualifiers: Hypotension type: other hypotension type Qualified Code(s): I95.89 - Other hypotension (4) Atrial fibrillation with rapid ventricular response: Patient is on a subcu Lovenox. May continue for the time being. Continue the amiodarone and the beta-champ. (5) COPD exacerbation: Patient still has some bronchospasm. Continue the bronchodilator treatment. (6) Acute kidney injury: Kidney function seems to have returned to the baseline. May continue on the current measures. Plan Patient is still awaiting transfer to the heart failure center at the [facility] in [place]. May continue on the current medications. Attestations Medical Necessity Statement*: Patient requires continued hospital stay for close monitoring and further management Coding Level of Care Code 50805 Diagnoses Acute on chronic systolic congestive heart failure I50.23 Heart failure chronicity: acute on chronic Heart failure type: systolic Cardiomyopathy, unspecified type I42.9 Cardiomyopathy type: unspecified Other specified hypotension I95.89 Hypotension type: other hypotension type Atrial fibrillation with rapid ventricular response I48.91 COPD exacerbation J44.1 Acute kidney injury N17.9
[2023-12-21] MEDS: enoxaparin 120 mg/0.8 mL Syringe 110 MG SUBCUT (11:56)
[2023-12-21] MEDS: oxyCODONE-APAP 5-325 mg Tablet 1 TAB PO (13:00)
--- NOTE | 2023-12-21 16:17 | P.TS_ITS ---
Transfer Summary Providers Date of Admission: 12/14/23 13:49 Date of Discharge/Transfer: 12/21/23 Attending Provider at Admission: Aparna Slaughter MD Attending Provider at Transfer: Ant Alves Primary Care Provider: Spike Wise MD Transfer Plans: Anticipated date of transfer: 12/21/23 . Diagnoses at Discharge Discharge Diagnosis (1) Congestive heart failure: Status: Acute Qualifiers: Heart failure chronicity: acute on chronic Heart failure type: systolic Qualified Code(s): I50.23 - Acute on chronic systolic (congestive) heart failure (2) Cardiomyopathy: Status: Acute Qualifiers: Cardiomyopathy type: unspecified Qualified Code(s): I42.9 - Cardiomyopathy, unspecified (3) Hypotension: Status: Acute Qualifiers: Hypotension type: other hypotension type Qualified Code(s): I95.89 - Other hypotension (4) Atrial fibrillation with rapid ventricular response: Status: Acute (5) COPD exacerbation: Status: Acute (6) Hypoxemia: Status: Inactive (7) Acute kidney injury: Status: Acute Reason for Visit Reason for Visit Tachycardia Brief History: Avery Ross is a 63 year old male who presented to the emergency room from outpatient cardiac stress testing. He had been scheduled for an outpatient stress test today due to a history of progressively worsening shortness of breath and lower extremity edema over the last several weeks. This was scheduled by his primary care provider. While he originally did not complain of any chest pain he has had some the last couple of days along with some back pain. He gets short of breath walking short distances. He has been having to sleep sitting up. Walking just a few feet he gets short of breath. He did not go see anybody this past weekend, waiting to have the stress test done. When he arrived for testing he was found to have a heart rate in the 130s and he was al so noted to be hypoxemic. He was subsequently sent to the emergency room. On arrival to the emergency room blood pressures initially 120s over 80s but subsequently dropped into the upper 80s and low 90s. Heart rate was persistently in the 130s with EKG showing atrial flutter/atrial fibrillation. Oxygen saturations initially in the mid 80s. This improved with oxygen administration though he required significant close transiently. Chest x-ray imaging showed cardiomegaly but no pulmonary opacities. He had lower extremity edema along with some wheezing and received breathing treatment, IV push Cardizem and subsequent Cardizem drip along with some IV Lasix. Request was made for admission. CTA of the chest did not show any evidence of PE. There was some coronary artery calcifications but aorta was unremarkable with no evidence of dissection or aneurysm. Cardiomegaly and pulmonary vascular congestion were appreciated as were nonspecific bibasilar opacities with small to moderate right and small left pleural effusions along with a moderate amount of free intra-abdominal fluid. Patient has no personal history of coronary artery disease, hypertension, hyperlipidemia or arrhythmias. No history of diabetes. He does have a history of COPD and is a former smoker. No clear family history of coronary artery disease. Hospital Course Hospital Course He was admitted for assessment management with atrial fibrillation with RVR, new onset congestive heart failure with underlying chronic kidney disease, COPD, additional comorbidities as well as limited social support, initially on Cardizem drip, but subsequently hypotensive, Cardizem discontinued, switched over to amiodarone, received pressor support with Levophed, vasopressin, continued IV Lasix for diuresis due to anasarca, severe congestive heart failure exacerbation. With suggestion of low output failure with cool extremities, mottling, diminished organ perfusion, with acute kidney injury, low blood pressure, dobutamine was added. He was assessed by cardiology. Echocardiogram showed ejection fraction down to 20%. He underwent urgent coronary angiography with finding of unobstructed coronaries. Continue treatment for low output heart failure with nonischemic cardiomyopathy. Patient does not have family, but does have a good friend/neighbor with whom he consults regarding medical choices, and whom he would want to make medical decisions on his behalf in case he was not improving. With regards to goals of care in case of cardiopulmonary arrest he would want attempted resuscitative measures, including intubation mechanical ventilation if necessary, but up to a limit, in case of lack of meaningful improvement or chance of improvement would not want protracted mechanical ventilatory support beyond a week if he were not able to communicate otherwise. With persistent tachycardia, atrial flutter. Magnesium was replaced. Continued on amiodarone, attempt was made for cardioversion, however, procedure aborted after worsening of hypotension, hypoxia with procedural sedation, procedure deferred. With transient worsening renal function, but did respond to dobutamine with overall improvement, increased urine output. Did wean off dobutamine on 12/19, however, blood pressure is soft today, and with continued cool extremities, mottling, soft blood pressure, and continued low output failure, cardiology has made arrangements for further assessment and consideration of LVAD support at [facility] in [place]. Physical Exam Narrative: Up in bed. Const: COMMON NORMALS: patient oriented x3 and alert GENERAL APPEARANCE: cooperative NUTRITIONAL APPEARANCE: obese ORIENTATION/CONSCIOUSNESS: Yes awake HENMT: COMMON NORMALS: oropharynx normal Neck/C-Spine: COMMON NORMALS: no JVD OTHER: R neck CVC Resp: COMMON NORMALS: normal respiratory effort and clear to auscultation bilaterally AUSCULTATION: clear to auscultation bilaterally Cardio: COMMON NORMALS: no JVD, regular rhythm, S1 normal heart sound present, S2 normal heart sound present and No murmurs present (Cardio) RHYTHM: regular rhythm HEART SOUNDS: S1 normal heart sound present and S2 normal heart sound present GI: COMMON NORMALS: Normal to inspection, nondistended, normoactive bowel sounds present, Soft to palpation and non-tender PALPATION: Yes Soft to palpation Extremity: COMMON NORMALS: no joint enlargement GENERAL: Yes edema (2+) Neuro: COMMON NORMALS: patient oriented x3 and moves all extremities SENSORIUM/ORIENTATION: Yes alert Skin: COMMON NORMALS: no rashes or lesions noted GENERAL SKIN EXAM: no rashes or lesions noted OTHER: Cool to touch lower extremities with mottling. Urinary Catheter Management: Mckeon: Cath Placed During This Visit: yes Reason for Continuing Indwelling Catheter: Accurate Measurement of Urinary Output in Critically Ill Patients Urinary Catheter Date of Insertion: 12/14/23 Urinary Catheter Time of Insertion: 22:50 TS Data Studies Completed and Pending Pending at discharge Category Date Time Status Complete Blood Count w/Auto AM LABS Lab 12/22/23 04:00 Ordered Complete Blood Count w/Auto AM LABS Lab 12/23/23 04:00 Ordered Completed Studies During Hospitalization Category Date Time Status CT angio chest PE protcl [id number] Stat Cat Scan 12/14/23 12:03 Completed [facility] request for service Routine Exams 12/14/23 20:38 Completed CXRP [XR chest 1V portable [id number]] Stat Exams 12/14/23 23:46 Completed XR chest 1V portable [id number] Stat Exams 12/14/23 10:48 Completed XR chest 1V portable [id number] Stat Exams 12/14/23 19:35 Completed XR chest 1V portable [id number] Stat Exams 12/15/23 01:28 Completed CV. echo complete* [id number] Stat Ultrasound 12/14/23 13:31 Completed US CHRIS [CV ankle brachial index [id number]] Routine Ultrasound 12/16/23 09:27 Completed Laboratory Last Values WBC 5.66 10^3/uL (3.29-11.43) 12/21/23 04:18 RBC 5.09 10^6/uL (3.85-5.65) 12/21/23 04:18 Hgb 15.90 g/dL (11.27-16.99) 12/21/23 04:18 Hct 49.1 % (37-53) 12/21/23 04:18 MCV 96.5 fl (82-101) 12/21/23 04:18 MCH 31.2 pg (27-33) 12/21/23 04:18 MCHC 32.4 g/dL (30-55) 12/21/23 04:18 RDW 19.3 % (12.1-15.1) H 12/21/23 04:18 Plt Count 144 10^3/cmm (157-399) L 12/21/23 04:18 MPV 11.5 fL (7.4-10.4) H 12/21/23 04:18 Neut % (Auto) 56.1 % 12/21/23 04:18 Lymph % (Auto) 33.0 % 12/21/23 04:18 [place] % (Auto) 8.7 % 12/21/23 04:18 Eos % (Auto) 1.2 % 12/21/23 04:18 Baso % (Auto) 0.5 % 12/21/23 04:18 Neut # (Auto) 3.17 10^3/uL (1.8-7.7) 12/21/23 04:18 Lymph # (Auto) 1.9 10^3/uL (0.8-4.8) 12/21/23 04:18 [place] # (Auto) 0.5 10^3/uL (0.2-0.9) 12/21/23 04:18 Eos # (Auto) 0.1 10^3/uL (0.0-0.8) 12/21/23 04:18 Baso # (Auto) 0.0 10^3/uL (0.0-0.1) 12/21/23 04:18 Nucleated RBC % (auto) 0 % 12/21/23 04:18 Nucleated RBCs # 0.0 /100WBC 12/21/23 04:18 D-Dimer 1.43 ug/mLFEU (0-0.59) H 12/14/23 11:05 Specimen Type Arterial 12/14/23 20:08 Sample Site Brachial, right 12/14/23 20:08 ABG pH 7.42 (7.35-7.45) 12/14/23 20:08 ABG pCO2 51.8 mmHg (35-45) H 12/14/23 20:08 ABG pO2 83.9 mmHg (80.0-100.0) 12/14/23 20:08 ABG PO2/FiO2 Ratio 0 12/14/23 10:53 ABG HCO3 33.7 mmol/L (22-26) H 12/14/23 20:08 ABG O2 Saturation 96.2 12/14/23 20:08 ABG Base Excess 7.3 mmol/L (-2.0-2.0) H 12/14/23 20:08 Kenneth Test N/a 12/14/23 20:08 A-a O2 Gradient 0.2 mmHg (5-10) L 12/14/23 20:08 Hematocrit 54.8 % (42-52) H 12/14/23 20:08 Hgb O2 Saturation 94.9 % (95-100) L 12/14/23 20:08 Carboxyhemoglobin 1.4 %THgb (0.4-20.1) 12/14/23 20:08 Methemoglobin 0.0 % (0.4-1.5) L 12/14/23 20:08 Total Hemoglobin 17.9 g/dL (14-18) 12/14/23 20:08 Sodium 136.0 mmol/L (131-143) 12/14/23 20:08 Potassium 3.2 mmol/L (3.5-5.0) L 12/14/23 20:08 Glucose 116.0 mg/dL (70-115) H 12/14/23 20:08 Ionized Calcium 1.0 mmol/L (1.1-1.4) L 12/14/23 20:08 O2 Delivery Device Nc 12/14/23 20:08 O2 Liters/Min 4.5 % 12/14/23 20:08 FiO2 21.0 % 12/14/23 10:53 [employer] Floor Walker ID [email or web address] 12/14/23 20:08 Sodium 134 mmol/L (136-145) L 12/20/23 04:44 Potassium 4.0 mmol/L (3.5-5.1) 12/20/23 04:44 Chloride 92 mmol/L (98-107) L 12/20/23 04:44 Carbon Dioxide 36 mmol/L (22-29) H 12/20/23 04:44 Anion Gap 10.0 (5-19) 12/20/23 04:44 BUN 26 mg/dL (8-23) H 12/20/23 04:44 Creatinine 0.8 mg/dL (0.7-1.2) 12/20/23 04:44 GFR Calculation 98.0 mL/min (90-130) 12/20/23 04:44 Glucose 97 mg/dL (65-115) 12/20/23 04:44 Calculated Osmolality 283 mOsm/kg (285-295) L 12/20/23 04:44 Lactic Acid 4.1 mmol/L (0.5-2.2) H* 12/14/23 20:10 Lactic Acid (Sepsis) 2.6 mmol/L (0.5-2.2) H 12/15/23 02:35 Calcium 8.6 mg/dL (8.5-10.5) 12/20/23 04:44 Phosphorus 4.2 mg/dL (2.5-4.5) 12/17/23 04:53 Magnesium 2.1 mg/dL (1.7-2.3) 12/18/23 03:40 Total Bilirubin 1.7 mg/dL (0.15-1.2) H 12/20/23 04:44 AST 192 U/L (0-40) H 12/20/23 04:44 ALT 297 U/L (0-41) H 12/20/23 04:44 Alkaline Phosphatase 111 U/L (40-130) 12/20/23 04:44 Troponin T Baseline 45 ng/L (0-15) H 12/14/23 11:05 Troponin T 120 Minute 43.87 ng/L (0-15) H 12/14/23 13:14 Delta Troponin T -1.13 ABS# (0-10) L 12/14/23 13:14 Troponin T Hi Sens 6Hr 43.01 ng/L (0-15) H 12/14/23 17:12 Troponin T Hi Sens 6Hr Delta -1.99 ng/L (0-12) L 12/14/23 17:12 C-Reactive Protein 5.6 mg/L (0.0-4.9) H 12/14/23 11:05 NT-Pro-B Natriuret Pep 2332 pg/mL (0-125) H 12/14/23 11:05 Total Protein 5.3 g/dL (6.6-8.7) L 12/20/23 04:44 Albumin 3.1 g/dL (3.5-5.2) L 12/20/23 04:44 Globulin 2.2 g/dL (1.3-4.6) 12/20/23 04:44 Triglycerides 81 mg/dL (0-150) 12/15/23 02:35 Cholesterol 119 mg/dL (0-200) 12/15/23 02:35 LDL Cholesterol, Calc 64 mg/dL (50-129) 12/15/23 02:35 HDL Cholesterol 39 mg/dL (60-100) L 12/15/23 02:35 LDL/HDL Ratio 1.64 RATIO (0.00-3.22) 12/15/23 02:35 Cholesterol/HDL Ratio 3.05 mg/dL (1.0-5.00) 12/15/23 02:35 TSH 3.53 uIU/mL (0.27-4.20) 12/14/23 11:05 Urine Color Cancelled 12/14/23 22:45 Urine Color Yellow (Yellow) 12/14/23 22:45 Urine Appearance Cancelled 12/14/23 22:45 Urine Appearance Clear (CLEAR) 12/14/23 22:45 Urine pH 6.5 (5-7) 12/14/23 22:45 Urine pH Cancelled 12/14/23 22:45 Ur Specific [place] 1.005 (1.005-1.030) 12/14/23 22:45 Ur Specific [place] Cancelled 12/14/23 22:45 Urine Protein Cancelled 12/14/23 22:45 Urine Protein Neg (Negative) 12/14/23 22:45 Urine Glucose (UA) Cancelled 12/14/23 22:45 Urine Glucose (UA) Norm (Normal) 12/14/23 22:45 Urine Ketones Cancelled 12/14/23 22:45 Urine Ketones Negative (Negative) 12/14/23 22:45 Urine Blood Cancelled 12/14/23 22:45 Urine Blood Neg (Negative) 12/14/23 22:45 Urine Nitrate Cancelled 12/14/23 22:45 Urine Nitrate Negative (Negative) 12/14/23 22:45 Urine Bilirubin Cancelled 12/14/23 22:45 Urine Bilirubin Neg (Negative) 12/14/23 22:45 Prot Sulfosalicylic Acd Cancelled 12/14/23 22:45 Urine Urobilinogen Cancelled 12/14/23 22:45 Urine Urobilinogen Neg mg/dL (Negative) 12/14/23 22:45 Ur Leukocyte Esterase Cancelled 12/14/23 22:45 Ur Leukocyte Esterase Negative (Negative) 12/14/23 22:45 Urine RBC Cancelled 12/14/23 22:45 Urine WBC Cancelled 12/14/23 22:45 Ur Squamous Epith Cells Cancelled 12/14/23 22:45 Ur Transition Epith Cell Cancelled 12/14/23 22:45 Ur Renal Epithelial Cell Cancelled 12/14/23 22:45 Calcium Oxalate Crystal Cancelled 12/14/23 22:45 Uric Acid Crystals Cancelled 12/14/23 22:45 Triple Phos Crystals Cancelled 12/14/23 22:45 Other Crystals Cancelled 12/14/23 22:45 Amorphous Sediment Cancelled 12/14/23 22:45 Urine Bacteria Cancelled 12/14/23 22:45 Hyaline Casts Cancelled 12/14/23 22:45 Fine Granular Casts Cancelled 12/14/23 22:45 Coarse Granular Casts Cancelled 12/14/23 22:45 RBC Casts Cancelled 12/14/23 22:45 Other Casts Cancelled 12/14/23 22:45 Urine Mucus Cancelled 12/14/23 22:45 Urine Trichomonas Cancelled 12/14/23 22:45 Urine Yeast Cancelled 12/14/23 22:45 Urine Sperm Cancelled 12/14/23 22:45 Ur Oval Fat Bodies Cancelled 12/14/23 22:45 Radiology Impressions Chest CTA 12/14/23 12:03 IMPRESSION: 1. There is a moderate amount of free intra-abdominal fluid. 2. Cardiomegaly with pulmonary vascular congestion. 3. Nonspecific bibasilar opacities, atelectasis, edema and/or pneumonia. 4. Small to moderate right and small left pleural effusions. 5. No pulmonary artery embolism identified. 6. Mild coronary arterial calcification, indicating the presence of coronary artery disease. If the patient has associated symptoms recommend management as per chest pain guidelines. If the patient is asymptomatic consider reviewing modifiable cardiovascular risk factors and managing as per guidelines for primary prevention. Chest X-Ray 12/15/23 01:28 IMPRESSION: Left internal jugular venous catheter with the distal tip in the region of the superior vena cava. Recent Clincial Data Last Vital Signs Temp 97.0 F L 12/21/23 09:54 Pulse 122 H 12/21/23 14:00 Resp 20 H 12/21/23 14:00 BP 97/73 12/21/23 14:00 Pulse Ox 98 12/21/23 14:00 O2 Del Method Nasal Cannula 12/21/23 09:27 O2 Flow Rate 3 12/21/23 09:27 Vital Signs Temp Pulse Resp BP Pulse Ox O2 Del Method O2 Flow Rate 12/21/23 14:00 122 H 20 H 97/73 98 12/21/23 13:30 122 H 21 H 99/81 98 12/21/23 13:00 123 H 21 H 106/87 98 12/21/23 13:00 20 H 12/21/23 12:30 124 H 19 H 106/87 98 12/21/23 12:00 124 H 20 H 106/87 98 12/21/23 11:30 117 H 19 H 97/67 12/21/23 11:00 122 H 20 H 97/67 96 12/21/23 10:30 122 H 20 H 107/78 96 12/21/23 10:00 122 H 20 H 107/78 97 12/21/23 09:54 97.0 F L 12/21/23 09:30 121 H 18 113/87 98 12/21/23 09:27 122 H 20 H 98 Nasal Cannula 3 12/21/23 09:00 120 H 16 113/87 94 07/02/24 08:30 119 H 19 H 97/61 95 12/21/23 08:00 101 H 19 H 85/69 95 12/21/23 07:30 92 19 H 85/69 95 12/21/23 07:00 100 18 78/63 90 12/21/23 06:30 99 16 78/63 90 12/21/23 06:00 97 17 104/67 94 Nasal Cannula 2 12/21/23 05:59 97 12/21/23 05:30 102 H 18 104/67 95 Nasal Cannula 2 12/21/23 05:00 94 16 104/67 95 Nasal Cannula 2 12/21/23 04:30 96 13 101/73 97 Nasal Cannula 2 Intake & Output/Weight 12/19/23 12/20/23 12/21/23 12/22/23 06:59 06:59 06:59 06:59 Intake Total 1674.562 / 3553.547 1010.313 / 1561.313 760 / 760 120 / 120 Output Total 3000 / 3000 3275 / 3275 4700 / 4700 Balance -1325.438 / -1325.438 -1713.687 / -1713.687 -3940 / -3940 120 / 120 Weight 114.26 kg 110.767 kg 109.27 kg Vitals Last Vital Signs Temp 97.0 F L 12/21/23 09:54 Pulse 122 H 12/21/23 14:00 Resp 20 H 12/21/23 14:00 BP 97/73 12/21/23 14:00 Pulse Ox 98 12/21/23 14:00 O2 Del Method Nasal Cannula 12/21/23 09:27 O2 Flow Rate 3 12/21/23 09:27 TS Medications Medications Acetaminophen (Acetaminophen 325 Mg Tablet) 650 mg PO Q6H PRN PRN Reason: Mild/Mod Pain Or Temp >/= 101 Last Admin: 12/18/23 12:32 Dose: 650 mg Albuterol/Ipratropium (Ipratropium-Albuterol 3 Ml Neb) 3 ml INHALATION Q6H PRN PRN Reason: SHORTNESS OF BREATH Last Admin: 12/17/23 08:12 Dose: 3 ml Amiodarone HCl (Amiodarone 200 Mg Tablet) 400 mg PO BID PRINCE Last Admin: 12/21/23 08:59 Dose: 400 mg Aspirin (Aspirin 81 Mg Ec Tablet) 81 mg PO DAILY PRINCE Last Admin: 12/21/23 08:59 Dose: 81 mg Bacitracin (Bacitracin Ointment Pkt) 1 each TOPICAL TID [facility]; Protocol Last Admin: 12/21/23 15:46 Dose: Not Given Benzonatate (Benzonatate 100 Mg Capsule) 200 mg PO TID PRN PRN Reason: COUGH Last Admin: 12/19/23 04:51 Dose: 200 mg Bisacodyl (Bisacodyl 5 Mg Tablet) 10 mg PO DAILY PRN; Protocol PRN Reason: Constipation (see protocol) Budesonide (Budesonide 0.5 Mg/2 Ml Neb) 0.5 mg INHALATION BID.RESPIRATORY PRINCE Last Admin: 12/21/23 09:29 Dose: Not Given Cetirizine HCl (Cetirizine 10 Mg Tablet) 10 mg PO DAILY [facility] Last Admin: 12/21/23 08:59 Dose: 10 mg Diazepam (Diazepam 2 Mg Tablet) 2 mg PO Q6H PRN PRN Reason: ANXIETY Last Admin: 12/17/23 16:25 Dose: 2 mg Docusate Sodium (Docusate Sodium 100 Mg Capsule) 100 mg PO BID PRINCE Last Admin: 12/21/23 08:59 Dose: 100 mg Enoxaparin Sodium (Enoxaparin 120 Mg/0.8 Ml Syringe) 110 mg SUBCUT Q12H [facility] Last Admin: 12/21/23 11:56 Dose: 110 mg Fluticasone Propionate (Fluticasone Nasal [place] 16gm Btl) 2 spray INTRANASAL DAILY [facility] Last Admin: 12/21/23 15:45 Dose: Not Given Furosemide (Furosemide 10 Mg/Ml Sdv 4ml) 40 mg IVP Q12H PRINCE Last Admin: 12/21/23 05:11 Dose: 40 mg Hydralazine HCl (Hydralazine 25 Mg Tablet) 25 mg PO TID [facility] Last Admin: 12/21/23 15:46 Dose: Not Given Norepinephrine Bitartrate (Levophed) 4 mg in 250 mls @ 0 mls/hr IV .Q0M [facility]; Protocol Last Titration: 12/19/23 17:48 Dose: Infused Epinephrine HCl 2.5 mg/ Sodium (Chloride) 252.5 mls @ 0 mls/hr IV .Q0M [facility]; Protocol Vasopressin (Vasostrict) 40 unit in 100 mls @ 0 mls/hr IV .Q0M PRINCE; Protocol Last Titration: 12/15/23 23:50 Dose: Infused Amiodarone HCl/Dextrose (Nexterone) 360 mg in 200 mls @ 0 mls/hr IV .Q0M PRINCE; Protocol Last Titration: 12/19/23 17:47 Dose: Infused Dobutamine HCl/Dextrose (Dobutamine Drip) 500 mg in 250 mls @ 0 mls/hr IV .Q0M PRINCE; Protocol Last Titration: 12/19/23 19:13 Dose: 0 mcg/kg/min, 0 mls/hr Mirtazapine (Mirtazapine 15 Mg Tablet) 15 mg PO BEDTIME [facility] Last Admin: 12/20/23 21:40 Dose: 15 mg Ondansetron HCl (Ondansetron 2 Mg/Ml Sdv 2 Ml) 4 mg IVP Q8H PRN PRN Reason: vomiting, or N/V if npo Oxycodone/Acetaminophen (Oxycodone-Apap 5-325 Mg Tablet) 1 tab PO Q8H PRN PRN Reason: pain Last Admin: 12/21/23 13:00 Dose: 1 tab Pantoprazole Sodium (Pantoprazole Dr 40 Mg Tablet) 40 mg PO BID@09,21 [facility] Last Admin: 12/21/23 08:58 Dose: 40 mg Sacubitril/Valsartan (Sacubitril/Valsartan 24-26 Mg Tablet) 1 each PO BID [facility] Last Admin: 12/21/23 09:00 Dose: 1 each Sodium Chloride (Saline Nasal [place] 44ml Btl) 1 spray NASAL PRN PRN PRN Reason: DRYNESS Last Admin: 12/18/23 15:25 Dose: 1 spray Spironolactone (Spironolactone 25 Mg Tablet) 25 mg PO DAILY [facility] Last Admin: 12/21/23 08:59 Dose: 25 mg Venlafaxine HCl (Venlafaxine Er (24hr) 150 Mg Capsule) 150 mg PO DAILY [facility] Last Admin: 12/21/23 08:59 Dose: 150 mg Discontinued Medications Albuterol Sulfate (Albuterol 2.5 Mg/3 Ml Neb) 2.5 mg INHALATION ONCE ONE Stop: 12/14/23 10:49 Last Admin: 12/14/23 11:17 Dose: 2.5 mg Calcium Carbonate (Calcium Carbonate 500 Mg Chew Tablet) 500 mg PO ONCE ONE Stop: 12/18/23 12:24 Last Admin: 12/18/23 12:28 Dose: 500 mg Calcium Carbonate (Calcium Carbonate 500 Mg Chew Tablet) 500 mg PO ONCE ONE Stop: 12/18/23 12:27 Last Admin: 12/18/23 13:09 Dose: Not Given Diazepam (Diazepam 5 Mg Tablet) 10 mg PO Q8H [facility] Last Admin: 12/14/23 18:08 Dose: 10 mg Digoxin (Digoxin 250 Mcg/Ml Inj 2 Ml) 250 mcg IVP NOW ONE Stop: 12/14/23 21:51 Last Admin: 12/14/23 22:16 Dose: 250 mcg Diltiazem HCl (Diltiazem 5 Mg/Ml Sdv 5 Ml) 10 mg IVP ONCE ONE Stop: 12/14/23 11:00 Last Admin: 12/14/23 11:04 Dose: 10 mg Diltiazem HCl (Diltiazem 5 Mg/Ml Sdv 5 Ml) 10 mg IVP ONCE ONE Stop: 12/14/23 13:33 Last Admin: 12/14/23 13:51 Dose: 10 mg Enoxaparin Sodium (Enoxaparin 40 Mg/0.4 Ml Syringe) 40 mg SUBCUT Q24H [facility] Last Admin: 12/14/23 17:41 Dose: Not Given Epinephrine HCl (Epinephrine 1 Mg/Ml Inj) Confirm Administered Dose 1 mg .ROUTE .STK-MED ONE Stop: 12/17/23 12:27 Last Admin: 12/17/23 12:30 Dose: 1 mg Epinephrine HCl (Epinephrine 0.1 Mg/Ml Syr 10 Ml) Confirm Administered Dose 1 mg .ROUTE .STK-MED ONE Stop: 12/17/23 12:27 Last Admin: 12/17/23 12:45 Dose: 1 mg Fentanyl (Fentanyl 50 Mcg/Ml Inj 2ml) Confirm Administered Dose 100 mcg .ROUTE .STK-MED ONE Stop: 12/14/23 20:31 Furosemide (Furosemide 10 Mg/Ml Sdv 4ml) 20 mg IVP ONCE ONE Stop: 12/14/23 13:34 Last Admin: 12/14/23 13:50 Dose: 20 mg Heparin Sodium (Porcine) (Heparin 5,000 Unit/Ml Inj 1 Ml) Confirm Administered Dose 10,000 unit .ROUTE .STK-MED ONE Stop: 12/14/23 20:31 Hydralazine HCl (Hydralazine 10 Mg Tablet) 10 mg PO ONCE ONE Stop: 12/18/23 09:54 Last Admin: 12/18/23 12:24 Dose: 10 mg Hydralazine HCl (Hydralazine 10 Mg Tablet) 10 mg PO TID [facility] Last Admin: 12/19/23 09:42 Dose: 10 mg Diltiazem HCl 100 mg/ Sodium (Chloride) 100 mls @ 0 mls/hr IV .Q0M [facility]; Protocol Last Titration: 12/14/23 18:50 Dose: Infused Norepinephrine Bitartrate (Levophed) Confirm Administered Dose 4 mg in 250 mls @ as directed .ROUTE .ST-MED ONE Stop: 12/14/23 18:57 Magnesium Sulfate (Magnesium Sulfate Premix) 2 gm in 50 mls @ 50 mls/hr IV ONCE ONE Stop: 12/14/23 20:35 Last Infusion: 12/14/23 21:53 Dose: Infused Lidocaine HCl (Xylocaine) Confirm Administered Dose 20 mls @ as directed .ROUTE .ST-MED ONE Stop: 12/14/23 20:31 Amiodarone HCl/Dextrose (Nexterone) 150 mg in 100 mls @ 400 mls/hr IV ONCE ONE Stop: 12/14/23 22:04 Last Infusion: 12/14/23 22:50 Dose: Infused Magnesium Sulfate (Magnesium Sulfate Premix) 2 gm in 50 mls @ 50 mls/hr IV ONCE ONE Stop: 12/16/23 22:00 Last Infusion: 12/16/23 22:37 Dose: Infused Iohexol (Iohexol 350 Mg/Ml 500 Ml Btl (Per Ml)) 0 ml IV ONCE ONE Stop: 12/14/23 12:47 Last Admin: 12/14/23 12:47 Dose: 100 ml Metoprolol Tartrate (Metoprolol Tartrate 1 Mg/1 Ml Sdv 5 Ml) 5 mg IVP ONCE ONE Stop: 12/14/23 17:20 Last Admin: 12/14/23 17:43 Dose: 5 mg Midazolam HCl (Midazolam 1 Mg/Ml Inj 2 Ml) Confirm Administered Dose 2 mg .ROUTE .STK-MED ONE Stop: 12/14/23 20:31 Nitroglycerin (Nitroglycerin 5 Mg/Ml Sdv 10 Ml) Confirm Administered Dose 50 mg .ROUTE .STK-MED ONE Stop: 12/14/23 20:31 Oxymetazoline HCl (Oxymetazoline 0.05% Nasal [place] 15 Ml) 2 spray NOSTRIL-B Q12H PRN PRN Reason: NASAL CONGESTION Last Admin: 12/19/23 20:17 Dose: 2 spray Pharmacy Consult (Pharmacy Consult For Chf) 0 each XX ONCE ONE Stop: 12/14/23 17:20 Phenylephrine HCl (Phenylephrine 10 Mg/Ml Sdv 1 Ml) Confirm Administered Dose 10 mg .ROUTE .STK-MED ONE Stop: 12/17/23 17:04 Potassium Chloride (Potassium Chloride Er 20 Meq Tablet) 20 meq PO Q12H PRINCE Last Admin: 12/18/23 04:54 Dose: Not Given Propofol (Propofol 10 Mg/Ml Sdv 20 Ml) Confirm Administered Dose 200 mg .ROUTE .STK-MED ONE Stop: 12/17/23 17:04 Temazepam (Temazepam 15 Mg Capsule) 30 mg PO BEDTIME PRINCE Trazodone HCl (Trazodone 150 Mg Tablet) 450 mg PO BEDTIME PRN PRN Reason: sleep Allergies citalopram [From Celexa] Allergy (Verified 10/13/23 14:02) rash quetiapine [From Seroquel] Allergy (Verified 10/13/23 14:02) Unknown Home Medications cetirizine 10 mg capsule (Zyrtec) 10 mg PO BID 08/01/19 [History Confirmed 12/14/23] fluticasone propionate 50 mcg/actuation nasal spray,suspension (Flonase Allergy Relief) 2 spray intranasal DAILY 12/25/19 [History Confirmed 12/14/23] pantoprazole 40 mg tablet,delayed release 40 mg PO BID #180 tabs 06/23/21 [Rx Confirmed 12/14/23] testosterone cypionate 200 mg/mL intramuscular oil (Depo-Testosterone) 400 mg (2 mL) IM .n2wgeun 30 days #10 mL 12/24/21 [Rx Confirmed 12/14/23] temazepam 30 mg capsule 30 mg PO DAILY #30 caps 03/23/22 [Rx Confirmed 12/14/23] albuterol sulfate 90 mcg/actuation aerosol inhaler (Ventolin HFA) 2 puff inhalation Q6H PRN shortness of breath or wheezing #18 grams 04/07/22 [Rx Confirmed 12/14/23] oxycodone-acetaminophen 5 mg-325 mg tablet (Percocet) 1 tab PO Q8H PRN pain 1 month #45 tabs 04/21/22 [Rx Confirmed 12/14/23] sildenafil 100 mg tablet (Viagra) 100 mg PO DAILY PRN sexual activity 04/23/22 [History Confirmed 12/14/23] diazepam 10 mg tablet (Valium) 10 mg PO QID PRN anxiety #120 tabs 10/13/23 [Rx Confirmed 12/14/23] fluticasone 500 mcg-salmeterol 50 mcg/dose blistr powdr for inhalation (Wixela Inhub) 1 inh inhalation BID 12/14/23 [History Confirmed 12/14/23] mirtazapine 15 mg tablet (Remeron) 15 mg PO BEDTIME 12/14/23 [History Confirmed 12/14/23] ramelteon 8 mg tablet 8 mg PO BEDTIME 12/14/23 [History Confirmed 12/14/23] trazodone 150 mg tablet 450 mg PO BEDTIME PRN sleep 12/14/23 [History Confirmed 12/14/23] venlafaxine 150 mg capsule,extended release 24 hr 150 mg PO DAILY 12/14/23 [History Confirmed 12/14/23] Discharge Plan Discharge Patient Disposition: Xfer Short-Term Hosp Condition: Stable Prescriptions: No Action fluticasone propionate [Flonase Allergy Relief] 50 mcg/actuation spray,suspension 2 spray INTRANASAL DAILY Rx Instructions: administer into each nostril Zyrtec 10 mg capsule 10 mg PO BID diazepam [Valium] 10 mg tablet 10 mg PO QID PRN (Reason: anxiety) Qty: 120 2RF Rx Instructions: must last 30 days pantoprazole 40 mg tablet,delayed release (DR/EC) 40 mg PO BID Qty: 180 3RF testosterone cypionate [Depo-Testosterone] 200 mg/mL oil 400 mg IM .n2wjenw 30 Days Qty: 10 5RF Rx Instructions: 2 mls every 2 weeks temazepam 30 mg capsule 30 mg PO DAILY Qty: 30 1RF albuterol sulfate [Ventolin HFA] 90 mcg/actuation HFA aerosol inhaler 2 puff INHALATION Q6H PRN (Reason: shortness of breath or wheezing) Qty: 18 2RF oxycodone-acetaminophen [Percocet] 5-325 mg tablet 1 tab PO Q8H PRN (Reason: pain) 30 Days Qty: 45 0RF sildenafil [Viagra] 100 mg tablet 100 mg PO DAILY PRN (Reason: sexual activity) Rx Instructions: administer 30 minutes to 4 hours before activity Wixela Inhub 500-50 mcg/dose blister with device 1 inh INHALATION BID Remeron 15 mg tablet 15 mg PO BEDTIME ramelteon 8 mg tablet 8 mg PO BEDTIME venlafaxine 150 mg capsule,extended release 24hr 150 mg PO DAILY trazodone 150 mg tablet 450 mg PO BEDTIME PRN (Reason: sleep) Referrals: Spike Wise MD [Primary Care Provider] - Patient Instructions: Opioid Safety Transfer Attestations Time Spent in Transfer Care: greater than 30 min Quality Metrics Clinical Quality Measures [ No reported AMI, CVA or VTE this stay] Coding Level of Care Code 16980 Total time (in minutes) for Discharge: 50 Diagnoses Acute on chronic systolic congestive heart failure I50.23 Heart failure chronicity: acute on chronic Heart failure type: systolic Cardiomyopathy, unspecified type I42.9 Cardiomyopathy type: unspecified Other specified hypotension I95.89 Hypotension type: other hypotension type Atrial fibrillation with rapid ventricular response I48.91 COPD exacerbation J44.1 Hypoxemia R09.02 Acute kidney injury N17.9
[2023-12-21] MEDS: acetaminophen 325 mg Tablet 650 MG PO (17:29)
--- NOTE | 2023-12-21 18:14 | PC.NURSE ---
Report called to In[facility]
--- NOTE | 2023-12-21 18:48 | PC.NURSE ---
Dr. Claudio gave verbal order that [facility] EMS truck was appropriate for patient transfer. Pt had all belongings at time of transfer.
== END 2023-12-21 18:40 | disposition short-term general hospital (02) | DRG 286 ==
LOC: ER 13:38 → ICU 13:49
PROVIDERS: Internal Medicine Cardiovascular Disease; Admitting Provider Hospitalist; Emergency Provider Emergency Medicine; PCP Internal Medicine; Visit Provider Internal Medicine
PROC: B2111ZZ Fluoroscopy of Multiple Coronary Arteries using Low Osmolar Contrast (ICD-10-PCS; principal; 2023-12-14 20:50)
DX: I48.91 Unspecified atrial fibrillation (principal); I50.23 Acute on chronic systolic (congestive) heart failure; R57.0 Cardiogenic shock; J44.1 Chronic obstructive pulmonary disease with (acute) exacerbation; F33.9 Major depressive disorder, recurrent, unspecified; N17.9 Acute kidney failure, unspecified; E87.20 Acidosis, unspecified; N18.2 Chronic kidney disease, stage 2 (mild); Z87.891 Personal history of nicotine dependence; N52.9 Male erectile dysfunction, unspecified; G47.00 Insomnia, unspecified; F91.3 Oppositional defiant disorder; G89.29 Other chronic pain; M54.9 Dorsalgia, unspecified; F41.1 Generalized anxiety disorder; D75.1 Secondary polycythemia; E83.42 Hypomagnesemia; K21.9 Gastro-esophageal reflux disease without esophagitis; I95.9 Hypotension, unspecified; I48.92 Unspecified atrial flutter; I42.8 Other cardiomyopathies
CPT/HCPCS: 36415; 36592; 36600; 51702; 71045; 71275; 80048; 80051; 80053; 80061; 81003; 82330; 82805; 83605; 83735; 83880; 84100; 84443; 84484; 85025; 85378; 86140; 87040; 93005; 93306; 93454; 93922; 94640; 96365; 96372; 96374; 96375; 96376; 99285; A4222; C1769; C1887; C1894; J0171; J0283; J1160; J1250; J1644; J1650; J1940; J2250; J2371; J2598; J2704; J3010; J3475; J3490; J7613; J7626; Q9967

== ENCOUNTER → 2024-01-17 14:29 | Outpatient (BNVA) | payer MEDICARE, SELFPAY | PROVIDERS: PCP Internal Medicine; Visit Provider Internal Medicine Cardiovascular Disease | DX: R07.9 Chest pain, unspecified (principal); I50.23 Acute on chronic systolic (congestive) heart failure; I48.91 Unspecified atrial fibrillation; I48.92 Unspecified atrial flutter; D69.6 Thrombocytopenia, unspecified; I95.89 Other hypotension; Z87.891 Personal history of nicotine dependence; I44.0 Atrioventricular block, first degree; R94.31 Abnormal electrocardiogram [ECG] [EKG] | CPT/HCPCS: 36415; 80048; 83880; 93005; 99214 ==